=== PATIENT | female | born 1965 | race African-American/Black ===

== ENCOUNTER 2019-03-31 15:20 | Emergency (ER) | payer OTHER, SELFPAY ==
--- NOTE | 2019-03-31 15:59 | RAD ---
THREE VIEWS RIGHT HAND: 03/31/19 HISTORY: Bitten by a stray dog. FINDINGS: Bandage material is noted. There are comminuted fracture with slight displacement involving the proxi mal phalanx of the first digit. There is also a fracture involving the proximal phalanx of the fourth digit. Subcu air due to laceration is noted. No radiopaque foreign body. IMPRESSION: 1. Soft tissue laceration injury. 2. Fractures involving the first and fourth digit of the right hand, at the level of the proxima l phalanx. POS: [facility]
[2019-03-31] MEDS ORDERED: HYDROcodone/Acetaminophen 7.5/325 mg Tablet ONE (16:49)
[2019-03-31] MEDS ORDERED: Adacel (T-DAP) 0.5 ML SYRINGE ONE (17:11)
[2019-03-31] MEDS ORDERED: CEFAZOLIN 1 GM VIAL ONE (17:43)
[2019-03-31] MEDS ORDERED: metroNIDAZOLE 500 MG/100 ML BAG ONE (17:43)
[2019-03-31] MEDS ORDERED: Lidocaine 1% (PF) 30 ML VIAL ONE (17:45)
[2019-03-31 17:56] LABS: #Eosinphils 0.2 thou/uL (0.0-0.7); #Lymphocytes 1.1 thou/uL (1.20-3.40); #Monocytes 0.5 thou/uL (0.11-0.59); #Neutrophils 1.7 thou/uL (1.40-6.50); %Basophils 1.4 % (0.0-1.0); %Eosinophils 6.4 % (0.0-10.0); %Lymphocytes 30.4 % (21.0-51.0); %Monocytes 14.8 % (0.0-10.0); Hemoglobin 12.3 g/dL (12.0-16.0); Mean Corpuscular HGB CONC 33.5 g/dL (32.0-36.0); Mean Corpuscular Volume 95.6 fL (78.0-98.0); Mean Platelet Volume 10.3 fL (7.4-10.4); Platelet Count 110 thou/uL (130-400); RBC Distribution Width 13.1 % (11.5-14.5); Red Blood Cell (RBC) Count 3.85 mill/uL (4.20-5.40); White Blood Cell (WBC) Count 3.6 thou/uL (4.8-10.8)
[2019-03-31 18:05] LABS: Platelet Morphology Comment Appears Decreased; RBC Morphology Normal
[2019-03-31 18:14] LABS: ALT (SGPT) 39 U/L (8-55); AST (SGOT) 67 U/L (5-34); Albumin 3.3 g/dL (3.5-5.0); Alkaline Phosphatase 271 U/L (40-150); Anion Gap 13 mmol/L (10-20); BUN (Urea Nitrogen) 17 mg/dL (9.8-20.1); Bilirubin, Total 0.7 mg/dL (0.2-1.2); Calc. Creatinine Clearance 0 mL/min (70-130); Calcium 8.5 mg/dL (7.8-10.44); Carbon Dioxide 23 mmol/L (22-29); Chloride 105 mmol/L (98-107); Estimated GFR-MDRD 70; Globulin 4.5 g/dL (2.4-3.5); Glucose 92 mg/dL (70-105); Potassium 3.9 mmol/L (3.5-5.1); Protein, Total 7.8 g/dL (6.0-8.3); Sodium 137 mmol/L (136-145)
[2019-03-31] MEDS ORDERED: Rabies Vaccine Human 2.5 UNITS VIAL IM ONE (18:45)
[2019-03-31] MEDS ORDERED: Ondansetron PF 4 MG/2 ML Vial ONE (19:43)
[2019-03-31] MEDS ORDERED: Morphine 4 MG/ML VIAL ONE (19:43)
== END 2019-03-31 21:40 | disposition home or self-care (01) ==
LOC: ERS 15:20
DX: S62.511B Displaced fracture of proximal phalanx of right thumb, initial encounter for open fracture (principal); S62.614B Displaced fracture of proximal phalanx of right ring finger, initial encounter for open fracture; S61.411A Laceration without foreign body of right hand, initial encounter; I10 Essential (primary) hypertension; W54.0XXA Bitten by dog, initial encounter; Z79.02 Long term (current) use of antithrombotics/antiplatelets; Z79.899 Other long term (current) drug therapy
CPT/HCPCS: 12002; 29125; 36415; 80053; 85025; 90376; 90471; 90675; 90715; 96365; 96367; 96372; 96375; J0690; J2001; J2270; J2405

== ENCOUNTER 2019-04-01 21:02 | Emergency (ER) | payer SELFPAY ==
[2019-04-02 00:19] LABS: Mean Corpuscular HGB CONC 32.6 g/dL (32.0-36.0); Mean Corpuscular Hemoglobin 31.7 pg (27.0-31.0); Mean Corpuscular Volume 97.1 fL (78.0-98.0); Mean Platelet Volume 10.5 fL (7.4-10.4); Platelet Count 103 thou/uL (130-400); RBC Distribution Width 13.1 % (11.5-14.5); Red Blood Cell (RBC) Count 3.78 mill/uL (4.20-5.40); White Blood Cell (WBC) Count 4.2 thou/uL (4.8-10.8)
[2019-04-02 00:32] LABS: Band 1 % (5-11); Eosinophils 8 % (0-10); Lymphocytes 37 % (21-51); MDiff Complete? YES; Monocytes 11 % (0-10); Neutrophil 43 % (42-75); Platelet Morphology Comment Appears Decreased
[2019-04-02 00:35] LABS: ALT (SGPT) 33 U/L (8-55); AST (SGOT) 49 U/L (5-34); Albumin 3.1 g/dL (3.5-5.0); Alkaline Phosphatase 259 U/L (40-150); Anion Gap 11 mmol/L (10-20); BUN (Urea Nitrogen) 19 mg/dL (9.8-20.1); Bilirubin, Total 0.6 mg/dL (0.2-1.2); Calc. Creatinine Clearance 0 mL/min (70-130); Calcium 8.2 mg/dL (7.8-10.44); Carbon Dioxide 24 mmol/L (22-29); Chloride 105 mmol/L (98-107); Estimated GFR-MDRD 51; Globulin 4.6 g/dL (2.4-3.5); Glucose 110 mg/dL (70-105); Protein, Total 7.7 g/dL (6.0-8.3); Sodium 136 mmol/L (136-145)
[2019-04-02] MEDS ORDERED: Morphine 4 MG/ML VIAL ONE ×2 (00:58→03:37)
[2019-04-02] MEDS ORDERED: metroNIDAZOLE 500 MG/100 ML BAG ONE (00:59)
[2019-04-02] MEDS ORDERED: CEFAZOLIN 1 GM VIAL ONE (00:59)
== END 2019-04-02 03:42 | disposition short-term general hospital (02) ==
LOC: ERS 21:02
DX: S62.501B Fracture of unspecified phalanx of right thumb, initial encounter for open fracture (principal); S62.604B Fracture of unspecified phalanx of right ring finger, initial encounter for open fracture; L03.113 Cellulitis of right upper limb; I10 Essential (primary) hypertension; Z79.899 Other long term (current) drug therapy; W54.0XXA Bitten by dog, initial encounter
CPT/HCPCS: 36415; 80053; 83605; 85025; 87040; 96365; 96367; 96375; 96376; J0690; J2270

== ENCOUNTER 2019-07-13 12:18 | Observation (INO) | payer MEDICAID ==
[2019-07-13 12:49] LABS: #Eosinphils 0.4 thou/uL (0.0-0.7); #Lymphocytes 1.1 thou/uL (1.20-3.40); #Monocytes 0.4 thou/uL (0.11-0.59); #Neutrophils 1.1 thou/uL (1.40-6.50); %Basophils 0.8 % (0.0-1.0); %Eosinophils 14.9 % (0.0-10.0); %Lymphocytes 34.8 % (21.0-51.0); %Monocytes 14.1 % (0.0-10.0); %Neutrophils 35.4 % (42.0-75.0); Hemoglobin 11.4 g/dL (12.0-16.0); Mean Corpuscular HGB CONC 33.5 g/dL (32.0-36.0); Mean Corpuscular Hemoglobin 30.4 pg (27.0-31.0); Mean Corpuscular Volume 90.8 fL (78.0-98.0); Mean Platelet Volume 10.1 fL (7.4-10.4); Platelet Count 108 thou/uL (130-400); Red Blood Cell (RBC) Count 3.75 mill/uL (4.20-5.40)
[2019-07-13] MEDS ORDERED: Aspirin 325 MG TAB ONE (13:00)
[2019-07-13 13:10] LABS: ALT (SGPT) 22 U/L (8-55); AST (SGOT) 41 U/L (5-34); Albumin 2.7 g/dL (3.5-5.0); Alkaline Phosphatase 205 U/L (40-110); Anion Gap 10 mmol/L (10-20); BUN (Urea Nitrogen) 16 mg/dL (9.8-20.1); Bilirubin, Total 0.4 mg/dL (0.2-1.2); Calc. Creatinine Clearance 0 mL/min (70-130); Calcium 8.1 mg/dL (7.8-10.44); Carbon Dioxide 26 mmol/L (22-29); Chloride 106 mmol/L (98-107); Estimated GFR-MDRD 56; Globulin 4.2 g/dL (2.4-3.5); Glucose 68 mg/dL (70-105); Potassium 3.9 mmol/L (3.5-5.1); Protein, Total 6.9 g/dL (6.0-8.3); Sodium 138 mmol/L (136-145)
--- NOTE | 2019-07-13 13:42 | ULT ---
VENOUS DOPPLER ULTRASOUND OF THE LEFT LOWER EXTREMITY: Date: 07/13/19 HISTORY: Left lower extremity pain and edema. TECHNIQUE: Calixto scale ultrasound with color flow and spectral Doppler imaging of the deep venous system of the l eft lower extremity was performed. FINDINGS: There is good flow, compression, and augmentation noted in the left common femoral, femoral, deep fem oral, popliteal, posterior tibial, and greater saphenous veins. IMPRESSION: No evidence of deep venous thrombosis in the left lower extremity. POS: [facility]
[2019-07-13 17:15] LABS: Troponin I 0.016 ng/mL (< 0.028)
[2019-07-13] MEDS ORDERED: Ondansetron PF 4 MG/2 ML Vial IVP PRN (19:21)
[2019-07-13] MEDS ORDERED: Ondansetron ODT 4 MG TAB PO PRN (19:21)
[2019-07-13] MEDS ORDERED: Acetaminophen 325 MG TAB PO PRN (19:21)
[2019-07-13] MEDS ORDERED: Nitroglycerin 0.4 MG TAB (25 Tab Bottle) PO PRN (19:21)
[2019-07-13] MEDS ORDERED: guaiFENesin/Codeine Phosphate 200 mg/20 mg 10 ml UD Cup PO PRN (19:21)
[2019-07-13] MEDS ORDERED: HYDROcodone/Acetaminophen 5/325 mg Tablet PO PRN (19:21)
[2019-07-13] MEDS ORDERED: predniSONE 20 MG TAB PO SCH (19:30)
[2019-07-13] MEDS ORDERED: Carvedilol 25 MG TAB PO SCH (20:15)
[2019-07-13 20:25] LABS: Troponin I 0.017 ng/mL (< 0.028)
[2019-07-13] MEDS: Famotidine 20 MG TAB PO SCH (20:33)
[2019-07-13 21:09] VITALS: BMI 37.6
--- NOTE | 2019-07-13 22:44 | HP ---
CHIEF COMPLAINT: Shortness of breath and chest hurting. HISTORY OF PRESENT ILLNESS: Ms. Contreras is a pleasant 53-year-old female, who has a history of hypertension, coronary artery disease, and COPD. She says that [place] the bus [place] when she started feeling extremely lightheaded and says she was flat, could not breathe. She also says that her chest started hurting in the center of her chest. She says she felt very nervous and thought she might pass out. Someone was actually coming along at that time and helped her to the hospital. She says she was on her way to the [facility] in order to try to get her nebulizer, which she has not had since she has been incarcerated. She came to the emergency room where they did an evaluation. She had troponins done, which were essentially negative and had an EKG, which had some nonspecific ST wave changes and as a result, she is being placed in observation for further evaluation and treatment. The patient also has a history of COPD and asthma and says she has been having a lot of coughing as well as phlegm and says she was wondering, if some of her symptoms could be related to her coughing fits and the fact that she had been out of her nebulizer. REVIEW OF SYSTEMS: All systems were reviewed and are negative except for that mentioned in the history of present illness. PAST MEDICAL HISTORY: Significant for COPD, congestive heart failure, asthma, hypertension, hypercholesterolemia, and liver cancer which she says is being cured. PAST SURGICAL HISTORY: She had a stent placed back in June, cardiac catheterization, hernia repair, cholecystectomy. ALLERGIES: IBUPROFEN AND SHE IS NOT SURE OF THE REACTION. FAMILY HISTORY: Significant for diabetes, cancer and heart disease. SOCIAL HISTORY: She is single. She has 4 children. She is a former smoker. She quit in 2002. She used to smoke for about 15 years. She also occasionally drinks about a bottle of wine on the weekends. CURRENT MEDICATIONS: We will need to reconcile her medicines, these are from 2012. She tells me she is no longer on metoprolol. PHYSICAL EXAMINATION: GENERAL: She is alert and oriented. She appears to be in no acute distress. VITAL SIGNS: Her blood pressure was 178/98, heart rate 68, respiratory rate of 16, temperature is 97.9, and O2 saturation is 95% on room air. HEENT: Pupils are equal, round, and reactive to light. Extraocular muscles are intact. Her sclerae anicteric. THROAT: There is no erythema, no exudates. NECK: No adenopathy, no bruits. LUNGS: She has decrease in air movement and an occasional wheeze. CARDIOVASCULAR: She has a normal S1 and S2. There is no S3 or S4. No murmurs, clicks, or rubs. ABDOMEN: Obese. It is soft, nontender, and nondistended. Positive for bowel sounds. There is no rebound, no guarding, no organomegaly. EXTREMITIES: There is no clubbing, cyanosis. No edema. NEUROLOGIC: Nonfocal. SKIN AND INTEGUMENT: There are no skin changes. No rash. ASSESSMENT: 1. Chest pain. The patient will be placed on observation. She will be ruled out and we will get an exercise Cardiolite in the a.m. to help further assess her risks for coronary artery disease. 2. History of asthma and chronic obstructive pulmonary disease. This could be the culprit with regard to the chest pain. She will be placed on DuoNeb treatments p.r.n. and scheduled treatments q.6. 3. History of heart failure. We will get an echocardiogram as she says she has not had a recent echo to assess her ejection fraction and further recommendations are to follow. Job ID: [id number]
[2019-07-13] MEDS: Nitroglycerin 2% Ointment 1 INCH/1 GM Packet TOP SCH (23:12)
[2019-07-14 04:36] VITALS: TEMP 97.8
[2019-07-14 05:20] LABS: Anion Gap 11 mmol/L (10-20); BUN (Urea Nitrogen) 21 mg/dL (9.8-20.1); Calc. Creatinine Clearance 93 mL/min (70-130); Calcium 8.2 mg/dL (7.8-10.44); Carbon Dioxide 23 mmol/L (22-29); Chloride 103 mmol/L (98-107); Cholesterol 230 mg/dl (< 200 Desired); Estimated GFR-MDRD 62; Glucose 135 mg/dL (70-105); HDL Cholesterol 57 mg/dL (>60 Neg Risk); LDL Cholesterol, Calculated 159 mg/dL; Potassium 4.9 mmol/L (3.5-5.1); Sodium 132 mmol/L (136-145); Triglycerides 68 mg/dL (Less than 150)
[2019-07-14 05:43] LABS: #Lymphocytes 0.5 thou/uL (1.20-3.40); #Monocytes 0.1 thou/uL (0.11-0.59); #Neutrophils 0.8 thou/uL (1.40-6.50); %Basophils 0.4 % (0.0-1.0); %Eosinophils 1.6 % (0.0-10.0); %Lymphocytes 33.5 % (21.0-51.0); %Monocytes 6.8 % (0.0-10.0); %Neutrophils 57.7 % (42.0-75.0); Hemoglobin 12.7 g/dL (12.0-16.0); Mean Corpuscular HGB CONC 33.5 g/dL (32.0-36.0); Mean Corpuscular Hemoglobin 30.9 pg (27.0-31.0); Mean Corpuscular Volume 92.1 fL (78.0-98.0); Mean Platelet Volume 10.4 fL (7.4-10.4); Platelet Count 110 thou/uL (130-400); Platelet Morphology Comment Appears Decreased; Red Blood Cell (RBC) Count 4.12 mill/uL (4.20-5.40); White Blood Cell (WBC) Count 1.4 thou/uL (4.8-10.8)
[2019-07-14] MEDS: Nitroglycerin 2% Ointment 1 INCH/1 GM Packet TOP SCH (05:58)
[2019-07-14] MEDS ORDERED: Carvedilol 25 MG TAB PO SCH ×2 (08:00→17:00)
[2019-07-14] MEDS ORDERED: Clopidogrel Bisulfate 75 MG TAB PO SCH (09:00)
[2019-07-14] MEDS ORDERED: predniSONE 20 MG TAB PO SCH (09:00)
[2019-07-14] MEDS ORDERED: Enoxaparin Sodium 40 MG/0.4 ML SYRINGE SC SCH (09:00)
[2019-07-14] MEDS ORDERED: Spironolactone 100 MG TAB PO SCH (10:45)
[2019-07-14] MEDS: Famotidine 20 MG TAB PO SCH (11:41)
--- NOTE | 2019-07-14 11:50 | NM ---
NM Cardiac Stress W EF WF History: Chest pain Comparison: Stress test 2012 Findings: Stress only exam was performed after the intravenous administration of 29.3 mCi technetium 99m sestamibi. Adequate left ventricular uptake of radiotracer. No evidence of scar or ischemia. The EKG stress was normal. Calculated ejection fraction: 70%. Impression: Normal nuclear medicine cardiac stress test and ejection fraction.
[2019-07-14 13:01] VITALS: BP 168/94
[2019-07-14] MEDS ORDERED: Regadenoson 0.4 MG/5 ML SYRINGE ONE (14:35)
--- NOTE | 2019-07-14 15:57 | DIS ---
DATE OF ADMISSION: 07/13/2019 DATE OF DISCHARGE: 07/14/2019 DISCHARGE DISPOSITION: Home. FOLLOWUP: Follow up with primary care physician at [facility] (Debbie More) in 1 week. The patient was seen and examined on the day of discharge. Denies any new complaints. No chest pain, shortness of breath, or palpitations. DISCHARGE MEDICATIONS: The patient was started on low-dose prednisone for the next 3 to 4 days. She will continue all other home medications including Plavix. BRIEF HOSPITAL COURSE: The patient is a 53-year-old female with hypertension, hyperlipidemia, and asthma, presented to the emergency room with chest discomfort and shortness of breath. She was monitored in the telemetry unit. Serial troponins were negative. She underwent a Cardiolite stress test that was negative for reversible ischemia. Ejection fraction was 70%. There were no wall motion abnormalities. She is chest pain free at this time. FINAL DIAGNOSES: 1. Chest discomfort, acute coronary syndrome ruled out. 2. SOB, suspected to be secondary to mild asthma exacerbation, improved. 3. Chronic obstructive pulmonary disease. 4. Hypertension. 5. Hyperlipidemia. 6. History of liver cancer. 7. Coronary artery disease, status post stent placement in the past. 8. Chronic kidney disease, stage 2. 9. Mild hyponatremia. Repeat basic metabolic profile after 1 week is recommended. 10. Chronic thrombocytopenia. SIGNIFICANT LABORATORY DATA: Fasting lipid showed cholesterol 230, LDL 159, HDL of 57, triglycerides 68. Sodium at discharge is 132, on admission was 138. WBC on admission was 3.0, at discharge is 1.4. Please note, the patient has chronic leukopenia. Repeat CBC and basic metabolic profile after 1 to 2 weeks is recommended, primary care physician advised to follow. Job ID: [id number] MTDD
[2019-07-15] MEDS ORDERED: Spironolactone 100 MG TAB PO SCH (09:00)
== END 2019-07-14 13:50 | disposition home or self-care (01) ==
LOC: ERS 12:18 → 2SW 16:30
PROVIDERS: ADMIT Internal Medicine; ATTEND Internal Medicine
DX: R07.89 Other chest pain (principal); J44.9 Chronic obstructive pulmonary disease, unspecified; I13.0 Hypertensive heart and chronic kidney disease with heart failure and stage 1 through stage 4 chronic kidney disease, or unspecified chronic kidney disease; N18.2 Chronic kidney disease, stage 2 (mild); I50.9 Heart failure, unspecified; I25.10 Atherosclerotic heart disease of native coronary artery without angina pectoris; D69.6 Thrombocytopenia, unspecified; E78.00 Pure hypercholesterolemia, unspecified; E78.5 Hyperlipidemia, unspecified; E87.1 Hypo-osmolality and hyponatremia; Z87.891 Personal history of nicotine dependence; Z88.8 Allergy status to other drugs, medicaments and biological substances; Z95.5 Presence of coronary angioplasty implant and graft
CPT/HCPCS: 36415; 78452; 80048; 80053; 80061; 83880; 84484; 85025; 93005; 93017; 93306; 94640; A9500; G0378; J2785; J7512; J7620

== ENCOUNTER 2019-07-19 11:13 | Emergency (ER) | payer MEDICAID, OTHER ==
--- NOTE | 2019-07-19 12:33 | RAD ---
LEFT HAND 3 VIEWS: HISTORY: Injury, left hand pain FINDINGS: There is incompletely displaced fracture involving the proximal metaphysis of the proximal phalanx of the left ring finger/fourth digit.
--- NOTE | 2019-07-19 12:35 | RAD ---
Right hand 3 views: HISTORY: Injury, right hand pain COMPARISON: 03/23/2019 FINDINGS: Interval reduction and internal fixation of the fracture of the proximal phalanx of the fourth digit is seen within metallic hardware in place. There is a oblique fracture without significant displacement involving the distal phalanx of the se[place] nd digit/index finger.
== END 2019-07-19 13:37 | disposition home or self-care (01) ==
LOC: ERS 11:13
DX: S62.630A Displaced fracture of distal phalanx of right index finger, initial encounter for closed fracture (principal); S62.615A Displaced fracture of proximal phalanx of left ring finger, initial encounter for closed fracture; S61.214A Laceration without foreign body of right ring finger without damage to nail, initial encounter; I10 Essential (primary) hypertension; I25.10 Atherosclerotic heart disease of native coronary artery without angina pectoris; Z79.899 Other long term (current) drug therapy; W20.8XXA Other cause of strike by thrown, projected or falling object, initial encounter

== ENCOUNTER 2019-10-27 15:46 | Emergency (ER) | payer MEDICAID | END 2019-10-27 18:43 | disposition left against medical advice (07) | LOC: ERS 15:46 | DX: Z53.21 Procedure and treatment not carried out due to patient leaving prior to being seen by health care provider (principal) ==

== ENCOUNTER 2019-11-09 08:41 | Outpatient (CLI) | payer OTHER ==
--- NOTE | 2019-11-09 11:07 | ULT ---
DAVISON SCALE AND COLOR FLOW AND SPECTRAL DOPPLER IMAGING OF THE LIVER: Date: 11/09/2019 HISTORY: Hepatitis C. FINDINGS: The liver demonstrates irregular surface without focal mass or intrahepatic ductal dilatation. The sp tremayne is normal in size, measuring 8.5 cm, with tiny echogenic foci consistent with old granulomatous disease. The patient is post cholecystectomy. The common duct measures 5 mm in diameter. The visualiz ed portions of the pancreas, aorta, and IVC are unremarkable. There is normal flow and spectral waveforms in the hepatic, portal, and splenic vasculature. No free fluid is seen. IMPRESSION: Cirrhosis of liver without evidence of hepatic mass. POS: [facility]
== END 2019-11-09 08:42 | disposition home or self-care (01) ==
LOC: BICULT 08:41
PROVIDERS: ATTEND Internal Medicine Gastroenterology
DX: R13.10 Dysphagia, unspecified (principal); Z12.11 Encounter for screening for malignant neoplasm of colon; K74.60 Unspecified cirrhosis of liver; Z86.19 Personal history of other infectious and parasitic diseases
CPT/HCPCS: 76705

== ENCOUNTER 2019-12-14 10:11 | Emergency (ER) | payer MEDICAID, OTHER ==
--- NOTE | 2019-12-14 10:37 | RAD ---
XR Chest 1 View Portable HISTORY: Chest pain, dyspnea COMPARISON: 08/02/2019 FINDINGS: The heart is enlarged. The aorta is tortuous. The lungs are expanded without lobar consolid ation, pneumothoraces, ariadne pulmonary edema or pleural effusions. IMPRESSION: No radiographic evidence of acute cardiopulmonary process.
[2019-12-14 11:06] LABS: #Basophils 0.1 thou/uL (0.0-0.2); #Eosinphils 0.4 thou/uL (0.0-0.7); #Lymphocytes 1.2 thou/uL (1.20-3.40); #Monocytes 0.7 thou/uL (0.11-0.59); #Neutrophils 2.8 thou/uL (1.40-6.50); %Basophils 1.2 % (0.0-1.0); %Eosinophils 7.6 % (0.0-10.0); %Lymphocytes 22.7 % (21.0-51.0); %Monocytes 14.1 % (0.0-10.0); %Neutrophils 54.4 % (42.0-75.0); Hemoglobin 13.8 g/dL (12.0-16.0); Mean Corpuscular Hemoglobin 31.8 pg (27.0-31.0); Mean Corpuscular Volume 93.7 fL (78.0-98.0); Mean Platelet Volume 10.9 fL (7.4-10.4); Platelet Count 124 thou/uL (130-400); RBC Distribution Width 13.4 % (11.5-14.5); Red Blood Cell (RBC) Count 4.35 mill/uL (4.20-5.40); White Blood Cell (WBC) Count 5.1 thou/uL (4.8-10.8)
[2019-12-14] MEDS ORDERED: methylPREDNISolone Sod Succ/PF 125 MG/2 ML VIAL ONE (11:33)
[2019-12-14 11:36] LABS: ALT (SGPT) 23 U/L (8-55); AST (SGOT) 41 U/L (5-34); Albumin 3.1 g/dL (3.5-5.0); Alkaline Phosphatase 248 U/L (40-110); Anion Gap 11 mmol/L (10-20); BUN (Urea Nitrogen) 22 mg/dL (9.8-20.1); Bilirubin, Total 0.6 mg/dL (0.2-1.2); Calc. Creatinine Clearance 0 mL/min (70-130); Calcium 8.8 mg/dL (7.8-10.44); Carbon Dioxide 25 mmol/L (22-29); Chloride 105 mmol/L (98-107); Estimated GFR-MDRD 50; Glucose 88 mg/dL (70-105); Lipase 81 U/L (8-78); Potassium 3.7 mmol/L (3.5-5.1); Protein, Total 8.1 g/dL (6.0-8.3); Sodium 137 mmol/L (136-145)
[2019-12-14] MEDS ORDERED: Acetaminophen/Codeine 30-300mg Tablet ONE (12:51)
[2019-12-14] MEDS ORDERED: cloNIDine 0.1 MG TAB ONE (12:52)
--- NOTE | 2019-12-16 14:33 | EKG ---
Test Reason : Blood Pressure : / mmHG Vent. Rate : 070 BPM Atrial Rate : 070 BPM P-R Int : 148 ms QRS Dur : 084 ms QT Int : 440 ms P-R-T Axes : 026 -32 032 degrees QTc Int : 475 ms Normal sinus rhythm Possible Left atrial enlargement Left axis deviation Left ventricular hypertrophy Cannot rule out Septal infarct , age undetermined Abnormal ECG Confirmed by DANIELLA KING D.O. ([id number]), image editor MEET OLIVA ([id number]) on 12/16/2019 2:33:01 PM Referred By: Confirmed By:DANIELLA KING D.O.
== END 2019-12-14 12:58 | disposition home or self-care (01) ==
LOC: ERS 10:11
DX: J02.9 Acute pharyngitis, unspecified (principal); I10 Essential (primary) hypertension; I25.10 Atherosclerotic heart disease of native coronary artery without angina pectoris; J44.9 Chronic obstructive pulmonary disease, unspecified; F32.9 Major depressive disorder, single episode, unspecified; Z79.899 Other long term (current) drug therapy
CPT/HCPCS: 71045; 80053; 83690; 84484; 85025; 87081; 87430; 87804; 93005; 96374; J2930

== ENCOUNTER 2019-12-30 17:52 | Observation (INO) | payer OTHER ==
[2019-12-30 18:37] LABS: Hemoglobin 13.1 g/dL (12.0-16.0); Mean Corpuscular HGB CONC 33.3 g/dL (32.0-36.0); Mean Corpuscular Volume 93.1 fL (78.0-98.0); Mean Platelet Volume 10.4 fL (7.4-10.4); Platelet Count 134 thou/uL (130-400); RBC Distribution Width 13.3 % (11.5-14.5); Red Blood Cell (RBC) Count 4.23 mill/uL (4.20-5.40); White Blood Cell (WBC) Count 4.4 thou/uL (4.8-10.8)
[2019-12-30] MEDS ORDERED: Albuterol Sulfate 2.5 mg/3 ml Neb ONE (18:47)
[2019-12-30 18:57] LABS: ALT (SGPT) 20 U/L (8-55); AST (SGOT) 37 U/L (5-34); Alkaline Phosphatase 212 U/L (40-110); Anion Gap 15 mmol/L (10-20); BUN (Urea Nitrogen) 22 mg/dL (9.8-20.1); Band 4 % (5-11); Bilirubin, Total 0.4 mg/dL (0.2-1.2); Calc. Creatinine Clearance 0 mL/min (70-130); Calcium 8.3 mg/dL (7.8-10.44); Carbon Dioxide 20 mmol/L (22-29); Chloride 107 mmol/L (98-107); Eosinophils 12 % (0-10); Estimated GFR-MDRD 48; Globulin 4.5 g/dL (2.4-3.5); Glucose 80 mg/dL (70-105); Lymphocytes 36 % (21-51); MDiff Complete? YES; Monocytes 11 % (0-10); Neutrophil 35 % (42-75); Platelet Morphology Comment Appears Adequate; Polychromasia SLIGHT = 2-3 cells (100X) (0-2/hpf); Potassium 4.2 mmol/L (3.5-5.1); Protein, Total 7.5 g/dL (6.0-8.3); Reactive Lymphocytes 2 % (0-10); Sodium 138 mmol/L (136-145)
--- NOTE | 2019-12-30 19:00 | RAD ---
XR Chest 1 View Portable History: Dyspnea Comparison: Radiograph December 14, 2019 Findings: Heart size is enlarged. Mild pulmonary venous congestion and developing edema. No pneumotho rax. No significant effusion. No acute osseous abnormality. Impression: Cardiomegaly with early pulmonary edema.
[2019-12-30] MEDS ORDERED: Labetalol HCl 100 MG/20 ML VIAL ONE ×2 (19:16→20:43)
[2019-12-30] MEDS ORDERED: predniSONE 20 MG TAB ONE (19:31)
[2019-12-30] MEDS ORDERED: Ipratropium Bromide 2.5 ml Neb ONE ×2 (20:17→20:19)
[2019-12-30] MEDS ORDERED: Albuterol Sulfate 2.5 mg/0.5 ml Neb ONE (20:19)
--- NOTE | 2019-12-30 21:48 | PDOC.FPRHP ---
- History of Present Illness Chief Complaint: difficulty breathing History of Present Illness: 54 yo F w/ PMHx CAD, HTN, and COPD who presents after experiencing worsening SOB yesterday accompanied by cough productive of yellow sputum. Denies fever, travel, and recent sick contacts. Has not received the flu shot this year. Recently saw assisted living housekeeper at [facility] and they discontinued her isosorbide. + orthopnea w/ 3 pillows, + waking up gasping for air. Reports she is still urinating normally. Had 3 stents placed 11/30/2019. Had some mild chest pain yesterday which felt like heartburn to her and improved when she drank water. Chest pain did not radiate. ED Course: CXR: cardiomegaly w/ early pulmonary edema Labetalol 20mg x3 2 duonebs 2 albuterol nebs 60mg oral prednisone - Allergies/Adverse Reactions Allergies Allergy/AdvReac Type Severity Reaction Status Date / Time ibuprofen Allergy Severe Anaphylaxis Verified 12/31/19 01:25 - Home Medications Medication Instructions Recorded Confirmed Type Carvedilol 25 mg PO BID 07/13/19 12/31/19 History Clopidogrel Bisulfate [Clopidogrel] 75 mg PO DAILY 07/13/19 12/31/19 History Spironolactone 100 mg PO DAILY 07/13/19 12/31/19 History Aspirin [Aspir-Low] 81 mg PO DAILY 12/30/19 12/31/19 History Atorvastatin Calcium 40 mg PO DAILY 12/30/19 History Albuterol Sulfate [Proair HFA] 2 puff INH Q4H PRN 12/31/19 12/31/19 History - History PMHx: CAD, HTN, COPD, history of Hep C s/p treatment, depression PSHx: tubal ligation, cardiac cath w/ stents 11/2019 at [facility], liver biopsy, c- section, cholecystectomy FHx: denies Social: - previous smoker < 10 pack-years - denies alcohol, drug use - lives by herself - Review of Systems General: denies: fever/chills, weight/appetite/sleep changes, fatigue Eyes: denies: vision changes ENT: reports: rhinorrhea. denies: nasal congestion Respiratory: reports: cough, shortness of breath, exercise intolerance Cardiovascular: reports: chest pain, edema, paroxysmal nocturnal dyspnea, orthopnea. denies: palpitation Gastrointestinal: denies: nausea, vomiting, diarrhea, constipation, abdominal pain Genitourinary: denies: dysuria Skin: denies: rashes Musculoskeletal: denies: pain, arthritis/arthralgias Neurological: denies: numbness, syncope, weakness - Vital signs BP: 188/120, Pulse: 67, Resp: 20, Temp: 97.9 (Oral), Pain: 10, O2 sat: 98 on ( Room Air), Time: 12/30/2019 17:53. - Physical Exam Constitutional: NAD, awake, alert and oriented (eating a bag of chips) HEENT: normocephalic and atraumatic, PERRLA, conjunctiva clear, no scleral icterus, grossly normal vision, grossly normal hearing, MMM, oropharynx clear Neck: supple, no LAD, no thyromegaly Chest: no-tender to palpation Heart: RRR, normal S1/S2, no murmurs/rubs/gallops, other (edema 1+ pitting bilaterally) Lungs: other (wheezing b/l, diminished lung sounds at L > R base, no crackles) Abdomen: soft, non-tender, no masses/distention Musculoskeletal: normal structure Neurological: no focal deficit Skin: no rash/lesions, good turgor Heme/Lymphatic: no unusual bruising or bleeding, no petechia Psychiatric: normal mood and affect, intact recent and remote memory FMR H&P: Results - Labs Result Diagrams: 12/30/19 18:27 12/30/19 18:27 Lab results: WBC 4.4 thou/uL (4.8-10.8) L 12/30/19 18: Hgb 13.1 g/dL (12.0-16.0) 12/30/19 18:27 Hct 39.4 % (36.0-47.0) 12/30/19 18: MCV 93.1 fL (78.0-98.0) 12/30/19 18:27 Plt Count 134 thou/uL (130-400) 12/30/19 18:27 Band Neuts % (Manual) 4 % (5-11) L 12/30/19 18:27 Sodium 138 mmol/L (136-145) 12/30/19 18:27 Potassium 4.2 mmol/L (3.5-5.1) 12/30/19 18:27 Chloride 107 mmol/L (98-107) 12/30/19 18:27 Carbon Dioxide 20 mmol/L (22-29) L 12/30/19 18:27 BUN 22 mg/dL (9.8-20.1) H 12/30/19 18:27 Creatinine 1.38 mg/dL (0.6-1.1) H 12/30/19 18:27 Glucose 80 mg/dL (70-105) 12/30/19 18:27 Calcium 8.3 mg/dL (7.8-10.44) 12/30/19 18:27 Total Bilirubin 0.4 mg/dL (0.2-1.2) 12/30/19 18:27 AST 37 U/L (5-34) H 12/30/19 18:27 ALT 20 U/L (8-55) 12/30/19 18:27 Alkaline Phosphatase 212 U/L (40-110) H 12/30/19 18:27 Serum Total Protein 7.5 g/dL (6.0-8.3) 12/30/19 18:27 Albumin 3.0 g/dL (3.5-5.0) L 12/30/19 18:27 - EKG Interpretation EKG: NSR, LVH FMR H&P: A/P - Problem List (1) Pulmonary edema Current Visit: Yes Status: Acute Code(s): J81.1 - CHRONIC PULMONARY EDEMA (2) Hypertensive urgency Current Visit: Yes Status: Acute Code(s): I16.0 - HYPERTENSIVE URGENCY (3) CAD (coronary artery disease) Current Visit: Yes Status: Acute Code(s): I25.10 - ATHSCL HEART DISEASE OF [place] CORONARY ARTERY W/O ANG PCTRS (4) COPD (chronic obstructive pulmonary disease) Current Visit: Yes Status: Acute - Plan 54 yo F admitted for: HTN Urgency DDx: uncontrolled HTN, resistant HTN. - received labetalol x3 in ER with some benefit. - will give hydralazine 10mg prn. - monitor on telemetry overnight - may consider adding ACEi or nifedipine in AM pending Echo results. Pulmonary Edema - fluid overload 2/2 Possible diastolic CHF exacerbation vs less likely PNA, COPD exacerbation, or other viral respiratory illness - strict I/Os - lasix 20 IV given in ER. - will reassess on serial exams and diurese as needed - Echo ordered for tomorrow. - BNP mildly elevated compared to last value COVID r/o - due to cough, will swab for COVID - afebrile - overall clinical picture more likely suggests above diagnoses, however cannot r/o. AYDEN vs CKD - Creatinine mildly elevated, near baseline - oral fluid resuscitation since pt is fluid overloaded. HTN - continue home HTN meds CAD - recent stent placement 2019. - Last ECHO 2018, EF 55-60% with concentric left ventricular hypertrophy - continue plavix, asa81, and atorvastatin COPD - albuterol inhaled prn - received prednisone 60mg in the ER History of drug use - UDS pending Code: FULL Fluids: none VTE ppx: heparin GI ppx: none Disposition/LOS: admit to tele obs. Anticipated LOS > 48H. FMR H&P: Upper Level - Plan Date/Time: 12/30/19 [id number] IWilliam DO, have evaluated this patient and agree with findings/ plan as outlined by jewelry internship resident. Pertinent changes/additions are listed here. 54 yp f w uncontrolled htn, cad s/p pci one month ago whor presents for 5 day history of worsening sob, cochran and orthopnea. Pt cxr showed edema, elevated bp and uds positive for meth. Will admit for bp control amd diurese given pulm edema on cxr. Check bnp, monitor bp.
[2019-12-30] MEDS ORDERED: Ondansetron ODT 4 MG TAB PO PRN (22:19)
[2019-12-30] MEDS ORDERED: Ondansetron PF 4 MG/2 ML Vial IVP PRN (22:19)
[2019-12-30] MEDS ORDERED: hydrALAZINE 20 MG/ML VIAL SLOW IVP PRN ×2 (22:25→22:59)
[2019-12-30] MEDS ORDERED: Furosemide 20 MG TAB PO SCH ×2 (22:45)
[2019-12-31 01:29] LABS: Amphetamine Not Detected (NotDetected); Barbiturates Screen Not Detected (NotDetected); Benzodiazepine Screen Not Detected (NotDetected); Cocaine Metabolite Screen Not Detected (NotDetected); Medtox Control Line Valid? VALID (VALID); Medtox Reader # READER 4; Methadone Not Detected (NotDetected); Methamphetamine Detected (NotDetected); Opiate Screen Detected (NotDetected); Oxycodone Screen Not Detected (NotDetected); Phencyclidine (PCP) Not Detected (NotDetected); THC/Cannabinoid Screen Not Detected (NotDetected); Tricyclic Screen Not Detected (NotDetected)
[2019-12-31] MEDS: Acetaminophen 325 MG TAB PO PRN ×2 (03:31→09:38)
[2019-12-31 04:51] LABS: #Lymphocytes 0.5 thou/uL (1.20-3.40); #Monocytes 0.1 thou/uL (0.11-0.59); #Neutrophils 1.9 thou/uL (1.40-6.50); %Eosinophils 0.6 % (0.0-10.0); %Lymphocytes 18.8 % (21.0-51.0); %Monocytes 2.2 % (0.0-10.0); %Neutrophils 78.4 % (42.0-75.0); Hemoglobin 12.9 g/dL (12.0-16.0); Mean Corpuscular HGB CONC 33.4 g/dL (32.0-36.0); Mean Corpuscular Volume 92.9 fL (78.0-98.0); Mean Platelet Volume 10.7 fL (7.4-10.4); Platelet Count 131 thou/uL (130-400); RBC Distribution Width 13.3 % (11.5-14.5); Red Blood Cell (RBC) Count 4.17 mill/uL (4.20-5.40); White Blood Cell (WBC) Count 2.5 thou/uL (4.8-10.8)
[2019-12-31 05:09] LABS: Anion Gap 17 mmol/L (10-20); BUN (Urea Nitrogen) 25 mg/dL (9.8-20.1); Calc. Creatinine Clearance 78 mL/min (70-130); Calcium 8.5 mg/dL (7.8-10.44); Carbon Dioxide 17 mmol/L (22-29); Chloride 106 mmol/L (98-107); Estimated GFR-MDRD 50; Glucose 231 mg/dL (70-105); Sodium 136 mmol/L (136-145)
--- NOTE | 2019-12-31 06:30 | PDOC.FM ---
- Subjective Subjective: Ms. Contreras says she would like to go home today. Her main complaint is L leg cramping. Denies SOB, orthopnea, edema, chest pain. - Objective Vital Signs & Weight: Vital Signs (12 hours) Temp Pulse Resp BP BP Pulse Ox 12/31/19 01:30 173/82 H 12/31/19 00:55 192/100 H 12/31/19 00:20 207/115 H 12/30/19 23:26 97.6 F 84 18 207/115 H 98 Weight Weight 103.419 kg I&O: 12/29/19 12/30/19 12/31/19 06:59 06:59 06:59 Output Total 200 Balance -200 Result Diagrams: 12/31/19 04:36 12/31/19 04:36 Phys Exam - Physical Examination Constitutional: NAD Respiratory: no wheezing, clear to auscultation bilateral Cardiovascular: RRR, no significant murmur Musculoskeletal: no edema Neurological: non-focal Skin: normal turgor Dx/Plan - Plan Plan: 54 yo F admitted for: HTN Urgency DDx: uncontrolled HTN, resistant HTN. - received labetalol x3 in ER with some benefit. - hydralazine 10mg prn SBP >180 - monitor on telemetry overnight - may consider adding ACEi or nifedipine in AM pending Echo results. - cont home carvedilol. May consider additional BP med today, nifedipine Pulmonary Edema - fluid overload 2/2 Possible diastolic CHF exacerbation vs less likely PNA, COPD exacerbation, or other viral respiratory illness. BNP mildly elevated compared to last value - strict I/Os - lasix 20 IV given in ER. - will reassess on serial exams and diurese as needed - Echo pending COVID r/o - COVID pending - afebrile - overall clinical picture not very suspicious AYDEN vs CKD, improved - Creatinine mildly elevated, near baseline HTN - continue home HTN meds Elevated fasting BG - no hx DM. f/u A1c with PCP. CAD - recent stent placement 2019. - Last ECHO 2018, EF 55-60% with concentric left ventricular hypertrophy - continue plavix, asa81, and atorvastatin COPD - albuterol inhaled prn - received prednisone 60mg in the ER History of drug use - UDS pending Code: FULL Fluids: none VTE ppx: heparin GI ppx: none Disposition/LOS: Continue observation, echo pending, managing BP. Addendum - Attending - Attending Attestation Date/Time: 12/31/19 [id number] I personally evaluated the patient and discussed the management with Dr. Cortes I agree with the History, Examination, Assessment and Plan documented above with any addition or exceptions noted below- Patient denies any complaints. Afebrile VSS. A/P: 1) Hypertensive urgency - will adjust BP meds as needed; consider additional of calcium channel ashwini. 2) CAD s/p stent (end of November)- will check echo to evaluate EF 3) Viral syndrome - h/o fever/cough/ congestion - COVID pending; continue supportive care.
[2019-12-31] MEDS ORDERED: FLU VACC QS2019-20(6MOS UP)/PF 60 MCG/0.5 ML SYRINGE IM ONE (09:00)
[2019-12-31] MEDS: Carvedilol 25 MG TAB PO SCH ×2 (09:39→20:31)
[2019-12-31] MEDS: Clopidogrel Bisulfate 75 MG TAB PO SCH (09:39)
[2019-12-31] MEDS: Heparin 5,000 UNITS/ML VIAL SC SCH ×3 (09:39→20:31)
[2019-12-31] MEDS: Atorvastatin Calcium 40 MG TAB PO SCH (09:39)
[2019-12-31] MEDS: Spironolactone 100 MG TAB PO SCH (09:39)
[2019-12-31] MEDS: Aspirin 81 mg Enteric Coated Tablet PO SCH (09:39)
[2019-12-31] MEDS ORDERED: NIFEdipine XL 30 MG TAB PO SCH (10:30)
[2019-12-31] MEDS: PROVENTIL INHALER 6.7 G (200 INHALATIONS) INH PRN (15:34)
[2020-01-01] MEDS: PROVENTIL INHALER 6.7 G (200 INHALATIONS) INH PRN (05:11)
--- NOTE | 2020-01-01 07:23 | PDOC.FM ---
- Subjective Subjective: pt resting in bed, complaining of sob/cough, denies chest pain - Objective Vital Signs & Weight: Vital Signs (12 hours) Temp Pulse Resp BP Pulse Ox 01/01/20 05:15 68 18 177/87 H 97 12/31/19 22:10 67 157/82 H 12/31/19 20:31 97.1 F L 74 18 195/88 H 100 Weight Weight 103.419 kg I&O: 12/31/19 01/01/20 01/02/20 06:59 06:59 06:59 Intake Total 1200 1760 Output Total 600 2100 Balance 600 -340 Result Diagrams: 12/31/19 04:36 12/31/19 04:36 Phys Exam - Physical Examination Constitutional: NAD HEENT: moist MMs Neck: no JVD Respiratory: wheezing present Cardiovascular: no significant murmur Gastrointestinal: no distention Musculoskeletal: no edema Neurological: moves all 4 limbs Psychiatric: normal affect Skin: no rash Dx/Plan (1) CAD (coronary artery disease) Code(s): I25.10 - ATHSCL HEART DISEASE OF [place] CORONARY ARTERY W/O ANG PCTRS Status: Acute (2) COPD (chronic obstructive pulmonary disease) Status: Acute (3) Hypertensive urgency Code(s): I16.0 - HYPERTENSIVE URGENCY Status: Acute (4) Pulmonary edema Code(s): J81.1 - CHRONIC PULMONARY EDEMA Status: Acute - Plan Plan: HTN Urgency - received labetalol x3 in ER with some benefit. - hydralazine 10mg prn SBP >180 - increase control HFpEF - coreg, spironolactone - consider adding ACEI - consider one time dose of lasix Pulmonary Edema - fluid overload 2/2 above - strict I/Os - consider additional lasix dose COVID neg AYDEN vs CKD, improved - Creatinine mildly elevated, near baseline HTN - see above Elevated fasting BG - no hx DM. f/u A1c with PCP. CAD - recent stent placement 2019. - Last ECHO 2018, EF 55-60% with concentric left ventricular hypertrophy - continue plavix, asa81, and atorvastatin COPD - albuterol inhaled prn - received prednisone 60mg in the ER History of drug use - UDS + meth and opiates Code: FULL Fluids: none VTE ppx: heparin GI ppx: none Dispo- better control over BP, consider DC later today. Addendum - Attending - Attending Attestation Date/Time: 01/01/20 9568 I personally evaluated the patient and discussed the management with Dr. Viramontes. I agree with the History, Examination, Assessment and Plan documented above with any addition or exceptions noted below. Patient feeling well. Her BP is improved, renal function stable. COVID negative. If feeling well this PM, can be discharged home as she is not requiring O2 therapy.
[2020-01-01] MEDS ORDERED: NIFEdipine XL 30 MG TAB PO SCH (09:00)
[2020-01-01] MEDS ORDERED: Albuterol Sulfate 2.5 mg/3 ml Neb NEB PRN (09:20)
[2020-01-01] MEDS: Aspirin 81 mg Enteric Coated Tablet PO SCH (09:33)
[2020-01-01] MEDS: Atorvastatin Calcium 40 MG TAB PO SCH (09:33)
[2020-01-01] MEDS: Carvedilol 25 MG TAB PO SCH (09:33)
[2020-01-01] MEDS: Heparin 5,000 UNITS/ML VIAL SC SCH ×2 (09:33→15:17)
[2020-01-01] MEDS: Clopidogrel Bisulfate 75 MG TAB PO SCH (09:33)
[2020-01-01] MEDS: Spironolactone 100 MG TAB PO SCH (09:37)
[2020-01-01 12:13] VITALS: BP 158/70; TEMP 97.5
--- NOTE | 2020-01-02 10:23 | DIS ---
DATE OF ADMISSION: 12/30/2019 DATE OF DISCHARGE: 01/01/2020 ADMITTING ATTENDING: Corey Morataya MD DISCHARGE ATTENDING: Houston Leigh MD CONSULTS: None. IMAGING STUDIES: Chest x-ray, cardiomegaly with early pulmonary edema. Echocardiogram, ejection fraction visually estimated at 50% to 55%. Diastolic dysfunction noted. DISCHARGE MEDICATIONS: 1. Clopidogrel 75 mg p.o. daily. 2. Coreg 25 mg p.o. b.i.d. 3. Spironolactone 100 mg p.o. daily. 4. Aspirin 81 mg p.o. daily. 5. Atorvastatin 40 mg p.o. daily. 6. ProAir 2 puffs inhaled p.o. q.4 hours p.r.n. 7. Ventolin 2.5 mg nebulized q.4 hours p.r.n. wheezing. 8. DuoNeb 3 mL nebulized q.4 hours p.r.n. for wheezing. 9. Prednisone for the next 5 days. DISCHARGE DIAGNOSIS: Hypertensive urgency. SECONDARY DIAGNOSES: 1. Chronic obstructive pulmonary disease exacerbation. 2. Heart failure with preserved ejection fraction. 3. Pulmonary edema. 4. Chronic kidney disease. 5. Hypertension. 6. Elevated fasting glucose. 7. Coronary artery disease. 8. History of drug use. HISTORY OF PRESENT ILLNESS/HOSPITAL COURSE: Ms. Contreras is a 54-year-old female with past medical history significant for coronary artery disease, hypertension, COPD, heart failure with preserved ejection fraction, presenting for worsening dyspnea and cough. The patient was deemed at risk for COVID, was tested appropriately, which was negative. The patient did have findings of heart failure and COPD exacerbation, was treated with inhalers and diuresis and quickly improved on that therapy. The patient was weaned off oxygen and diuresed appropriately. Kidney function returned to normal and the patient did not have any dyspnea or wheezing on discharge and was stable to be discharged to home. DISCHARGE INSTRUCTIONS: 1. Location: Home. 2. Diet: Heart healthy, low-sodium. 3. Activity: As tolerated. 4. Followup: Follow up with PCP in the next 3 to 7 days. Job ID: [id number] MTDD
--- NOTE | 2020-01-04 14:31 | EKG ---
Test Reason : SOB Blood Pressure : / mmHG Vent. Rate : 070 BPM Atrial Rate : 070 BPM P-R Int : 134 ms QRS Dur : 078 ms QT Int : 460 ms P-R-T Axes : 060 -25 -17 degrees QTc Int : 496 ms Normal sinus rhythm Possible Left atrial enlargement Left ventricular hypertrophy Nonspecific ST abnormality Prolonged QT Abnormal ECG Reconfirmed by DAREN DE DIOS ([id number]), senior sql dba JONNY BLACKMAN ([id number]) on 01/04/2020 2:32:32 PM Referred By: Confirmed By:DAREN Kimbrough
== END 2020-01-01 15:53 | disposition home or self-care (01) ==
LOC: ERS 17:52 → 2SW 22:25
PROVIDERS: ADMIT Family Medicine; ATTEND Family Medicine
DX: I16.0 Hypertensive urgency (principal); J44.1 Chronic obstructive pulmonary disease with (acute) exacerbation; J81.1 Chronic pulmonary edema; I13.0 Hypertensive heart and chronic kidney disease with heart failure and stage 1 through stage 4 chronic kidney disease, or unspecified chronic kidney disease; N18.9 Chronic kidney disease, unspecified; I50.30 Unspecified diastolic (congestive) heart failure; I25.10 Atherosclerotic heart disease of native coronary artery without angina pectoris; Z79.82 Long term (current) use of aspirin; Z79.899 Other long term (current) drug therapy; Z87.891 Personal history of nicotine dependence; Z95.5 Presence of coronary angioplasty implant and graft
CPT/HCPCS: 36415; 71045; 80048; 80053; 80306; 83735; 83880; 84145; 84484; 85025; 93005; 93306; 94640; 94644; 96372; 96374; 96375; 96376; G0378; J0360; J1644; J7512; J7611; J7620; U0001

== ENCOUNTER 2020-01-23 18:14 | Inpatient (IN) | payer OTHER ==
[~2020-01-23 18:14] MED LIST: Iopamidol 370 76% 100 ML VIAL ONE
[2020-01-23 18:53] LABS: #Eosinphils 0.5 thou/uL (0.0-0.7); #Lymphocytes 1.2 thou/uL (1.20-3.40); #Monocytes 0.3 thou/uL (0.11-0.59); #Neutrophils 2.1 thou/uL (1.40-6.50); %Basophils 0.9 % (0.0-1.0); %Eosinophils 12.9 % (0.0-10.0); %Lymphocytes 28.5 % (21.0-51.0); %Monocytes 6.9 % (0.0-10.0); %Neutrophils 50.9 % (42.0-75.0); Hemoglobin 13.8 g/dL (12.0-16.0); Mean Corpuscular HGB CONC 33.9 g/dL (32.0-36.0); Mean Corpuscular Hemoglobin 32.2 pg (27.0-31.0); Mean Corpuscular Volume 95.1 fL (78.0-98.0); Mean Platelet Volume 10.5 fL (7.4-10.4); Platelet Count 123 thou/uL (130-400); RBC Distribution Width 13.4 % (11.5-14.5); Red Blood Cell (RBC) Count 4.28 mill/uL (4.20-5.40); White Blood Cell (WBC) Count 4.2 thou/uL (4.8-10.8)
--- NOTE | 2020-01-23 19:05 | RAD ---
SINGLE VIEW OF THE CHEST: 01/23/20 COMPARISON: 12/30/19 HISTORY: Shortness of breath with cough. Stent placement two weeks ago. Chest pain. FINDINGS: Single view of the chest shows a cardiomediastinal silhouette which is upper limits of normal in size . There is no evidence of consolidation, mass, or pleural effusion. Atherosclerotic calcifications ar e seen in the aorta. IMPRESSION: No evidence of acute cardiopulmonary disease. POS: [facility]
[2020-01-23 19:12] LABS: ALT (SGPT) 30 U/L (8-55); AST (SGOT) 37 U/L (5-34); Albumin 3.5 g/dL (3.5-5.0); Alkaline Phosphatase 219 U/L (40-110); Anion Gap 13 mmol/L (10-20); BUN (Urea Nitrogen) 20 mg/dL (9.8-20.1); Bilirubin, Total 0.5 mg/dL (0.2-1.2); Calc. Creatinine Clearance 0 mL/min (70-130); Calcium 8.4 mg/dL (7.8-10.44); Carbon Dioxide 21 mmol/L (22-29); Chloride 108 mmol/L (98-107); Estimated GFR-MDRD 55; Glucose 118 mg/dL (70-105); Lipase 57 U/L (8-78); Potassium 4.3 mmol/L (3.5-5.1); Protein, Total 7.5 g/dL (6.0-8.3); Sodium 138 mmol/L (136-145)
[2020-01-23] MEDS ORDERED: Nitroglycerin 2% Ointment 1 INCH/1 GM Packet ONE (19:23)
[2020-01-23] MEDS ORDERED: Aspirin Chewable 81 MG TAB ONE (19:33)
--- NOTE | 2020-01-23 21:23 | CT ---
CTA OF THE CHEST WITH CONTRAST: 01/23/20 COMPARISON: CTA 08/10/13. HISTORY: Shortness of breath and diaphoresis. Cough. Recent admission for pleural effusion. TECHNIQUE: Multiple contiguous axial images were obtained in a CTA of the chest with contrast per pulmonary embo lism protocol. 3D oblique MIP reformats and direct coronal reformats were performed. FINDINGS: The pulmonary arteries are well opacified without filling defects to suggest pulmonary emboli. The he art is normal in size without focal cardiac abnormality. Calcifications are seen in the coronary evan candy and aorta. No hilar or mediastinal lymphadenopathy are seen. Peripheral scarring is seen in the lung apices. No suspicious infiltrates are seen. No pneumothorax o r pleural effusion are seen. No suspicious pulmonary nodules are seen. Calcifications in the liver and spleen are likely from prior granulomatous disease. The liver appears cirrhotic. There is a hypodense mass on the posterior aspect of the right lobe of the liver with a p eripheral rim of calcification measuring 2.3 cm in size. This was not seen on the prior CT from 2012. A CT of the abdomen per liver mass protocol is recommended for further characterization of this live r mass. The other visualized subdiaphragmatic structures are unremarkable. Degenerative changes are s een in the spine. The chest wall soft tissues are unremarkable. IMPRESSION: 1. No evidence of pulmonary thromboembolism. 2. Cirrhosis. POS: EAA
[2020-01-23] MEDS ORDERED: Albuterol 200 PUFF (6.7GM INHALER) ONE (21:50)
[2020-01-23] MEDS ORDERED: Dexamethasone 4 MG TAB ONE (22:04)
[2020-01-23 23:05] LABS: Troponin I Less than 0.010 ng/mL (< 0.028)
--- NOTE | 2020-01-23 23:10 | PDOC.FPRHP ---
- History of Present Illness Chief Complaint: SOB History of Present Illness: 54 yo w/ pmh of COPD, CKD, CHFpEF, HTN comes in w/ c/c of SOB. Pt was recently discharged at end of december/begining of january for COPD exacerbation. Reports got better but then about a week ago started to get SOB again. Pt states was using nebulizers at home but doesn't think they helped. Pt reports having hard time catching breath. Pt reports chest pain after coughing. Denies any radiation anywhere. Pt reports productive sputum. Reports white/yellow in color. Reports can only walk short distances and then gets SOB. Denies any fever or chills or nasal congestion. Denies any n/v/d/c. Denies any edema ED Course: Got 10mg of dex, duonebs, pt COVID tested - Allergies/Adverse Reactions Allergies Allergy/AdvReac Type Severity Reaction Status Date / Time ibuprofen Allergy Severe Anaphylaxis Verified 01/23/20 23:44 - Home Medications Medication Instructions Recorded Confirmed Type Carvedilol 25 mg PO BID 07/13/19 01/24/20 History Clopidogrel Bisulfate [Clopidogrel] 75 mg PO DAILY 07/13/19 01/24/20 History Spironolactone 100 mg PO DAILY 07/13/19 01/24/20 History Aspirin [Aspir-Low] 81 mg PO DAILY 12/30/19 01/24/20 History Atorvastatin Calcium 40 mg PO DAILY 12/30/19 01/24/20 History Albuterol Sulfate [Proair HFA] 2 puff INH Q4H PRN 12/31/19 01/24/20 History ALButerol Sulfate [Ventolin Neb] 2.5 mg NEB [id number] PRN #10 neb 01/01/20 Rx Ipratropium/Albuterol Sulfate 3 ml NEB [id number] #5 neb 01/01/20 01/24/20 Rx [DuoNeb] NIFEdipine [Procardia XL] 30 mg PO DAILY #30 tab 01/01/20 01/23/20 Rx predniSONE 40 mg PO QAM-WM #10 tab 01/01/20 01/23/20 Rx Comments: Went over medications with pt based off last d/c summary. Pt is taking all medications but the nifedipine. - History PMHx: CAD, HTN, CKD, CHFpEF, COPD, history of Hep C s/p treatment, depression PSHx: tubal ligation, cardiac cath w/ stents 11/2019 at [facility], liver biopsy, c- section, cholecystectomy FHx: denies Social: - previous smoker < 10 pack-years - denies alcohol, drug use - lives by herself - Review of Systems General: denies: fever/chills, weight/appetite/sleep changes ENT: denies: nasal congestion, rhinorrhea Respiratory: reports: cough, shortness of breath, exercise intolerance Cardiovascular: reports: chest pain (when coughing) Gastrointestinal: denies: nausea, vomiting, diarrhea, constipation, abdominal pain Skin: denies: rashes, lesions Musculoskeletal: denies: pain, stiffness, swelling Neurological: denies: numbness, weakness Psychological: denies: anxiety, depression - Vital signs BP: [164/99] HR: [86] RR: [28] Tmax: [] Pox: [95]% on [RA] Wt: [98kg] - Physical Exam -Constitutional: Pt leaned over bed, pt in some distress. Having hard time catching breath. HEENT: normocephalic and atraumatic, grossly normal vision, grossly normal hearing Neck: supple, FROM, no JVD Heart: RRR, normal S1/S2, no murmurs/rubs/gallops, pulses present, no edema -Lungs: Pt has decreased air movement. Pt tachypnic. Pt breath sounds noted to be wheezy and crackly in all lobes bilaterally Abdomen: soft, non-tender, bowel sounds present, no masses/distention, no hernias Musculoskeletal: ROM grossly normal Neurological: no focal deficit, normal sensation Skin: no rash/lesions, good turgor, capillary refill <2 seconds Heme/Lymphatic: no unusual bruising or bleeding Psychiatric: good judgment and insight, intact recent and remote memory FMR H&P: Results - Labs Result Diagrams: 01/23/20 18:34 01/23/20 18:32 Lab results: WBC 4.2 thou/uL (4.8-10.8) L 01/23/20 18:34 Hgb 13.8 g/dL (12.0-16.0) 01/23/20 18:34 Hct 40.7 % (36.0-47.0) 01/23/20 18:34 MCV 95.1 fL (78.0-98.0) 01/23/20 18:34 Plt Count 123 thou/uL (130-400) L 01/23/20 18:34 Neutrophils % 50.9 % (42.0-75.0) 01/23/20 18:34 Sodium 138 mmol/L (136-145) 01/23/20 18:32 Potassium 4.3 mmol/L (3.5-5.1) 01/23/20 18:32 Chloride 108 mmol/L (98-107) H 01/23/20 18:32 Carbon Dioxide 21 mmol/L (22-29) L 01/23/20 18:32 BUN 20 mg/dL (9.8-20.1) 01/23/20 18:32 Creatinine 1.23 mg/dL (0.6-1.1) H 01/23/20 18:32 Glucose 118 mg/dL (70-105) H 01/23/20 18:32 Calcium 8.4 mg/dL (7.8-10.44) 01/23/20 18:32 Total Bilirubin 0.5 mg/dL (0.2-1.2) 01/23/20 18:32 AST 37 U/L (5-34) H 01/23/20 18:32 ALT 30 U/L (8-55) 01/23/20 18:32 Alkaline Phosphatase 219 U/L (40-110) H 01/23/20 18:32 B-Natriuretic Peptide 186.6 pg/mL (0-100) H 01/23/20 18:32 Serum Total Protein 7.5 g/dL (6.0-8.3) 01/23/20 18:32 Albumin 3.5 g/dL (3.5-5.0) 01/23/20 18:32 Lipase 57 U/L (8-78) 01/23/20 18:32 - Radiology Interpretation CT scan - chest Status: image reviewed by me, report reviewed by me (No PE. Cirrhosis) Chest x-ray Status: image reviewed by me, report reviewed by me (No acute cardiopulmonary dz ) FMR H&P: A/P - Problem List (1) COPD exacerbation Current Visit: Yes Status: Acute Code(s): J44.1 - CHRONIC OBSTRUCTIVE PULMONARY DISEASE W (ACUTE) EXACERBATION (2) CKD (chronic kidney disease) Current Visit: Yes Status: Acute Code(s): N18.9 - CHRONIC KIDNEY DISEASE, UNSPECIFIED (3) Hypertension Current Visit: Yes Status: Acute Code(s): I10 - ESSENTIAL (PRIMARY) HYPERTENSION (4) CHF (congestive heart failure) Current Visit: Yes Status: Acute Code(s): I50.9 - HEART FAILURE, UNSPECIFIED (5) Hx of drug abuse Current Visit: Yes Status: Acute Code(s): F19.11 - OTHER PSYCHOACTIVE SUBSTANCE ABUSE, IN REMISSION (6) CAD (coronary artery disease) Current Visit: No Status: Acute Code(s): I25.10 - ATHSCL HEART DISEASE OF [place] CORONARY ARTERY W/O ANG PCTRS - Plan COPD exacerbation -Pt tachypnic. Pt has poor air movment, wheezes and crackles on exam. O2 sats stable on RA. Pt reports productive sputum and recently hospitilized for similar sx's a few weeks ago -Duonebs shubham q4hr, prn q6hrs -Will give 2g Mg IV as pt lungs very congested w/ poor air movement and having some moderate resp distress -ABG pending -Levaquin for abx coverage -Flovent px as pt does not have steroid inhaler at home. -Given dex in ER. Will continue with Prednisone burst -zyrtec -Procal, CRP, COVID, Resp Panel, Flu pending CHFpEF -BNP mildly elevated at 186, around previous levels from prior admissions. No signs of fluid overload on exam. ECHO from last visit showed EF 50-55% with E/A flow reversal suggestive Diastolic dysfunction -Given 20mg IV lasix to see if helps with SOB CAD -continue home meds -Trops neg HTN -continue home meds CKD3 -Cr around baseline. Continue to monitor Hx of Drug Abuse -UDS pending Hx of Hep C, tx -Liver enzymes stable DVT ppx: Clopidegrel and ASA GERD: Famotidine Dispo: Pt o2 sats stable on RA. Will tx for COPD exacerbation per above Addendum - Attending - Attending Attestation Date/Time: 01/24/20 0050 I personally evaluated the patient and discussed the management with Dr. Miguel on 01/23/2020 I agree with the History, Examination, Assessment and Plan documented above with any addition or exceptions noted below - 54 yo w/ pmh of COPD, CKD, CHFpEF , HTN presents with c/o SOB. Pt was recently discharged at end of december/ begining of january for COPD exacerbation. Reports got better but then about a week ago started to get SOB again. Pt states was using nebulizers at home but doesn't think they helped. Pt reports having hard time catching breath. Pt reports chest pain after coughing. Denies any radiation anywhere. Pt reports productive sputum. Reports white/yellow in color. Reports can only walk short distances and then gets SOB. Denies any fever or chills or nasal congestion. Denies any n/v/d/c. Denies any edema. PMH/PSH/Meds/SH reviewed and agree with resident's documentation. Afebrile P 74 RR22 BP 154/93 98% on RA Exam repeated by me and agree with resident's findings. labs: H/H=13.8/40.7, Lzi=054 , Mo=965, K=4.3, BUN/Cr=20/1.23, HXF=418, trop I <0.010, D-dimer 0.46. CXR- no acute findings. A/P: 1) COPD exacerbation - Admit to medical. Continue MDI, steroids, add antihistamine for allergic component. COVID swab collected. 2) HTN - continue home meds
[2020-01-23] MEDS ORDERED: Calcium Carbonate 500 MG ChewTAB PO PRN (23:18)
[2020-01-23] MEDS ORDERED: Ondansetron ODT 4 MG TAB PO PRN (23:18)
[2020-01-23] MEDS ORDERED: Ondansetron PF 4 MG/2 ML Vial IVP PRN (23:18)
[2020-01-23] MEDS ORDERED: Acetaminophen 650 MG Suppository PR PRN (23:18)
[2020-01-23] MEDS ORDERED: Acetaminophen 325 MG TAB PO PRN (23:18)
[2020-01-23] MEDS ORDERED: Magnesium 2 GM/50 ML 2 GM in Premix Bag 1 BAG IVPB SCH (23:59)
[2020-01-23] MEDS ORDERED: Furosemide 20 MG/2 ML VIAL SLOW IVP SCH (23:59)
[2020-01-24 00:15] VITALS: BMI 38.2
[2020-01-24 02:01] LABS: #Eosinphils 0.1 thou/uL (0.0-0.7); #Lymphocytes 0.5 thou/uL (1.20-3.40); #Monocytes 0.1 thou/uL (0.11-0.59); #Neutrophils 3.1 thou/uL (1.40-6.50); %Eosinophils 2.6 % (0.0-10.0); %Lymphocytes 12.7 % (21.0-51.0); %Monocytes 2.1 % (0.0-10.0); %Neutrophils 82.7 % (42.0-75.0); Hemoglobin 12.8 g/dL (12.0-16.0); Mean Corpuscular HGB CONC 33.4 g/dL (32.0-36.0); Mean Corpuscular Hemoglobin 31.7 pg (27.0-31.0); Mean Platelet Volume 10.4 fL (7.4-10.4); Platelet Count 113 thou/uL (130-400); RBC Distribution Width 13.3 % (11.5-14.5); Red Blood Cell (RBC) Count 4.04 mill/uL (4.20-5.40); White Blood Cell (WBC) Count 3.8 thou/uL (4.8-10.8)
[2020-01-24 02:24] LABS: Troponin I 0.012 ng/mL (< 0.028)
[2020-01-24 02:39] LABS: Actual Bicarbonate (HCO3a) 21.7 mEq/L (22-28); Base Excess (BEa) -3.3 mEq/L (-2.0 to +3.0); CO2 Tension 38.7 mmHg (35.0-45.0); Calcium, Ionized 1.13 mmol/L (1.12-1.30); Carboxyhemoglobin (COHb) 0.9 gm% (0.0-3.0); Hemoglobin (Hb) 14.1 g/dL (12.0-16.0); O2 Tension (PaO2) 84.3 mmHg (80.0-100.0); Potassium - ABG Lab 4.57 mmol/L (3.70-5.30); pH, Arterial 7.37 (7.35-7.45)
[2020-01-24 02:41] LABS: Puncture Site RRA
[2020-01-24 02:42] LABS: ALV-art Gradient 17.055 (0-20)
[2020-01-24 02:43] LABS: ALT (SGPT) 29 U/L (8-55); AST (SGOT) 37 U/L (5-34); Albumin 3.3 g/dL (3.5-5.0); Alkaline Phosphatase 200 U/L (40-110); Anion Gap 15 mmol/L (10-20); BUN (Urea Nitrogen) 20 mg/dL (9.8-20.1); Bilirubin, Total 0.4 mg/dL (0.2-1.2); Calc. Creatinine Clearance 83 mL/min (70-130); Calcium 8.6 mg/dL (7.8-10.44); Carbon Dioxide 18 mmol/L (22-29); Chloride 108 mmol/L (98-107); Estimated GFR-MDRD 52; Globulin 4.4 g/dL (2.4-3.5); Glucose 205 mg/dL (70-105); Protein, Total 7.7 g/dL (6.0-8.3); Sodium 136 mmol/L (136-145)
[2020-01-24] MEDS: Albuterol 200 PUFF (6.7GM INHALER) INH PRN (02:44)
[2020-01-24] MEDS: Albuterol 200 PUFF (6.7GM INHALER) INH SCH ×4 (06:18→19:17)
[2020-01-24] MEDS ORDERED: Fluticasone Propionate HFA 220 MCG AER INH SCH (06:30)
[2020-01-24] MEDS ORDERED: Mometasone 100 MCG/PUFF (1 INHALER) INH SCH (06:30)
[2020-01-24] MEDS ORDERED: Budesonide 0.5 MG/2 ML NEB INH SCH (06:30)
[2020-01-24 07:02] LABS: Amphetamine Not Detected (NotDetected); Barbiturates Screen Not Detected (NotDetected); Benzodiazepine Screen Not Detected (NotDetected); Cocaine Metabolite Screen Not Detected (NotDetected); Medtox Reader # READER 1; Methadone Not Detected (NotDetected); Methamphetamine Not Detected (NotDetected); Opiate Screen Not Detected (NotDetected); Oxycodone Screen Not Detected (NotDetected); Phencyclidine (PCP) Not Detected (NotDetected); THC/Cannabinoid Screen Not Detected (NotDetected); Tricyclic Screen Not Detected (NotDetected)
[2020-01-24 07:03] LABS: Medtox Control Line Valid? VALID (VALID)
[2020-01-24 07:05] LABS: Bilirubin Negative (Negative); Blood, Urine Trace (Negative); Clarity Clear (Clear); Glucose, Urine (Dipstick) Normal (Negative); Leukocyte 25 Leu/uL (Negative); Nitrite Negative (Negative); Protein, Urine (Dipstick) 300 mg/dL (Neg-Trace); RBC/HPF 0-3 HPF (0-3); Squamous Epithelial 0-3 HPF (0-3); Triple Phosphate Crystal 2+ HPF (None Seen); Urobilinogen Normal mg/dL (Less than 2)
[2020-01-24 07:13] LABS: Urine Culture Reflex Yes Yes
[2020-01-24 07:25] LABS: Bacteria/HPF 3+ HPF (None Seen)
--- NOTE | 2020-01-24 07:42 | PDOC.FM ---
- Subjective Subjective: She states that she did ok overnight. She currently states her breathing is better. She is coughing some but denies chest pain. - Objective MAR Reviewed: Yes Vital Signs & Weight: Vital Signs (12 hours) Temp Pulse Resp BP Pulse Ox 01/24/20 03:00 97.3 F L 78 22 H 141/77 H 97 01/24/20 01:02 98 01/23/20 23:10 97.0 F L 74 22 H 154/93 H 98 Weight Weight 107.456 kg I&O: 01/23/20 01/24/20 01/25/20 06:59 06:59 06:59 Intake Total 50 Output Total 600 Balance -550 Result Diagrams: 01/24/20 01:51 01/24/20 01:51 Phys Exam - Physical Examination Constitutional: NAD HEENT: moist MMs Neck: no JVD Diffuse wheezing in upper lobes, decreased air movement in lower lobes Cardiovascular: RRR, no significant murmur Gastrointestinal: soft, non-tender, no distention, positive bowel sounds Musculoskeletal: no edema, pulses present Neurological: moves all 4 limbs Psychiatric: A&O x 3 Skin: cap refill <2 seconds Dx/Plan (1) CHF (congestive heart failure) Code(s): I50.9 - HEART FAILURE, UNSPECIFIED Status: Acute (2) CKD (chronic kidney disease) Code(s): N18.9 - CHRONIC KIDNEY DISEASE, UNSPECIFIED Status: Acute (3) COPD exacerbation Code(s): J44.1 - CHRONIC OBSTRUCTIVE PULMONARY DISEASE W (ACUTE) EXACERBATION Status: Acute (4) Hx of drug abuse Code(s): F19.11 - OTHER PSYCHOACTIVE SUBSTANCE ABUSE, IN REMISSION Status: Acute (5) Hypertension Code(s): I10 - ESSENTIAL (PRIMARY) HYPERTENSION Status: Acute (6) CAD (coronary artery disease) Code(s): I25.10 - ATHSCL HEART DISEASE OF [place] CORONARY ARTERY W/O ANG PCTRS Status: Acute - Plan Plan: This is a 54 yo female with a pmh of COPD, CKD, HTN, HFpEF, CAD COPD exacerbation -Change to albuterol inhaler and steroid inhaler -Continue Levaquin and steroids -Pt on zyrtec -Procal negative, could likely wean abx -Pending COVID, Viral respiratory panel negative HFpEF -Appears near baseline CAD -Continue home meds, troponins negative HTN -Continue home meds Slight AYDEN on CKD3 -Will monitor Hx drug abuse -UDS neg Hx of Hep , tx Addendum - Attending - Attending Attestation Date/Time: 01/24/20 [id number] I personally evaluated the patient and discussed the management with Dr. Jones. I agree with the History, Examination, Assessment and Plan documented above with any addition or exceptions noted below. Poor air movement throughout. Continue steroids, abx, and will start INH steroid today. Stated Advair "choked me" but would likely benefit from ICS/ LABA. Monitor tonight. COVID pending. Stressed compliance with maintenance medications.
[2020-01-24] MEDS: Atorvastatin Calcium 40 MG TAB PO SCH (08:49)
[2020-01-24] MEDS: Aspirin 81 mg Enteric Coated Tablet PO SCH (08:49)
[2020-01-24] MEDS: predniSONE 50 MG TAB PO SCH (08:49)
[2020-01-24] MEDS: Clopidogrel Bisulfate 75 MG TAB PO SCH (08:50)
[2020-01-24] MEDS: Carvedilol 25 MG TAB PO SCH ×2 (08:50→20:58)
[2020-01-24] MEDS: Famotidine 20 MG TAB PO SCH ×2 (08:50→20:57)
[2020-01-24] MEDS: Spironolactone 100 MG TAB PO SCH (08:50)
[2020-01-24] MEDS: Loratadine 10 MG TAB PO SCH (08:50)
[2020-01-25] MEDS ORDERED: Docusate 100 MG CAP PO PRN (00:48)
[2020-01-25] MEDS: Albuterol 200 PUFF (6.7GM INHALER) INH PRN (03:13)
--- NOTE | 2020-01-25 07:14 | PDOC.FM ---
- Subjective Subjective: Patient sitting up in bed, states she feels better today compared to yesterday. Has an occasional cough but she thinks it is improving. Denies any chest pain or shortness of breath. States desire to go home today and says she will need some refills on her medications. - Objective MAR Reviewed: Yes Vital Signs & Weight: Vital Signs (12 hours) Temp Pulse Resp BP Pulse Ox 01/25/20 03:09 97.6 F 77 14 178/94 H 98 01/25/20 00:04 97.9 F 95 16 165/98 H 96 01/24/20 19:31 97.9 F 85 16 173/95 H 98 Weight Weight 105.687 kg I&O: 01/24/20 01/25/20 01/26/20 06:59 06:59 06:59 Intake Total 50 980 Output Total 600 1050 Balance -550 -70 Result Diagrams: 01/24/20 01:51 01/24/20 01:51 Phys Exam - Physical Examination Constitutional: NAD HEENT: moist MMs, sclera anicteric Neck: no JVD, full ROM Respiratory: no wheezing, clear to auscultation bilateral Cardiovascular: RRR, no significant murmur Gastrointestinal: soft, non-tender, no distention, positive bowel sounds Musculoskeletal: no edema, pulses present Neurological: normal sensation, moves all 4 limbs Psychiatric: normal affect, A&O x 3 Skin: no rash, normal turgor Dx/Plan (1) CHF (congestive heart failure) Code(s): I50.9 - HEART FAILURE, UNSPECIFIED Status: Acute Qualifiers: Heart failure type: unspecified Heart failure chronicity: chronic Qualified Code(s): I50.9 - Heart failure, unspecified (2) CKD (chronic kidney disease) Code(s): N18.9 - CHRONIC KIDNEY DISEASE, UNSPECIFIED Status: Acute Qualifiers: Chronic kidney disease stage: stage 3 (moderate) Qualified Code(s): N18.3 - Chronic kidney disease, stage 3 (moderate) (3) COPD exacerbation Code(s): J44.1 - CHRONIC OBSTRUCTIVE PULMONARY DISEASE W (ACUTE) EXACERBATION Status: Acute (4) Hypertension Code(s): I10 - ESSENTIAL (PRIMARY) HYPERTENSION Status: Acute Qualifiers: Hypertension type: unspecified Qualified Code(s): I10 - Essential (primary ) hypertension - Plan Plan: This is a 54 yo female with a pmh of COPD, CKD, HTN, HFpEF, CAD #COPD exacerbation -continue albuterol inhaler and re-start steroid inhaler -Continue Levaquin and Prednisone -Pt on zyrtec -Procal negative, could likely wean abx -COVID NEGATIVE, Viral respiratory panel negative #HFpEF -Appears near baseline, euvolemic on exam #CAD -Continue home meds, troponins negative #HTN -Continue home meds #Slight AYDEN on CKD3 -Will monitor #Hx drug abuse -UDS neg #Hx of Hep C -CTA Chest/Thorax incidentally found a 2.3 cm new liver mass in right posterior lobe that was not present on CT in 2013, recommend f/u with CT abd/pelvis. Will arrange for this to be completed outpatient via [facility] clinic Diet: HH VTE: ASA/Plavix Code status: FULL Dispo: Stable, patient breathing much better today and O2 sat stable on RA. Anticipate discharge later today. Addendum - Attending - Attending Attestation Date/Time: 01/25/20 1321 I personally evaluated the patient and discussed the management with Dr. Jerez I agree with the History, Examination, Assessment and Plan documented above with any addition or exceptions noted below. D/C today.
[2020-01-25] MEDS: Albuterol 200 PUFF (6.7GM INHALER) INH SCH ×2 (07:29→11:27)
[2020-01-25] MEDS: predniSONE 50 MG TAB PO SCH (08:22)
[2020-01-25] MEDS: Loratadine 10 MG TAB PO SCH (08:22)
[2020-01-25] MEDS: Clopidogrel Bisulfate 75 MG TAB PO SCH (08:22)
[2020-01-25] MEDS: Carvedilol 25 MG TAB PO SCH (08:23)
[2020-01-25] MEDS: Famotidine 20 MG TAB PO SCH (08:23)
[2020-01-25] MEDS: Aspirin 81 mg Enteric Coated Tablet PO SCH (08:23)
[2020-01-25] MEDS: Atorvastatin Calcium 40 MG TAB PO SCH (08:23)
[2020-01-25] MEDS: Spironolactone 100 MG TAB PO SCH (08:23)
[2020-01-25] MEDS ORDERED: hydrALAZINE 10 MG TAB PO PRN (10:56)
[2020-01-25] MEDS ORDERED: NIFEdipine XL 30 MG TAB PO SCH (11:00)
[2020-01-25 11:05] VITALS: BP 170/100
[2020-01-25 12:16] VITALS: TEMP 98.6
--- NOTE | 2020-01-26 02:18 | DIS ---
DATE OF ADMISSION: 01/23/2020 DATE OF DISCHARGE: 01/25/2020 RESIDENT: Lizette Jerez DO ADMITTING ATTENDING: Francie Givens MD DISCHARGE ATTENDING: Garrett Gomez MD CONSULTS: 1. CV team. 2. Walking program. PROCEDURES: 1. Chest x-ray on January 23, 2020: No evidence of acute cardiopulmonary disease. 2. Chest/thorax CTA on January 23, 2020: No evidence of pulmonary thromboembolism. Cirrhosis. Calcifications in the liver and spleen are likely from prior granulomatous disease. There is a hypodense mass on the posterior aspect of the right lobe of the liver with a peripheral rim of calcification measuring 2.3 cm in size. This was not seen on the prior CT from 2012. A CT of the abdomen per liver mass protocol is recommended for further characterization of this liver mass. Degenerative changes are seen in the spine. PRIMARY DIAGNOSIS: Chronic obstructive pulmonary disease exacerbation. SECONDARY DIAGNOSES: 1. Heart failure with preserved ejection fraction. 2. Coronary artery disease. 3. Hypertension. 4. Acute kidney injury on chronic kidney disease, stage 3. 5. History of drug abuse. 6. History of hepatitis C. 7. History of COVID rule out, result negative. DISCHARGE MEDICATIONS: 1. Clopidogrel 75 mg p.o. daily. 2. Carvedilol 25 mg p.o. b.i.d. 3. Spironolactone 100 mg p.o. daily. 4. Aspirin 81 mg p.o. daily. 5. Atorvastatin 40 mg p.o. daily. 6. Albuterol sulfate two puffs inhaled q.4 hours p.r.n. 7. Albuterol sulfate 2.5 mg nebulized q.4 hours p.r.n. 8. DuoNeb 3 mL nebulized q.4 hours. 9. Nifedipine XR 30 mg p.o. daily. 10. Fluticasone propionate (Flovent) 110 mcg inhaled b.i.d. 11. Levaquin 500 mg p.o. daily for 5 additional days. 12. Prednisone 50 mg p.o. daily for 5 additional days. DISCONTINUED MEDICATIONS: None. HISTORY OF PRESENT ILLNESS/HOSPITAL COURSE: The patient is a 54-year-old female with past medical history of COPD, chronic kidney disease, heart failure with preserved ejection fraction, and hypertension who comes in with a complaint of shortness of breath. The patient was recently discharged at the end of December for a COPD exacerbation. The patient reports that she was feeling better, but then about 1 week ago she started to get short of breath again. The patient states she was using nebulizers at home, but does not think they helped. The patient reports having a hard time catching her breath. The patient also reported chest pain after coughing. Denies any radiation anywhere. Reports productive sputum, white or yellow in color. Reports that she can only walk short distances and then get short of breath. Denies any fever or chills, or nasal congestion, nausea, vomiting, diarrhea, constipation, edema. In the emergency department, she got 10 mg of dexamethasone, a DuoNeb treatment, and COVID testing was performed. This ultimately resulted as negative. The patient was admitted to the medical unit for a suspected COPD exacerbation and COVID rule out. She was started on scheduled DuoNeb and continued on Levaquin. She was also started on prednisone. Lab work including a COVID swab, respiratory viral panel, and flu all returned negative. The patient's BNP was found to be mildly elevated at 186, which is around previous levels from prior admissions. There were no signs of fluid overload on exam. An echo from her visit in December showed an EF of 50% to 55%, suggestive of diastolic dysfunction. The patient was given 20 mg of IV Lasix to see if that helps with the shortness of breath, which the patient reported that it did. Overall, the patient's respiratory status improved throughout her stay. She was still having some difficulty with air movement and coughing on January 23, but by January 24, was moving air much better and had only an occasional cough. The patient was attempted to be given Advair inhaler, but stated that she "choked me" and does refuse that inhaler. On the morning of January 24, a long discussion was had with the patient regarding the importance of taking her inhaler and nebulizer treatments. Also discussed with the patient starting Flovent as a new inhaler that she will need to continue to do daily treatments with. The patient was also informed that she had a 2.3-cm new liver mass in the right posterior lobe that was not present on CT scan in 2012. She will ultimately need followup with a CT abdomen and pelvis, this can be completed as an outpatient basis. The patient expressed her desire to go home and in the early afternoon of January 25, 2020, she was deemed clinically able to do so. DISPOSITION: Stable. DISCHARGE INSTRUCTIONS: 1. Location: Home. 2. Diet: Heart healthy. 3. Activity: As tolerated. 4. Followup: a. Follow up with cardiac rehab. b. Follow up with Dr. Carter, Cardiology in 2 to 3 weeks. c. Follow up with [facility] on January 26, 2020. Job ID: [id number] MTDD
--- NOTE | 2020-01-26 07:05 | PQF ---
HARSHA HANLEY MARK [id number] [facility]-231 [id number] CLINICAL DOCUMENTATION CLARIFICATION FORM: POST DISCHARGE Addendum to original discharge summary date: ____ Late entry note date: __ DATE:01/26/2020 ATTN:Garrett Schroeder Please exercise your independent, professional judgment in responding to the clarification form. Clinical indicators are provided on the bottom of this form for your review Please check appropriate box(s): DIASTOLIC HEART FAILURE: ACUITY [ ] Acute [ ] Acute on Chronic [ x ] Chronic [ ] Other diagnosis In addition, please specify: Present on Admission (POA): [ x ] Yes [ ] No [ ] Unable to determine For continuity of documentation, please document condition throughout progress notes and discharge summary. Thank You. CLINICAL INDICATORS - SIGNS / SYMPTOMS / LABS Laboratory 01/22 BNP 186.6, Troponin I 0.010; 0.012, C-Reactive Protein 186.6 Vital signs 01/22 BP 164/99, Pulse 86, Resp rate 28, O2 sat 95% H&P p1 01/22 Dr Miguel Recently discharge for COPD exacerbation and about a week ago started to get SOB again. H&P p1 01/22 Dr Miguel Reports chest pain after coughing H&P p5 01/22 Dr Miguel BNP mildly elevated at 186, around previous levels from prior admission. H&P p5 01/22 Dr Miguel No signs of fluid overload on exam H&P p5 01/22 Dr Miguel ECHO from last visit showed EF 50-55% with E/A flow reversal suggestive Diastolic dysfunction H&P p5 01/22 Dr Miguel Given lasix to see if helps with SOB Chest Xray 01/22 There is no evidence of pleural effusion H&P p6 01/22 Dr Miguel Pt reports productive cough RISKS: H&P p1 01/22 HTN H&P p1 01/22 CKD H&P p2 01/22 CAD s/p stent H&P p2 01/22 previous smoker H&P p4 01/22 COPD exacerbation PN p3 01/24 AYDEN TREATMENTS: DEC 05 IV Lasix 20 mg DEC 05 Aspirin Chewable 81 mg oral DEC 05 Plavix 75 mg oral Chest X-ray 01/22 Chest/Thorax CTA 01/22 (This form is maintained as a part of the permanent medical record) 2014 [employer]. All Rights Reserved [email or web address]
--- NOTE | 2020-01-26 14:08 | EKG ---
Test Reason : Blood Pressure : / mmHG Vent. Rate : 088 BPM Atrial Rate : 088 BPM P-R Int : 128 ms QRS Dur : 078 ms QT Int : 404 ms P-R-T Axes : 000 -27 013 degrees QTc Int : 488 ms Normal sinus rhythm Prolonged QT Abnormal ECG Confirmed by JANE CRAVEN ([id number]), communications editor JONNY BLACKMAN ([id number]) on 01/26/2020 2:07:59 PM Referred By: Confirmed By:JANE CRAVEN
== END 2020-01-25 13:35 | disposition home or self-care (01) | DRG 191 ==
LOC: ERS 18:14 → 2SW 22:21 → OBSVTOIN 23:11
PROVIDERS: ADMIT Family Medicine; ATTEND Family Medicine
PROC: 8E0ZXY6 Isolation (ICD-10-PCS; principal; 2020-01-23)
DX: J44.1 Chronic obstructive pulmonary disease with (acute) exacerbation (principal); I13.0 Hypertensive heart and chronic kidney disease with heart failure and stage 1 through stage 4 chronic kidney disease, or unspecified chronic kidney disease; N17.9 Acute kidney failure, unspecified; I50.32 Chronic diastolic (congestive) heart failure; Z20.828 Contact with and (suspected) exposure to other viral communicable diseases; F32.9 Major depressive disorder, single episode, unspecified; I25.10 Atherosclerotic heart disease of native coronary artery without angina pectoris; N18.3 Chronic kidney disease, stage 3 (moderate); R16.0 Hepatomegaly, not elsewhere classified; Z79.899 Other long term (current) drug therapy; Z79.51 Long term (current) use of inhaled steroids; Z79.52 Long term (current) use of systemic steroids; Z79.82 Long term (current) use of aspirin; Z79.02 Long term (current) use of antithrombotics/antiplatelets; Z88.8 Allergy status to other drugs, medicaments and biological substances; Z86.19 Personal history of other infectious and parasitic diseases; Z95.5 Presence of coronary angioplasty implant and graft; Z98.51 Tubal ligation status; Z87.891 Personal history of nicotine dependence
CPT/HCPCS: 36415; 71045; 71275; 80053; 80306; 81001; 82805; 83690; 83880; 84145; 84484; 85025; 85379; 86140; 87077; 87086; 87186; 87633; 87635; 87798; 93005; 93798; 94664; J1940; J3475; J7512; J8540; Q9967; U0002

== ENCOUNTER 2020-02-13 08:09 | Outpatient (CLI) | payer OTHER ==
[2020-02-13] MEDS ORDERED: Iopamidol 370 76% 100 ML VIAL ONE (09:19)
--- NOTE | 2020-02-13 10:21 | CT ---
CT ABDOMEN WITH AND WITHOUT CONTRAST: PROVIDED CLINICAL HISTORY: Liver mass. Patient provides history of prior hepatic ablation. COMPARISON: CTA thorax on 01/23/2020. FINDINGS: Linear scar versus atelectasis is present in the right middle lobe. Lung bases are otherwise clear. The heart is mildly enlarged. Vascular calcifications are seen in the coronary arteries as well as in the abdominal aorta and iliac arteries. Again noted is peripheral nodular contour of the liver suggesting cirrhosis. A 2.1 cm lesion is seen involving the segment 7 of the liver which does not demonstrate enhancement, and peripheral calcifications are seen. Patient has reported history of prior hepatic ablation. No enhancing lesions are seen in the liver. Calcified granulomata are seen in the liver and spleen. The spleen is at the upper limits of normal in size. Esophageal varices are visualized. The pancreas and bilateral adrenal glands demonstrate a normal CT appearance. Postcholecystectomy elvira nges are seen. Subcentimeter too small to characterize hypodense lesions are seen in the superior pole left kidney a nd inferior pole right kidney. Tiny approximately 2 mm obstructing calculus is seen in the right renal pelvis. There is evidence of prominence of submucosal fat throughout the visualized colon. This is overall a nonspecific finding. No free fluid, fluid collection, or lymphadenopathy is seen in the abdomen. Midline scarring is seen lower abdomen/upper pelvis. No suspicious lytic or sclerotic osseous lesions are identified. IMPRESSION: 1. Hepatic cirrhosis with secondary findings suggesting portal hypertension with gastroesophageal steven ices visualized.. 2. Nonenhancing lesion segment 7 which demonstrates characteristics most suggestive of postablation c hanges. No enhancing hepatic mass is visualized. 3. Postcholecystectomy changes. 4. Mild cardiomegaly. 5. Nonobstructing right renal calculus. Transcribed Date/Time: 02/13/2020 10:27 AM
== END 2020-02-13 08:10 | disposition home or self-care (01) ==
LOC: CT 08:09
PROVIDERS: ATTEND Physician Assistant Medical
DX: C22.0 Liver cell carcinoma (principal); C25.9 Malignant neoplasm of pancreas, unspecified; K74.60 Unspecified cirrhosis of liver; I85.00 Esophageal varices without bleeding; B96.81 Helicobacter pylori [H. pylori] as the cause of diseases classified elsewhere; N20.0 Calculus of kidney; I51.7 Cardiomegaly; K76.9 Liver disease, unspecified; Z90.49 Acquired absence of other specified parts of digestive tract; Z86.19 Personal history of other infectious and parasitic diseases
CPT/HCPCS: 74170; 82565; Q9967

== ENCOUNTER 2020-06-25 09:29 | Inpatient (IN) | payer OTHER ==
[2020-06-25] MEDS ORDERED: Nitroglycerin 0.4 MG TAB 1 EACH ONE (09:39)
[2020-06-25] MEDS ORDERED: Nitroglycerin 2% Ointment 1 INCH/1 GM Packet ONE (09:39)
[2020-06-25] MEDS ORDERED: methylPREDNISolone Sod Succ/PF 125 MG/2 ML VIAL ONE (10:12)
[2020-06-25] MEDS ORDERED: Albuterol 200 PUFF (6.7GM INHALER) ONE (10:12)
--- NOTE | 2020-06-25 10:15 | RAD ---
Exam: Chest one view HISTORY:Dyspnea. Comparison: 05/13/2020 FINDINGS: Cardiac silhouette: Normal Aorta: Unremarkable Pulmonary vessels: Normal Costophrenic angles: Clear LUNGS: Right lower lobe interstitial opacities with scattered superimposed alveolar infiltrates. Pneumothorax: None Osseous abnormalities: None IMPRESSION: Interstitial and alveolar infiltrates in the right lower lobe.
[2020-06-25 10:35] LABS: Hemoglobin 13.2 g/dL (12.0-16.0); Mean Corpuscular HGB CONC 32.5 g/dL (32.0-36.0); Mean Corpuscular Hemoglobin 30.7 pg (27.0-31.0); Mean Corpuscular Volume 94.3 fL (78.0-98.0); Platelet Count 107 thou/uL (130-400); RBC Distribution Width 12.4 % (11.5-14.5); Red Blood Cell (RBC) Count 4.29 mill/uL (4.20-5.40); White Blood Cell (WBC) Count 4.2 thou/uL (4.8-10.8)
[2020-06-25 10:37] LABS: ALT (SGPT) 38 U/L (8-55); AST (SGOT) 65 U/L (5-34); Albumin 3.3 g/dL (3.5-5.0); Alkaline Phosphatase 214 U/L (40-110); Anion Gap 16 mmol/L (10-20); BUN (Urea Nitrogen) 25 mg/dL (9.8-20.1); Bilirubin, Total 0.5 mg/dL (0.2-1.2); Calc. Creatinine Clearance 0 mL/min (70-130); Calcium 8.1 mg/dL (7.8-10.44); Carbon Dioxide 21 mmol/L (22-29); Chloride 106 mmol/L (98-107); Estimated GFR-MDRD 52; Globulin 3.6 g/dL (2.4-3.5); Glucose 95 mg/dL (70-105); Potassium 4.4 mmol/L (3.5-5.1); Protein, Total 6.9 g/dL (6.0-8.3); Sodium 139 mmol/L (136-145)
[2020-06-25 10:37] LABS: #Eosinphils 0.8 thou/uL (0.0-0.7); #Lymphocytes 1.1 thou/uL (1.20-3.40); #Monocytes 0.4 thou/uL (0.11-0.59); #Neutrophils 1.8 thou/uL (1.40-6.50); %Basophils 0.5 % (0.0-1.0); %Eosinophils 18.7 % (0.0-10.0); %Lymphocytes 26.2 % (21.0-51.0); %Monocytes 10.5 % (0.0-10.0); Large Platelets SLIGHT; MDiff Complete? YES; Platelet Morphology Comment Appears Decreased; RBC Morphology Normal
[2020-06-25 11:04] LABS: CKMB 10.4 ng/mL (0-6.6)
[2020-06-25] MEDS ORDERED: Azithromycin 500 MG VIAL ONE (11:05)
[2020-06-25] MEDS ORDERED: cefTRIAXone\\ROCEPHIN 2 GM VIAL ONE (11:05)
--- NOTE | 2020-06-25 11:19 | PDOC.FPRHP ---
- History of Present Illness Chief Complaint: SOB History of Present Illness: This is a 54 y/o F with PMHx of HFpEF, CAD, CKD 3, hx of drug abuse, hx of hep C, cirrhosis, COPD who presents today with SOB. She states that she has had SOB for the past three weeks with a productive cough. She states that she has not seen improvement in her symptoms and had increasing SOB so decided to come to the ED. She states that she has notice change in her sputum production which has now been green-shiela in color. She denied fever/chills or recent sick contacts. She has no other complaints at this time. She reports prior to coming to the ER, she tried her home neb treatment but this did not improve her symptoms. She does report some chest pain. She describes it as pressure and is worse with a deep breath. She denies radiation. ED Course: solumedrol, azithro, rocephin, nitrox2, albuterol - Allergies/Adverse Reactions Allergies Allergy/AdvReac Type Severity Reaction Status Date / Time ibuprofen Allergy Severe Anaphylaxis Verified 01/23/20 23:44 - Home Medications Medication Instructions Recorded Confirmed Type Carvedilol 25 mg PO BID 07/13/19 06/25/20 History Clopidogrel Bisulfate [Clopidogrel] 75 mg PO DAILY 07/13/19 06/25/20 History Spironolactone 100 mg PO DAILY 07/13/19 06/25/20 History Aspirin [Aspir-Low] 81 mg PO DAILY 12/30/19 06/25/20 History Atorvastatin Calcium 40 mg PO DAILY 12/30/19 06/25/20 History ALButerol Sulfate [Ventolin Neb] 2.5 mg NEB [id number] PRN #10 neb 01/01/20 01/24/20 Rx Ipratropium/Albuterol Sulfate 3 ml NEB [id number] #5 neb 01/01/20 01/24/20 Rx [DuoNeb] Albuterol Sulfate [Proventil Hfa] 2 puff INH Q4HR #1 aer 01/25/20 Rx NIFEdipine [Procardia XL] 30 mg PO DAILY #30 tab 01/25/20 06/25/20 Rx - History PMHx: -HFpEF -CAD -HTN -CKD 3 -Hx of drug abuse -Hx of hepatitis C PSHx: -stent placement in 2019 -hernia repair -cholecystectomy FHx: Non-contributory Social: Hx of tobacco abuse, < 10 pack years, denies alcohol/drugs, lives at home by herself. - Review of Systems General: reports: fatigue. denies: fever/chills, weight/appetite/sleep changes, night sweats Eyes: denies: eye pain, vision changes ENT: reports: nasal congestion, rhinorrhea Respiratory: reports: cough, congestion, shortness of breath, exercise intolerance, other (increased sputum production) Cardiovascular: reports: chest pain (epigastric pain worse with deep breaths). denies: palpitation, edema Gastrointestinal: reports: nausea. denies: vomiting, diarrhea, constipation, abdominal pain, GI bleeding Genitourinary: denies: incontinence, dysuria Skin: denies: rashes, lesions Musculoskeletal: reports: pain (pain in the back of her head, denies trauma). denies: tenderness Neurological: denies: numbness, syncope Psychological: denies: anxiety, depression - Vital signs BP: 168/113, Pulse: 88, Resp: 18, Pain: 3, O2 sat: 100 on (Room Air), Time: 06/25/2020 11:19. - Physical Exam Constitutional: NAD, awake, alert and oriented, well developed HEENT: normocephalic and atraumatic, grossly normal vision, grossly normal hearing, MMM Neck: trachea midline, no JVD Chest: no-tender to palpation, no lesions Heart: RRR, normal S1/S2, no murmurs/rubs/gallops, pulses present Lungs: good air movement, other (mild wheezing diffusely, rhonchi in right lower lung morgan) Abdomen: soft, non-tender, bowel sounds present Musculoskeletal: normal structure, normal tone Neurological: CN II-XII intact, normal sensation Skin: good turgor, capillary refill <2 seconds Psychiatric: normal mood and affect, good judgment and insight FMR H&P: Results - Labs Result Diagrams: 06/26/20 04:04 06/26/20 04:04 Lab results: WBC 4.2 thou/uL (4.8-10.8) L 06/25/20 10:06 Hgb 13.2 g/dL (12.0-16.0) 06/25/20 10:06 Hct 40.4 % (36.0-47.0) 06/25/20 10:06 MCV 94.3 fL (78.0-98.0) 06/25/20 10:06 Plt Count 107 thou/uL (130-400) L 06/25/20 10:06 Neutrophils % 44.0 % (42.0-75.0) 06/25/20 10:06 Sodium 139 mmol/L (136-145) 06/25/20 10:05 Potassium 4.4 mmol/L (3.5-5.1) 06/25/20 10:05 Chloride 106 mmol/L (98-107) 06/25/20 10:05 Carbon Dioxide 21 mmol/L (22-29) L 06/25/20 10:05 BUN 25 mg/dL (9.8-20.1) H 06/25/20 10:05 Creatinine 1.28 mg/dL (0.6-1.1) H 06/25/20 10:05 Glucose 95 mg/dL (70-105) 06/25/20 10:05 Lactic Acid 1.1 mmol/L (0.5-2.2) 06/25/20 10:06 Calcium 8.1 mg/dL (7.8-10.44) 06/25/20 10:05 Total Bilirubin 0.5 mg/dL (0.2-1.2) 06/25/20 10:05 AST 65 U/L (5-34) H 06/25/20 10:05 ALT 38 U/L (8-55) 06/25/20 10:05 Alkaline Phosphatase 214 U/L (40-110) H 06/25/20 10:05 CK-MB (CK-2) 10.4 ng/mL (0-6.6) H* 06/25/20 10:05 B-Natriuretic Peptide 108.8 pg/mL (0-100) H 06/25/20 10:06 Serum Total Protein 6.9 g/dL (6.0-8.3) 06/25/20 10:05 Albumin 3.3 g/dL (3.5-5.0) L 06/25/20 10:05 - EKG Interpretation EKG: Sinus tach, HR 102, QTc 497, no ST elevation or depression or Twave inversion - Radiology Interpretation Chest x-ray Status: image reviewed by me, report reviewed by me ( Interstitial and alveolar infiltrates in the right lower lobe.) FMR H&P: A/P - Plan This is a 54 y/o F with a PMHx of HFpEF, CAD, HTN, CKD 3, hx of hep C, COPD presenting today with SOB. 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 will continue to monitor symptoms. FMR H&P: Upper Level - Plan Date/Time: 06/25/20 7759 I, Chris Jones DO, have evaluated this patient and agree with findings/plan as outlined by internet sales consultant resident. In addition, I assisted in writing this docu mentation above. Addendum - Attending - Attending Attestation Date/Time: 06/26/20 8401 I personally evaluated the patient and discussed the management with Dr. Baptiste yesterday at time of admission. I agree with the History, Examination, Assessment and Plan documented above with any addition or exceptions noted below.
[2020-06-25 11:51] LABS: Amphetamine Not Detected (NotDetected); Barbiturates Screen Not Detected (NotDetected); Benzodiazepine Screen Not Detected (NotDetected); Cocaine Metabolite Screen Not Detected (NotDetected); Medtox Control Line Valid? VALID (VALID); Medtox Reader # READER 4; Methadone Not Detected (NotDetected); Methamphetamine Not Detected (NotDetected); Opiate Screen Not Detected (NotDetected); Oxycodone Screen Not Detected (NotDetected); Phencyclidine (PCP) Not Detected (NotDetected); THC/Cannabinoid Screen Not Detected (NotDetected); Tricyclic Screen Not Detected (NotDetected)
[2020-06-25] MEDS ORDERED: Albuterol Sulfate 2.5 mg/3 ml Neb NEB PRN (12:03)
[2020-06-25] MEDS ORDERED: Ondansetron ODT 4 MG TAB PO PRN (13:50)
[2020-06-25] MEDS ORDERED: Ondansetron PF 4 MG/2 ML Vial IVP PRN (13:50)
[2020-06-25 14:01] LABS: Troponin I 0.116 ng/mL (< 0.028)
[2020-06-25] MEDS: Labetalol HCl 100 MG/20 ML VIAL SLOW IVP PRN (14:23)
--- NOTE | 2020-06-25 15:33 | PDOC.BPN ---
- Brief Progress Note Date/Time: 06/25/20 1536 I personally evaluated the patient and discussed the management with Dr. Jones. H&P pending. I agree with the History, Examination, Assessment and Plan as discussed.
[2020-06-25] MEDS: methylPREDNISolone Sod Succ 40 MG VIAL IVP SCH ×2 (16:40→22:40)
[2020-06-25 16:50] LABS: Troponin I 0.119 ng/mL (< 0.028)
[2020-06-25] MEDS: Carvedilol 25 MG TAB PO SCH (19:51)
[2020-06-25] MEDS: Acetaminophen 325 MG TAB PO PRN (19:51)
[2020-06-25] MEDS ORDERED: Magnesium 2 GM/50 ML 2 GM in Premix Bag 1 BAG IVPB SCH (22:15)
[2020-06-25] MEDS: Benzonatate 100 MG CAP PO PRN (22:40)
[2020-06-26] MEDS: Labetalol HCl 100 MG/20 ML VIAL SLOW IVP PRN (03:22)
[2020-06-26 04:40] LABS: ALT (SGPT) 37 U/L (8-55); AST (SGOT) 46 U/L (5-34); Albumin 3.4 g/dL (3.5-5.0); Alkaline Phosphatase 215 U/L (40-110); Anion Gap 17 mmol/L (10-20); BUN (Urea Nitrogen) 35 mg/dL (9.8-20.1); Bilirubin, Total 0.3 mg/dL (0.2-1.2); Calc. Creatinine Clearance 73 mL/min (70-130); Calcium 8.9 mg/dL (7.8-10.44); Carbon Dioxide 18 mmol/L (22-29); Chloride 106 mmol/L (98-107); Estimated GFR-MDRD 42; Globulin 4.3 g/dL (2.4-3.5); Glucose 124 mg/dL (70-105); Potassium 4.7 mmol/L (3.5-5.1); Protein, Total 7.7 g/dL (6.0-8.3); Sodium 136 mmol/L (136-145)
[2020-06-26] MEDS: methylPREDNISolone Sod Succ 40 MG VIAL IVP SCH ×3 (04:59→17:41)
[2020-06-26] MEDS: Acetaminophen 325 MG TAB PO PRN (04:59)
[2020-06-26 05:16] LABS: Band 3 % (5-11); Hemoglobin 13.3 g/dL (12.0-16.0); Lymphocytes 36 % (21-51); MDiff Complete? YES; Mean Corpuscular HGB CONC 32.8 g/dL (32.0-36.0); Mean Corpuscular Hemoglobin 30.9 pg (27.0-31.0); Mean Platelet Volume 10.9 fL (7.4-10.4); Monocytes 4 % (0-10); Neutrophil 57 % (42-75); Platelet Count 121 thou/uL (130-400); Platelet Morphology Comment Appears Decreased; RBC Distribution Width 12.4 % (11.5-14.5); RBC Morphology Normal; Red Blood Cell (RBC) Count 4.31 mill/uL (4.20-5.40)
--- NOTE | 2020-06-26 05:38 | PDOC.FM ---
- Subjective Subjective: Pt resting comfortably in bed this AM. No acute events overnight. States that she continues to have a productive cough this AM and that she did not get much sleep last night due to it. The tessalon pearles she states is not helping with her symptoms. She has not required oxygen yesterday or overnight. She does complain of some L MSK chest pain over her ribs and is asking for a breast exam due to the location of her pain. States that she had a mammogram done last year which was normal. Breast cancer apparently does run in her family in her paternal aunt. - Objective Vital Signs & Weight: Vital Signs (12 hours) Temp Pulse Resp BP BP Pulse Ox 06/26/20 03:22 76 188/100 H 06/26/20 03:16 97.6 F 76 20 184/100 H 95 06/26/20 01:23 82 16 96 06/25/20 23:45 77 144/74 H 06/25/20 21:59 85 16 96 06/25/20 20:58 166/86 H 06/25/20 19:46 99.0 F 85 20 217/116 H 100 06/25/20 18:35 80 18 95 Weight Weight 113.398 kg I&O: 06/24/20 06/25/20 06/26/20 06:59 06:59 06:59 Intake Total 868 Output Total 700 Balance 168 Result Diagrams: 06/26/20 04:04 06/26/20 04:04 Phys Exam - Physical Examination Constitutional: NAD HEENT: PERRLA Neck: no nodes Respiratory: no rales, no rhonchi, clear to auscultation bilateral expiratory wheezing Cardiovascular: RRR, no significant murmur Gastrointestinal: soft, non-tender, no distention Musculoskeletal: no edema, pulses present Neurological: non-focal, normal sensation Lymphatic: no nodes Psychiatric: normal affect, A&O x 3 Skin: no rash, normal turgor, cap refill <2 seconds Deviation from normal: breast exam revealed no lymph nodes or palpable masses Dx/Plan - Plan Plan: This is a 54 y/o F with a PMHx of HFpEF, CAD, HTN, CKD 3, hx of hep C, COPD presenting today with SOB. ##COPD exacerbation -last COPD exacerbation she came to ED in 05/2020 and was sent home on steroids -CXR showed interstitial and alveolar infiltrates in RLL -Labs: CBC, CMP -Meds: IV solumedrol, duonebs, azithro and rocephin ##Community Acquired PNA -CXR shows RLL infiltrates -abx regimen as above -procal 0.07 -blood clx negative -COVID pending ##Hypertensive Urgency -initial BP SBP was 221 -admission BP was 168/113 -will continue home HTN meds, increased dose from 30-->60mg of nifedipine -labetalol prn SBP > 180 ##Indeterminate Troponin 2/2 NSTEMI type 2 -likely due to demand ischemia -0.036 initial trop, trend was 0.116-->0.119-->0.057 -initial EKG was wnl -admitted to telemetry for monitoring -so far, been in SR with HR in the 60s-80s ##AYDEN on CKD 3 -BUN/Primary Mill Roller 25/1.28 on admission -seems as if baseline is ~1.1 -BUN/Primary Mill Roller 35/1.55 -monitoring with CMP, will continue to monitor fluid status ##Elevated Liver Enzymes, resolving -Pt has cirrhosis and hx of hep C -AST 65, ALT 38--> now 46/37 -new 2.3cm liver mass was found on last admission in 01/2020; pt has already been made aware, unsure if she has had follow up for this -monitoring with CMP ##Elevated CK -CK-MB 10.4 -aware, monitoring Chronic Conditions: ##HFpEF -strict I/O, daily weights -BNP was 108.8 -last echo done in 12/2019 showed EF of 50-55% with diastolic dysfunction ##CAD -continue home meds -sees Dr. Carter of cardiology ##Thrombocytopenia -aware, seems based on prior labs pt has hx of this -plt 121 ##Hx of drug use -UDS negative ##Hx of incarceration -never screened for TB -HIV labs have been neg in the past -aware CODE: FULL DIET: HH VTE: Lovenox PCP: TAMP: [facility]ft Dispo: admitted to telemetry. will continue to monitor symptoms. continue with abx and steroids. Addendum - Attending - Attending Attestation Date/Time: 06/26/20 0797 I personally evaluated the patient and discussed the management with Dr. Baptiste. I agree with the History, Examination, Assessment and Plan documented above with any addition or exceptions noted below. Patient still has wheezing on exam. Continue antibx and steroids and bronchodilators. BP needs better control. Medication adjustments being made.
[2020-06-26] MEDS ORDERED: Amlodipine 5 MG TAB PO SCH (06:00)
[2020-06-26] MEDS ORDERED: NIFEdipine XL 30 MG TAB PO SCH ×2 (06:00→09:00)
[2020-06-26] MEDS ORDERED: NIFEdipine XL 60 MG TAB PO SCH ×2 (06:24→09:00)
[2020-06-26 06:44] LABS: Troponin I 0.057 ng/mL (< 0.028)
[2020-06-26] MEDS ORDERED: Albuterol 200 PUFF (6.7GM INHALER) INH PRN (07:30)
[2020-06-26] MEDS: Atorvastatin Calcium 40 MG TAB PO SCH (08:23)
[2020-06-26] MEDS: Aspirin 81 mg Enteric Coated Tablet PO SCH (08:23)
[2020-06-26] MEDS: Clopidogrel Bisulfate 75 MG TAB PO SCH (08:24)
[2020-06-26] MEDS: Carvedilol 25 MG TAB PO SCH ×2 (08:24→21:41)
[2020-06-26] MEDS: Spironolactone 100 MG TAB PO SCH (08:25)
[2020-06-26] MEDS: Enoxaparin Sodium 40 MG/0.4 ML SYRINGE SC SCH (08:25)
[2020-06-26] MEDS: Benzonatate 100 MG CAP PO PRN (08:34)
[2020-06-26] MEDS ORDERED: cloNIDine 0.1mg/24 Hour PATCH TD SCH ×2 (09:00→10:30)
[2020-06-26] MEDS: PROVENTIL INHALER 6.7 G (200 INHALATIONS) INH SCH ×2 (10:12→14:20)
[2020-06-26] MEDS ORDERED: cefTRIAXone\\ROCEPHIN 1 GM in Sodium Chloride 0.9% 100 ML IVPB SCH (11:00)
[2020-06-26 11:59] LABS: SARS-CoV-2 MS2 Positive; SARS-CoV-2 N Gene Negative; SARS-CoV-2 S Gene Negative; SARS-CoV-2 by NAA Not Detected (NotDetected); SARS-CoV-2 orf1ab Negative
[2020-06-26] MEDS ORDERED: Azithromycin 500 MG in Sodium Chloride 0.9% 250 ML 250 ML IVPB SCH (12:00)
[2020-06-26] MEDS ORDERED: Ondansetron ODT 4 MG TAB PO PRN (13:46)
[2020-06-26 14:28] LABS: Creatinine, Urine 97.75 mg/dL (47-110)
[2020-06-26] MEDS ORDERED: Terazosin HCl 1 MG CAP PO SCH (21:00)
[2020-06-27] MEDS: methylPREDNISolone Sod Succ 40 MG VIAL IVP SCH ×2 (00:32→06:01)
[2020-06-27 01:21] LABS: Actual Bicarbonate (HCO3a) 22.6 mEq/L (22-28); Base Excess (BEa) -2.7 mEq/L (-2.0 to +3.0); Calcium, Ionized (arterial) 1.15 mmol/L (1.12-1.30); Hemoglobin (Hb) 13.1 g/dL (12.0-16.0); O2 Tension (PaO2), arterial 80.8 mmHg (80.0-100.0); Potassium - ABG Lab 4.55 mmol/L (3.70-5.30); pH, Arterial 7.36 (7.35-7.45)
[2020-06-27 01:22] LABS: Puncture Site RRA
--- NOTE | 2020-06-27 01:28 | PDOC.BPN ---
<Carolina Bautista - Last Filed: 06/27/20 01:24> - Brief Progress Note Encounter Date: 06/27/20 Encounter Time: 01:15 Patient's nurse called saying patient was in respiratory distress following breathing treatment. Per RT and nurse, patient's respiratory status drastically changed. On exam, patient appeared uncomfortable and was having increased respiratory effort. On physical exam, patient had wheezing and poor air movement posteriorly. ABG and Xray were ordered. Will start continuous albuterol and give 2gm of Mag. Will hold morning beta ashwini. Will reassess patient in 1 hour or sooner if no improvement. <Garrett Gomez - Last Filed: 06/27/20 05:16> - Brief Progress Note I personally evaluated the patient and discussed above plan with residents. poor air movement in posterior lung morgan. ABG unremarkable. pt w/ hx of asthma. IV mag to address possible bronchospasm. will consider BiPAP and epi if no improvement.
[2020-06-27] MEDS ORDERED: Magnesium 2 GM/50 ML 2 GM in Premix Bag 1 BAG IVPB SCH (01:30)
[2020-06-27] MEDS ORDERED: Albuterol Sulfate 2.5 mg/3 ml Neb NEB SCH (01:30)
[2020-06-27] MEDS: Albuterol Sulfate 2.5 mg/3 ml Neb NEB SCH ×2 (02:52→07:01)
--- NOTE | 2020-06-27 05:50 | PDOC.FM ---
- Subjective Subjective: Pt in bed this AM. Last night her respiratory status changed and she had increasingly SOB. ABG was ordered as well as CXR which were both unremarkable. She states that her breathing is ok this AM, states that her throat feels dry. Not having to use her inhaler that is at bedside. States that what happened last night was that she was given her neb treatment and the "air was flowing too fast" for her to breathe and she became uncomfortable and had increasing SOB. - Objective Vital Signs & Weight: Vital Signs (12 hours) Temp Pulse Resp BP Pulse Ox 06/27/20 03:10 97.7 F 75 20 145/85 H 95 06/27/20 02:52 80 16 06/27/20 02:51 80 16 06/27/20 00:50 85 16 94 L 06/26/20 21:41 84 16 94 L 06/26/20 21:39 97.9 F 84 20 168/93 H 95 06/26/20 18:08 84 16 94 L Weight Weight 116.528 kg I&O: 06/25/20 06/26/20 06/27/20 06:59 06:59 06:59 Intake Total 868 1600 Output Total 700 850 Balance 168 750 Result Diagrams: 06/26/20 04:04 06/27/20 08:00 Phys Exam - Physical Examination Constitutional: NAD HEENT: PERRLA Neck: no nodes Respiratory: no rales, no rhonchi, wheezing present Cardiovascular: RRR, no significant murmur, no rub Gastrointestinal: soft, non-tender, no distention Musculoskeletal: no edema Neurological: non-focal Lymphatic: no nodes Psychiatric: normal affect, A&O x 3 Skin: no rash, normal turgor, cap refill <2 seconds Dx/Plan - Plan Plan: This is a 54 y/o F with a PMHx of HFpEF, CAD, HTN, CKD 3, hx of hep C, COPD presenting today with SOB. ##COPD exacerbation -last COPD exacerbation she came to ED in 05/2020 and was sent home on steroids -CXR showed interstitial and alveolar infiltrates in RLL -Labs: CBC, CMP -Meds: IV solumedrol, duonebs, azithro and rocephin -last night had increasing SOB, ABG and CXR unremarkable at that time, Mag was given ##Community Acquired PNA -CXR shows RLL infiltrates -abx regimen as above -procal 0.07 -blood clx negative -COVID pending ##Hypertensive Urgency -initial BP SBP was 221 -admission BP was 168/113 -b-blockers held/discontinued due to patient's cough for now -on spironolactone, terazosin, clonidine patch, nifedipine will be increased to 90mg this AM ##Indeterminate Troponin 2/2 NSTEMI type 2 -likely due to demand ischemia -0.036 initial trop, trend was 0.116-->0.119-->0.057 -initial EKG was wnl -admitted to telemetry for monitoring -so far, been in SR with HR in the 60s-80s ##AYDEN on CKD 3 -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 -seems as if baseline is ~1.1 -BUN/Air Hoist Operator 35/1.55 -monitoring with CMP, will continue to monitor fluid status ##Elevated Liver Enzymes, resolving -Pt has cirrhosis and hx of hep C -AST 65, ALT 38--> now 46/37 -new 2.3cm liver mass was found on last admission in 01/2020; pt has already been made aware, unsure if she has had follow up for this -monitoring with CMP ##Elevated CK -CK-MB 10.4 -aware, monitoring Chronic Conditions: ##HFpEF -strict I/O, daily weights -BNP was 108.8 -last echo done in 12/2019 showed EF of 50-55% with diastolic dysfunction ##CAD -continue home meds -sees Dr. Carter of cardiology ##Thrombocytopenia -aware, seems based on prior labs pt has hx of this -plt 121 ##Hx of drug use -UDS negative ##Hx of incarceration -never screened for TB -HIV labs have been neg in the past -aware CODE: FULL DIET: HH VTE: Lovenox PCP: TAMP: Croft Dispo: admitted to telemetry. will continue to monitor symptoms. continue with abx and steroids. Addendum - Attending - Attending Attestation Date/Time: 06/27/20 9835 I personally evaluated the patient and discussed the management with Dr. Baptiste. I agree with the History, Examination, Assessment and Plan documented above with any addition or exceptions noted below. Megan hernandezans wheezy but her air movement is improvement.
--- NOTE | 2020-06-27 07:53 | RAD ---
EXAM: CHEST ONE VIEW HISTORY: Shortness of breath and wheezing COMPARISON: 06/25/2020 FINDINGS: Cardiac silhouette is magnified by projection. Increased interstitial and patchy parenchymal opacitie s are again seen at the right lung base. Left lung is clear. Vascular calcifications are seen in the thoracic aorta no other interval change. IMPRESSION: Mild increased interstitial and patchy parenchymal opacity right lung base worrisome for pneumonia. F ollow-up to resolution is recommended.
[2020-06-27] MEDS ORDERED: NIFEdipine XL 90 MG TAB PO SCH (08:00)
[2020-06-27] MEDS: Aspirin 81 mg Enteric Coated Tablet PO SCH (08:18)
[2020-06-27] MEDS: Clopidogrel Bisulfate 75 MG TAB PO SCH (08:18)
[2020-06-27] MEDS: Atorvastatin Calcium 40 MG TAB PO SCH (08:18)
[2020-06-27] MEDS: Enoxaparin Sodium 40 MG/0.4 ML SYRINGE SC SCH (08:18)
[2020-06-27 08:52] LABS: ALT (SGPT) 32 U/L (8-55); AST (SGOT) 26 U/L (5-34); Albumin 3.3 g/dL (3.5-5.0); Alkaline Phosphatase 186 U/L (40-110); Anion Gap 12 mmol/L (10-20); BUN (Urea Nitrogen) 46 mg/dL (9.8-20.1); Bilirubin, Total 0.2 mg/dL (0.2-1.2); Calc. Creatinine Clearance 70 mL/min (70-130); Calcium 8.4 mg/dL (7.8-10.44); Carbon Dioxide 22 mmol/L (22-29); Chloride 106 mmol/L (98-107); Estimated GFR-MDRD 39; Globulin 3.7 g/dL (2.4-3.5); Glucose 175 mg/dL (70-105); Potassium 4.4 mmol/L (3.5-5.1); Sodium 136 mmol/L (136-145)
[2020-06-27] MEDS ORDERED: NIFEdipine XL 30 MG TAB PO SCH (09:00)
[2020-06-27] MEDS ORDERED: Amlodipine 5 MG TAB PO SCH (09:00)
[2020-06-27] MEDS ORDERED: guaiFENesin ER 600 MG TAB PO SCH (09:00)
[2020-06-27] MEDS ORDERED: cloNIDine 0.1mg/24 Hour PATCH TD SCH (09:00)
[2020-06-27] MEDS: Spironolactone 100 MG TAB PO SCH (09:02)
[2020-06-27 09:13] VITALS: BMI 42.1
[2020-06-27] MEDS ORDERED: Azithromycin 250 MG TAB PO SCH (10:00)
[2020-06-27] MEDS ORDERED: methylPREDNISolone 4 mg Tablet PO SCH (10:15)
[2020-06-27] MEDS ORDERED: Metoprolol Tartrate 25 MG TAB PO SCH ×2 (11:00→21:00)
[2020-06-27 16:05] VITALS: BP 130/85; TEMP 97.7
[2020-06-27] MEDS ORDERED: Mometasone 100 MCG/Formoterol 5 MCG 120 PUFF INHALER INH SCH (18:30)
[2020-06-28] MEDS ORDERED: Azithromycin 250 MG TAB PO SCH ×2 (09:00)
[2020-06-28] MEDS ORDERED: methylPREDNISolone 4 mg Tablet PO SCH (09:00)
--- NOTE | 2020-06-29 04:14 | DIS ---
DATE OF ADMISSION: 06/25/2020 DATE OF DISCHARGE: 06/27/2020 RESIDENT: Ingris Baptiste DO ADMITTING ATTENDING: Gary James MD DISCHARGE ATTENDING: Gary James MD CONSULT: None. PROCEDURES: Chest x-ray done on 06/25 showed interstitial and alveolar infiltrates in the right lower lobe. Chest x-ray done on 06/27 showed mild increased interstitial and patchy parenchymal opacity in right lung base worrisome for pneumonia. Followup to resolution is recommended. PRIMARY DIAGNOSES: 1. Chronic obstructive pulmonary disease exacerbation. 2. Community-acquired pneumonia. 3. Hypertensive urgency. 4. Indeterminant troponin. 5. Acute kidney injury on chronic kidney disease, 3. 6. Transaminitis. SECONDARY DIAGNOSES: 1. Heart failure with preserved ejection fraction. 2. Coronary artery disease. 3. HTN 4. COPD 5. Cirrhosis 6. Hepatitis C DISCHARGE MEDICATIONS: 1. Plavix 75 daily. 2. Aspirin 81. 3. Ventolin 2.5 mg q.4. 4. DuoNeb q.4. 5. Spironolactone 100 mg. 6. Clonidine patch 0.3 mg. 7. Dulera two puffs b.i.d. 8. Terazosin 1 mg p.o. 9. Lipitor 40. 10. Metoprolol 12.5 b.i.d. 11. Prednisone 20 mg for 10 days. 12. Prednisone 40 mg for 6 days. 13. Nifedipine 90 mg. 14. Zithromax 250 mg for three additional days. DISCONTINUED MEDICATIONS: 1. Nifedipine 30 mg. 2. Coreg 25 mg b.i.d. HISTORY OF PRESENT ILLNESS/HOSPITAL COURSE: This is a 54-year-old female, with past medical history as above, who presented on the day of admission with shortness of breath. She stated that she had had shortness of breath for the past three weeks with a productive cough. She had not seen any improvement with her symptoms and had increasing shortness of breath, so decided to come to the emergency department. She stated that she had noticed a change in her sputum production which had now been green in color. She denied fever, chills, or any recent sick contacts. She had no other complaints at that time. She reported prior to coming to the ED, she tried her home neb treatment, but this did not improve her symptoms. She did report some chest pain described as a pressure that was worse with deep breathing. She denied any radiation of the pain. Patient was admitted for COPD exacerbation and pneumonia that was found on her chest x-ray in the right lower lobe. Patient was never hypoxic and did not require oxygen throughout her stay. She was initially hypertensive with her systolic blood pressures in the 220s. Her blood pressure medications were increased, specifically her nifedipine from 30mg to 90mg and terazosin was added to her medication regimen. She was initially on Coreg, however, due to patient's shortness of breath and cough and with this being a side effect of beta blockers, it was changed to metoprolol which has a better beta receptor selectivity. Patient was also started on Dulera for her COPD management. Patient's symptoms had improved on second day of admission with antibiotics and steroids. Patient was discharged with p.o. antibiotics for a total of five days and a steroid taper. DISPOSITION: Stable. DISCHARGE INSTRUCTIONS: Location: Home. Diet: Heart-healthy. Activity: As tolerated. Followup: Follow up in one week with primary care physician. Job ID: [id number] AMY
[2020-07-03] MEDS ORDERED: cloNIDine 0.1mg/24 Hour PATCH TD SCH (09:00)
== END 2020-06-27 17:41 | disposition home or self-care (01) | DRG 280 ==
LOC: ERS 09:29 → ERHOLD 11:23 → 2NO 13:47
PROVIDERS: ADMIT Family Medicine; ATTEND Family Medicine
DX: I21.A1 Myocardial infarction type 2 (principal); J18.9 Pneumonia, unspecified organism; N17.9 Acute kidney failure, unspecified; J44.1 Chronic obstructive pulmonary disease with (acute) exacerbation; I50.32 Chronic diastolic (congestive) heart failure; J44.0 Chronic obstructive pulmonary disease with (acute) lower respiratory infection; I13.0 Hypertensive heart and chronic kidney disease with heart failure and stage 1 through stage 4 chronic kidney disease, or unspecified chronic kidney disease; I16.0 Hypertensive urgency; I25.10 Atherosclerotic heart disease of native coronary artery without angina pectoris; N18.3 Chronic kidney disease, stage 3 (moderate); F32.9 Major depressive disorder, single episode, unspecified; D69.6 Thrombocytopenia, unspecified; Z86.19 Personal history of other infectious and parasitic diseases; Z88.8 Allergy status to other drugs, medicaments and biological substances; Z79.899 Other long term (current) drug therapy; Z79.82 Long term (current) use of aspirin; Z79.51 Long term (current) use of inhaled steroids; Z90.49 Acquired absence of other specified parts of digestive tract; Z95.5 Presence of coronary angioplasty implant and graft; Z98.890 Other specified postprocedural states; Z79.01 Long term (current) use of anticoagulants; R74.8 Abnormal levels of other serum enzymes; R06.03 Acute respiratory distress
CPT/HCPCS: 36415; 71045; 80053; 80306; 82553; 82570; 82805; 83605; 83880; 84145; 84300; 84484; 85007; 85025; 85027; 87040; 87635; 93005; 94640; 94664; 94760; J0456; J0696; J1650; J2920; J2930; J3475; J3490; J7050; J7509; J7611; J7620; Q0162; U0003

== ENCOUNTER 2020-07-26 12:33 | Outpatient (CLI) | payer OTHER ==
--- NOTE | 2020-08-01 14:48 | MMO ---
Bilateral MAMMO Bilat Screen [facility]. CLINICAL HISTORY: Patient is 54 years old and is seen for screening. The patient has no family history of breast cancer. The patient has no personal history of cancer. The patient has a history of left OTHER in 1995 - benign - PT HAD A BX UNSURE WHAT PROCEDURE. VIEWS: The views performed were: bilateral craniocaudal with tomosynthesis and bilateral mediolateral oblique with tomosynthesis. FILMS COMPARED: The present examination has been compared to prior imaging studies performed at [facility] on 12/09/2016, 11/30/2017 and 12/15/2018. This study has been interpreted with the assistance of computer-aided detection. MAMMOGRAM FINDINGS: There are scattered fibroglandular densities. There are stable benign appearing calcifications seen in both breasts. There are also vascular calcifications. There are no suspicious masses, suspicious calcifications, or new areas of architectural distortion. IMPRESSION: THERE IS NO MAMMOGRAPHIC EVIDENCE OF MALIGNANCY. A ROUTINE FOLLOW-UP MAMMOGRAM IN 1 YEAR IS RECOMMENDED. THE RESULTS OF THIS EXAM WERE SENT TO THE PATIENT. ACR BI-RADS Category 2 - Benign finding MAMMOGRAPHY NOTE: 1. A negative mammogram report should not delay a biopsy if a dominant of clinically suspicious mass is present. 2. Approximately 10% to 15% of breast cancers are not detected by mammography. 3. Adenosis and dense breasts may obscure an underlying neoplasm. Reported by: CANDICE ARRINGTON MD Electonically Signed: [id number]
== END 2020-07-26 12:34 | disposition home or self-care (01) ==
LOC: BICMAMMO 12:33
PROVIDERS: ATTEND Family Medicine
DX: Z12.31 Encounter for screening mammogram for malignant neoplasm of breast (principal)
CPT/HCPCS: 77063; 77067

== ENCOUNTER 2020-09-30 13:11 | Outpatient (CLI) | payer OTHER ==
--- NOTE | 2020-09-30 13:45 | ULT ---
Focused ultrasound of the right inguinal region: 09/22/2020 HISTORY: Right inguinal vascular access 2 months ago for stent placement, clinical concern for hernia FINDINGS: Focused ultrasound of the right inguinal region obtained. The common femoral vein and commo n femoral artery are assessed with Doppler interrogation including color flow and spectral analysis. Common femoral vein and common femoral artery are patent and demonstrate appropriate venous and arter ial waveforms respectively. No enlarged lymph nodes are noted. No obvious hernia. IMPRESSION: Grossly unremarkable focused ultrasound of the right inguinal region. If a palpable abnor mality persists, CT advised.
== END 2020-09-30 13:12 | disposition home or self-care (01) ==
LOC: BICULT 13:11
PROVIDERS: ATTEND Family Medicine
DX: R19.09 Other intra-abdominal and pelvic swelling, mass and lump (principal)
CPT/HCPCS: 76999

== ENCOUNTER 2020-10-24 10:46 | Outpatient (CLI) | payer OTHER ==
--- NOTE | 2020-10-24 13:44 | CT ---
CT OF THE ABDOMEN WITH AND WITHOUT IV CONTRAST INDICATION: 55-year-old female with history of hepatocellular carcinoma and esophageal varices; histo ry of hepatic lesion ablation COMPARISON: CT of the abdomen with and without contrast dated February 13, 2020 FINDINGS: ABDOMEN: Lung bases: There is subsegmental volume loss involving both lower lobes Liver: There is stable cirrhotic morphology of the liver. The treated nonenhancing hypodense lesion w ith partial peripheral calcification within the posterior right hepatic lobe is stable measuring 1.9 cm. No suspicious arterially enhancing lesion is evident. Gallbladder: Surgically absent Pancreas: Normal. Adrenal glands: Normal. Spleen: Stable mild splenomegaly measuring 12.9 cm. Kidneys and ureters: Normal. No hydronephrosis. Vasculature: There are mild vascular calcifications seen involving the visualized vasculature. Lymph nodes:No lymphadenopathy. Free fluid in abdomen:No free fluid is evident. Osseous structures: No acute osseous abnormality. No destructive osteolytic or osteoblastic lesion i s identified. There is scattered degenerative and osteoarthritic changes. Soft tissues:Normal. IMPRESSION: 1. Stable cirrhotic morphology of the liver. The reportedly treated hypodense lesion within the poste rior right hepatic lobe is unchanged in appearance. No suspicious arterially enhancing lesion is identified with to suggest recurrent hepatocellular carcinoma. 2. Stable mild splenomegaly.
== END 2020-10-24 10:47 | disposition home or self-care (01) ==
LOC: BICCT 10:46
PROVIDERS: ATTEND Physician Assistant Medical
DX: C22.0 Liver cell carcinoma (principal); I85.00 Esophageal varices without bleeding; K74.60 Unspecified cirrhosis of liver; R16.1 Splenomegaly, not elsewhere classified
CPT/HCPCS: 74170

== ENCOUNTER 2020-12-19 19:00 | Outpatient (CLI) | payer OTHER | END 2020-12-19 19:01 | disposition home or self-care (01) | LOC: SLEEPLAB 19:00 | PROVIDERS: ATTEND Family Medicine | DX: G47.33 Obstructive sleep apnea (adult) (pediatric) (principal); R53.82 Chronic fatigue, unspecified; I11.0 Hypertensive heart disease with heart failure; I50.9 Heart failure, unspecified; J44.9 Chronic obstructive pulmonary disease, unspecified; R06.83 Snoring; G47.00 Insomnia, unspecified; G47.10 Hypersomnia, unspecified; E66.9 Obesity, unspecified; Z68.41 Body mass index [BMI] 40.0-44.9, adult | CPT/HCPCS: 95810 ==

== ENCOUNTER 2021-02-06 19:00 | Outpatient (CLI) | payer OTHER | END 2021-02-06 19:01 | disposition home or self-care (01) | LOC: SLEEPLAB 19:00 | PROVIDERS: ATTEND Family Medicine | DX: G47.33 Obstructive sleep apnea (adult) (pediatric) (principal); I11.0 Hypertensive heart disease with heart failure; I50.9 Heart failure, unspecified; J44.9 Chronic obstructive pulmonary disease, unspecified; R53.83 Other fatigue; E66.9 Obesity, unspecified; R06.83 Snoring; G47.10 Hypersomnia, unspecified; Z68.41 Body mass index [BMI] 40.0-44.9, adult | CPT/HCPCS: 95811 ==

== ENCOUNTER 2021-02-24 09:01 | Emergency (ER) | payer OTHER ==
[2021-02-24] MEDS ORDERED: Albuterol Sulfate 2.5 mg/3 ml Neb ONE (09:24)
[2021-02-24 09:42] LABS: #Eosinphils 0.6 thou/uL (0.0-0.7); #Lymphocytes 1.5 thou/uL (1.20-3.40); #Monocytes 0.6 thou/uL (0.11-0.59); #Neutrophils 2.2 thou/uL (1.40-6.50); %Lymphocytes 30.5 % (21.0-51.0); %Monocytes 11.5 % (0.0-10.0); Hemoglobin 12.4 g/dL (12.0-16.0); Mean Corpuscular HGB CONC 32.4 g/dL (32.0-36.0); Mean Corpuscular Hemoglobin 30.5 pg (27.0-31.0); Mean Corpuscular Volume 94.2 fL (78.0-98.0); Mean Platelet Volume 11.1 fL (7.4-10.4); Platelet Count 116 thou/uL (130-400); RBC Distribution Width 13.1 % (11.5-14.5); Red Blood Cell (RBC) Count 4.05 mill/uL (4.20-5.40); White Blood Cell (WBC) Count 4.8 thou/uL (4.8-10.8)
[2021-02-24] MEDS ORDERED: Furosemide 40 MG/4 ML VIAL ONE (09:46)
[2021-02-24 10:02] LABS: ALT (SGPT) 38 U/L (8-55); AST (SGOT) 47 U/L (5-34); Albumin 3.2 g/dL (3.5-5.0); Alkaline Phosphatase 198 U/L (40-110); Anion Gap 12 mmol/L (10-20); BUN (Urea Nitrogen) 29 mg/dL (9.8-20.1); Bilirubin, Total 0.4 mg/dL (0.2-1.2); Calc. Creatinine Clearance 0 mL/min (70-130); Calcium 8.3 mg/dL (7.8-10.44); Carbon Dioxide 25 mmol/L (22-29); Chloride 107 mmol/L (98-107); Globulin 4.1 g/dL (2.4-3.5); Glucose 106 mg/dL (70-105); Potassium 4.1 mmol/L (3.5-5.1); Protein, Total 7.3 g/dL (6.0-8.3); Sodium 140 mmol/L (136-145)
[2021-02-24 10:22] LABS: CKMB 4.5 ng/mL (0-6.6)
== END 2021-02-24 12:02 | disposition home or self-care (01) ==
LOC: ERS 09:01
DX: J44.9 Chronic obstructive pulmonary disease, unspecified (principal); I11.0 Hypertensive heart disease with heart failure; I50.9 Heart failure, unspecified; I25.10 Atherosclerotic heart disease of native coronary artery without angina pectoris; Z79.899 Other long term (current) drug therapy
CPT/HCPCS: 36415; 71045; 80053; 82553; 83880; 84484; 85025; 93005; 94644; 96374; J1940; J7611

== ENCOUNTER 2021-02-27 05:33 | Inpatient (IN) | payer OTHER ==
[2021-02-27] MEDS ORDERED: Nitroglycerin 2% Ointment 1 INCH/1 GM Packet ONE (05:58)
[2021-02-27] MEDS ORDERED: Aspirin 325 MG TAB ONE (05:58)
[2021-02-27 06:06] LABS: #Eosinphils 0.7 thou/uL (0.0-0.7); #Lymphocytes 1.1 thou/uL (1.20-3.40); #Monocytes 0.5 thou/uL (0.11-0.59); #Neutrophils 1.6 thou/uL (1.40-6.50); %Basophils 0.7 % (0.0-1.0); %Eosinophils 16.8 % (0.0-10.0); %Lymphocytes 28.4 % (21.0-51.0); %Monocytes 11.9 % (0.0-10.0); %Neutrophils 42.2 % (42.0-75.0); Hemoglobin 12.4 g/dL (12.0-16.0); Mean Corpuscular HGB CONC 33.8 g/dL (32.0-36.0); Mean Corpuscular Hemoglobin 32.3 pg (27.0-31.0); Mean Corpuscular Volume 95.6 fL (78.0-98.0); Mean Platelet Volume 10.8 fL (7.4-10.4); Platelet Count 100 thou/uL (130-400); RBC Distribution Width 12.9 % (11.5-14.5); Red Blood Cell (RBC) Count 3.83 mill/uL (4.20-5.40); White Blood Cell (WBC) Count 3.9 thou/uL (4.8-10.8)
[2021-02-27 06:27] LABS: ALT (SGPT) 49 U/L (8-55); AST (SGOT) 70 U/L (5-34); Albumin 3.1 g/dL (3.5-5.0); Alkaline Phosphatase 203 U/L (40-110); Anion Gap 12 mmol/L (10-20); BUN (Urea Nitrogen) 27 mg/dL (9.8-20.1); Bilirubin, Total 0.5 mg/dL (0.2-1.2); Calc. Creatinine Clearance 0 mL/min (70-130); Calcium 8.2 mg/dL (7.8-10.44); Carbon Dioxide 26 mmol/L (22-29); Chloride 108 mmol/L (98-107); Globulin 3.9 g/dL (2.4-3.5); Glucose 102 mg/dL (70-105); Potassium 3.8 mmol/L (3.5-5.1); Sodium 142 mmol/L (136-145)
[2021-02-27 06:48] LABS: CKMB 3.6 ng/mL (0-6.6)
[2021-02-27] MEDS ORDERED: Furosemide 40 MG/4 ML VIAL ONE (07:39)
[2021-02-27] MEDS ORDERED: Acetaminophen 325 MG TAB PO PRN (08:29)
[2021-02-27] MEDS ORDERED: Lisinopril 20 MG TAB PO SCH (09:14)
[2021-02-27 09:34] LABS: Troponin I 0.031 ng/mL (< 0.028)
[2021-02-27] MEDS ORDERED: Spironolactone 100 MG TAB PO SCH (09:45)
[2021-02-27] MEDS ORDERED: Clopidogrel Bisulfate 75 MG TAB PO SCH (09:45)
[2021-02-27] MEDS ORDERED: Albuterol Sulfate 2.5 mg/3 ml Neb NEB SCH (10:30)
[2021-02-27] MEDS: NIFEdipine XL 90 MG TAB PO SCH (11:29)
[2021-02-27] MEDS: Enoxaparin Sodium 40 MG/0.4 ML SYRINGE SC SCH (11:29)
[2021-02-27] MEDS: predniSONE 20 MG TAB PO SCH ×2 (11:29→20:31)
[2021-02-27] MEDS: Doxycycline 100 MG CAP PO SCH ×2 (11:30→20:30)
[2021-02-27 12:31] LABS: Troponin I 0.032 ng/mL (< 0.028)
[2021-02-27] MEDS ORDERED: hydrALAZINE 20 MG/ML VIAL SLOW IVP PRN (17:21)
[2021-02-27] MEDS ORDERED: Benzonatate 100 MG CAP PO PRN (18:50)
[2021-02-27] MEDS: Carvedilol 6.25 MG TAB PO SCH (20:30)
[2021-02-27] MEDS: Atorvastatin Calcium 40 MG TAB PO SCH (20:30)
[2021-02-28 00:58] LABS: SARS-CoV-2 PCR by NAA Not Detected (NotDetected)
[2021-02-28 05:13] LABS: #Lymphocytes 0.7 thou/uL (1.20-3.40); #Monocytes 0.2 thou/uL (0.11-0.59); #Neutrophils 2.2 thou/uL (1.40-6.50); %Basophils 0.4 % (0.0-1.0); %Eosinophils 0.3 % (0.0-10.0); %Lymphocytes 21.9 % (21.0-51.0); %Monocytes 5.4 % (0.0-10.0); Hemoglobin 11.8 g/dL (12.0-16.0); Mean Corpuscular HGB CONC 33.2 g/dL (32.0-36.0); Mean Corpuscular Hemoglobin 31.2 pg (27.0-31.0); Mean Corpuscular Volume 93.9 fL (78.0-98.0); Platelet Count 102 thou/uL (130-400); Red Blood Cell (RBC) Count 3.79 mill/uL (4.20-5.40); White Blood Cell (WBC) Count 3.1 thou/uL (4.8-10.8)
[2021-02-28 05:23] LABS: Phosphorus 2.5 mg/dL (2.3-4.7)
[2021-02-28 05:29] LABS: Anion Gap 12 mmol/L (10-20); BUN (Urea Nitrogen) 30 mg/dL (9.8-20.1); Calc. Creatinine Clearance 91 mL/min (70-130); Calcium 8.3 mg/dL (7.8-10.44); Carbon Dioxide 23 mmol/L (22-29); Chloride 107 mmol/L (98-107); Glucose 145 mg/dL (70-105); Magnesium 1.8 mg/dL (1.6-2.6); Potassium 3.9 mmol/L (3.5-5.1); Sodium 138 mmol/L (136-145)
[2021-02-28] MEDS ORDERED: Magnesium 2 GM/50 ML 2 GM in Premix Bag 1 BAG IVPB SCH (06:45)
[2021-02-28] MEDS ORDERED: Spironolactone 100 MG TAB PO SCH (09:00)
[2021-02-28] MEDS ORDERED: Furosemide 40 MG/4 ML VIAL SLOW IVP SCH (09:00)
[2021-02-28] MEDS: Spironolactone 100 MG TAB PO SCH (09:22)
[2021-02-28] MEDS: Aspirin 81 mg Enteric Coated Tablet PO SCH (09:22)
[2021-02-28] MEDS: Carvedilol 6.25 MG TAB PO SCH ×2 (09:22→21:58)
[2021-02-28] MEDS: Doxycycline 100 MG CAP PO SCH ×2 (09:23→21:58)
[2021-02-28] MEDS: NIFEdipine XL 90 MG TAB PO SCH (09:24)
[2021-02-28] MEDS: Polyethylene Glycol 3350 17 GM Packet PO SCH (09:24)
[2021-02-28] MEDS: predniSONE 20 MG TAB PO SCH ×2 (09:24→21:58)
[2021-02-28] MEDS: Clopidogrel Bisulfate 75 MG TAB PO SCH (09:25)
[2021-02-28] MEDS: Enoxaparin Sodium 40 MG/0.4 ML SYRINGE SC SCH (09:29)
[2021-02-28] MEDS ORDERED: Losartan 25 MG TAB PO SCH (12:15)
[2021-02-28] MEDS ORDERED: Ipratropium Oral Inhaler INH SCH (13:00)
[2021-02-28] MEDS ORDERED: Albuterol Sulfate 2.5 mg/3 ml Neb NEB SCH (14:30)
[2021-02-28] MEDS: Dextromethorphan Polistirex 30 MG/5 ML (89 ML BOTTLE) PO PRN ×2 (17:33→22:00)
[2021-02-28] MEDS: Mometasone 200 MCG/Formoterol 5 MCG 120 PUFF INHALER INH SCH (19:47)
[2021-02-28] MEDS ORDERED: Non-Formulary Item 1 EACH (Fluticasone/Salmeterol [Advair Diskus 250/50] 1 EACH Blst.W.De IH SCH (21:00)
[2021-02-28] MEDS: Atorvastatin Calcium 40 MG TAB PO SCH (21:57)
[2021-03-01 04:47] LABS: #Lymphocytes 0.7 thou/uL (1.20-3.40); #Monocytes 0.3 thou/uL (0.11-0.59); #Neutrophils 2.5 thou/uL (1.40-6.50); %Basophils 0.5 % (0.0-1.0); %Eosinophils 0.5 % (0.0-10.0); %Lymphocytes 20.4 % (21.0-51.0); %Monocytes 7.5 % (0.0-10.0); %Neutrophils 71.1 % (42.0-75.0); Hemoglobin 11.9 g/dL (12.0-16.0); Mean Corpuscular HGB CONC 33.1 g/dL (32.0-36.0); Mean Corpuscular Hemoglobin 31.4 pg (27.0-31.0); Mean Corpuscular Volume 94.7 fL (78.0-98.0); Mean Platelet Volume 11.3 fL (7.4-10.4); Platelet Count 119 thou/uL (130-400); RBC Distribution Width 13.2 % (11.5-14.5); Red Blood Cell (RBC) Count 3.79 mill/uL (4.20-5.40); White Blood Cell (WBC) Count 3.6 thou/uL (4.8-10.8)
[2021-03-01 05:02] LABS: Anion Gap 11 mmol/L (10-20); BUN (Urea Nitrogen) 36 mg/dL (9.8-20.1); Calc. Creatinine Clearance 70 mL/min (70-130); Calcium 8.6 mg/dL (7.8-10.44); Carbon Dioxide 25 mmol/L (22-29); Chloride 106 mmol/L (98-107); Glucose 133 mg/dL (70-105); Potassium 4.2 mmol/L (3.5-5.1); Sodium 138 mmol/L (136-145)
[2021-03-01] MEDS: Mometasone 200 MCG/Formoterol 5 MCG 120 PUFF INHALER INH SCH ×2 (07:32→19:41)
[2021-03-01] MEDS: Doxycycline 100 MG CAP PO SCH ×2 (08:12→20:19)
[2021-03-01] MEDS: Aspirin 81 mg Enteric Coated Tablet PO SCH (08:12)
[2021-03-01] MEDS: NIFEdipine XL 90 MG TAB PO SCH (08:12)
[2021-03-01] MEDS: Carvedilol 6.25 MG TAB PO SCH ×2 (08:13→20:19)
[2021-03-01] MEDS: Spironolactone 100 MG TAB PO SCH (08:13)
[2021-03-01] MEDS: Enoxaparin Sodium 40 MG/0.4 ML SYRINGE SC SCH (08:13)
[2021-03-01] MEDS: predniSONE 20 MG TAB PO SCH ×2 (08:13→20:19)
[2021-03-01] MEDS: Polyethylene Glycol 3350 17 GM Packet PO SCH (08:13)
[2021-03-01] MEDS: Clopidogrel Bisulfate 75 MG TAB PO SCH (08:13)
[2021-03-01] MEDS: Dextromethorphan Polistirex 30 MG/5 ML (89 ML BOTTLE) PO PRN ×2 (08:17→22:16)
[2021-03-01] MEDS ORDERED: Torsemide 20 MG TAB PO SCH (09:00)
[2021-03-01] MEDS ORDERED: Non-Formulary Item 1 EACH (Tiotropium Bromide 4 GM Inhaler) IH SCH (09:00)
[2021-03-01] MEDS ORDERED: Losartan 25 MG TAB PO SCH (09:00)
[2021-03-01] MEDS: Atorvastatin Calcium 40 MG TAB PO SCH (20:19)
[2021-03-02 05:32] LABS: #Lymphocytes 1.1 thou/uL (1.20-3.40); #Monocytes 0.4 thou/uL (0.11-0.59); #Neutrophils 3.4 thou/uL (1.40-6.50); %Basophils 0.1 % (0.0-1.0); %Eosinophils 0.3 % (0.0-10.0); %Lymphocytes 22.8 % (21.0-51.0); %Monocytes 7.5 % (0.0-10.0); %Neutrophils 69.3 % (42.0-75.0); Hemoglobin 12.9 g/dL (12.0-16.0); Mean Corpuscular HGB CONC 32.7 g/dL (32.0-36.0); Mean Corpuscular Hemoglobin 30.9 pg (27.0-31.0); Mean Corpuscular Volume 94.3 fL (78.0-98.0); Mean Platelet Volume 10.9 fL (7.4-10.4); Platelet Count 127 thou/uL (130-400); RBC Distribution Width 13.1 % (11.5-14.5); Red Blood Cell (RBC) Count 4.17 mill/uL (4.20-5.40)
[2021-03-02 05:54] LABS: Anion Gap 13 mmol/L (10-20); BUN (Urea Nitrogen) 43 mg/dL (9.8-20.1); Calc. Creatinine Clearance 60 mL/min (70-130); Calcium 8.5 mg/dL (7.8-10.44); Carbon Dioxide 24 mmol/L (22-29); Chloride 107 mmol/L (98-107); Glucose 136 mg/dL (70-105); Potassium 4.3 mmol/L (3.5-5.1); Sodium 140 mmol/L (136-145)
[2021-03-02] MEDS: Mometasone 200 MCG/Formoterol 5 MCG 120 PUFF INHALER INH SCH (07:41)
[2021-03-02] MEDS ORDERED: Lactated Ringer's 500 ML IV SCH (08:15)
[2021-03-02] MEDS: Carvedilol 6.25 MG TAB PO SCH (08:43)
[2021-03-02] MEDS: Doxycycline 100 MG CAP PO SCH (08:43)
[2021-03-02] MEDS: Spironolactone 100 MG TAB PO SCH (08:43)
[2021-03-02] MEDS: predniSONE 20 MG TAB PO SCH (08:43)
[2021-03-02] MEDS: Aspirin 81 mg Enteric Coated Tablet PO SCH (08:43)
[2021-03-02] MEDS: NIFEdipine XL 90 MG TAB PO SCH (08:44)
[2021-03-02] MEDS: Clopidogrel Bisulfate 75 MG TAB PO SCH (08:44)
[2021-03-02] MEDS: Enoxaparin Sodium 40 MG/0.4 ML SYRINGE SC SCH (08:44)
[2021-03-02] MEDS: Polyethylene Glycol 3350 17 GM Packet PO SCH (08:46)
[2021-03-02] MEDS ORDERED: Losartan 25 MG TAB PO SCH (09:00)
[2021-03-02 12:21] LABS: Anion Gap 15 mmol/L (10-20); BUN (Urea Nitrogen) 42 mg/dL (9.8-20.1); Calc. Creatinine Clearance 65 mL/min (70-130); Calcium 8.5 mg/dL (7.8-10.44); Carbon Dioxide 23 mmol/L (22-29); Chloride 105 mmol/L (98-107); Glucose 109 mg/dL (70-105); Sodium 139 mmol/L (136-145)
[2021-03-02 12:43] VITALS: BP 166/91; TEMP 98.4
== END 2021-03-02 15:13 | disposition home or self-care (01) | DRG 291 ==
LOC: ERS 05:33 → ERHOLD 06:53 → 2SW 10:57 → OBSVTOIN 02-28 08:29
PROVIDERS: ADMIT Student in an Organized Health Care Education/Training Program; ATTEND Student in an Organized Health Care Education/Training Program
DX: I13.0 Hypertensive heart and chronic kidney disease with heart failure and stage 1 through stage 4 chronic kidney disease, or unspecified chronic kidney disease (principal); I50.33 Acute on chronic diastolic (congestive) heart failure; N17.9 Acute kidney failure, unspecified; J44.1 Chronic obstructive pulmonary disease with (acute) exacerbation; N18.30 Chronic kidney disease, stage 3 unspecified; Z20.822 Contact with and (suspected) exposure to COVID-19; K74.60 Unspecified cirrhosis of liver; B19.20 Unspecified viral hepatitis C without hepatic coma; K21.9 Gastro-esophageal reflux disease without esophagitis; E78.5 Hyperlipidemia, unspecified; I16.0 Hypertensive urgency; R77.8 Other specified abnormalities of plasma proteins; I25.10 Atherosclerotic heart disease of native coronary artery without angina pectoris; Z95.5 Presence of coronary angioplasty implant and graft; Z88.6 Allergy status to analgesic agent; Z85.05 Personal history of malignant neoplasm of liver; Z79.899 Other long term (current) drug therapy; Z79.02 Long term (current) use of antithrombotics/antiplatelets; Z90.49 Acquired absence of other specified parts of digestive tract; Z90.710 Acquired absence of both cervix and uterus; Z87.891 Personal history of nicotine dependence
CPT/HCPCS: 36415; 71045; 80048; 80053; 82553; 83735; 83880; 84100; 84145; 84484; 85025; 93005; 93306; 94640; 96372; 96374; 96375; G0378; J0360; J1650; J1940; J3475; J7512; J7620; U0003; U0005

== ENCOUNTER 2021-03-19 07:40 | Outpatient (CLI) | payer OTHER | END 2021-03-19 07:41 | disposition home or self-care (01) | LOC: BICULT 07:40 | PROVIDERS: ATTEND Internal Medicine Gastroenterology | DX: N18.30 Chronic kidney disease, stage 3 unspecified (principal); I73.9 Peripheral vascular disease, unspecified; J44.9 Chronic obstructive pulmonary disease, unspecified; K21.9 Gastro-esophageal reflux disease without esophagitis; E78.5 Hyperlipidemia, unspecified; I25.10 Atherosclerotic heart disease of native coronary artery without angina pectoris; M19.90 Unspecified osteoarthritis, unspecified site | CPT/HCPCS: 76770; 93880; 93975 ==

== ENCOUNTER 2021-04-03 13:25 | Outpatient (CLI) | payer OTHER ==
[2021-04-04 06:45] LABS: SARS-CoV-2 PCR by NAA Not Detected (NotDetected)
== END 2021-04-03 13:26 | disposition home or self-care (01) ==
LOC: LABBT 13:25
PROVIDERS: ATTEND Internal Medicine Gastroenterology
DX: Z01.812 Encounter for preprocedural laboratory examination (principal); Z20.822 Contact with and (suspected) exposure to COVID-19
CPT/HCPCS: U0003; U0005

== ENCOUNTER 2021-04-08 07:43 | Day surgery (SDC) | payer OTHER ==
[2021-04-04 11:11] VITALS: BMI 43.4
[2021-04-08] MEDS ORDERED: Labetalol HCl 100 MG/20 ML VIAL ONE (08:58)
[2021-04-08] MEDS ORDERED: hydrALAZINE 20 MG/ML VIAL ONE (09:24)
[2021-04-08] MEDS ORDERED: Ketamine 50 MG/ML (10ML VIAL) ONE (11:03)
[2021-04-08] MEDS ORDERED: Midazolam HCl 2 mg/2 ml Vial ONE (11:04)
[2021-04-08] MEDS ORDERED: PROPOFOL 200 MG/20 ML VIAL ONE (11:07)
== END 2021-04-08 12:39 | disposition home or self-care (01) ==
LOC: SDC 07:43
PROVIDERS: ATTEND Internal Medicine Gastroenterology
PROC: 0DJD8ZZ Inspection of Lower Intestinal Tract, Via Natural or Artificial Opening Endoscopic (ICD-10-PCS; principal; 2021-04-08)
PROC: 0DJ08ZZ Inspection of Upper Intestinal Tract, Via Natural or Artificial Opening Endoscopic (ICD-10-PCS; principal; 2021-04-08)
DX: K74.60 Unspecified cirrhosis of liver (principal); I85.10 Secondary esophageal varices without bleeding; K76.6 Portal hypertension; K31.89 Other diseases of stomach and duodenum; K64.0 First degree hemorrhoids; R13.10 Dysphagia, unspecified; R19.5 Other fecal abnormalities; J44.9 Chronic obstructive pulmonary disease, unspecified; I11.0 Hypertensive heart disease with heart failure; I50.9 Heart failure, unspecified; Z95.5 Presence of coronary angioplasty implant and graft; Z87.19 Personal history of other diseases of the digestive system; Z88.6 Allergy status to analgesic agent; Z79.02 Long term (current) use of antithrombotics/antiplatelets; Z79.82 Long term (current) use of aspirin; Z79.51 Long term (current) use of inhaled steroids; Z79.899 Other long term (current) drug therapy; Z98.890 Other specified postprocedural states
CPT/HCPCS: J0360; J2250; J2704

== ENCOUNTER 2021-05-19 10:30 | Outpatient (CLI) | payer OTHER | END 2021-05-19 10:31 | disposition home or self-care (01) | LOC: ULT 10:30 | PROVIDERS: ATTEND Nurse Practitioner Family | DX: R10.84 Generalized abdominal pain (principal); Z90.49 Acquired absence of other specified parts of digestive tract | CPT/HCPCS: 93975 ==

== ENCOUNTER 2021-06-03 12:18 | Emergency (ER) | payer OTHER ==
[2021-06-04 00:10] LABS: SARS-CoV-2 PCR by NAA DETECTED (NotDetected)
== END 2021-06-03 12:51 | disposition home or self-care (01) ==
LOC: ERS 12:18
DX: U07.1 COVID-19 (principal); I10 Essential (primary) hypertension; J44.9 Chronic obstructive pulmonary disease, unspecified
CPT/HCPCS: 99283; U0003; U0005

== ENCOUNTER 2021-06-18 18:54 | Inpatient (IN) | payer OTHER ==
[~2021-06-18 18:54] MED LIST changes: -Iopamidol 370 76% 100 ML VIAL ONE; +Iopamidol-370 76% 500 ML 1 ML ONE
[2021-06-18 21:45] LABS: #Eosinphils 0.7 thou/uL (0.0-0.7); #Lymphocytes 1.1 thou/uL (1.20-3.40); #Monocytes 0.6 thou/uL (0.11-0.59); %Basophils 1.1 % (0.0-1.0); %Eosinophils 15.1 % (0.0-10.0); %Lymphocytes 25.8 % (21.0-51.0); %Monocytes 12.7 % (0.0-10.0); %Neutrophils 45.4 % (42.0-75.0); Hemoglobin 12.4 g/dL (12.0-16.0); Mean Corpuscular HGB CONC 33.9 g/dL (32.0-36.0); Mean Corpuscular Hemoglobin 32.3 pg (27.0-31.0); Mean Corpuscular Volume 95.2 fL (78.0-98.0); Mean Platelet Volume 10.5 fL (7.4-10.4); Platelet Count 103 thou/uL (130-400); RBC Distribution Width 13.6 % (11.5-14.5); Red Blood Cell (RBC) Count 3.84 mill/uL (4.20-5.40); White Blood Cell (WBC) Count 4.3 thou/uL (4.8-10.8)
[2021-06-18] MEDS ORDERED: niCARdipine 20MG In NaCl 20 MG/200 ML BAG ONE (21:55)
[2021-06-18] MEDS ORDERED: Albuterol 200 PUFF (6.7GM INHALER) ONE (21:55)
[2021-06-18 22:05] LABS: ALT (SGPT) 30 U/L (8-55); AST (SGOT) 44 U/L (5-34); Albumin 3.4 g/dL (3.5-5.0); Alkaline Phosphatase 188 U/L (40-110); BUN (Urea Nitrogen) 24 mg/dL (9.8-20.1); Bilirubin, Total 0.5 mg/dL (0.2-1.2); Calc. Creatinine Clearance 0 mL/min (70-130); Calcium 8.8 mg/dL (7.8-10.44); Carbon Dioxide 23 mmol/L (22-29); Chloride 109 mmol/L (98-107); Globulin 3.9 g/dL (2.4-3.5); Glucose 97 mg/dL (70-105); Protein, Total 7.3 g/dL (6.0-8.3); Sodium 142 mmol/L (136-145)
[2021-06-18 22:18] LABS: Anion Gap 16 mmol/L (10-20)
[2021-06-18 22:22] LABS: CKMB 5.7 ng/mL (0-6.6)
[2021-06-18] MEDS ORDERED: Dexamethasone 10 MG/ML VIAL ONE (23:46)
[2021-06-19] MEDS ORDERED: Acetaminophen 325 MG TAB ONE
[2021-06-19] MEDS ORDERED: Morphine 2 MG/ML VIAL SLOW IVP SCH (01:55)
[2021-06-19] MEDS ORDERED: Morphine 2 MG/ML VIAL ONE (02:03)
[2021-06-19] MEDS ORDERED: Guaifenesin DM 100-10/5 ML UDCUP PO PRN (02:17)
[2021-06-19] MEDS ORDERED: Ondansetron ODT 4 MG TAB PO PRN (02:17)
[2021-06-19] MEDS ORDERED: niCARdipine 25 MG in Sodium Chloride 0.9% 250 ML 240 ML IVPB SCH (02:30)
[2021-06-19] MEDS ORDERED: Albuterol Sulfate 2.5 mg/3 ml Neb NEB PRN (02:33)
[2021-06-19] MEDS ORDERED: Albuterol 200 PUFF (6.7GM INHALER) INH PRN (02:39)
[2021-06-19] MEDS ORDERED: Calcium Carbonate 500 MG ChewTAB PO PRN (02:47)
[2021-06-19 03:26] LABS: Bacteria/HPF None Seen HPF (None Seen); Bilirubin Negative (Negative); Blood, Urine 1+ (Negative); Clarity Clear (Clear); Glucose, Urine (Dipstick) Normal (Negative); Ketone, Urine Negative (Negative); Leukocyte Negative Leu/uL (Negative); Nitrite Negative (Negative); Protein, Urine (Dipstick) 200 mg/dL (Neg-Trace); Specific Gravity, Urine 1.015 (1.002-1.036); Squamous Epithelial 0-3 HPF (0-3); Urobilinogen Normal mg/dL (Less than 2); WBC/HPF 0-3 HPF (0-3); pH, Urine 6.5 (5.0-9.0)
[2021-06-19 03:30] LABS: Urine Culture Reflex No No
[2021-06-19 04:34] LABS: #Eosinphils 0.1 thou/uL (0.0-0.7); #Lymphocytes 0.6 thou/uL (1.20-3.40); #Monocytes 0.1 thou/uL (0.11-0.59); #Neutrophils 3.6 thou/uL (1.40-6.50); %Eosinophils 1.9 % (0.0-10.0); %Lymphocytes 12.9 % (21.0-51.0); %Neutrophils 82.3 % (42.0-75.0); Hemoglobin 12.3 g/dL (12.0-16.0); Mean Corpuscular HGB CONC 32.1 g/dL (32.0-36.0); Mean Corpuscular Hemoglobin 30.4 pg (27.0-31.0); Mean Corpuscular Volume 94.7 fL (78.0-98.0); Mean Platelet Volume 10.9 fL (7.4-10.4); Platelet Count 112 thou/uL (130-400); RBC Distribution Width 13.7 % (11.5-14.5); Red Blood Cell (RBC) Count 4.04 mill/uL (4.20-5.40); White Blood Cell (WBC) Count 4.4 thou/uL (4.8-10.8)
[2021-06-19 05:00] LABS: AST (SGOT) 43 U/L (5-34); Anion Gap 18 mmol/L (10-20); Bilirubin, Total 0.7 mg/dL (0.2-1.2); Carbon Dioxide 18 mmol/L (22-29); Chloride 109 mmol/L (98-107); Potassium 4.6 mmol/L (3.5-5.1); Sodium 140 mmol/L (136-145)
[2021-06-19 05:01] LABS: Troponin I 0.027 ng/mL (< 0.028)
[2021-06-19 05:11] LABS: ALT (SGPT) 30 U/L (8-55); Albumin 3.4 g/dL (3.5-5.0); Alkaline Phosphatase 193 U/L (40-110); BUN (Urea Nitrogen) 21 mg/dL (9.8-20.1); Calc. Creatinine Clearance 79 mL/min (70-130); Glucose 142 mg/dL (70-105); Lipase 45 U/L (8-78); Protein, Total 7.4 g/dL (6.0-8.3)
[2021-06-19] MEDS ORDERED: Enoxaparin Sodium 40 MG/0.4 ML SYRINGE ONE (08:38)
[2021-06-19] MEDS ORDERED: Clopidogrel Bisulfate 75 MG TAB ONE (08:38)
[2021-06-19] MEDS ORDERED: Dexamethasone 4 MG TAB ONE ×2 (08:38→08:51)
[2021-06-19] MEDS: Dexamethasone 4 MG TAB PO SCH (08:44)
[2021-06-19] MEDS: Clopidogrel Bisulfate 75 MG TAB PO SCH (08:44)
[2021-06-19] MEDS: Enoxaparin Sodium 40 MG/0.4 ML SYRINGE SC SCH (08:44)
[2021-06-19] MEDS ORDERED: Famotidine 20 MG TAB PO SCH (09:00)
[2021-06-19] MEDS ORDERED: Carvedilol 6.25 MG TAB PO SCH (10:00)
[2021-06-19] MEDS ORDERED: NIFEdipine XL 90 MG TAB PO SCH (10:00)
[2021-06-19] MEDS: Mometasone 200 MCG/Formoterol 5 MCG 120 PUFF INHALER INH SCH ×2 (10:12→20:36)
[2021-06-19] MEDS ORDERED: niCARdipine 20MG In NaCl 20 MG/200 ML BAG ONE (12:29)
[2021-06-19] MEDS: Carvedilol 6.25 MG TAB PO SCH (20:29)
[2021-06-19] MEDS: Atorvastatin Calcium 40 MG TAB PO SCH (20:31)
[2021-06-19] MEDS ORDERED: Acetaminophen 325 MG TAB PO PRN (22:48)
[2021-06-20 04:58] LABS: Hemoglobin 11.1 g/dL (12.0-16.0); Mean Corpuscular HGB CONC 32.6 g/dL (32.0-36.0); Mean Corpuscular Volume 95.2 fL (78.0-98.0); Mean Platelet Volume 10.6 fL (7.4-10.4); Platelet Count 115 thou/uL (130-400); RBC Distribution Width 13.5 % (11.5-14.5); Red Blood Cell (RBC) Count 3.58 mill/uL (4.20-5.40); White Blood Cell (WBC) Count 3.2 thou/uL (4.8-10.8)
[2021-06-20 06:29] LABS: Band 1 % (5-11); Lymphocytes 17 % (21-51); MDiff Complete? YES; Monocytes 13 % (0-10); Neutrophil 69 % (42-75); Platelet Morphology Comment Appears Decreased; RBC Morphology Normal
[2021-06-20] MEDS: Mometasone 200 MCG/Formoterol 5 MCG 120 PUFF INHALER INH SCH ×2 (06:45→18:30)
[2021-06-20 07:37] LABS: Anion Gap 16 mmol/L (10-20); BUN (Urea Nitrogen) 39 mg/dL (9.8-20.1); Calc. Creatinine Clearance 55 mL/min (70-130); Calcium 8.8 mg/dL (7.8-10.44); Carbon Dioxide 18 mmol/L (22-29); Chloride 107 mmol/L (98-107); Glucose 134 mg/dL (70-105); Potassium 4.9 mmol/L (3.5-5.1); Sodium 136 mmol/L (136-145)
[2021-06-20] MEDS: NIFEdipine XL 90 MG TAB PO SCH (08:42)
[2021-06-20] MEDS: Clopidogrel Bisulfate 75 MG TAB PO SCH (08:42)
[2021-06-20] MEDS: Carvedilol 6.25 MG TAB PO SCH (08:42)
[2021-06-20] MEDS: Enoxaparin Sodium 40 MG/0.4 ML SYRINGE SC SCH (08:42)
[2021-06-20] MEDS: Dexamethasone 4 MG TAB PO SCH (08:42)
[2021-06-20] MEDS ORDERED: Polyethylene Glycol 3350 17 GM Packet PO SCH (09:00)
[2021-06-20] MEDS: Lactated Ringer's 1,000 ML IV SCH ×2 (11:31→22:49)
[2021-06-20] MEDS: Atorvastatin Calcium 40 MG TAB PO SCH (19:54)
[2021-06-21] MEDS: Lactated Ringer's 1,000 ML IV SCH (00:55)
[2021-06-21] MEDS: Mometasone 200 MCG/Formoterol 5 MCG 120 PUFF INHALER INH SCH (07:01)
[2021-06-21] MEDS ORDERED: Senokot 8.6 MG TAB PO PRN (07:54)
[2021-06-21] MEDS ORDERED: Spironolactone 100 MG TAB PO SCH (08:00)
[2021-06-21 08:37] VITALS: BP 160/94; TEMP 98.5
[2021-06-21] MEDS: Dexamethasone 4 MG TAB PO SCH (08:47)
[2021-06-21] MEDS: NIFEdipine XL 90 MG TAB PO SCH (08:47)
[2021-06-21] MEDS: Enoxaparin Sodium 40 MG/0.4 ML SYRINGE SC SCH (08:48)
[2021-06-21] MEDS: Clopidogrel Bisulfate 75 MG TAB PO SCH (08:48)
[2021-06-21] MEDS ORDERED: Polyethylene Glycol 3350 17 GM Packet PO SCH (09:00)
== END 2021-06-21 16:28 | disposition home or self-care (01) | DRG 177 ==
LOC: ERS 18:54 → ERHOLD 23:15 → 2SW 06-19 19:55
PROVIDERS: ADMIT Family Medicine; ATTEND Family Medicine
PROC: 8E0ZXY6 Isolation (ICD-10-PCS; principal; 2021-06-18)
DX: U07.1 COVID-19 (principal); J96.01 Acute respiratory failure with hypoxia; I16.1 Hypertensive emergency; I13.0 Hypertensive heart and chronic kidney disease with heart failure and stage 1 through stage 4 chronic kidney disease, or unspecified chronic kidney disease; J44.1 Chronic obstructive pulmonary disease with (acute) exacerbation; I50.32 Chronic diastolic (congestive) heart failure; I25.10 Atherosclerotic heart disease of native coronary artery without angina pectoris; F32.9 Major depressive disorder, single episode, unspecified; D69.6 Thrombocytopenia, unspecified; R14.0 Abdominal distension (gaseous); N18.32 Chronic kidney disease, stage 3b; G47.33 Obstructive sleep apnea (adult) (pediatric); Z91.14 Patient's other noncompliance with medication regimen; Z95.5 Presence of coronary angioplasty implant and graft; Z90.49 Acquired absence of other specified parts of digestive tract; Z98.51 Tubal ligation status; Z88.8 Allergy status to other drugs, medicaments and biological substances; Z79.899 Other long term (current) drug therapy
CPT/HCPCS: 36415; 70450; 71045; 71275; 74018; 76700; 80048; 80053; 81001; 82553; 83605; 83690; 83880; 84145; 84443; 84484; 85025; 85379; 85652; 86140; 93005; J1100; J1650; J2270; J7120; J8540; Q9967

== ENCOUNTER 2021-09-23 10:23 | Outpatient (CLI) | payer OTHER | END 2021-09-23 10:24 | disposition home or self-care (01) | LOC: BICULT 10:23 | PROVIDERS: ATTEND Internal Medicine Nephrology | DX: I12.9 Hypertensive chronic kidney disease with stage 1 through stage 4 chronic kidney disease, or unspecified chronic kidney disease (principal); N18.30 Chronic kidney disease, stage 3 unspecified | CPT/HCPCS: 76770 ==

== ENCOUNTER 2021-10-03 13:40 | Emergency (ER) | payer OTHER ==
[2021-10-03 16:20] LABS: #Eosinphils 0.1 thou/uL (0.0-0.7); #Lymphocytes 0.9 thou/uL (1.20-3.40); #Monocytes 0.8 thou/uL (0.11-0.59); #Neutrophils 3.9 thou/uL (1.40-6.50); %Basophils 0.2 % (0.0-1.0); %Eosinophils 2.2 % (0.0-10.0); %Lymphocytes 15.5 % (21.0-51.0); %Monocytes 13.8 % (0.0-10.0); %Neutrophils 68.3 % (42.0-75.0); Hemoglobin 12.6 g/dL (12.0-16.0); Mean Corpuscular Hemoglobin 30.9 pg (27.0-31.0); Mean Corpuscular Volume 93.7 fL (78.0-98.0); Mean Platelet Volume 9.9 fL (7.4-10.4); Platelet Count 128 thou/uL (130-400); RBC Distribution Width 12.2 % (11.5-14.5); Red Blood Cell (RBC) Count 4.07 mill/uL (4.20-5.40); White Blood Cell (WBC) Count 5.8 thou/uL (4.8-10.8)
[2021-10-03 16:36] LABS: ALT (SGPT) 42 U/L (8-55); AST (SGOT) 52 U/L (5-34); Albumin 3.2 g/dL (3.5-5.0); Alkaline Phosphatase 242 U/L (40-110); Anion Gap 13 mmol/L (10-20); BUN (Urea Nitrogen) 17 mg/dL (9.8-20.1); Bilirubin, Total 1.5 mg/dL (0.2-1.2); Calc. Creatinine Clearance 0 mL/min (70-130); Calcium 8.4 mg/dL (7.8-10.44); Carbon Dioxide 26 mmol/L (22-29); Chloride 102 mmol/L (98-107); Globulin 4.4 g/dL (2.4-3.5); Glucose 101 mg/dL (70-105); Potassium 3.9 mmol/L (3.5-5.1); Protein, Total 7.6 g/dL (6.0-8.3); Sodium 137 mmol/L (136-145)
[2021-10-03 17:15] LABS: SARS-CoV-2 NAA Rapid Test Not Detected (NotDetected)
[2021-10-03] MEDS ORDERED: predniSONE 20 MG TAB ONE (17:21)
== END 2021-10-03 17:46 | disposition home or self-care (01) ==
LOC: ERS 13:40
DX: J45.901 Unspecified asthma with (acute) exacerbation (principal); J18.9 Pneumonia, unspecified organism; Z20.822 Contact with and (suspected) exposure to COVID-19; I11.0 Hypertensive heart disease with heart failure; I50.9 Heart failure, unspecified; I25.10 Atherosclerotic heart disease of native coronary artery without angina pectoris
CPT/HCPCS: 0240U; 36415; 71045; 80053; 84484; 85025; 93005; J7512; J7620

== ENCOUNTER 2021-11-12 17:11 | Inpatient (IN) | payer OTHER ==
[2021-11-12] MEDS ORDERED: Dexamethasone 4 mg/ml Vial ONE (17:29)
[2021-11-12 18:21] LABS: #Eosinphils 0.6 thou/uL (0.0-0.7); #Monocytes 0.4 thou/uL (0.11-0.59); #Neutrophils 2.1 thou/uL (1.40-6.50); %Basophils 0.4 % (0.0-1.0); %Eosinophils 14.9 % (0.0-10.0); %Lymphocytes 24.1 % (21.0-51.0); %Monocytes 10.6 % (0.0-10.0); Hemoglobin 11.6 g/dL (12.0-16.0); Mean Corpuscular HGB CONC 32.3 g/dL (32.0-36.0); Mean Corpuscular Hemoglobin 30.4 pg (27.0-31.0); Mean Corpuscular Volume 94.3 fL (78.0-98.0); Mean Platelet Volume 10.5 fL (7.4-10.4); Platelet Count 116 thou/uL (130-400); RBC Distribution Width 13.6 % (11.5-14.5); Red Blood Cell (RBC) Count 3.81 mill/uL (4.20-5.40); White Blood Cell (WBC) Count 4.2 thou/uL (4.8-10.8)
[2021-11-12] MEDS ORDERED: Albuterol Sulfate 2.5 mg/0.5 ml Neb ONE (18:23)
[2021-11-12 18:46] LABS: ALT (SGPT) 38 U/L (8-55); AST (SGOT) 55 U/L (5-34); Albumin 3.3 g/dL (3.5-5.0); Alkaline Phosphatase 225 U/L (40-110); Anion Gap 12 mmol/L (10-20); BUN (Urea Nitrogen) 27 mg/dL (9.8-20.1); Bilirubin, Total 0.5 mg/dL (0.2-1.2); Calc. Creatinine Clearance 0 mL/min (70-130); Calcium 8.5 mg/dL (7.8-10.44); Carbon Dioxide 25 mmol/L (22-29); Chloride 107 mmol/L (98-107); Glucose 101 mg/dL (70-105); Potassium 3.8 mmol/L (3.5-5.1); Protein, Total 7.3 g/dL (6.0-8.3); Sodium 140 mmol/L (136-145)
[2021-11-12 19:01] LABS: CKMB 5.6 ng/mL (0-6.6)
[2021-11-12] MEDS ORDERED: Ondansetron PF 4 MG/2 ML Vial IVP PRN (20:45)
[2021-11-12] MEDS ORDERED: niCARdipine 25 MG in Sodium Chloride 0.9% 250 ML 250 ML IVPB SCH (20:45)
[2021-11-12] MEDS ORDERED: Ondansetron ODT 4 MG TAB SL PRN (20:45)
[2021-11-12] MEDS ORDERED: niCARdipine 25 MG/10 ML VIAL ONE ×2 (20:49→20:50)
[2021-11-12] MEDS ORDERED: Electrolyte Replacement Protocol 1 EACH IVPB PRN (21:08)
[2021-11-12 22:04] LABS: Troponin I 0.034 ng/mL (< 0.028)
[2021-11-12] MEDS ORDERED: Albuterol 200 PUFF (6.7GM INHALER) INH PRN ×2 (22:25→23:52)
[2021-11-12] MEDS ORDERED: NIFEdipine XL 90 MG TAB PO SCH (22:30)
[2021-11-12] MEDS ORDERED: Spironolactone 100 MG TAB PO SCH (22:30)
[2021-11-12] MEDS: Acetaminophen 325 MG TAB PO PRN (22:35)
[2021-11-12 23:06] VITALS: BMI 43.5
[2021-11-13 01:11] LABS: Troponin I 0.023 ng/mL (< 0.028)
[2021-11-13] MEDS ORDERED: hydrALAZINE 20 MG/ML VIAL SLOW IVP PRN (01:11)
[2021-11-13] MEDS ORDERED: Guaifenesin DM 100-10/5 ML UDCUP PO PRN (02:34)
[2021-11-13] MEDS ORDERED: Pantoprazole 40 MG GRANULES PACKET PO SCH (02:45)
[2021-11-13] MEDS: Acetaminophen 325 MG TAB PO PRN ×2 (03:11→13:50)
[2021-11-13 04:04] LABS: ALT (SGPT) 35 U/L (8-55); AST (SGOT) 44 U/L (5-34); Albumin 3.2 g/dL (3.5-5.0); Alkaline Phosphatase 209 U/L (40-110); Anion Gap 13 mmol/L (10-20); BUN (Urea Nitrogen) 30 mg/dL (9.8-20.1); Band 5 % (5-11); Bilirubin, Total 0.5 mg/dL (0.2-1.2); Calc. Creatinine Clearance 54 mL/min (70-130); Carbon Dioxide 23 mmol/L (22-29); Chloride 105 mmol/L (98-107); Globulin 4.3 g/dL (2.4-3.5); Glucose 271 mg/dL (70-105); Hemoglobin 11.5 g/dL (12.0-16.0); Lymphocytes 15 % (21-51); MDiff Complete? YES; Mean Corpuscular HGB CONC 33.5 g/dL (32.0-36.0); Mean Corpuscular Hemoglobin 31.1 pg (27.0-31.0); Mean Corpuscular Volume 92.9 fL (78.0-98.0); Mean Platelet Volume 10.8 fL (7.4-10.4); Monocytes 3 % (0-10); Neutrophil 77 % (42-75); Platelet Count 121 thou/uL (130-400); Platelet Morphology Comment Appears Decreased; Potassium 3.8 mmol/L (3.5-5.1); Protein, Total 7.5 g/dL (6.0-8.3); RBC Distribution Width 13.5 % (11.5-14.5); Sodium 137 mmol/L (136-145); White Blood Cell (WBC) Count 3.6 thou/uL (4.8-10.8)
[2021-11-13 05:17] LABS: SARS-CoV-2 NAA Rapid Test Not Detected (NotDetected)
[2021-11-13] MEDS: Mometasone 200 MCG/Formoterol 5 MCG 120 PUFF INHALER INH SCH ×2 (07:55→20:54)
[2021-11-13] MEDS ORDERED: predniSONE 20 MG TAB PO SCH (08:00)
[2021-11-13] MEDS ORDERED: Atorvastatin Calcium 40 MG TAB PO SCH (09:00)
[2021-11-13] MEDS ORDERED: FLU VACC QS2021-22(6MOS UP)/PF 60 MCG/0.5 ML SYRINGE IM ONE (09:00)
[2021-11-13] MEDS: guaiFENesin ER 600 MG TAB PO SCH ×2 (09:24→20:39)
[2021-11-13] MEDS: Calcium Carbonate 600 MG TAB PO SCH ×2 (09:26→20:39)
[2021-11-13] MEDS: Heparin 5,000 UNITS/ML VIAL SC SCH ×3 (09:27→21:16)
[2021-11-13] MEDS: Clopidogrel Bisulfate 75 MG TAB PO SCH (09:27)
[2021-11-13] MEDS: Hydrochlorothiazide 25 MG TAB PO SCH (09:27)
[2021-11-13] MEDS: Benzonatate 100 MG CAP PO PRN (09:40)
[2021-11-13] MEDS: Spironolactone 100 MG TAB PO SCH (09:40)
[2021-11-13] MEDS: Torsemide 20 MG TAB PO SCH (09:40)
[2021-11-13] MEDS: NIFEdipine XL 90 MG TAB PO SCH (09:40)
[2021-11-13] MEDS ORDERED: Simethicone Chewable 80 MG TAB PO PRN (12:26)
[2021-11-14] MEDS: Benzonatate 100 MG CAP PO PRN (00:53)
[2021-11-14 04:31] LABS: ALT (SGPT) 29 U/L (8-55); AST (SGOT) 33 U/L (5-34); Albumin 3.2 g/dL (3.5-5.0); Alkaline Phosphatase 178 U/L (40-110); Anion Gap 14 mmol/L (10-20); BUN (Urea Nitrogen) 40 mg/dL (9.8-20.1); Bilirubin, Total 0.4 mg/dL (0.2-1.2); Calc. Creatinine Clearance 44 mL/min (70-130); Calcium 8.8 mg/dL (7.8-10.44); Carbon Dioxide 23 mmol/L (22-29); Chloride 106 mmol/L (98-107); Globulin 3.9 g/dL (2.4-3.5); Glucose 108 mg/dL (70-105); Potassium 3.5 mmol/L (3.5-5.1); Protein, Total 7.1 g/dL (6.0-8.3); Sodium 139 mmol/L (136-145)
[2021-11-14 05:29] LABS: Band 5 % (5-11); Hemoglobin 10.6 g/dL (12.0-16.0); Lymphocytes 26 % (21-51); MDiff Complete? YES; Mean Corpuscular Volume 96.5 fL (78.0-98.0); Mean Platelet Volume 10.3 fL (7.4-10.4); Monocytes 17 % (0-10); Neutrophil 52 % (42-75); Platelet Count 137 thou/uL (130-400); RBC Distribution Width 13.9 % (11.5-14.5); Red Blood Cell (RBC) Count 3.53 mill/uL (4.20-5.40); White Blood Cell (WBC) Count 5.7 thou/uL (4.8-10.8)
[2021-11-14] MEDS: Mometasone 200 MCG/Formoterol 5 MCG 120 PUFF INHALER INH SCH ×2 (07:29→22:30)
[2021-11-14] MEDS ORDERED: Potassium Chloride 20 MEQ TAB PO SCH (08:00)
[2021-11-14] MEDS: guaiFENesin ER 600 MG TAB PO SCH ×2 (08:55→21:36)
[2021-11-14] MEDS: NIFEdipine XL 90 MG TAB PO SCH (08:56)
[2021-11-14] MEDS: Clopidogrel Bisulfate 75 MG TAB PO SCH (08:56)
[2021-11-14] MEDS: Torsemide 20 MG TAB PO SCH (08:56)
[2021-11-14] MEDS: Calcium Carbonate 600 MG TAB PO SCH ×2 (08:56→21:36)
[2021-11-14] MEDS: Hydrochlorothiazide 25 MG TAB PO SCH (08:56)
[2021-11-14] MEDS: Spironolactone 100 MG TAB PO SCH (08:56)
[2021-11-14] MEDS: Heparin 5,000 UNITS/ML VIAL SC SCH ×3 (09:19→21:37)
[2021-11-14] MEDS: Senokot S 8.6-50 MG TAB PO SCH ×2 (09:22→21:36)
[2021-11-14] MEDS: Acetaminophen 325 MG TAB PO PRN (14:57)
[2021-11-14] MEDS ORDERED: Simethicone Chewable 80 MG TAB PO SCH (16:45)
[2021-11-14] MEDS ORDERED: Polyethylene Glycol 3350 17 GM Packet PO SCH (17:30)
[2021-11-14] MEDS ORDERED: Atorvastatin Calcium 40 MG TAB PO SCH (21:00)
[2021-11-15 04:54] LABS: ALT (SGPT) 30 U/L (8-55); AST (SGOT) 32 U/L (5-34); Albumin 3.3 g/dL (3.5-5.0); Alkaline Phosphatase 180 U/L (40-110); Anion Gap 13 mmol/L (10-20); BUN (Urea Nitrogen) 43 mg/dL (9.8-20.1); Bilirubin, Total 0.3 mg/dL (0.2-1.2); Calc. Creatinine Clearance 48 mL/min (70-130); Calcium 9.2 mg/dL (7.8-10.44); Carbon Dioxide 28 mmol/L (22-29); Chloride 104 mmol/L (98-107); Globulin 4.2 g/dL (2.4-3.5); Glucose 95 mg/dL (70-105); Potassium 3.9 mmol/L (3.5-5.1); Protein, Total 7.5 g/dL (6.0-8.3); Sodium 141 mmol/L (136-145)
[2021-11-15] MEDS ORDERED: Simethicone Chewable 80 MG TAB PO SCH (05:15)
[2021-11-15 05:22] LABS: Eosinophils 6 % (0-10); Lymphocytes 32 % (21-51); MDiff Complete? YES; Mean Corpuscular Hemoglobin 31.4 pg (27.0-31.0); Mean Corpuscular Volume 95.1 fL (78.0-98.0); Mean Platelet Volume 10.6 fL (7.4-10.4); Monocytes 10 % (0-10); Neutrophil 51 % (42-75); Platelet Count 126 thou/uL (130-400); RBC Distribution Width 13.9 % (11.5-14.5); Red Blood Cell (RBC) Count 3.81 mill/uL (4.20-5.40); White Blood Cell (WBC) Count 4.7 thou/uL (4.8-10.8)
[2021-11-15] MEDS: Mometasone 200 MCG/Formoterol 5 MCG 120 PUFF INHALER INH SCH (07:29)
[2021-11-15] MEDS ORDERED: Polyethylene Glycol 3350 17 GM Packet PO SCH (09:00)
[2021-11-15] MEDS: Spironolactone 100 MG TAB PO SCH (09:01)
[2021-11-15] MEDS: guaiFENesin ER 600 MG TAB PO SCH (09:02)
[2021-11-15] MEDS: Hydrochlorothiazide 25 MG TAB PO SCH (09:03)
[2021-11-15] MEDS: Calcium Carbonate 600 MG TAB PO SCH (09:03)
[2021-11-15] MEDS: NIFEdipine XL 90 MG TAB PO SCH (09:03)
[2021-11-15] MEDS: Senokot S 8.6-50 MG TAB PO SCH (09:03)
[2021-11-15] MEDS: Clopidogrel Bisulfate 75 MG TAB PO SCH (09:03)
[2021-11-15] MEDS: Simethicone Chewable 80 MG TAB PO SCH ×2 (09:03→12:14)
[2021-11-15] MEDS: Heparin 5,000 UNITS/ML VIAL SC SCH (09:12)
[2021-11-15] MEDS ORDERED: Milk Of Magnesia 30 ML UDCUP PO SCH (11:15)
[2021-11-15 12:34] VITALS: BP 141/87; TEMP 98.5
== END 2021-11-15 16:50 | disposition home or self-care (01) | DRG 291 ==
LOC: ERS 17:11 → CCU 20:03 → 2NO 11-13 17:19
PROVIDERS: ADMIT Family Medicine; ATTEND Family Medicine
DX: I13.0 Hypertensive heart and chronic kidney disease with heart failure and stage 1 through stage 4 chronic kidney disease, or unspecified chronic kidney disease (principal); I50.33 Acute on chronic diastolic (congestive) heart failure; I16.1 Hypertensive emergency; N17.9 Acute kidney failure, unspecified; J44.1 Chronic obstructive pulmonary disease with (acute) exacerbation; Z20.822 Contact with and (suspected) exposure to COVID-19; F32.A Depression, unspecified; J45.909 Unspecified asthma, uncomplicated; N18.30 Chronic kidney disease, stage 3 unspecified; D69.6 Thrombocytopenia, unspecified; G47.33 Obstructive sleep apnea (adult) (pediatric); Z60.2 Problems related to living alone; R79.89 Other specified abnormal findings of blood chemistry; K59.00 Constipation, unspecified; J44.9 Chronic obstructive pulmonary disease, unspecified; Z79.899 Other long term (current) drug therapy; Z91.14 Patient's other noncompliance with medication regimen; Z86.19 Personal history of other infectious and parasitic diseases; Z79.01 Long term (current) use of anticoagulants; Z88.6 Allergy status to analgesic agent; Z95.5 Presence of coronary angioplasty implant and graft; Z90.49 Acquired absence of other specified parts of digestive tract; Z98.51 Tubal ligation status
CPT/HCPCS: 36415; 71045; 74018; 80053; 82553; 83880; 84484; 85007; 85025; 85027; 93005; 93306; 94640; J0360; J1100; J1644; J7611; J7620; U0002; U0003; U0005

== ENCOUNTER 2022-01-08 13:47 | Emergency (ER) | payer OTHER ==
[2022-01-08 14:14] LABS: #Eosinphils 0.5 thou/uL (0.0-0.7); #Lymphocytes 0.9 thou/uL (1.20-3.40); #Monocytes 0.5 thou/uL (0.11-0.59); #Neutrophils 2.2 thou/uL (1.40-6.50); %Basophils 0.6 % (0.0-1.0); %Eosinophils 12.2 % (0.0-10.0); %Lymphocytes 22.3 % (21.0-51.0); %Monocytes 12.6 % (0.0-10.0); %Neutrophils 52.2 % (42.0-75.0); Hemoglobin 12.5 g/dL (12.0-16.0); Mean Corpuscular HGB CONC 32.1 g/dL (32.0-36.0); Mean Corpuscular Volume 96.6 fL (78.0-98.0); Platelet Count 145 thou/uL (130-400); RBC Distribution Width 13.9 % (11.5-14.5); Red Blood Cell (RBC) Count 4.03 mill/uL (4.20-5.40); White Blood Cell (WBC) Count 4.2 thou/uL (4.8-10.8)
[2022-01-08 14:36] LABS: ALT (SGPT) 26 U/L (8-55); AST (SGOT) 33 U/L (5-34); Albumin 3.4 g/dL (3.5-5.0); Alkaline Phosphatase 206 U/L (40-110); Anion Gap 15 mmol/L (10-20); BUN (Urea Nitrogen) 19 mg/dL (9.8-20.1); Bilirubin, Total 0.6 mg/dL (0.2-1.2); Calc. Creatinine Clearance 0 mL/min (70-130); Calcium 8.5 mg/dL (7.8-10.44); Carbon Dioxide 23 mmol/L (22-29); Chloride 105 mmol/L (98-107); Globulin 4.7 g/dL (2.4-3.5); Glucose 108 mg/dL (70-105); Potassium 3.9 mmol/L (3.5-5.1); Protein, Total 8.1 g/dL (6.0-8.3); Sodium 139 mmol/L (136-145)
[2022-01-08] MEDS ORDERED: cefTRIAXone\\ROCEPHIN 1 GM VIAL ONE (15:39)
[2022-01-08] MEDS ORDERED: Sterile Water 10 ML ONE (15:40)
== END 2022-01-08 16:16 | disposition home or self-care (01) ==
LOC: ERS 13:47
DX: J18.9 Pneumonia, unspecified organism (principal); I11.0 Hypertensive heart disease with heart failure; I50.9 Heart failure, unspecified; J44.9 Chronic obstructive pulmonary disease, unspecified; Z79.899 Other long term (current) drug therapy
CPT/HCPCS: 36415; 71045; 80053; 83880; 84484; 85025; 93005; 96372; J0696

== ENCOUNTER 2022-01-10 07:52 | Inpatient (IN) | payer OTHER ==
[2022-01-10] MEDS ORDERED: Nitroglycerin 2% Ointment 1 INCH/1 GM Packet ONE (07:57)
[2022-01-10] MEDS ORDERED: Furosemide 40 MG/4 ML VIAL ONE (08:12)
[2022-01-10] MEDS ORDERED: cefTRIAXone\\ROCEPHIN 1 GM VIAL ONE (08:12)
[2022-01-10 08:38] LABS: #Eosinphils 0.6 thou/uL (0.0-0.7); #Lymphocytes 0.9 thou/uL (1.20-3.40); #Monocytes 0.4 thou/uL (0.11-0.59); #Neutrophils 1.4 thou/uL (1.40-6.50); %Basophils 1.1 % (0.0-1.0); %Eosinophils 18.3 % (0.0-10.0); %Lymphocytes 26.5 % (21.0-51.0); %Monocytes 11.5 % (0.0-10.0); %Neutrophils 42.7 % (42.0-75.0); Hemoglobin 11.8 g/dL (12.0-16.0); Mean Corpuscular HGB CONC 32.3 g/dL (32.0-36.0); Mean Corpuscular Hemoglobin 30.9 pg (27.0-31.0); Mean Corpuscular Volume 95.4 fL (78.0-98.0); Platelet Count 141 thou/uL (130-400); RBC Distribution Width 13.7 % (11.5-14.5); Red Blood Cell (RBC) Count 3.84 mill/uL (4.20-5.40); White Blood Cell (WBC) Count 3.3 thou/uL (4.8-10.8)
[2022-01-10 08:59] LABS: Bacteria/HPF None Seen HPF (None Seen); Bilirubin Negative (Negative); Blood, Urine 1+ (Negative); Clarity Clear (Clear); Glucose, Urine (Dipstick) Normal (Negative); Ketone, Urine Negative (Negative); Leukocyte Negative Leu/uL (Negative); Nitrite Negative (Negative); Protein, Urine (Dipstick) 300 mg/dL (Neg-Trace); RBC/HPF 0-3 HPF (0-3); Specific Gravity, Urine 1.016 (1.002-1.036); Squamous Epithelial None Seen HPF (0-3); Urobilinogen Normal mg/dL (Less than 2); WBC/HPF 0-3 HPF (0-3); pH, Urine 6.5 (5.0-9.0)
[2022-01-10 09:00] LABS: Acetaminophen Less than 10.0 mcg/mL (10.0-30.0); Alcohol Less than 10 mg/dL (Less than 10); Salicylate Less than 8.0 mg/dL (15.0-30.0)
[2022-01-10 09:02] LABS: ALT (SGPT) 24 U/L (8-55); AST (SGOT) 41 U/L (5-34); Albumin 3.2 g/dL (3.5-5.0); Alkaline Phosphatase 183 U/L (40-110); Anion Gap 15 mmol/L (10-20); BUN (Urea Nitrogen) 22 mg/dL (9.8-20.1); Bilirubin, Total 0.6 mg/dL (0.2-1.2); Calc. Creatinine Clearance 0 mL/min (70-130); Calcium 8.5 mg/dL (7.8-10.44); Carbon Dioxide 21 mmol/L (22-29); Chloride 106 mmol/L (98-107); Globulin 4.9 g/dL (2.4-3.5); Glucose 120 mg/dL (70-105); Lipase 41 U/L (8-78); Magnesium 1.8 mg/dL (1.6-2.6); Potassium 4.8 mmol/L (3.5-5.1); Protein, Total 8.1 g/dL (6.0-8.3); Sodium 137 mmol/L (136-145)
[2022-01-10 09:07] LABS: Amphetamine Not Detected (NotDetected); Barbiturates Screen Not Detected (NotDetected); Benzodiazepine Screen Not Detected (NotDetected); Cocaine Metabolite Screen Not Detected (NotDetected); Methadone Not Detected (NotDetected); Methamphetamine Not Detected (NotDetected); Opiate Screen Detected (NotDetected); Oxycodone Screen Not Detected (NotDetected); Phencyclidine (PCP) Not Detected (NotDetected); THC/Cannabinoid Screen Not Detected (NotDetected); Tricyclic Screen Not Detected (NotDetected)
[2022-01-10] MEDS ORDERED: Azithromycin 500 MG in Sodium Chloride 0.9% 250 ML 250 ML IVPB SCH (10:00)
[2022-01-10] MEDS ORDERED: Acetaminophen 325 MG TAB PO PRN (10:46)
[2022-01-10] MEDS ORDERED: predniSONE 20 MG TAB PO SCH (11:15)
[2022-01-10] MEDS ORDERED: Dexamethasone 6 MG in Sodium Chloride 0.9% 50 ML IVPB SCH (11:30)
[2022-01-10] MEDS ORDERED: Hydrochlorothiazide 25 MG TAB PO SCH (12:45)
[2022-01-10] MEDS ORDERED: NIFEdipine XL 90 MG TAB PO SCH (12:45)
[2022-01-10] MEDS ORDERED: Albuterol Sulfate 2.5 mg/3 ml Neb NEB PRN (12:47)
[2022-01-10 13:07] LABS: SARS-CoV-2 NAA Rapid Test Not Detected (NotDetected)
[2022-01-10 13:43] VITALS: BMI 42.2
[2022-01-10 13:53] LABS: Troponin I 0.031 ng/mL (< 0.028)
[2022-01-10] MEDS: Ipratropium Bromide 2.5 ml Neb NEB SCH ×2 (15:04→19:09)
[2022-01-10] MEDS: Heparin 5,000 UNITS/ML VIAL SC SCH ×2 (15:59→21:57)
[2022-01-10 18:21] LABS: Troponin I 0.022 ng/mL (< 0.028)
[2022-01-10] MEDS: Mometasone 200 MCG/Formoterol 5 MCG 120 PUFF INHALER INH SCH (19:08)
[2022-01-10] MEDS: Atorvastatin Calcium 40 MG TAB PO SCH (21:56)
[2022-01-10] MEDS: Calcium Carbonate 600 MG TAB PO SCH (21:57)
[2022-01-11] MEDS: Ipratropium Bromide 2.5 ml Neb NEB SCH ×4 (00:20→18:45)
[2022-01-11 05:30] LABS: ALT (SGPT) 18 U/L (8-55); AST (SGOT) 22 U/L (5-34); Albumin 3.1 g/dL (3.5-5.0); Alkaline Phosphatase 172 U/L (40-110); Anion Gap 17 mmol/L (10-20); BUN (Urea Nitrogen) 36 mg/dL (9.8-20.1); Bilirubin, Total 0.3 mg/dL (0.2-1.2); Calc. Creatinine Clearance 52 mL/min (70-130); Calcium 8.7 mg/dL (7.8-10.44); Carbon Dioxide 21 mmol/L (22-29); Chloride 103 mmol/L (98-107); Globulin 4.3 g/dL (2.4-3.5); Glucose 147 mg/dL (70-105); Potassium 4.2 mmol/L (3.5-5.1); Protein, Total 7.4 g/dL (6.0-8.3); Sodium 137 mmol/L (136-145)
[2022-01-11 05:45] LABS: Hemoglobin 11.3 g/dL (12.0-16.0); Mean Corpuscular HGB CONC 31.9 g/dL (32.0-36.0); Mean Corpuscular Hemoglobin 30.6 pg (27.0-31.0); Mean Corpuscular Volume 95.8 fL (78.0-98.0); Platelet Count 171 thou/uL (130-400); RBC Distribution Width 13.4 % (11.5-14.5); Red Blood Cell (RBC) Count 3.71 mill/uL (4.20-5.40); White Blood Cell (WBC) Count 2.3 thou/uL (4.8-10.8)
[2022-01-11] MEDS: Mometasone 200 MCG/Formoterol 5 MCG 120 PUFF INHALER INH SCH ×2 (06:52→18:45)
[2022-01-11] MEDS ORDERED: Lactated Ringer's 500 ML IV SCH (08:30)
[2022-01-11] MEDS: Heparin 5,000 UNITS/ML VIAL SC SCH ×3 (09:05→20:53)
[2022-01-11] MEDS: NIFEdipine XL 90 MG TAB PO SCH (09:05)
[2022-01-11] MEDS: Hydrochlorothiazide 25 MG TAB PO SCH (09:05)
[2022-01-11] MEDS: Calcium Carbonate 600 MG TAB PO SCH ×2 (09:06→20:52)
[2022-01-11] MEDS: predniSONE 20 MG TAB PO SCH (09:06)
[2022-01-11 09:42] LABS: Band 5 % (5-11); Hypochromia SLIGHT = 6-15 cells (100X) (0-5/hpf); Lymphocytes 35 % (21-51); MDiff Complete? YES; Monocytes 15 % (0-10); Neutrophil 40 % (42-75); Platelet Morphology Comment Appears Adequate; Reactive Lymphocytes 5 % (0-10)
[2022-01-11] MEDS: Atorvastatin Calcium 40 MG TAB PO SCH (20:52)
[2022-01-12] MEDS: Ipratropium Bromide 2.5 ml Neb NEB SCH ×3 (00:48→13:21)
[2022-01-12] MEDS: Mometasone 200 MCG/Formoterol 5 MCG 120 PUFF INHALER INH SCH (06:53)
[2022-01-12 09:03] LABS: Anion Gap 16 mmol/L (10-20); BUN (Urea Nitrogen) 50 mg/dL (9.8-20.1); Calc. Creatinine Clearance 58 mL/min (70-130); Calcium 8.8 mg/dL (7.8-10.44); Carbon Dioxide 22 mmol/L (22-29); Chloride 104 mmol/L (98-107); Glucose 101 mg/dL (70-105); Potassium 3.8 mmol/L (3.5-5.1); Sodium 138 mmol/L (136-145)
[2022-01-12] MEDS: predniSONE 20 MG TAB PO SCH (09:37)
[2022-01-12] MEDS: Hydrochlorothiazide 25 MG TAB PO SCH (09:37)
[2022-01-12] MEDS: Heparin 5,000 UNITS/ML VIAL SC SCH (09:38)
[2022-01-12] MEDS: NIFEdipine XL 90 MG TAB PO SCH (09:38)
[2022-01-12] MEDS: Calcium Carbonate 600 MG TAB PO SCH (09:39)
[2022-01-12 12:53] VITALS: BP 163/80; TEMP 97.5
== END 2022-01-12 13:50 | disposition home or self-care (01) | DRG 189 ==
LOC: ERS 07:52 → 2NO 10:24
PROVIDERS: ADMIT Student in an Organized Health Care Education/Training Program; ATTEND Student in an Organized Health Care Education/Training Program
DX: J96.01 Acute respiratory failure with hypoxia (principal); J44.1 Chronic obstructive pulmonary disease with (acute) exacerbation; I50.32 Chronic diastolic (congestive) heart failure; I13.0 Hypertensive heart and chronic kidney disease with heart failure and stage 1 through stage 4 chronic kidney disease, or unspecified chronic kidney disease; Z20.822 Contact with and (suspected) exposure to COVID-19; J06.9 Acute upper respiratory infection, unspecified; D63.1 Anemia in chronic kidney disease; N18.30 Chronic kidney disease, stage 3 unspecified; I25.10 Atherosclerotic heart disease of native coronary artery without angina pectoris; F32.A Depression, unspecified; Z95.5 Presence of coronary angioplasty implant and graft
CPT/HCPCS: 36415; 51701; 71045; 80048; 80053; 80306; 80307; 81003; 81015; 83605; 83690; 83735; 83880; 84145; 84484; 85025; 87040; 87086; 87804; 93005; 94640; 94660; 94664; 96374; 96375; J0456; J0696; J1100; J1644; J1940; J7050; J7120; J7512; J7620; U0002

== ENCOUNTER 2022-02-24 08:11 | Outpatient (CLI) | payer OTHER ==
[2022-02-24 16:44] LABS: SARS-CoV-2 PCR by NAA Not Detected (NotDetected)
== END 2022-02-24 08:12 | disposition home or self-care (01) ==
LOC: LABBT 08:11
PROVIDERS: ATTEND Internal Medicine Gastroenterology
DX: I85.00 Esophageal varices without bleeding (principal); N18.9 Chronic kidney disease, unspecified; K74.69 Other cirrhosis of liver; R19.00 Intra-abdominal and pelvic swelling, mass and lump, unspecified site; Z20.822 Contact with and (suspected) exposure to COVID-19
CPT/HCPCS: U0003; U0005

== ENCOUNTER 2022-02-27 11:58 | Day surgery (SDC) | payer OTHER ==
[2022-02-25 10:57] VITALS: BMI 40.1
[2022-02-27] MEDS ORDERED: hydrALAZINE 20 MG/ML VIAL ONE ×2 (13:19→15:37)
[2022-02-27] MEDS ORDERED: Midazolam HCl 2 mg/2 ml Vial ONE (13:50)
[2022-02-27] MEDS ORDERED: Fentanyl 100 MCG/2 ML VIAL ONE ×2 (14:59→15:54)
[2022-02-27] MEDS ORDERED: hydrALAZINE 20 MG/ML VIAL SLOW IVP SCH (16:00)
[2022-02-27] MEDS ORDERED: Ondansetron PF 4 MG/2 ML Vial ONE (16:33)
== END 2022-02-27 17:34 | disposition home or self-care (01) ==
LOC: SDC 11:58
PROVIDERS: ATTEND Internal Medicine Gastroenterology
PROC: 06L38CZ Occlusion of Esophageal Vein with Extraluminal Device, Via Natural or Artificial Opening Endoscopic (ICD-10-PCS; principal; 2022-02-27)
DX: K74.60 Unspecified cirrhosis of liver (principal); I85.10 Secondary esophageal varices without bleeding; K76.6 Portal hypertension; K31.89 Other diseases of stomach and duodenum; K21.9 Gastro-esophageal reflux disease without esophagitis; J45.909 Unspecified asthma, uncomplicated; I13.0 Hypertensive heart and chronic kidney disease with heart failure and stage 1 through stage 4 chronic kidney disease, or unspecified chronic kidney disease; N18.9 Chronic kidney disease, unspecified; I50.9 Heart failure, unspecified; E78.00 Pure hypercholesterolemia, unspecified; F17.290 Nicotine dependence, other tobacco product, uncomplicated; Z79.02 Long term (current) use of antithrombotics/antiplatelets; Z79.899 Other long term (current) drug therapy; Z88.6 Allergy status to analgesic agent
CPT/HCPCS: J0360; J2250; J2405; J3010

== ENCOUNTER 2022-03-11 10:19 | Outpatient (CLI) | payer OTHER | END 2022-03-11 10:20 | disposition home or self-care (01) | LOC: LABBT 10:19 | PROVIDERS: ATTEND Internal Medicine Nephrology | DX: Z20.822 Contact with and (suspected) exposure to COVID-19 (principal) | CPT/HCPCS: U0003; U0005 ==

== ENCOUNTER 2022-03-17 12:48 | Inpatient (IN) | payer OTHER ==
[2022-03-17] MEDS ORDERED: predniSONE 20 MG TAB ONE (15:17)
[2022-03-17 15:33] LABS: Hemoglobin 10.3 g/dL (12.0-16.0); Mean Corpuscular HGB CONC 32.3 g/dL (32.0-36.0); Mean Corpuscular Hemoglobin 30.1 pg (27.0-31.0); Mean Platelet Volume 10.8 fL (7.4-10.4); Platelet Count 86 thou/uL (130-400); RBC Distribution Width 13.7 % (11.5-14.5); Red Blood Cell (RBC) Count 3.41 mill/uL (4.20-5.40); White Blood Cell (WBC) Count 2.9 thou/uL (4.8-10.8)
[2022-03-17 15:58] LABS: ALT (SGPT) 28 U/L (8-55); AST (SGOT) 44 U/L (5-34); Albumin 3.4 g/dL (3.5-5.0); Alkaline Phosphatase 163 U/L (40-110); Anion Gap 13 mmol/L (10-20); BUN (Urea Nitrogen) 34 mg/dL (9.8-20.1); Bilirubin, Total 1.1 mg/dL (0.2-1.2); Calc. Creatinine Clearance 0 mL/min (70-130); Calcium 8.8 mg/dL (7.8-10.44); Carbon Dioxide 25 mmol/L (22-29); Chloride 110 mmol/L (98-107); Globulin 3.4 g/dL (2.4-3.5); Glucose 94 mg/dL (70-105); Potassium 4.5 mmol/L (3.5-5.1); Protein, Total 6.8 g/dL (6.0-8.3); Sodium 143 mmol/L (136-145)
[2022-03-17 16:08] LABS: Band 2 % (5-11); Eosinophils 3 % (0-10); Large Platelets SLIGHT; Lymphocytes 24 % (21-51); MDiff Complete? YES; Monocytes 17 % (0-10); Neutrophil 54 % (42-75); Platelet Morphology Comment Appears Decreased; Polychromasia SLIGHT = 2-3 cells (100X) (0-2/hpf)
[2022-03-17 16:15] LABS: CKMB 2.6 ng/mL (0-6.6)
[2022-03-17] MEDS ORDERED: Nitroglycerin 2% Ointment 1 INCH/1 GM Packet ONE (19:07)
[2022-03-17] MEDS ORDERED: Furosemide 40 MG/4 ML VIAL ONE (19:07)
[2022-03-17] MEDS ORDERED: Albuterol Sulfate 2.5 mg/3 ml Neb NEB PRN (20:10)
[2022-03-17 21:19] VITALS: BMI 45.0
[2022-03-17] MEDS ORDERED: Labetalol HCl 100 MG/20 ML VIAL SLOW IVP PRN (21:38)
[2022-03-17] MEDS: Acetaminophen 325 MG TAB PO PRN (21:39)
[2022-03-17] MEDS ORDERED: hydrALAZINE 20 MG/ML VIAL SLOW IVP SCH (21:45)
[2022-03-17 22:12] LABS: Troponin I 0.028 ng/mL (< 0.028)
[2022-03-18] MEDS ORDERED: Melatonin 3 MG TAB PO SCH (00:15)
[2022-03-18] MEDS ORDERED: diphenhydrAMINE 50 MG CAP PO SCH (00:15)
[2022-03-18] MEDS ORDERED: Furosemide 20 MG/2 ML VIAL SLOW IVP SCH ×2 (02:00→07:45)
[2022-03-18] MEDS: hydrALAZINE 20 MG/ML VIAL SLOW IVP PRN ×2 (05:10→21:02)
[2022-03-18] MEDS: Acetaminophen 325 MG TAB PO PRN (05:11)
[2022-03-18 05:13] LABS: #Lymphocytes 0.5 thou/uL (1.20-3.40); #Monocytes 0.1 thou/uL (0.11-0.59); #Neutrophils 1.9 thou/uL (1.40-6.50); %Eosinophils 0.3 % (0.0-10.0); %Lymphocytes 19.8 % (21.0-51.0); %Monocytes 5.1 % (0.0-10.0); %Neutrophils 74.7 % (42.0-75.0); Hemoglobin 10.1 g/dL (12.0-16.0); Mean Corpuscular HGB CONC 32.5 g/dL (32.0-36.0); Mean Corpuscular Hemoglobin 30.1 pg (27.0-31.0); Mean Corpuscular Volume 92.7 fL (78.0-98.0); Mean Platelet Volume 11.1 fL (7.4-10.4); Platelet Count 95 thou/uL (130-400); RBC Distribution Width 13.6 % (11.5-14.5); Red Blood Cell (RBC) Count 3.35 mill/uL (4.20-5.40); White Blood Cell (WBC) Count 2.6 thou/uL (4.8-10.8)
[2022-03-18 05:36] LABS: ALT (SGPT) 25 U/L (8-55); AST (SGOT) 35 U/L (5-34); Albumin 3.3 g/dL (3.5-5.0); Alkaline Phosphatase 154 U/L (40-110); Anion Gap 13 mmol/L (10-20); BUN (Urea Nitrogen) 36 mg/dL (9.8-20.1); Calc. Creatinine Clearance 55 mL/min (70-130); Calcium 9.1 mg/dL (7.8-10.44); Carbon Dioxide 23 mmol/L (22-29); Chloride 108 mmol/L (98-107); Globulin 3.8 g/dL (2.4-3.5); Glucose 141 mg/dL (70-105); Potassium 4.2 mmol/L (3.5-5.1); Protein, Total 7.1 g/dL (6.0-8.3); Sodium 140 mmol/L (136-145)
[2022-03-18] MEDS: Mometasone 200 MCG/Formoterol 5 MCG 120 PUFF INHALER INH SCH ×2 (07:32→22:44)
[2022-03-18] MEDS ORDERED: hydrOXYzine 25 MG TAB PO PRN (07:43)
[2022-03-18] MEDS ORDERED: Enoxaparin Sodium 40 MG/0.4 ML SYRINGE SC SCH ×2 (09:00→21:00)
[2022-03-18] MEDS ORDERED: Amlodipine 5 MG TAB PO SCH (09:00)
[2022-03-18] MEDS ORDERED: hydrALAZINE 25 MG TAB PO SCH (09:00)
[2022-03-18] MEDS ORDERED: Enoxaparin Sodium 30 MG/0.3 ML SYRINGE SC SCH (09:00)
[2022-03-18] MEDS: Atorvastatin Calcium 40 MG TAB PO SCH (09:25)
[2022-03-18] MEDS: Calcium Carbonate 600 MG TAB PO SCH ×2 (09:27→21:03)
[2022-03-18] MEDS: Carvedilol 6.25 MG TAB PO SCH ×2 (09:28→21:03)
[2022-03-18] MEDS: Spironolactone 100 MG TAB PO SCH (09:28)
[2022-03-18] MEDS: Albuterol 200 PUFF (6.7GM INHALER) INH SCH ×2 (20:59→22:45)
[2022-03-19] MEDS: Albuterol 200 PUFF (6.7GM INHALER) INH SCH ×6 (03:38→20:56)
[2022-03-19 05:30] LABS: ALT (SGPT) 21 U/L (8-55); AST (SGOT) 29 U/L (5-34); Albumin 3.6 g/dL (3.5-5.0); Alkaline Phosphatase 140 U/L (40-110); Anion Gap 15 mmol/L (10-20); BUN (Urea Nitrogen) 44 mg/dL (9.8-20.1); Bilirubin, Total 0.6 mg/dL (0.2-1.2); Calc. Creatinine Clearance 43 mL/min (70-130); Calcium 8.8 mg/dL (7.8-10.44); Carbon Dioxide 20 mmol/L (22-29); Chloride 108 mmol/L (98-107); Globulin 3.9 g/dL (2.4-3.5); Glucose 108 mg/dL (70-105); Protein, Total 7.5 g/dL (6.0-8.3); Sodium 139 mmol/L (136-145)
[2022-03-19 05:37] LABS: Eosinophils 1 % (0-10); Hemoglobin 10.8 g/dL (12.0-16.0); Hypochromia SLIGHT = 6-15 cells (100X) (0-5/hpf); Lymphocytes 47 % (21-51); MDiff Complete? YES; Mean Corpuscular HGB CONC 31.6 g/dL (32.0-36.0); Mean Corpuscular Hemoglobin 29.9 pg (27.0-31.0); Mean Corpuscular Volume 94.6 fL (78.0-98.0); Mean Platelet Volume 11.4 fL (7.4-10.4); Monocytes 7 % (0-10); Neutrophil 45 % (42-75); Platelet Count 122 thou/uL (130-400); Platelet Morphology Comment Appears Adequate; RBC Distribution Width 14.2 % (11.5-14.5); Red Blood Cell (RBC) Count 3.62 mill/uL (4.20-5.40); White Blood Cell (WBC) Count 3.9 thou/uL (4.8-10.8)
[2022-03-19] MEDS: hydrALAZINE 20 MG/ML VIAL SLOW IVP PRN ×2 (06:56→21:00)
[2022-03-19] MEDS: Mometasone 200 MCG/Formoterol 5 MCG 120 PUFF INHALER INH SCH ×2 (06:56→18:09)
[2022-03-19] MEDS: Enoxaparin Sodium 60 MG/0.6 ML SYRINGE SC SCH (09:24)
[2022-03-19] MEDS: Calcium Carbonate 600 MG TAB PO SCH ×2 (09:25→20:57)
[2022-03-19] MEDS: Amlodipine 10 MG TAB PO SCH (09:25)
[2022-03-19] MEDS: Carvedilol 6.25 MG TAB PO SCH ×2 (09:25→20:57)
[2022-03-19] MEDS: Spironolactone 100 MG TAB PO SCH (09:25)
[2022-03-19] MEDS: Benzonatate 100 MG CAP PO SCH ×3 (09:25→20:57)
[2022-03-19] MEDS: Atorvastatin Calcium 40 MG TAB PO SCH (09:25)
[2022-03-19] MEDS: predniSONE 20 MG TAB PO SCH (09:25)
[2022-03-19] MEDS ORDERED: Cepastat Lozenges 1 LOZ PO PRN (14:53)
[2022-03-19] MEDS ORDERED: Acetaminophen 325 MG TAB PO PRN (14:53)
[2022-03-20] MEDS: Albuterol 200 PUFF (6.7GM INHALER) INH SCH ×2 (03:41→05:53)
[2022-03-20 03:46] VITALS: TEMP 98.3
[2022-03-20 05:37] LABS: ALT (SGPT) 20 U/L (8-55); AST (SGOT) 21 U/L (5-34); Albumin 3.4 g/dL (3.5-5.0); Alkaline Phosphatase 130 U/L (40-110); Anion Gap 13 mmol/L (10-20); BUN (Urea Nitrogen) 48 mg/dL (9.8-20.1); Bilirubin, Total 0.5 mg/dL (0.2-1.2); Calc. Creatinine Clearance 47 mL/min (70-130); Calcium 8.5 mg/dL (7.8-10.44); Carbon Dioxide 21 mmol/L (22-29); Chloride 108 mmol/L (98-107); Globulin 3.8 g/dL (2.4-3.5); Glucose 120 mg/dL (70-105); Potassium 4.2 mmol/L (3.5-5.1); Protein, Total 7.2 g/dL (6.0-8.3); Sodium 138 mmol/L (136-145)
[2022-03-20] MEDS: Mometasone 200 MCG/Formoterol 5 MCG 120 PUFF INHALER INH SCH (05:53)
[2022-03-20 05:54] LABS: Band 1 % (5-11); Hemoglobin 10.1 g/dL (12.0-16.0); Large Platelets SLIGHT; Lymphocytes 21 % (21-51); MDiff Complete? YES; Mean Corpuscular HGB CONC 31.8 g/dL (32.0-36.0); Mean Corpuscular Hemoglobin 29.8 pg (27.0-31.0); Mean Corpuscular Volume 93.6 fL (78.0-98.0); Mean Platelet Volume 10.8 fL (7.4-10.4); Monocytes 15 % (0-10); Neutrophil 63 % (42-75); Platelet Count 124 thou/uL (130-400); Platelet Morphology Comment Appears Decreased; RBC Distribution Width 14.3 % (11.5-14.5); White Blood Cell (WBC) Count 3.6 thou/uL (4.8-10.8)
[2022-03-20 07:53] VITALS: BP 158/98
[2022-03-20] MEDS ORDERED: Carvedilol 6.25 MG TAB PO SCH (08:00)
[2022-03-20] MEDS: Atorvastatin Calcium 40 MG TAB PO SCH (09:51)
[2022-03-20] MEDS: Amlodipine 10 MG TAB PO SCH (09:52)
[2022-03-20] MEDS: Enoxaparin Sodium 60 MG/0.6 ML SYRINGE SC SCH (09:52)
[2022-03-20] MEDS: Benzonatate 100 MG CAP PO SCH (09:52)
[2022-03-20] MEDS: Calcium Carbonate 600 MG TAB PO SCH (09:52)
[2022-03-20] MEDS: predniSONE 20 MG TAB PO SCH (09:52)
[2022-03-20] MEDS ORDERED: Furosemide 20 MG TAB PO SCH ×2 (14:00)
== END 2022-03-20 10:35 | disposition home or self-care (01) | DRG 291 ==
LOC: ERS 12:48 → INTOOBSV 18:53 → ERHOLD 18:53 → 2SW 21:12 → OBSVTOIN 03-18 07:56
PROVIDERS: ADMIT Student in an Organized Health Care Education/Training Program; ATTEND Student in an Organized Health Care Education/Training Program
DX: I13.0 Hypertensive heart and chronic kidney disease with heart failure and stage 1 through stage 4 chronic kidney disease, or unspecified chronic kidney disease (principal); I50.33 Acute on chronic diastolic (congestive) heart failure; U07.1 COVID-19; J44.1 Chronic obstructive pulmonary disease with (acute) exacerbation; I85.00 Esophageal varices without bleeding; D61.818 Other pancytopenia; N17.9 Acute kidney failure, unspecified; N18.4 Chronic kidney disease, stage 4 (severe); Z68.42 Body mass index [BMI] 45.0-49.9, adult; E66.01 Morbid (severe) obesity due to excess calories; Z20.822 Contact with and (suspected) exposure to COVID-19; I25.10 Atherosclerotic heart disease of native coronary artery without angina pectoris; I16.0 Hypertensive urgency; F32.A Depression, unspecified; K70.30 Alcoholic cirrhosis of liver without ascites; B18.2 Chronic viral hepatitis C; D63.1 Anemia in chronic kidney disease; Z79.51 Long term (current) use of inhaled steroids; Z88.6 Allergy status to analgesic agent; Z79.01 Long term (current) use of anticoagulants; Z79.899 Other long term (current) drug therapy; Z98.51 Tubal ligation status
CPT/HCPCS: 36415; 36416; 71045; 80053; 82553; 83880; 84145; 84484; 85025; 85060; 87804; 93005; 94640; 94664; 96374; J0360; J1650; J1940; J7512; J7620; P9045; U0003; U0005

== ENCOUNTER 2022-03-30 10:15 | Outpatient (CLI) | payer OTHER | END 2022-03-30 10:16 | disposition home or self-care (01) | LOC: LABBT 10:15 | PROVIDERS: ATTEND Internal Medicine Nephrology | DX: U07.1 COVID-19 (principal) | CPT/HCPCS: U0003; U0005 ==

== ENCOUNTER → 2022-04-13 | Day surgery (SDC) | payer OTHER ==
[2022-03-13 12:12] VITALS: BMI 42.7
[2022-03-16 08:33] LABS: INR-International Normal Ratio 1.1
[2022-03-16 08:38] LABS: #Eosinphils 0.1 thou/uL (0.0-0.7); #Lymphocytes 0.8 thou/uL (1.20-3.40); #Monocytes 0.6 thou/uL (0.11-0.59); #Neutrophils 2.4 thou/uL (1.40-6.50); %Eosinophils 2.9 % (0.0-10.0); %Lymphocytes 20.8 % (21.0-51.0); %Monocytes 14.6 % (0.0-10.0); %Neutrophils 61.8 % (42.0-75.0); Hemoglobin 10.9 g/dL (12.0-16.0); Mean Corpuscular HGB CONC 32.2 g/dL (32.0-36.0); Mean Corpuscular Hemoglobin 29.7 pg (27.0-31.0); Mean Corpuscular Volume 92.3 fL (78.0-98.0); Mean Platelet Volume 10.6 fL (7.4-10.4); Platelet Count 96 thou/uL (130-400); Prothrombin Time 14.5 sec (12.0-14.7); RBC Distribution Width 13.5 % (11.5-14.5); Red Blood Cell (RBC) Count 3.67 mill/uL (4.20-5.40); White Blood Cell (WBC) Count 3.8 thou/uL (4.8-10.8)
[2022-03-16 10:38] VITALS: BP 250/156
== END | disposition home or self-care (01) ==
LOC: CT 03-16 08:08
PROVIDERS: ATTEND Internal Medicine Nephrology
DX: N18.30 Chronic kidney disease, stage 3 unspecified (principal); Z53.9 Procedure and treatment not carried out, unspecified reason; Z88.6 Allergy status to analgesic agent
CPT/HCPCS: 36415; 85025; 85610; 85730

== ENCOUNTER 2022-05-04 07:30 | Day surgery (SDC) | payer OTHER ==
[2022-04-30 13:51] VITALS: BMI 46.6
[2022-05-04 08:09] LABS: #Eosinphils 0.3 thou/uL (0.0-0.7); #Monocytes 0.4 thou/uL (0.11-0.59); #Neutrophils 1.5 thou/uL (1.40-6.50); %Basophils 0.9 % (0.0-1.0); %Eosinophils 7.9 % (0.0-10.0); %Lymphocytes 31.1 % (21.0-51.0); %Monocytes 13.7 % (0.0-10.0); %Neutrophils 46.4 % (42.0-75.0); Hemoglobin 10.8 g/dL (12.0-16.0); Mean Corpuscular HGB CONC 32.1 g/dL (32.0-36.0); Mean Corpuscular Hemoglobin 29.3 pg (27.0-31.0); Mean Corpuscular Volume 91.4 fL (78.0-98.0); Mean Platelet Volume 11.5 fL (7.4-10.4); Platelet Count 108 thou/uL (130-400); Red Blood Cell (RBC) Count 3.68 mill/uL (4.20-5.40); White Blood Cell (WBC) Count 3.2 thou/uL (4.8-10.8)
[2022-05-04 08:10] LABS: INR-International Normal Ratio 1.1; Prothrombin Time 14.7 sec (12.0-14.7)
[2022-05-04 08:11] LABS: PTT 38.2 sec (22.9-36.1)
[2022-05-04 11:04] VITALS: TEMP 97.8
== END 2022-05-04 08:50 | disposition home or self-care (01) ==
LOC: ULT 07:30
PROVIDERS: ATTEND Internal Medicine Gastroenterology
DX: R19.00 Intra-abdominal and pelvic swelling, mass and lump, unspecified site (principal); K74.60 Unspecified cirrhosis of liver; K21.9 Gastro-esophageal reflux disease without esophagitis; I11.0 Hypertensive heart disease with heart failure; I50.9 Heart failure, unspecified; J44.9 Chronic obstructive pulmonary disease, unspecified; I25.10 Atherosclerotic heart disease of native coronary artery without angina pectoris; E78.00 Pure hypercholesterolemia, unspecified; F17.200 Nicotine dependence, unspecified, uncomplicated; Z53.8 Procedure and treatment not carried out for other reasons; Z79.899 Other long term (current) drug therapy; Z88.8 Allergy status to other drugs, medicaments and biological substances
CPT/HCPCS: 76705; 85025; 85610; 85730

== ENCOUNTER 2022-06-17 07:20 | Day surgery (SDC) | payer OTHER ==
[2022-06-16 09:56] VITALS: BMI 46.6
[2022-06-17] MEDS ORDERED: Ketamine 50 MG/ML (10ML VIAL) ONE (08:27)
[2022-06-17] MEDS ORDERED: Midazolam HCl 2 mg/2 ml Vial ONE (08:27)
== END 2022-06-17 10:25 | disposition home or self-care (01) ==
LOC: SDC 07:20
PROVIDERS: ATTEND Internal Medicine Gastroenterology
PROC: 0DJ08ZZ Inspection of Upper Intestinal Tract, Via Natural or Artificial Opening Endoscopic (ICD-10-PCS; principal; 2022-06-17)
DX: K31.89 Other diseases of stomach and duodenum (principal); K74.60 Unspecified cirrhosis of liver; K21.9 Gastro-esophageal reflux disease without esophagitis; J44.9 Chronic obstructive pulmonary disease, unspecified; I50.9 Heart failure, unspecified; I25.10 Atherosclerotic heart disease of native coronary artery without angina pectoris; Z79.02 Long term (current) use of antithrombotics/antiplatelets; Z79.899 Other long term (current) drug therapy; Z88.6 Allergy status to analgesic agent; Z95.5 Presence of coronary angioplasty implant and graft
CPT/HCPCS: J2250

== ENCOUNTER 2022-07-10 22:18 | Inpatient (IN) | payer OTHER ==
[2022-07-10 23:20] LABS: ALT (SGPT) 20 U/L (8-55); AST (SGOT) 31 U/L (5-34); Albumin 3.7 g/dL (3.5-5.0); Alkaline Phosphatase 141 U/L (40-110); Anion Gap 13 mmol/L (10-20); BUN (Urea Nitrogen) 37 mg/dL (9.8-20.1); Bilirubin, Total 0.6 mg/dL (0.2-1.2); Calc. Creatinine Clearance 0 mL/min (70-130); Calcium 8.4 mg/dL (7.8-10.44); Carbon Dioxide 26 mmol/L (22-29); Chloride 108 mmol/L (98-107); Estimated GFR 21; Globulin 3.3 g/dL (2.4-3.5); Glucose 119 mg/dL (70-105); Potassium 3.9 mmol/L (3.5-5.1); Sodium 143 mmol/L (136-145)
[2022-07-10 23:22] LABS: Hemoglobin 9.2 g/dL (12.0-16.0); Mean Corpuscular HGB CONC 31.4 g/dL (32.0-36.0); Mean Corpuscular Hemoglobin 27.9 pg (27.0-31.0); Mean Corpuscular Volume 89.1 fL (78.0-98.0); RBC Distribution Width 14.6 % (11.5-14.5); Red Blood Cell (RBC) Count 3.29 mill/uL (4.20-5.40); White Blood Cell (WBC) Count 3.6 thou/uL (4.8-10.8)
[2022-07-10 23:39] LABS: #Eosinphils 0.9 thou/uL (0.0-0.7); #Lymphocytes 0.9 thou/uL (1.20-3.40); #Monocytes 0.5 thou/uL (0.11-0.59); #Neutrophils 1.4 thou/uL (1.40-6.50); %Basophils 0.5 % (0.0-1.0); %Eosinophils 23.9 % (0.0-10.0); %Lymphocytes 24.1 % (21.0-51.0); %Monocytes 12.9 % (0.0-10.0); %Neutrophils 38.6 % (42.0-75.0); Large Platelets MODERATE; MDiff Complete? YES; Mean Platelet Volume 11.4 fL (7.4-10.4); Platelet Count 79 thou/uL (130-400); Platelet Morphology Comment Appears Decreased
[2022-07-10 23:41] LABS: CKMB 1.7 ng/mL (0-6.6)
[2022-07-10] MEDS ORDERED: Furosemide 40 MG/4 ML VIAL ONE (23:56)
[2022-07-10] MEDS ORDERED: Furosemide 40 MG TAB ONE (23:56)
[2022-07-11] MEDS ORDERED: Albuterol Sulfate 1.25 MG/3 ML NEB ONE (00:40)
[2022-07-11] MEDS ORDERED: Aspirin Chewable 81 MG TAB ONE (01:01)
[2022-07-11 01:29] VITALS: BMI 46.4
[2022-07-11] MEDS ORDERED: Albuterol 200 PUFF (6.7GM INHALER) INH PRN (01:48)
[2022-07-11] MEDS: hydrALAZINE 20 MG/ML VIAL SLOW IVP PRN (02:03)
[2022-07-11] MEDS: Benzonatate 100 MG CAP PO PRN ×2 (03:58→11:47)
[2022-07-11] MEDS ORDERED: guaiFENesin ER 600 MG TAB PO SCH ×2 (04:00→09:00)
[2022-07-11 04:24] LABS: SARS-CoV-2 NAA Rapid Test Not Detected (NotDetected)
[2022-07-11] MEDS: Furosemide 40 MG/4 ML VIAL SLOW IVP SCH ×2 (05:37→13:51)
[2022-07-11] MEDS ORDERED: Mometasone 200 MCG/Formoterol 5 MCG 120 PUFF INHALER INH SCH (06:30)
[2022-07-11] MEDS: Ipratropium Bromide 2.5 ml Neb NEB SCH ×4 (07:15→22:06)
[2022-07-11 07:35] LABS: ALT (SGPT) 22 U/L (8-55); AST (SGOT) 31 U/L (5-34); Albumin 3.7 g/dL (3.5-5.0); Alkaline Phosphatase 144 U/L (40-110); Anion Gap 14 mmol/L (10-20); BUN (Urea Nitrogen) 31 mg/dL (9.8-20.1); Bilirubin, Total 0.8 mg/dL (0.2-1.2); Calc. Creatinine Clearance 55 mL/min (70-130); Calcium 8.9 mg/dL (7.8-10.44); Carbon Dioxide 26 mmol/L (22-29); Chloride 106 mmol/L (98-107); Estimated GFR 24; Globulin 3.8 g/dL (2.4-3.5); Glucose 103 mg/dL (70-105); Iron 41 ug/dL (50-170); Iron Binding Capacity, Total 505 mcg/dL (265-497); Potassium 3.7 mmol/L (3.5-5.1); Protein, Total 7.5 g/dL (6.0-8.3); Sodium 142 mmol/L (136-145); Transferrin, Serum 404 mg/dL (180-382); Troponin I 0.022 ng/mL (< 0.028)
[2022-07-11 07:51] LABS: #Eosinphils 0.9 thou/uL (0.0-0.7); #Lymphocytes 0.9 thou/uL (1.20-3.40); #Monocytes 0.6 thou/uL (0.11-0.59); #Neutrophils 1.6 thou/uL (1.40-6.50); %Basophils 0.8 % (0.0-1.0); %Monocytes 14.6 % (0.0-10.0); %Neutrophils 39.6 % (42.0-75.0); Hemoglobin 9.1 g/dL (12.0-16.0); Mean Corpuscular HGB CONC 31.1 g/dL (32.0-36.0); Mean Corpuscular Hemoglobin 27.5 pg (27.0-31.0); Mean Corpuscular Volume 88.7 fL (78.0-98.0); Mean Platelet Volume 11.6 fL (7.4-10.4); Platelet Count 79 thou/uL (130-400); RBC Distribution Width 14.5 % (11.5-14.5); Red Blood Cell (RBC) Count 3.28 mill/uL (4.20-5.40); White Blood Cell (WBC) Count 4.1 thou/uL (4.8-10.8)
[2022-07-11] MEDS ORDERED: Calcium Carbonate 600 MG TAB PO SCH (08:00)
[2022-07-11] MEDS ORDERED: Heparin 5,000 UNITS/ML VIAL SC SCH (09:00)
[2022-07-11] MEDS ORDERED: NIFEdipine XL 90 MG TAB PO SCH (09:00)
[2022-07-11] MEDS ORDERED: Isosorbide Dinitrate 20 MG TAB PO SCH (09:00)
[2022-07-11] MEDS ORDERED: Clopidogrel Bisulfate 75 MG TAB PO SCH (09:00)
[2022-07-11] MEDS: Spironolactone 25 MG TAB PO SCH (10:15)
[2022-07-11] MEDS: Atorvastatin Calcium 40 MG TAB PO SCH (10:15)
[2022-07-11] MEDS: Carvedilol 25 MG TAB PO SCH ×2 (10:15→18:10)
[2022-07-11] MEDS: hydrALAZINE 25 MG TAB PO SCH ×2 (10:15→20:48)
[2022-07-11] MEDS: Isosorbide Dinitrate 20 MG TAB PO SCH ×2 (10:16→20:47)
[2022-07-11] MEDS ORDERED: Acetaminophen 500 MG TAB PO SCH (11:45)
[2022-07-11] MEDS: guaiFENesin ER 600 MG TAB PO PRN (11:48)
[2022-07-11] MEDS: Mometasone 200 MCG/Formoterol 5 MCG 120 PUFF INHALER INH SCH (18:26)
[2022-07-12] MEDS ORDERED: Acetaminophen 500 MG TAB PO SCH (00:30)
[2022-07-12] MEDS: guaiFENesin ER 600 MG TAB PO PRN (00:49)
[2022-07-12] MEDS: Benzonatate 100 MG CAP PO PRN ×2 (00:49→09:58)
[2022-07-12] MEDS: Furosemide 40 MG/4 ML VIAL SLOW IVP SCH (06:20)
[2022-07-12] MEDS: Mometasone 200 MCG/Formoterol 5 MCG 120 PUFF INHALER INH SCH ×2 (06:34→18:35)
[2022-07-12] MEDS: Ipratropium Bromide 2.5 ml Neb NEB SCH ×4 (06:35→22:13)
[2022-07-12] MEDS: Isosorbide Dinitrate 20 MG TAB PO SCH ×2 (09:58→20:57)
[2022-07-12] MEDS: hydrALAZINE 25 MG TAB PO SCH ×2 (09:58→20:58)
[2022-07-12] MEDS: Spironolactone 25 MG TAB PO SCH (09:59)
[2022-07-12] MEDS: Carvedilol 25 MG TAB PO SCH ×2 (09:59→17:17)
[2022-07-12] MEDS: Atorvastatin Calcium 40 MG TAB PO SCH (09:59)
[2022-07-12 11:33] LABS: ALT (SGPT) 18 U/L (8-55); AST (SGOT) 27 U/L (5-34); Albumin 3.5 g/dL (3.5-5.0); Alkaline Phosphatase 137 U/L (40-110); Anion Gap 13 mmol/L (10-20); BUN (Urea Nitrogen) 33 mg/dL (9.8-20.1); Bilirubin, Total 0.8 mg/dL (0.2-1.2); Calc. Creatinine Clearance 39 mL/min (70-130); Calcium 8.9 mg/dL (7.8-10.44); Carbon Dioxide 27 mmol/L (22-29); Chloride 104 mmol/L (98-107); Estimated GFR 23; Globulin 3.7 g/dL (2.4-3.5); Glucose 104 mg/dL (70-105); Potassium 3.9 mmol/L (3.5-5.1); Protein, Total 7.2 g/dL (6.0-8.3); Sodium 140 mmol/L (136-145)
[2022-07-12] MEDS ORDERED: Ferrous Sulfate 325 MG TAB PO SCH (11:45)
[2022-07-12 12:43] LABS: Hemoglobin 9.5 g/dL (12.0-16.0); Mean Corpuscular HGB CONC 31.3 g/dL (32.0-36.0); Mean Corpuscular Hemoglobin 27.5 pg (27.0-31.0); Mean Corpuscular Volume 87.8 fL (78.0-98.0); Mean Platelet Volume 11.7 fL (7.4-10.4); Platelet Count 103 thou/uL (130-400); RBC Distribution Width 14.6 % (11.5-14.5); Red Blood Cell (RBC) Count 3.46 mill/uL (4.20-5.40); White Blood Cell (WBC) Count 3.7 thou/uL (4.8-10.8)
[2022-07-12 12:44] LABS: Anisocytosis SLIGHT = 6-15 cells (100X) (0-5/hpf); Eosinophils 20 % (0-10); Lymphocytes 26 % (21-51); MDiff Complete? YES; Monocytes 17 % (0-10); Neutrophil 32 % (42-75); Nucleated RBC 2 % (0); Platelet Morphology Comment Appears Decreased; Reactive Lymphocytes 4 % (0-10)
[2022-07-12] MEDS: hydrALAZINE 20 MG/ML VIAL SLOW IVP PRN (14:44)
[2022-07-12] MEDS: Furosemide 20 MG/2 ML VIAL SLOW IVP SCH (14:46)
[2022-07-12] MEDS ORDERED: hydrALAZINE 25 MG TAB PO SCH (17:00)
[2022-07-13] MEDS: guaiFENesin ER 600 MG TAB PO PRN (04:00)
[2022-07-13] MEDS: Furosemide 20 MG/2 ML VIAL SLOW IVP SCH (06:00)
[2022-07-13] MEDS: Mometasone 200 MCG/Formoterol 5 MCG 120 PUFF INHALER INH SCH ×2 (06:22→18:38)
[2022-07-13] MEDS: Ipratropium Bromide 2.5 ml Neb NEB SCH ×3 (06:23→18:37)
[2022-07-13] MEDS: Carvedilol 25 MG TAB PO SCH ×2 (08:32→17:43)
[2022-07-13] MEDS: Ferrous Sulfate 325 MG TAB PO SCH (08:33)
[2022-07-13] MEDS: Atorvastatin Calcium 40 MG TAB PO SCH (08:33)
[2022-07-13] MEDS: hydrALAZINE 25 MG TAB PO SCH (08:33)
[2022-07-13] MEDS: Isosorbide Dinitrate 20 MG TAB PO SCH (08:34)
[2022-07-13] MEDS: Spironolactone 25 MG TAB PO SCH (08:34)
[2022-07-13 09:43] LABS: ALT (SGPT) 15 U/L (8-55); AST (SGOT) 25 U/L (5-34); Albumin 3.4 g/dL (3.5-5.0); Alkaline Phosphatase 121 U/L (40-110); Anion Gap 15 mmol/L (10-20); BUN (Urea Nitrogen) 34 mg/dL (9.8-20.1); Bilirubin, Total 0.9 mg/dL (0.2-1.2); Calc. Creatinine Clearance 52 mL/min (70-130); Calcium 8.9 mg/dL (7.8-10.44); Carbon Dioxide 26 mmol/L (22-29); Chloride 104 mmol/L (98-107); Estimated GFR 23; Globulin 3.7 g/dL (2.4-3.5); Glucose 101 mg/dL (70-105); Potassium 3.8 mmol/L (3.5-5.1); Protein, Total 7.1 g/dL (6.0-8.3); Sodium 141 mmol/L (136-145)
[2022-07-13 09:46] LABS: #Eosinphils 0.6 thou/uL (0.0-0.7); #Lymphocytes 1.1 thou/uL (1.20-3.40); #Monocytes 0.5 thou/uL (0.11-0.59); #Neutrophils 1.5 thou/uL (1.40-6.50); %Basophils 0.1 % (0.0-1.0); %Eosinophils 15.9 % (0.0-10.0); %Lymphocytes 29.3 % (21.0-51.0); %Monocytes 12.5 % (0.0-10.0); %Neutrophils 42.3 % (42.0-75.0); Hemoglobin 9.3 g/dL (12.0-16.0); Mean Corpuscular HGB CONC 31.2 g/dL (32.0-36.0); Mean Corpuscular Hemoglobin 27.5 pg (27.0-31.0); Mean Corpuscular Volume 88.4 fL (78.0-98.0); Mean Platelet Volume 11.3 fL (7.4-10.4); Platelet Count 113 thou/uL (130-400); RBC Distribution Width 14.7 % (11.5-14.5); Red Blood Cell (RBC) Count 3.38 mill/uL (4.20-5.40); White Blood Cell (WBC) Count 3.6 thou/uL (4.8-10.8)
[2022-07-13] MEDS ORDERED: Furosemide 40 MG TAB PO SCH (14:00)
[2022-07-13] MEDS ORDERED: Furosemide 20 MG TAB PO SCH (14:00)
[2022-07-13] MEDS ORDERED: Furosemide 40 MG/4 ML VIAL SLOW IVP SCH (14:00)
[2022-07-14] MEDS: Ipratropium Bromide 2.5 ml Neb NEB SCH ×2 (00:39→06:34)
[2022-07-14] MEDS: guaiFENesin ER 600 MG TAB PO PRN (03:44)
[2022-07-14] MEDS: Benzonatate 100 MG CAP PO PRN ×2 (03:44→14:33)
[2022-07-14] MEDS: hydrALAZINE 20 MG/ML VIAL SLOW IVP PRN (03:57)
[2022-07-14 05:36] LABS: ALT (SGPT) 16 U/L (8-55); AST (SGOT) 24 U/L (5-34); Albumin 3.5 g/dL (3.5-5.0); Alkaline Phosphatase 125 U/L (40-110); Anion Gap 14 mmol/L (10-20); BUN (Urea Nitrogen) 33 mg/dL (9.8-20.1); Bilirubin, Total 0.8 mg/dL (0.2-1.2); Calc. Creatinine Clearance 50 mL/min (70-130); Carbon Dioxide 26 mmol/L (22-29); Chloride 103 mmol/L (98-107); Estimated GFR 23; Globulin 3.7 g/dL (2.4-3.5); Glucose 103 mg/dL (70-105); Potassium 3.9 mmol/L (3.5-5.1); Protein, Total 7.2 g/dL (6.0-8.3); Sodium 139 mmol/L (136-145)
[2022-07-14 05:54] LABS: Band 1 % (5-11); Eosinophils 5 % (0-10); Hemoglobin 9.5 g/dL (12.0-16.0); Lymphocytes 30 % (21-51); MDiff Complete? YES; Mean Corpuscular HGB CONC 30.6 g/dL (32.0-36.0); Mean Corpuscular Hemoglobin 27.1 pg (27.0-31.0); Mean Corpuscular Volume 88.7 fL (78.0-98.0); Mean Platelet Volume 10.7 fL (7.4-10.4); Monocytes 23 % (0-10); Neutrophil 41 % (42-75); Platelet Count 107 thou/uL (130-400); Platelet Morphology Comment Appears Decreased; RBC Distribution Width 14.5 % (11.5-14.5); White Blood Cell (WBC) Count 3.3 thou/uL (4.8-10.8)
[2022-07-14] MEDS: Mometasone 200 MCG/Formoterol 5 MCG 120 PUFF INHALER INH SCH ×2 (06:33→18:45)
[2022-07-14] MEDS: Atorvastatin Calcium 40 MG TAB PO SCH (08:40)
[2022-07-14] MEDS: Torsemide 20 MG TAB PO SCH (08:40)
[2022-07-14] MEDS: Ferrous Sulfate 325 MG TAB PO SCH (08:40)
[2022-07-14] MEDS: Carvedilol 25 MG TAB PO SCH ×2 (08:40→18:12)
[2022-07-14] MEDS: Spironolactone 25 MG TAB PO SCH (08:40)
[2022-07-14] MEDS ORDERED: Guaifenesin DM 100-10/5 ML UDCUP PO PRN (20:26)
[2022-07-15 05:19] LABS: ALT (SGPT) 12 U/L (8-55); AST (SGOT) 22 U/L (5-34); Albumin 3.4 g/dL (3.5-5.0); Alkaline Phosphatase 117 U/L (40-110); Anion Gap 14 mmol/L (10-20); BUN (Urea Nitrogen) 36 mg/dL (9.8-20.1); Bilirubin, Total 0.5 mg/dL (0.2-1.2); Calc. Creatinine Clearance 49 mL/min (70-130); Calcium 8.9 mg/dL (7.8-10.44); Carbon Dioxide 27 mmol/L (22-29); Chloride 104 mmol/L (98-107); Estimated GFR 23; Globulin 3.7 g/dL (2.4-3.5); Glucose 93 mg/dL (70-105); Potassium 3.7 mmol/L (3.5-5.1); Protein, Total 7.1 g/dL (6.0-8.3); Sodium 141 mmol/L (136-145)
[2022-07-15 06:13] LABS: Band 5 % (5-11); Eosinophils 10 % (0-10); Hemoglobin 9.4 g/dL (12.0-16.0); Lymphocytes 36 % (21-51); MDiff Complete? YES; Mean Corpuscular HGB CONC 30.6 g/dL (32.0-36.0); Mean Corpuscular Hemoglobin 27.1 pg (27.0-31.0); Mean Corpuscular Volume 88.8 fL (78.0-98.0); Mean Platelet Volume 11.2 fL (7.4-10.4); Monocytes 10 % (0-10); Neutrophil 39 % (42-75); Platelet Count 99 thou/uL (130-400); Platelet Morphology Comment Appears Decreased; RBC Distribution Width 14.3 % (11.5-14.5); Red Blood Cell (RBC) Count 3.44 mill/uL (4.20-5.40); White Blood Cell (WBC) Count 3.2 thou/uL (4.8-10.8)
[2022-07-15] MEDS: Carvedilol 25 MG TAB PO SCH (08:29)
[2022-07-15] MEDS: Torsemide 20 MG TAB PO SCH (08:30)
[2022-07-15] MEDS: Atorvastatin Calcium 40 MG TAB PO SCH (08:30)
[2022-07-15] MEDS: Spironolactone 25 MG TAB PO SCH (08:30)
[2022-07-15] MEDS: Ferrous Sulfate 325 MG TAB PO SCH (08:30)
[2022-07-15] MEDS: Mometasone 200 MCG/Formoterol 5 MCG 120 PUFF INHALER INH SCH (10:41)
[2022-07-15] MEDS ORDERED: predniSONE 20 MG TAB PO SCH (12:00)
[2022-07-15] MEDS ORDERED: Azithromycin 250 MG TAB PO SCH (12:00)
[2022-07-15 12:17] VITALS: BP 195/97; TEMP 97.4
[2022-07-16] MEDS ORDERED: predniSONE 20 MG TAB PO SCH (08:00)
[2022-07-16] MEDS ORDERED: Losartan 25 MG TAB PO SCH (09:00)
[2022-07-16] MEDS ORDERED: Azithromycin 250 MG TAB PO SCH (12:00)
== END 2022-07-15 13:19 | disposition home or self-care (01) | DRG 291 ==
LOC: ERS 22:18 → INTOOBSV 07-11 00:03 → 2SW 07-11 00:03 → OBSVTOIN 07-13 10:15
PROVIDERS: ADMIT Family Medicine; ATTEND Internal Medicine
DX: I13.0 Hypertensive heart and chronic kidney disease with heart failure and stage 1 through stage 4 chronic kidney disease, or unspecified chronic kidney disease (principal); I50.33 Acute on chronic diastolic (congestive) heart failure; J44.1 Chronic obstructive pulmonary disease with (acute) exacerbation; N18.4 Chronic kidney disease, stage 4 (severe); I85.00 Esophageal varices without bleeding; N17.9 Acute kidney failure, unspecified; Z68.41 Body mass index [BMI] 40.0-44.9, adult; Z20.822 Contact with and (suspected) exposure to COVID-19; D63.1 Anemia in chronic kidney disease; R77.8 Other specified abnormalities of plasma proteins; I25.10 Atherosclerotic heart disease of native coronary artery without angina pectoris; K70.30 Alcoholic cirrhosis of liver without ascites; B18.2 Chronic viral hepatitis C; F41.9 Anxiety disorder, unspecified; E66.01 Morbid (severe) obesity due to excess calories; K75.81 Nonalcoholic steatohepatitis (NASH); F32.A Depression, unspecified; I16.0 Hypertensive urgency; Z95.5 Presence of coronary angioplasty implant and graft; Z88.4 Allergy status to anesthetic agent; Z79.899 Other long term (current) drug therapy; Z81.1 Family history of alcohol abuse and dependence; Z82.3 Family history of stroke; Z82.49 Family history of ischemic heart disease and other diseases of the circulatory system; Z83.3 Family history of diabetes mellitus; Z83.49 Family history of other endocrine, nutritional and metabolic diseases; Z87.891 Personal history of nicotine dependence; Z90.49 Acquired absence of other specified parts of digestive tract; Z86.73 Personal history of transient ischemic attack (TIA), and cerebral infarction without residual deficits; Z98.51 Tubal ligation status; Z88.8 Allergy status to other drugs, medicaments and biological substances; Z88.6 Allergy status to analgesic agent; Z28.311 Partially vaccinated for COVID-19
CPT/HCPCS: 36415; 71045; 80053; 82553; 82728; 83540; 83550; 83880; 84466; 84484; 85025; 93005; 93798; 94640; 94664; 96374; 96375; 96376; G0378; J0360; J1940; J7620; U0002

== ENCOUNTER 2022-08-01 21:12 | Inpatient (IN) | payer OTHER ==
[2022-08-01] MEDS ORDERED: Nitroglycerin 2% Ointment 1 INCH/1 GM Packet ONE (21:43)
[2022-08-01 22:02] LABS: #Eosinphils 0.3 thou/uL (0.0-0.7); #Lymphocytes 0.9 thou/uL (1.20-3.40); #Monocytes 0.5 thou/uL (0.11-0.59); #Neutrophils 1.9 thou/uL (1.40-6.50); %Basophils 0.2 % (0.0-1.0); %Eosinophils 7.4 % (0.0-10.0); %Lymphocytes 25.1 % (21.0-51.0); %Monocytes 13.5 % (0.0-10.0); %Neutrophils 53.7 % (42.0-75.0); ALT (SGPT) 55 U/L (8-55); AST (SGOT) 61 U/L (5-34); Albumin 3.8 g/dL (3.5-5.0); Alkaline Phosphatase 177 U/L (40-110); Anion Gap 14 mmol/L (10-20); BUN (Urea Nitrogen) 41 mg/dL (9.8-20.1); Calc. Creatinine Clearance 0 mL/min (70-130); Calcium 8.6 mg/dL (7.8-10.44); Carbon Dioxide 23 mmol/L (22-29); Chloride 107 mmol/L (98-107); Estimated GFR 25; Glucose 125 mg/dL (70-105); Hemoglobin 9.8 g/dL (12.0-16.0); Mean Corpuscular HGB CONC 31.7 g/dL (32.0-36.0); Mean Corpuscular Hemoglobin 28.5 pg (27.0-31.0); Mean Corpuscular Volume 89.7 fl (78.0-98.0); Mean Platelet Volume 12.6 fL (7.4-10.4); Platelet Count 75 thou/uL (130-400); Potassium 3.9 mmol/L (3.5-5.1); Protein, Total 7.8 g/dL (6.0-8.3); RBC Distribution Width 16.1 % (11.5-14.5); Red Blood Cell (RBC) Count 3.44 mill/uL (4.20-5.40); Sodium 140 mmol/L (136-145); White Blood Cell (WBC) Count 3.6 thou/uL (4.8-10.8)
[2022-08-01 22:24] LABS: CKMB 2.8 ng/mL (0-6.6)
[2022-08-01] MEDS ORDERED: Acetaminophen 500 MG TAB ONE (22:46)
[2022-08-02] MEDS ORDERED: Furosemide 40 MG/4 ML VIAL ONE (00:12)
[2022-08-02] MEDS ORDERED: hydrALAZINE 20 MG/ML VIAL ONE (00:12)
[2022-08-02 00:24] LABS: Bacteria/HPF None Seen HPF (None Seen); Bilirubin Negative (Negative); Blood, Urine Trace (Negative); Clarity Clear (Clear); Glucose, Urine (Dipstick) Normal (Negative); Ketone, Urine Negative (Negative); Leukocyte Negative Leu/uL (Negative); Nitrite Negative (Negative); Protein, Urine (Dipstick) 300 mg/dL (Neg-Trace); RBC/HPF 0-3 HPF (0-3); Specific Gravity, Urine 1.016 (1.002-1.036); Squamous Epithelial 0-3 HPF (0-3); Urobilinogen Normal mg/dL (Less than 2); WBC/HPF 0-3 HPF (0-3)
[2022-08-02] MEDS ORDERED: Ondansetron PF 4 MG/2 ML Vial IVP PRN (00:36)
[2022-08-02] MEDS ORDERED: niCARdipine 25 MG in Sodium Chloride 0.9% 250 ML 250 ML IVPB PRN ×3 (00:36→02:52)
[2022-08-02] MEDS ORDERED: Electrolyte Replacement Protocol 1 EACH IVPB PRN (00:36)
[2022-08-02] MEDS ORDERED: Ondansetron ODT 4 MG TAB PO PRN (00:36)
[2022-08-02] MEDS ORDERED: niCARdipine 25 MG/10 ML VIAL ONE ×2 (00:49→00:56)
[2022-08-02 01:30] LABS: Actual Bicarbonate (HCO3a) 22.6 mEq/L (22-28); Analyzer IN Cardio ER; Base Excess (BEa) -1.4 mEq/L (-2.0 to +3.0); CO2 Tension 35.1 mmHg (35.0-45.0); Calcium, Ionized (arterial) 1.08 mmol/L (1.12-1.30); Carboxyhemoglobin (COHb) 0.6 gm% (0.0-3.0); Hemoglobin (Hb) 10.6 g/dL (12.0-16.0); Potassium - ABG Lab 3.98 mmol/L (3.70-5.30); pH, Arterial 7.43 (7.35-7.45)
[2022-08-02 01:54] LABS: SARS-CoV-2 NAA Rapid Test Not Detected (NotDetected)
[2022-08-02 02:58] LABS: Troponin I 0.031 ng/mL (< 0.028)
[2022-08-02 03:02] LABS: INR-International Normal Ratio 1.2; PTT 40.1 sec (22.9-36.1); Prothrombin Time 15.1 sec (12.0-14.7)
[2022-08-02] MEDS ORDERED: Albuterol Sulfate 2.5 mg/3 ml Neb NEB PRN (04:07)
[2022-08-02] MEDS: Acetaminophen 325 MG TAB PO PRN ×2 (04:13→10:00)
[2022-08-02 05:07] VITALS: BMI 43.9
[2022-08-02] MEDS: Furosemide 40 MG/4 ML VIAL SLOW IVP SCH ×2 (05:20→13:46)
[2022-08-02] MEDS: Mometasone 200 MCG/Formoterol 5 MCG 120 PUFF INHALER INH SCH ×2 (07:20→18:41)
[2022-08-02 07:58] LABS: Magnesium 1.7 mg/dL (1.6-2.6); Phosphorus 3.3 mg/dL (2.3-4.7)
[2022-08-02] MEDS: Carvedilol 25 MG TAB PO SCH ×2 (09:37→21:34)
[2022-08-02] MEDS: Ferrous Sulfate 325 MG TAB PO SCH (09:37)
[2022-08-02] MEDS: Spironolactone 25 MG TAB PO SCH (09:37)
[2022-08-02] MEDS: Atorvastatin Calcium 40 MG TAB PO SCH (09:40)
[2022-08-02] MEDS: Losartan 25 MG TAB PO SCH (09:40)
[2022-08-02] MEDS ORDERED: Cyclobenzaprine 10 MG TAB PO SCH (11:15)
[2022-08-02] MEDS ORDERED: Magnesium 2 GM/50 ML(in water) 2 GM in Premix Bag 1 BAG IVPB SCH (11:30)
[2022-08-02 14:33] LABS: ALT (SGPT) 48 U/L (8-55); AST (SGOT) 55 U/L (5-34); Albumin 3.3 g/dL (3.5-5.0); Alkaline Phosphatase 153 U/L (40-110); Anion Gap 14 mmol/L (10-20); BUN (Urea Nitrogen) 39 mg/dL (9.8-20.1); Bilirubin, Total 1.1 mg/dL (0.2-1.2); Calc. Creatinine Clearance 63 mL/min (70-130); Calcium 8.6 mg/dL (7.8-10.44); Carbon Dioxide 23 mmol/L (22-29); Chloride 110 mmol/L (98-107); Estimated GFR 30; Globulin 3.3 g/dL (2.4-3.5); Glucose 93 mg/dL (70-105); Potassium 4.2 mmol/L (3.5-5.1); Protein, Total 6.6 g/dL (6.0-8.3); Sodium 143 mmol/L (136-145)
[2022-08-03 05:31] LABS: #Eosinphils 0.2 thou/uL (0.0-0.7); #Lymphocytes 0.7 thou/uL (1.20-3.40); #Monocytes 0.4 thou/uL (0.11-0.59); #Neutrophils 1.4 thou/uL (1.40-6.50); %Basophils 0.8 % (0.0-1.0); %Eosinophils 7.8 % (0.0-10.0); %Lymphocytes 27.7 % (21.0-51.0); %Monocytes 13.1 % (0.0-10.0); %Neutrophils 50.7 % (42.0-75.0); Hemoglobin 9.5 g/dL (12.0-16.0); Mean Corpuscular HGB CONC 30.8 g/dL (32.0-36.0); Mean Corpuscular Hemoglobin 27.9 pg (27.0-31.0); Mean Corpuscular Volume 90.7 fl (78.0-98.0); Mean Platelet Volume 11.8 fL (7.4-10.4); Platelet Count 84 thou/uL (130-400); Red Blood Cell (RBC) Count 3.39 mill/uL (4.20-5.40); White Blood Cell (WBC) Count 2.7 thou/uL (4.8-10.8)
[2022-08-03 05:50] LABS: ALT (SGPT) 47 U/L (8-55); AST (SGOT) 52 U/L (5-34); Albumin 3.4 g/dL (3.5-5.0); Alkaline Phosphatase 155 U/L (40-110); Anion Gap 13 mmol/L (10-20); BUN (Urea Nitrogen) 39 mg/dL (9.8-20.1); Bilirubin, Total 0.8 mg/dL (0.2-1.2); Calc. Creatinine Clearance 56 mL/min (70-130); Calcium 8.7 mg/dL (7.8-10.44); Carbon Dioxide 23 mmol/L (22-29); Chloride 106 mmol/L (98-107); Estimated GFR 26; Globulin 3.6 g/dL (2.4-3.5); Glucose 95 mg/dL (70-105); Magnesium 2.1 mg/dL (1.6-2.6); Potassium 4.1 mmol/L (3.5-5.1); Sodium 138 mmol/L (136-145)
[2022-08-03] MEDS: Acetaminophen 325 MG TAB PO PRN (06:04)
[2022-08-03] MEDS: Furosemide 40 MG/4 ML VIAL SLOW IVP SCH (06:05)
[2022-08-03] MEDS: Mometasone 200 MCG/Formoterol 5 MCG 120 PUFF INHALER INH SCH ×2 (07:43→18:57)
[2022-08-03] MEDS: Ferrous Sulfate 325 MG TAB PO SCH (08:57)
[2022-08-03] MEDS: Atorvastatin Calcium 40 MG TAB PO SCH (08:58)
[2022-08-03] MEDS: Losartan 25 MG TAB PO SCH (08:59)
[2022-08-03] MEDS: Carvedilol 25 MG TAB PO SCH ×2 (09:00→20:01)
[2022-08-03] MEDS: Spironolactone 25 MG TAB PO SCH (09:04)
[2022-08-03] MEDS: Torsemide 20 MG TAB PO SCH (09:36)
[2022-08-03 10:25] LABS: Phosphorus 4.4 mg/dL (2.3-4.7)
[2022-08-04 05:04] LABS: #Eosinphils 0.2 thou/uL (0.0-0.7); #Lymphocytes 0.8 thou/uL (1.20-3.40); #Monocytes 0.4 thou/uL (0.11-0.59); #Neutrophils 1.4 thou/uL (1.40-6.50); %Eosinophils 7.8 % (0.0-10.0); %Lymphocytes 29.1 % (21.0-51.0); %Monocytes 13.9 % (0.0-10.0); %Neutrophils 49.2 % (42.0-75.0); Hemoglobin 9.1 g/dL (12.0-16.0); Mean Corpuscular HGB CONC 31.4 g/dL (32.0-36.0); Mean Corpuscular Hemoglobin 27.9 pg (27.0-31.0); Mean Corpuscular Volume 88.8 fl (78.0-98.0); Mean Platelet Volume 12.1 fL (7.4-10.4); Platelet Count 78 thou/uL (130-400); RBC Distribution Width 15.8 % (11.5-14.5); Red Blood Cell (RBC) Count 3.27 mill/uL (4.20-5.40); White Blood Cell (WBC) Count 2.9 thou/uL (4.8-10.8)
[2022-08-04 05:32] LABS: ALT (SGPT) 43 U/L (8-55); AST (SGOT) 41 U/L (5-34); Albumin 3.5 g/dL (3.5-5.0); Alkaline Phosphatase 150 U/L (40-110); Anion Gap 13 mmol/L (10-20); BUN (Urea Nitrogen) 41 mg/dL (9.8-20.1); Bilirubin, Total 0.7 mg/dL (0.2-1.2); Calc. Creatinine Clearance 54 mL/min (70-130); Calcium 8.6 mg/dL (7.8-10.44); Carbon Dioxide 25 mmol/L (22-29); Chloride 104 mmol/L (98-107); Estimated GFR 24; Globulin 3.5 g/dL (2.4-3.5); Glucose 86 mg/dL (70-105); Sodium 138 mmol/L (136-145)
[2022-08-04] MEDS: Mometasone 200 MCG/Formoterol 5 MCG 120 PUFF INHALER INH SCH (08:13)
[2022-08-04] MEDS: Spironolactone 25 MG TAB PO SCH (09:12)
[2022-08-04] MEDS: Atorvastatin Calcium 40 MG TAB PO SCH (09:12)
[2022-08-04] MEDS: Losartan 25 MG TAB PO SCH (09:13)
[2022-08-04] MEDS: Torsemide 20 MG TAB PO SCH (09:13)
[2022-08-04] MEDS: Ferrous Sulfate 325 MG TAB PO SCH (09:13)
[2022-08-04] MEDS: Carvedilol 25 MG TAB PO SCH (09:13)
[2022-08-04] MEDS ORDERED: Losartan 25 MG TAB PO SCH (10:56)
[2022-08-04 11:47] VITALS: BP 140/77; TEMP 97.7
[2022-08-05] MEDS ORDERED: FLU VACC QS2022-23(6MOS UP)/PF 60 MCG/0.5 ML SYRINGE IM ONE (09:00)
[2022-08-05] MEDS ORDERED: Losartan 25 MG TAB PO SCH (09:00)
== END 2022-08-04 14:55 | disposition home or self-care (01) | DRG 291 ==
LOC: ERS 21:12 → CCU 08-02 00:42 → 2SW 08-02 22:53
PROVIDERS: ADMIT Family Medicine; ATTEND Family Medicine
DX: I13.0 Hypertensive heart and chronic kidney disease with heart failure and stage 1 through stage 4 chronic kidney disease, or unspecified chronic kidney disease (principal); I50.33 Acute on chronic diastolic (congestive) heart failure; J96.01 Acute respiratory failure with hypoxia; N18.4 Chronic kidney disease, stage 4 (severe); I16.1 Hypertensive emergency; N17.9 Acute kidney failure, unspecified; Z20.822 Contact with and (suspected) exposure to COVID-19; J44.9 Chronic obstructive pulmonary disease, unspecified; F41.9 Anxiety disorder, unspecified; D63.1 Anemia in chronic kidney disease; D69.6 Thrombocytopenia, unspecified; B18.2 Chronic viral hepatitis C; I25.10 Atherosclerotic heart disease of native coronary artery without angina pectoris; F32.A Depression, unspecified; Z98.51 Tubal ligation status; Z90.49 Acquired absence of other specified parts of digestive tract; Z88.8 Allergy status to other drugs, medicaments and biological substances; Z79.51 Long term (current) use of inhaled steroids; Z79.899 Other long term (current) drug therapy; Z95.5 Presence of coronary angioplasty implant and graft; Z87.891 Personal history of nicotine dependence
CPT/HCPCS: 36415; 71045; 80053; 81003; 81015; 82553; 82805; 83735; 83880; 84100; 84484; 85025; 85610; 85730; 93005; 93306; 94640; 94660; 96374; 96375; J0360; J1940; J3475; J7050; J7611; U0002

== ENCOUNTER 2022-08-27 19:07 | Emergency (ER) | payer OTHER ==
[2022-08-27] MEDS ORDERED: Acetaminophen 500 MG TAB ONE (19:53)
== END 2022-08-27 21:00 | disposition home or self-care (01) ==
LOC: ERS 19:07
DX: S70.01XA Contusion of right hip, initial encounter (principal); I11.0 Hypertensive heart disease with heart failure; I50.9 Heart failure, unspecified; J44.9 Chronic obstructive pulmonary disease, unspecified; Z79.899 Other long term (current) drug therapy; W19.XXXA Unspecified fall, initial encounter

== ENCOUNTER 2022-09-15 15:16 | Emergency (ER) | payer OTHER ==
[2022-09-15] MEDS ORDERED: predniSONE 20 MG TAB ONE (16:01)
[2022-09-15 16:26] LABS: #Eosinphils 1.1 thou/uL (0.0-0.7); #Lymphocytes 1.4 thou/uL (1.20-3.40); #Monocytes 0.5 thou/uL (0.11-0.59); #Neutrophils 1.3 thou/uL (1.40-6.50); %Eosinophils 24.7 % (0.0-10.0); %Lymphocytes 32.9 % (21.0-51.0); %Monocytes 10.7 % (0.0-10.0); %Neutrophils 30.8 % (42.0-75.0); Hemoglobin 10.2 g/dL (12.0-16.0); Mean Corpuscular HGB CONC 30.8 g/dL (32.0-36.0); Mean Corpuscular Volume 84.6 fl (78.0-98.0); Mean Platelet Volume 10.7 fL (7.4-10.4); Platelet Count 165 10x3/uL (130-400); RBC Distribution Width 14.7 % (11.5-14.5); Red Blood Cell (RBC) Count 3.92 mill/uL (4.20-5.40); White Blood Cell (WBC) Count 4.3 10x3/uL (4.8-10.8)
[2022-09-15 16:47] LABS: ALT (SGPT) 23 U/L (8-55); AST (SGOT) 38 U/L (5-34); Albumin 3.9 g/dL (3.5-5.0); Alkaline Phosphatase 185 U/L (40-110); Anion Gap 12 mmol/L (10-20); BUN (Urea Nitrogen) 38 mg/dL (9.8-20.1); Bilirubin, Total 0.6 mg/dL (0.2-1.2); Calc. Creatinine Clearance 0 mL/min (70-130); Calcium 9.1 mg/dL (7.8-10.44); Carbon Dioxide 27 mmol/L (22-29); Chloride 103 mmol/L (98-107); Estimated GFR 25; Globulin 3.8 g/dL (2.4-3.5); Glucose 90 mg/dL (70-105); Potassium 5.1 mmol/L (3.5-5.1); Protein, Total 7.7 g/dL (6.0-8.3); Sodium 137 mmol/L (136-145)
== END 2022-09-15 17:38 | disposition home or self-care (01) ==
LOC: ERS 15:16
DX: J45.901 Unspecified asthma with (acute) exacerbation (principal); I11.0 Hypertensive heart disease with heart failure; I50.9 Heart failure, unspecified; J44.9 Chronic obstructive pulmonary disease, unspecified
CPT/HCPCS: 36415; 71045; 80053; 83880; 84484; 85025; 93005; J7512; J7620

== ENCOUNTER 2023-01-05 11:20 | Inpatient (IN) | payer OTHER ==
[2023-01-05 12:22] LABS: #Eosinphils 0.2 thou/uL (0.0-0.7); #Lymphocytes 0.7 thou/uL (1.20-3.40); #Monocytes 0.4 thou/uL (0.11-0.59); #Neutrophils 1.6 thou/uL (1.40-6.50); %Basophils 0.6 % (0.0-1.0); %Neutrophils 54.4 % (42.0-75.0); Hemoglobin 10.1 g/dL (12.0-16.0); Mean Corpuscular HGB CONC 32.8 g/dL (32.0-36.0); Mean Corpuscular Hemoglobin 27.8 pg (27.0-31.0); Mean Corpuscular Volume 84.8 fl (78.0-98.0); Mean Platelet Volume 11.9 fL (7.4-10.4); Platelet Count 109 10x3/uL (130-400); RBC Distribution Width 16.6 % (11.5-14.5); Red Blood Cell (RBC) Count 3.64 mill/uL (4.20-5.40); White Blood Cell (WBC) Count 2.8 10x3/uL (4.8-10.8)
[2023-01-05 12:31] LABS: INR-International Normal Ratio 1.2; Prothrombin Time 15.3 sec (12.0-14.7)
[2023-01-05 12:32] LABS: PTT 36.2 sec (22.9-36.1)
[2023-01-05 12:34] LABS: D-Dimer Test 0.43 *mcg/mL (0.27-0.43)
[2023-01-05 12:52] LABS: ALT (SGPT) 27 U/L (8-55); AST (SGOT) 38 U/L (5-34); Albumin 3.1 g/dL (3.5-5.0); Alkaline Phosphatase 185 U/L (40-110); Anion Gap 12 mmol/L (10-20); BUN (Urea Nitrogen) 52 mg/dL (9.8-20.1); Bilirubin, Total 0.4 mg/dL (0.2-1.2); CK (CPK) 189 U/L (29-168); Calc. Creatinine Clearance 0 mL/min (70-130); Calcium 8.3 mg/dL (7.8-10.44); Carbon Dioxide 21 mmol/L (22-29); Chloride 107 mmol/L (98-107); Estimated GFR 24; Globulin 3.5 g/dL (2.4-3.5); Glucose 125 mg/dL (70-105); Potassium 4.2 mmol/L (3.5-5.1); Protein, Total 6.6 g/dL (6.0-8.3); Sodium 136 mmol/L (136-145)
[2023-01-05] MEDS ORDERED: Labetalol HCl 100 MG/20 ML VIAL SLOW IVP PRN (12:54)
[2023-01-05] MEDS ORDERED: Dextrose 50% Abboject 50 ML SYRINGE SLOW IVP PRN (13:03)
[2023-01-05] MEDS ORDERED: Dextrose 5% in Water 1,000 ML IV PRN (13:03)
[2023-01-05] MEDS ORDERED: HumaLOG 300 UNITS/3 ML VIAL SC PRN ×2 (13:03)
[2023-01-05 13:08] LABS: Bacteria/HPF None Seen HPF (None Seen); Bilirubin Negative (Negative); Blood, Urine Negative (Negative); Clarity Turbid (Clear); Glucose, Urine (Dipstick) Normal (Negative); Ketone, Urine Negative (Negative); Leukocyte Negative Leu/uL (Negative); Nitrite Negative (Negative); Protein, Urine (Dipstick) 200 mg/dL (Neg-Trace); RBC/HPF 0-3 HPF (0-3); Specific Gravity, Urine 1.018 (1.002-1.036); Urobilinogen Normal mg/dL (Less than 2); WBC/HPF 0-3 HPF (0-3); pH, Urine 5.5 (5.0-9.0)
[2023-01-05] MEDS ORDERED: LORazepam 2 MG/ML SYR.(CARPUJECT) ONE (13:36)
[2023-01-05] MEDS ORDERED: Lorazepam 2 MG/ML VIAL SLOW IVP SCH (13:45)
[2023-01-05 14:16] VITALS: BMI 40.1
[2023-01-05] MEDS: Mometasone 200 MCG/Formoterol 5 MCG 120 PUFF INHALER INH SCH (18:56)
[2023-01-05] MEDS: Atorvastatin Calcium 40 MG TAB PO SCH (20:18)
[2023-01-05] MEDS: Acetaminophen 325 MG TAB PO PRN (20:18)
[2023-01-05] MEDS: Carvedilol 25 MG TAB PO SCH (20:18)
[2023-01-06] MEDS: Mag-Al 1200 mg/1200 mg/30 ML UDCUP PO PRN (03:18)
[2023-01-06 04:03] LABS: #Eosinphils 0.2 thou/uL (0.0-0.7); #Lymphocytes 0.7 thou/uL (1.20-3.40); #Monocytes 0.4 thou/uL (0.11-0.59); #Neutrophils 1.3 thou/uL (1.40-6.50); %Basophils 0.7 % (0.0-1.0); %Eosinophils 8.5 % (0.0-10.0); %Lymphocytes 26.2 % (21.0-51.0); %Monocytes 14.2 % (0.0-10.0); %Neutrophils 50.5 % (42.0-75.0); Hemoglobin 9.9 g/dL (12.0-16.0); Mean Corpuscular HGB CONC 31.2 g/dL (32.0-36.0); Mean Corpuscular Hemoglobin 26.8 pg (27.0-31.0); Mean Corpuscular Volume 86.1 fl (78.0-98.0); Mean Platelet Volume 11.2 fL (7.4-10.4); Platelet Count 117 10x3/uL (130-400); RBC Distribution Width 16.5 % (11.5-14.5); Red Blood Cell (RBC) Count 3.67 mill/uL (4.20-5.40); White Blood Cell (WBC) Count 2.5 10x3/uL (4.8-10.8)
[2023-01-06 04:08] LABS: Hemoglobin A1c 5.5 % (4.0-6.0)
[2023-01-06 04:25] LABS: ALT (SGPT) 32 U/L (8-55); AST (SGOT) 48 U/L (5-34); Albumin 3.2 g/dL (3.5-5.0); Alkaline Phosphatase 189 U/L (40-110); Anion Gap 11 mmol/L (10-20); BUN (Urea Nitrogen) 53 mg/dL (9.8-20.1); Bilirubin, Total 0.3 mg/dL (0.2-1.2); Calc. Creatinine Clearance 47 mL/min (70-130); Calcium 8.3 mg/dL (7.8-10.44); Carbon Dioxide 22 mmol/L (22-29); Cardiac Risk 3.5 (Less than 4.5); Chloride 108 mmol/L (98-107); Cholesterol 174 mg/dl (< 200 Desired); Estimated GFR 24; Globulin 3.7 g/dL (2.4-3.5); Glucose 101 mg/dL (70-105); HDL Cholesterol 50 mg/dL (>60 Neg Risk); LDL Cholesterol, Calculated 109 mg/dL; Potassium 4.5 mmol/L (3.5-5.1); Protein, Total 6.9 g/dL (6.0-8.3); Sodium 136 mmol/L (136-145); Triglycerides 75 mg/dL (Less than 150)
[2023-01-06] MEDS: Mometasone 200 MCG/Formoterol 5 MCG 120 PUFF INHALER INH SCH ×2 (08:16→19:41)
[2023-01-06] MEDS: Spironolactone 25 MG TAB PO SCH (09:49)
[2023-01-06] MEDS: Losartan 25 MG TAB PO SCH (09:51)
[2023-01-06] MEDS: Carvedilol 25 MG TAB PO SCH ×2 (09:51→21:52)
[2023-01-06] MEDS: Torsemide 20 MG TAB PO SCH (09:52)
[2023-01-06] MEDS: Acetaminophen 325 MG TAB PO PRN ×2 (12:27→21:51)
[2023-01-06] MEDS: Senokot S 8.6-50 MG TAB PO PRN (18:28)
[2023-01-06] MEDS: Atorvastatin Calcium 40 MG TAB PO SCH (21:52)
[2023-01-07] MEDS ORDERED: hydrALAZINE 20 MG/ML VIAL SLOW IVP PRN (01:14)
[2023-01-07 07:25] LABS: Anion Gap 14 mmol/L (10-20); BUN (Urea Nitrogen) 57 mg/dL (9.8-20.1); Calc. Creatinine Clearance 43 mL/min (70-130); Calcium 8.6 mg/dL (7.8-10.44); Carbon Dioxide 21 mmol/L (22-29); Chloride 105 mmol/L (98-107); Estimated GFR 21; Glucose 118 mg/dL (70-105); Magnesium 1.9 mg/dL (1.6-2.6); Potassium 4.3 mmol/L (3.5-5.1); Sodium 136 mmol/L (136-145)
[2023-01-07 07:34] LABS: #Eosinphils 0.2 thou/uL (0.0-0.7); #Lymphocytes 0.8 thou/uL (1.20-3.40); #Monocytes 0.4 thou/uL (0.11-0.59); #Neutrophils 1.5 thou/uL (1.40-6.50); %Basophils 0.6 % (0.0-1.0); %Eosinophils 5.8 % (0.0-10.0); %Lymphocytes 27.9 % (21.0-51.0); %Monocytes 13.8 % (0.0-10.0); %Neutrophils 51.8 % (42.0-75.0); Hemoglobin 10.7 g/dL (12.0-16.0); Mean Corpuscular Hemoglobin 28.2 pg (27.0-31.0); Mean Corpuscular Volume 85.4 fl (78.0-98.0); Mean Platelet Volume 11.5 fL (7.4-10.4); Platelet Count 109 10x3/uL (130-400); RBC Distribution Width 16.6 % (11.5-14.5); Red Blood Cell (RBC) Count 3.79 mill/uL (4.20-5.40); White Blood Cell (WBC) Count 2.8 10x3/uL (4.8-10.8)
[2023-01-07] MEDS: Spironolactone 25 MG TAB PO SCH (08:37)
[2023-01-07] MEDS: Carvedilol 25 MG TAB PO SCH ×2 (08:38→20:09)
[2023-01-07] MEDS: Torsemide 20 MG TAB PO SCH (08:38)
[2023-01-07] MEDS: Losartan 25 MG TAB PO SCH (08:38)
[2023-01-07] MEDS: Mometasone 200 MCG/Formoterol 5 MCG 120 PUFF INHALER INH SCH ×2 (08:50→19:14)
[2023-01-07] MEDS ORDERED: Polyethylene Glycol 3350 17 GM Packet PO SCH (11:45)
[2023-01-07] MEDS: Acetaminophen 325 MG TAB PO PRN (16:16)
[2023-01-07] MEDS: Ondansetron PF 4 MG/2 ML Vial IVP PRN (16:47)
[2023-01-07] MEDS: Atorvastatin Calcium 40 MG TAB PO SCH (20:09)
[2023-01-08] MEDS: Torsemide 20 MG TAB PO SCH (08:13)
[2023-01-08] MEDS: Losartan 25 MG TAB PO SCH (08:13)
[2023-01-08] MEDS: Carvedilol 25 MG TAB PO SCH ×2 (08:13→20:32)
[2023-01-08] MEDS: Polyethylene Glycol 3350 17 GM Packet PO SCH (08:14)
[2023-01-08] MEDS: Spironolactone 25 MG TAB PO SCH (08:14)
[2023-01-08] MEDS: Mometasone 200 MCG/Formoterol 5 MCG 120 PUFF INHALER INH SCH ×2 (08:50→19:21)
[2023-01-08] MEDS: Atorvastatin Calcium 40 MG TAB PO SCH (20:32)
[2023-01-09 05:55] LABS: #Eosinphils 0.2 thou/uL (0.0-0.7); #Lymphocytes 1.2 thou/uL (1.20-3.40); #Monocytes 0.6 thou/uL (0.11-0.59); #Neutrophils 1.9 thou/uL (1.40-6.50); %Basophils 0.1 % (0.0-1.0); %Eosinophils 5.1 % (0.0-10.0); %Lymphocytes 30.9 % (21.0-51.0); %Monocytes 14.7 % (0.0-10.0); %Neutrophils 49.2 % (42.0-75.0); Hemoglobin 10.2 g/dL (12.0-16.0); Mean Corpuscular HGB CONC 32.3 g/dL (32.0-36.0); Mean Corpuscular Hemoglobin 27.4 pg (27.0-31.0); Mean Corpuscular Volume 84.8 fl (78.0-98.0); Mean Platelet Volume 11.7 fL (7.4-10.4); Platelet Count 115 10x3/uL (130-400); RBC Distribution Width 16.5 % (11.5-14.5); Red Blood Cell (RBC) Count 3.74 mill/uL (4.20-5.40); White Blood Cell (WBC) Count 3.8 10x3/uL (4.8-10.8)
[2023-01-09] MEDS: Mometasone 200 MCG/Formoterol 5 MCG 120 PUFF INHALER INH SCH ×2 (06:24→19:21)
[2023-01-09 06:25] LABS: Anion Gap 14 mmol/L (10-20); BUN (Urea Nitrogen) 75 mg/dL (9.8-20.1); Calc. Creatinine Clearance 37 mL/min (70-130); Calcium 8.8 mg/dL (7.8-10.44); Carbon Dioxide 23 mmol/L (22-29); Chloride 103 mmol/L (98-107); Estimated GFR 18; Glucose 99 mg/dL (70-105); Potassium 4.6 mmol/L (3.5-5.1); Sodium 135 mmol/L (136-145)
[2023-01-09] MEDS: Acetaminophen 325 MG TAB PO PRN (08:39)
[2023-01-09] MEDS: Torsemide 20 MG TAB PO SCH (09:35)
[2023-01-09] MEDS: Losartan 25 MG TAB PO SCH (09:35)
[2023-01-09] MEDS: Spironolactone 25 MG TAB PO SCH (09:38)
[2023-01-09] MEDS: Famotidine 20 MG TAB PO SCH (09:39)
[2023-01-09] MEDS: Polyethylene Glycol 3350 17 GM Packet PO SCH (09:40)
[2023-01-09] MEDS: Carvedilol 25 MG TAB PO SCH ×2 (12:48→21:00)
[2023-01-09] MEDS: Ondansetron PF 4 MG/2 ML Vial IVP PRN (18:09)
[2023-01-09] MEDS: Atorvastatin Calcium 40 MG TAB PO SCH (21:00)
[2023-01-10 05:57] LABS: Hemoglobin 10.2 g/dL (12.0-16.0); Mean Corpuscular HGB CONC 31.3 g/dL (32.0-36.0); Mean Corpuscular Hemoglobin 27.2 pg (27.0-31.0); Mean Corpuscular Volume 86.9 fl (78.0-98.0); Mean Platelet Volume 11.2 fL (7.4-10.4); Platelet Count 133 10x3/uL (130-400); RBC Distribution Width 16.5 % (11.5-14.5); Red Blood Cell (RBC) Count 3.74 mill/uL (4.20-5.40); White Blood Cell (WBC) Count 3.6 10x3/uL (4.8-10.8)
[2023-01-10 06:11] LABS: Anion Gap 14 mmol/L (10-20); BUN (Urea Nitrogen) 77 mg/dL (9.8-20.1); Calc. Creatinine Clearance 35 mL/min (70-130); Carbon Dioxide 24 mmol/L (22-29); Chloride 103 mmol/L (98-107); Potassium 4.6 mmol/L (3.5-5.1); Sodium 136 mmol/L (136-145)
[2023-01-10 06:12] LABS: Calcium 8.8 mg/dL (7.8-10.44); Estimated GFR 17; Glucose 94 mg/dL (70-105)
[2023-01-10 06:24] LABS: Anisocytosis SLIGHT = 6-15 cells (100X) (0-5/hpf); Eosinophils 8 % (0-10); Hypochromia SLIGHT = 6-15 cells (100X) (0-5/hpf); Lymphocytes 36 % (21-51); MDiff Complete? YES; Monocytes 8 % (0-10); Neutrophil 48 % (42-75); Platelet Morphology Comment Appears Adequate
[2023-01-10] MEDS: Mometasone 200 MCG/Formoterol 5 MCG 120 PUFF INHALER INH SCH ×2 (07:59→18:57)
[2023-01-10] MEDS: Famotidine 20 MG TAB PO SCH (09:22)
[2023-01-10] MEDS: Spironolactone 25 MG TAB PO SCH (09:22)
[2023-01-10] MEDS: Polyethylene Glycol 3350 17 GM Packet PO SCH (09:22)
[2023-01-10] MEDS: Carvedilol 25 MG TAB PO SCH ×2 (09:22→20:51)
[2023-01-10] MEDS: Docusate 100 MG CAP PO PRN (20:51)
[2023-01-10] MEDS: Acetaminophen 325 MG TAB PO PRN (20:51)
[2023-01-10] MEDS: Atorvastatin Calcium 40 MG TAB PO SCH (20:51)
[2023-01-11 06:35] LABS: Hemoglobin 10.3 g/dL (12.0-16.0); Mean Corpuscular HGB CONC 31.7 g/dL (32.0-36.0); Mean Corpuscular Hemoglobin 27.2 pg (27.0-31.0); Mean Corpuscular Volume 85.9 fl (78.0-98.0); Mean Platelet Volume 11.2 fL (7.4-10.4); Platelet Count 126 10x3/uL (130-400); RBC Distribution Width 16.2 % (11.5-14.5); Red Blood Cell (RBC) Count 3.77 mill/uL (4.20-5.40); White Blood Cell (WBC) Count 3.7 10x3/uL (4.8-10.8)
[2023-01-11 06:46] LABS: Anion Gap 16 mmol/L (10-20); BUN (Urea Nitrogen) 80 mg/dL (9.8-20.1); Calc. Creatinine Clearance 34 mL/min (70-130); Calcium 8.7 mg/dL (7.8-10.44); Carbon Dioxide 22 mmol/L (22-29); Chloride 102 mmol/L (98-107); Estimated GFR 16; Glucose 91 mg/dL (70-105); Potassium 4.8 mmol/L (3.5-5.1); Sodium 135 mmol/L (136-145)
[2023-01-11 07:10] LABS: Band 1 % (5-11); Eosinophils 5 % (0-10); Lymphocytes 37 % (21-51); MDiff Complete? YES; Monocytes 14 % (0-10); Neutrophil 43 % (42-75)
[2023-01-11] MEDS: Mometasone 200 MCG/Formoterol 5 MCG 120 PUFF INHALER INH SCH ×2 (07:53→19:02)
[2023-01-11] MEDS: Spironolactone 25 MG TAB PO SCH (09:02)
[2023-01-11] MEDS: Carvedilol 25 MG TAB PO SCH ×2 (09:03→21:00)
[2023-01-11] MEDS: Famotidine 20 MG TAB PO SCH (09:03)
[2023-01-11] MEDS: Polyethylene Glycol 3350 17 GM Packet PO SCH (09:03)
[2023-01-11] MEDS: Docusate 100 MG CAP PO PRN (12:02)
[2023-01-11] MEDS: Mag-Al 1200 mg/1200 mg/30 ML UDCUP PO PRN (21:00)
[2023-01-11] MEDS: Atorvastatin Calcium 40 MG TAB PO SCH (21:00)
[2023-01-11] MEDS: Acetaminophen 325 MG TAB PO PRN (23:19)
[2023-01-12 05:26] LABS: Hemoglobin 10.3 g/dL (12.0-16.0); Mean Corpuscular HGB CONC 30.9 g/dL (32.0-36.0); Mean Corpuscular Hemoglobin 26.4 pg (27.0-31.0); Mean Corpuscular Volume 85.7 fl (78.0-98.0); Mean Platelet Volume 10.9 fL (7.4-10.4); Platelet Count 117 10x3/uL (130-400); RBC Distribution Width 15.9 % (11.5-14.5); Red Blood Cell (RBC) Count 3.88 mill/uL (4.20-5.40); White Blood Cell (WBC) Count 3.3 10x3/uL (4.8-10.8)
[2023-01-12 05:49] LABS: Anion Gap 16 mmol/L (10-20); BUN (Urea Nitrogen) 80 mg/dL (9.8-20.1); Calc. Creatinine Clearance 36 mL/min (70-130); Calcium 8.8 mg/dL (7.8-10.44); Carbon Dioxide 21 mmol/L (22-29); Chloride 104 mmol/L (98-107); Estimated GFR 17; Glucose 96 mg/dL (70-105); Potassium 4.6 mmol/L (3.5-5.1); Sodium 136 mmol/L (136-145)
[2023-01-12 05:55] LABS: Anisocytosis SLIGHT = 6-15 cells (100X) (0-5/hpf); Eosinophils 6 % (0-10); Lymphocytes 38 % (21-51); MDiff Complete? YES; Monocytes 7 % (0-10); Neutrophil 49 % (42-75); Platelet Morphology Comment Appears Decreased; Polychromasia SLIGHT = 2-3 cells (100X) (0-2/hpf)
[2023-01-12] MEDS: Mometasone 200 MCG/Formoterol 5 MCG 120 PUFF INHALER INH SCH ×2 (07:28→19:42)
[2023-01-12] MEDS: Famotidine 20 MG TAB PO SCH (08:39)
[2023-01-12] MEDS: Docusate 100 MG CAP PO PRN (08:39)
[2023-01-12] MEDS: Senokot S 8.6-50 MG TAB PO PRN (08:39)
[2023-01-12] MEDS: Carvedilol 25 MG TAB PO SCH ×2 (08:40→20:07)
[2023-01-12] MEDS: Polyethylene Glycol 3350 17 GM Packet PO SCH (09:25)
[2023-01-12] MEDS ORDERED: NIFEdipine XL 30 MG TAB PO SCH ×2 (09:29→09:32)
[2023-01-12] MEDS ORDERED: NIFEdipine XL 60 MG TAB PO SCH (09:45)
[2023-01-12] MEDS: Atorvastatin Calcium 40 MG TAB PO SCH (20:07)
[2023-01-12] MEDS: Acetaminophen 325 MG TAB PO PRN (20:10)
[2023-01-13] MEDS: Famotidine 20 MG TAB PO SCH (08:46)
[2023-01-13] MEDS: Carvedilol 25 MG TAB PO SCH (08:47)
[2023-01-13] MEDS: Polyethylene Glycol 3350 17 GM Packet PO SCH (08:51)
[2023-01-13] MEDS ORDERED: NIFEdipine XL 60 MG TAB PO SCH (09:00)
[2023-01-13] MEDS: Mometasone 200 MCG/Formoterol 5 MCG 120 PUFF INHALER INH SCH (09:55)
[2023-01-13 11:59] VITALS: TEMP 97.5
[2023-01-13 13:46] VITALS: BP 124/74
[2023-01-14] MEDS ORDERED: NIFEdipine XL 90 MG TAB PO SCH (09:00)
== END 2023-01-13 13:49 | disposition home or self-care (01) | DRG 65 ==
LOC: ERS 11:20 → SUATTDRO 11:20 → ERHOLD 12:57 → IMCU/EMU 15:36 → NEURO 01-06 15:14
PROVIDERS: ADMIT Hospitalist; ATTEND Hospitalist
DX: I61.9 Nontraumatic intracerebral hemorrhage, unspecified (principal); E87.1 Hypo-osmolality and hyponatremia; I13.0 Hypertensive heart and chronic kidney disease with heart failure and stage 1 through stage 4 chronic kidney disease, or unspecified chronic kidney disease; I16.1 Hypertensive emergency; N18.4 Chronic kidney disease, stage 4 (severe); I50.32 Chronic diastolic (congestive) heart failure; I47.20 Ventricular tachycardia, unspecified; I85.10 Secondary esophageal varices without bleeding; N17.9 Acute kidney failure, unspecified; Z68.41 Body mass index [BMI] 40.0-44.9, adult; J44.9 Chronic obstructive pulmonary disease, unspecified; I25.10 Atherosclerotic heart disease of native coronary artery without angina pectoris; K74.60 Unspecified cirrhosis of liver; E78.5 Hyperlipidemia, unspecified; E11.22 Type 2 diabetes mellitus with diabetic chronic kidney disease; B18.2 Chronic viral hepatitis C; E66.01 Morbid (severe) obesity due to excess calories; D69.6 Thrombocytopenia, unspecified; D63.1 Anemia in chronic kidney disease; I25.118 Atherosclerotic heart disease of native coronary artery with other forms of angina pectoris; Z83.3 Family history of diabetes mellitus; Z88.6 Allergy status to analgesic agent; Z88.8 Allergy status to other drugs, medicaments and biological substances; Z79.899 Other long term (current) drug therapy; Z79.82 Long term (current) use of aspirin; Z82.49 Family history of ischemic heart disease and other diseases of the circulatory system; Z87.891 Personal history of nicotine dependence; Z98.890 Other specified postprocedural states; Z79.84 Long term (current) use of oral hypoglycemic drugs
CPT/HCPCS: 36415; 36416; 70450; 70551; 71045; 76770; 80048; 80053; 80061; 81003; 81015; 82550; 83036; 83735; 84443; 84484; 85025; 85379; 85610; 85730; 93005; 93306; 93880; 94664; 95712; 95819; 95957; J0360; J2060; J2405

== ENCOUNTER 2023-02-12 13:17 | Emergency (ER) | payer OTHER ==
[2023-02-12 13:52] LABS: #Eosinphils 0.6 thou/uL (0.0-0.7); #Monocytes 0.5 thou/uL (0.11-0.59); #Neutrophils 1.5 thou/uL (1.40-6.50); %Basophils 0.6 % (0.0-1.0); %Eosinophils 15.5 % (0.0-10.0); %Lymphocytes 26.2 % (21.0-51.0); %Monocytes 14.9 % (0.0-10.0); %Neutrophils 42.8 % (42.0-75.0); Hemoglobin 11.8 g/dL (12.0-16.0); Mean Corpuscular HGB CONC 32.2 g/dL (32.0-36.0); Mean Corpuscular Hemoglobin 27.4 pg (27.0-31.0); Mean Corpuscular Volume 84.9 fl (78.0-98.0); Mean Platelet Volume 11.9 fL (7.4-10.4); Platelet Count 173 10x3/uL (130-400); RBC Distribution Width 16.1 % (11.5-14.5); Red Blood Cell (RBC) Count 4.31 mill/uL (4.20-5.40); White Blood Cell (WBC) Count 3.6 10x3/uL (4.8-10.8)
[2023-02-12 14:13] LABS: ALT (SGPT) 34 U/L (8-55); AST (SGOT) 39 U/L (5-34); Albumin 3.9 g/dL (3.5-5.0); Alkaline Phosphatase 228 U/L (40-110); Anion Gap 15 mmol/L (10-20); BUN (Urea Nitrogen) 42 mg/dL (9.8-20.1); Bilirubin, Total 0.6 mg/dL (0.2-1.2); Calc. Creatinine Clearance 0 mL/min (70-130); Calcium 9.4 mg/dL (7.8-10.44); Carbon Dioxide 21 mmol/L (22-29); Chloride 106 mmol/L (98-107); Estimated GFR 22; Globulin 4.6 g/dL (2.4-3.5); Glucose 108 mg/dL (70-105); Potassium 4.5 mmol/L (3.5-5.1); Protein, Total 8.5 g/dL (6.0-8.3); Sodium 137 mmol/L (136-145)
[2023-02-12] MEDS ORDERED: methylPREDNISolone Sod Succ/PF 125 MG/2 ML VIAL ONE (14:33)
[2023-02-12] MEDS ORDERED: Ipratropium/Albuterol 3 ML NEB ONE (14:42)
== END 2023-02-12 17:21 | disposition home or self-care (01) ==
LOC: ERS 13:17
DX: J45.901 Unspecified asthma with (acute) exacerbation (principal); D72.819 Decreased white blood cell count, unspecified; I25.10 Atherosclerotic heart disease of native coronary artery without angina pectoris; I11.0 Hypertensive heart disease with heart failure; I50.9 Heart failure, unspecified
CPT/HCPCS: 36415; 71045; 80053; 83605; 84484; 85025; 87040; 93005; 94640; 94760; 96374; J2930; J7620

== ENCOUNTER 2023-04-08 12:57 | Outpatient (CLI) | payer OTHER | END 2023-04-08 12:58 | disposition home or self-care (01) | LOC: ULT 12:57 | PROVIDERS: ATTEND Internal Medicine Gastroenterology | DX: C22.0 Liver cell carcinoma (principal); K74.60 Unspecified cirrhosis of liver; I85.10 Secondary esophageal varices without bleeding; N18.9 Chronic kidney disease, unspecified | CPT/HCPCS: 76705 ==

== ENCOUNTER 2023-04-13 02:10 | Inpatient (IN) | payer OTHER ==
[2023-04-13] MEDS ORDERED: Albuterol 2.5 MG/0.5 ML NEB ONE (02:23)
[2023-04-13] MEDS ORDERED: Ipratropium/Albuterol 3 ML NEB ONE (02:23)
[2023-04-13 02:47] LABS: Actual Bicarbonate (HCO3a) 25.8 mEq/L (22-28); Analyzer IN Cardio ER; Base Excess (BEa) -2.8 mEq/L (-2.0 to +3.0); Calcium, Ionized (arterial) 1.11 mmol/L (1.12-1.30); Carboxyhemoglobin (COHb) 0.3 gm% (0.0-3.0); Hematocrit-ABG 36 % (36.0-47.0); Hemoglobin (Hb) 12.1 g/dL (12.0-16.0); O2 Tension (PaO2), arterial 199.8 mmHg (80.0-100.0); Potassium - ABG Lab 5.44 mmol/L (3.70-5.30); pH, Arterial 7.228 (7.35-7.45)
[2023-04-13 02:56] LABS: CO2 Tension 63.2 mmHg (35.0-45.0)
[2023-04-13 02:57] LABS: Puncture Site RRA
[2023-04-13] MEDS ORDERED: Nitroglycerin 50 MG/250 ML BOT 250 ML ONE (03:18)
[2023-04-13 03:30] LABS: #Monocytes 0.8 thou/uL (0.11-0.59); #Neutrophils 4.4 thou/uL (1.40-6.50); %Basophils 0.5 % (0.0-1.0); %Eosinophils 13.4 % (0.0-10.0); %Lymphocytes 17.9 % (21.0-51.0); %Monocytes 10.1 % (0.0-10.0); %Neutrophils 57.8 % (42.0-75.0); Mean Corpuscular HGB CONC 30.6 g/dL (32.0-36.0); Mean Corpuscular Hemoglobin 27.1 pg (27.0-31.0); Mean Corpuscular Volume 88.4 fl (78.0-98.0); Platelet Count 175 10x3/uL (130-400); RBC Distribution Width 15.8 % (11.5-14.5); Red Blood Cell (RBC) Count 4.06 mill/uL (4.20-5.40); White Blood Cell (WBC) Count 7.6 10x3/uL (4.8-10.8)
[2023-04-13 03:40] LABS: INR-International Normal Ratio 1.1; Prothrombin Time 14.2 sec (12.0-14.7)
[2023-04-13 04:00] LABS: ALT (SGPT) 39 U/L (8-55); AST (SGOT) 55 U/L (5-34); Albumin 3.6 g/dL (3.5-5.0); Alkaline Phosphatase 196 U/L (40-110); Anion Gap 18 mmol/L (10-20); BUN (Urea Nitrogen) 37 mg/dL (9.8-20.1); Bilirubin, Total 0.4 mg/dL (0.2-1.2); Calc. Creatinine Clearance 0 mL/min (70-130); Calcium 8.7 mg/dL (7.8-10.44); Carbon Dioxide 21 mmol/L (22-29); Chloride 105 mmol/L (98-107); Estimated GFR 23; Globulin 4.2 g/dL (2.4-3.5); Glucose 175 mg/dL (70-105); Potassium 6.2 mmol/L (3.5-5.1); Protein, Total 7.8 g/dL (6.0-8.3); Sodium 138 mmol/L (136-145)
[2023-04-13 04:04] LABS: Actual Bicarbonate (HCO3a) 24.1 mEq/L (22-28); Analyzer IN Cardio ER; Base Excess (BEa) -2.9 mEq/L (-2.0 to +3.0); CO2 Tension 51.2 mmHg (35.0-45.0); Calcium, Ionized (arterial) 1.11 mmol/L (1.12-1.30); Carboxyhemoglobin (COHb) 0.3 gm% (0.0-3.0); Hematocrit-ABG 35 % (36.0-47.0); Hemoglobin (Hb) 11.8 g/dL (12.0-16.0); O2 Tension (PaO2), arterial 86.2 mmHg (80.0-100.0); Potassium - ABG Lab 5.69 mmol/L (3.70-5.30)
[2023-04-13 04:08] LABS: Puncture Site LRA
[2023-04-13] MEDS ORDERED: Furosemide 40 MG/4 ML VIAL ONE (04:10)
[2023-04-13] MEDS ORDERED: Dextrose 50% Abboject 50 ML SYRINGE ONE (04:10)
[2023-04-13] MEDS ORDERED: CALCIUM GLUC 1 GM/NS 50 ML BAG ONE (04:10)
[2023-04-13] MEDS ORDERED: Insulin Regular 300 UNITS/3 ML VIAL ONE (04:10)
[2023-04-13] MEDS ORDERED: Sodium Bicarb 50 MEQ/50 ML VIAL ONE (04:10)
[2023-04-13 04:13] LABS: CKMB 4.1 ng/mL (0-6.6)
[2023-04-13] MEDS ORDERED: Ondansetron PF 4 MG/2 ML Vial IVP PRN (05:21)
[2023-04-13] MEDS ORDERED: Ipratropium/Albuterol 3 ML NEB EZPAP PRN (05:23)
[2023-04-13] MEDS ORDERED: cefTRIAXone\\ROCEPHIN 2 GM in Sodium Chloride 0.9% 100 ML IVPB SCH (06:00)
[2023-04-13 06:25] LABS: Magnesium 2.3 mg/dL (1.6-2.6)
[2023-04-13] MEDS ORDERED: Mometasone 200 MCG/Formoterol 5 MCG 120 PUFF INHALER INH SCH (06:30)
[2023-04-13 06:31] LABS: Troponin I 0.047 ng/mL (< 0.028)
[2023-04-13] MEDS ORDERED: Furosemide 20 MG/2 ML VIAL SLOW IVP SCH (06:45)
[2023-04-13] MEDS: Ipratropium/Albuterol 3 ML NEB NEB SCH ×5 (06:52→21:53)
[2023-04-13] MEDS ORDERED: Nitroglycerin 50 MG/250 ML BOT 250 ML IVPB SCH (07:00)
[2023-04-13] MEDS ORDERED: Azithromycin 500 MG in Sodium Chloride 0.9% 250 ML 250 ML IVPB SCH (08:00)
[2023-04-13] MEDS: Heparin 5,000 UNITS/ML VIAL SC SCH ×2 (08:17→20:42)
[2023-04-13] MEDS: Acetaminophen 325 MG TAB PO PRN ×3 (08:18→20:44)
[2023-04-13 10:08] LABS: Anion Gap 17 mmol/L (10-20); BUN (Urea Nitrogen) 41 mg/dL (9.8-20.1); Calc. Creatinine Clearance 0 mL/min (70-130); Calcium 8.9 mg/dL (7.8-10.44); Carbon Dioxide 22 mmol/L (22-29); Chloride 106 mmol/L (98-107); Estimated GFR 23; Glucose 136 mg/dL (70-105); Potassium 5.3 mmol/L (3.5-5.1); Sodium 140 mmol/L (136-145)
[2023-04-13 10:17] LABS: Troponin I 0.039 ng/mL (< 0.028)
[2023-04-13 11:41] VITALS: BMI 44.6
[2023-04-13] MEDS ORDERED: methylPREDNISolone Sod Succ 40 MG VIAL IVP SCH (12:00)
[2023-04-13] MEDS ORDERED: methylPREDNISolone Sod Succ/PF 125 MG/2 ML VIAL IVP SCH (12:00)
[2023-04-13] MEDS ORDERED: NIFEdipine XL 60 MG TAB PO SCH (12:15)
[2023-04-13] MEDS: Furosemide 40 MG/4 ML VIAL SLOW IVP SCH (13:03)
[2023-04-13 15:36] LABS: Potassium 4.9 mmol/L (3.5-5.1)
[2023-04-13] MEDS ORDERED: Ipratropium Bromide 2.5 ml Neb NEB SCH (18:00)
[2023-04-13] MEDS: Mometasone 200 MCG/Formoterol 5 MCG 120 PUFF INHALER INH SCH (18:59)
[2023-04-13] MEDS: Famotidine 20 MG TAB PO SCH (20:40)
[2023-04-13] MEDS: Carvedilol 25 MG TAB PO SCH (20:40)
[2023-04-13] MEDS: GUAIFENESIN SF SOLN 200 MG/10 ML UDCUP PO PRN (22:42)
[2023-04-13] MEDS: diphenhydrAMINE 25 MG CAP PO PRN (22:43)
[2023-04-14] MEDS: Ipratropium/Albuterol 3 ML NEB NEB SCH ×6 (01:59→22:16)
[2023-04-14 04:00] LABS: Hemoglobin 9.7 g/dL (12.0-16.0); Manual Diff?? YES; Mean Corpuscular HGB CONC 30.6 g/dL (32.0-36.0); Mean Corpuscular Hemoglobin 27.2 pg (27.0-31.0); Mean Platelet Volume 12.9 fL (7.4-10.4); Platelet Count 136 10x3/uL (130-400); RBC Distribution Width 15.2 % (11.5-14.5); Red Blood Cell (RBC) Count 3.56 mill/uL (4.20-5.40); White Blood Cell (WBC) Count 2.3 10x3/uL (4.8-10.8)
[2023-04-14 04:10] LABS: Delete Auto Diff?? YES
[2023-04-14 04:26] LABS: ALT (SGPT) 44 U/L (8-55); AST (SGOT) 53 U/L (5-34); Albumin 3.2 g/dL (3.5-5.0); Alkaline Phosphatase 175 U/L (40-110); Anion Gap 17 mmol/L (10-20); BUN (Urea Nitrogen) 57 mg/dL (9.8-20.1); Bilirubin, Total 0.3 mg/dL (0.2-1.2); Calc. Creatinine Clearance 36 mL/min (70-130); Calcium 8.5 mg/dL (7.8-10.44); Carbon Dioxide 22 mmol/L (22-29); Chloride 104 mmol/L (98-107); Estimated GFR 16; Globulin 3.5 g/dL (2.4-3.5); Glucose 152 mg/dL (70-105); Magnesium 2.2 mg/dL (1.6-2.6); Potassium 5.1 mmol/L (3.5-5.1); Protein, Total 6.7 g/dL (6.0-8.3); Sodium 138 mmol/L (136-145)
[2023-04-14 04:44] LABS: CellaVision Operator ID LAB.CMB; Large Platelets 68.8 % (0-5); Lymphocytes 16 % (21-51); Monocytes 9 % (0-10); Neutrophil 75 % (42-75); Ovalocytes SLIGHT = 2-5 cells HPF (0-1); Platelet Adequacy Comment Platelets Normal; Polychromasia SLIGHT = 2-3 cells HPF (0-2); Total Cell Count 32
[2023-04-14] MEDS: Furosemide 40 MG/4 ML VIAL SLOW IVP SCH ×2 (06:19→13:17)
[2023-04-14] MEDS: Mometasone 200 MCG/Formoterol 5 MCG 120 PUFF INHALER INH SCH ×2 (06:30→18:32)
[2023-04-14] MEDS: NIFEdipine XL 60 MG TAB PO SCH (09:58)
[2023-04-14] MEDS: Atorvastatin Calcium 40 MG TAB PO SCH (09:58)
[2023-04-14] MEDS: Carvedilol 25 MG TAB PO SCH ×2 (09:58→20:51)
[2023-04-14] MEDS: GUAIFENESIN SF SOLN 200 MG/10 ML UDCUP PO PRN (10:08)
[2023-04-14] MEDS: Acetaminophen 325 MG TAB PO PRN (10:10)
[2023-04-14] MEDS: Heparin 5,000 UNITS/ML VIAL SC SCH ×2 (10:20→20:51)
[2023-04-14] MEDS: Famotidine 20 MG TAB PO SCH (20:51)
[2023-04-14] MEDS: diphenhydrAMINE 25 MG CAP PO PRN (20:57)
[2023-04-15] MEDS: Ipratropium/Albuterol 3 ML NEB NEB SCH ×6 (02:14→22:32)
[2023-04-15] MEDS: Furosemide 40 MG/4 ML VIAL SLOW IVP SCH ×2 (05:51→14:01)
[2023-04-15] MEDS: Mometasone 200 MCG/Formoterol 5 MCG 120 PUFF INHALER INH SCH ×2 (07:36→18:28)
[2023-04-15 08:03] LABS: Hemoglobin 10.7 g/dL (12.0-16.0); Manual Diff?? YES; Mean Corpuscular HGB CONC 30.8 g/dL (32.0-36.0); Mean Corpuscular Hemoglobin 27.4 pg (27.0-31.0); Mean Platelet Volume 12.4 fL (7.4-10.4); Platelet Count 132 10x3/uL (130-400); RBC Distribution Width 15.7 % (11.5-14.5); White Blood Cell (WBC) Count 4.1 10x3/uL (4.8-10.8)
[2023-04-15 08:13] LABS: Delete Auto Diff?? YES
[2023-04-15 08:29] LABS: ALT (SGPT) 33 U/L (8-55); AST (SGOT) 29 U/L (5-34); Albumin 3.4 g/dL (3.5-5.0); Alkaline Phosphatase 171 U/L (40-110); Anion Gap 15 mmol/L (10-20); BUN (Urea Nitrogen) 68 mg/dL (9.8-20.1); Bilirubin, Total 0.3 mg/dL (0.2-1.2); Calc. Creatinine Clearance 37 mL/min (70-130); Calcium 8.1 mg/dL (7.8-10.44); Carbon Dioxide 26 mmol/L (22-29); Chloride 102 mmol/L (98-107); Estimated GFR 17; Globulin 3.6 g/dL (2.4-3.5); Glucose 101 mg/dL (70-105); Magnesium 2.1 mg/dL (1.6-2.6); Potassium 4.4 mmol/L (3.5-5.1); Sodium 139 mmol/L (136-145)
[2023-04-15 08:34] LABS: Band 1 % (5-11); CellaVision Operator ID LAB.GE; Eosinophils 8 % (0-10); Hypochromia SLIGHT = 6-15 cells HPF (0-5); Large Platelets 12.1 % (0-5); Lymphocytes 22 % (21-51); Monocytes 17 % (0-10); Neutrophil 51 % (42-75); Platelet Adequacy Comment Platelets Normal; Polychromasia SLIGHT = 2-3 cells HPF (0-2); Total Cell Count 99
[2023-04-15] MEDS: Carvedilol 25 MG TAB PO SCH ×2 (08:48→20:20)
[2023-04-15] MEDS: NIFEdipine XL 60 MG TAB PO SCH (08:48)
[2023-04-15] MEDS: Heparin 5,000 UNITS/ML VIAL SC SCH ×2 (08:48→20:20)
[2023-04-15] MEDS: Atorvastatin Calcium 40 MG TAB PO SCH (08:48)
[2023-04-15] MEDS: Famotidine 20 MG TAB PO SCH (20:20)
[2023-04-15] MEDS: Benzonatate 100 MG CAP PO PRN (23:25)
[2023-04-16] MEDS: Ipratropium/Albuterol 3 ML NEB NEB SCH ×6 (01:50→22:40)
[2023-04-16 05:04] LABS: #Eosinphils 0.3 thou/uL (0.0-0.7); #Monocytes 0.8 thou/uL (0.11-0.59); %Basophils 0.5 % (0.0-1.0); %Eosinophils 7.3 % (0.0-10.0); %Lymphocytes 28.7 % (21.0-51.0); %Monocytes 17.2 % (0.0-10.0); %Neutrophils 46.1 % (42.0-75.0); Hemoglobin 9.9 g/dL (12.0-16.0); Mean Corpuscular HGB CONC 31.1 g/dL (32.0-36.0); Mean Corpuscular Hemoglobin 26.8 pg (27.0-31.0); Mean Platelet Volume 11.9 fL (7.4-10.4); Platelet Count 142 10x3/uL (130-400); RBC Distribution Width 15.3 % (11.5-14.5); White Blood Cell (WBC) Count 4.4 10x3/uL (4.8-10.8)
[2023-04-16 05:30] LABS: ALT (SGPT) 27 U/L (8-55); AST (SGOT) 23 U/L (5-34); Albumin 3.3 g/dL (3.5-5.0); Alkaline Phosphatase 154 U/L (40-110); Anion Gap 17 mmol/L (10-20); BUN (Urea Nitrogen) 75 mg/dL (9.8-20.1); Bilirubin, Total 0.3 mg/dL (0.2-1.2); Calc. Creatinine Clearance 40 mL/min (70-130); Carbon Dioxide 22 mmol/L (22-29); Chloride 104 mmol/L (98-107); Estimated GFR 18; Globulin 3.4 g/dL (2.4-3.5); Glucose 88 mg/dL (70-105); Potassium 4.4 mmol/L (3.5-5.1); Protein, Total 6.7 g/dL (6.0-8.3); Sodium 139 mmol/L (136-145)
[2023-04-16] MEDS: Furosemide 40 MG/4 ML VIAL SLOW IVP SCH ×2 (05:54→14:03)
[2023-04-16 06:28] LABS: Mean Corpuscular Volume 85.9 fl (78.0-98.0)
[2023-04-16] MEDS: Mometasone 200 MCG/Formoterol 5 MCG 120 PUFF INHALER INH SCH ×2 (06:38→18:31)
[2023-04-16] MEDS: Benzonatate 100 MG CAP PO PRN (08:38)
[2023-04-16] MEDS: Heparin 5,000 UNITS/ML VIAL SC SCH ×2 (08:38→21:25)
[2023-04-16] MEDS: Atorvastatin Calcium 40 MG TAB PO SCH (08:39)
[2023-04-16] MEDS: Carvedilol 25 MG TAB PO SCH ×2 (08:39→21:24)
[2023-04-16] MEDS: NIFEdipine XL 60 MG TAB PO SCH (08:41)
[2023-04-16] MEDS ORDERED: Dextromethorphan 30 MG/5 ML (89 ML BOTTLE) PO PRN (12:43)
[2023-04-16] MEDS: Budesonide 0.5 MG/2 ML NEB NEB SCH (18:29)
[2023-04-16] MEDS: Famotidine 20 MG TAB PO SCH (21:24)
[2023-04-17] MEDS: Ipratropium/Albuterol 3 ML NEB NEB SCH ×3 (01:46→10:47)
[2023-04-17 05:49] LABS: #Eosinphils 0.4 thou/uL (0.0-0.7); #Monocytes 0.5 thou/uL (0.11-0.59); #Neutrophils 1.5 thou/uL (1.40-6.50); %Basophils 0.3 % (0.0-1.0); %Lymphocytes 31.7 % (21.0-51.0); %Monocytes 14.9 % (0.0-10.0); %Neutrophils 42.1 % (42.0-75.0); Hemoglobin 10.7 g/dL (12.0-16.0); Mean Corpuscular HGB CONC 31.2 g/dL (32.0-36.0); Mean Corpuscular Hemoglobin 26.8 pg (27.0-31.0); Mean Platelet Volume 12.8 fL (7.4-10.4); Platelet Count 137 10x3/uL (130-400); RBC Distribution Width 15.2 % (11.5-14.5); Red Blood Cell (RBC) Count 3.99 mill/uL (4.20-5.40); White Blood Cell (WBC) Count 3.6 10x3/uL (4.8-10.8)
[2023-04-17] MEDS: Furosemide 40 MG/4 ML VIAL SLOW IVP SCH (06:10)
[2023-04-17 06:11] LABS: ALT (SGPT) 25 U/L (8-55); AST (SGOT) 27 U/L (5-34); Albumin 3.5 g/dL (3.5-5.0); Alkaline Phosphatase 165 U/L (40-110); Anion Gap 16 mmol/L (10-20); BUN (Urea Nitrogen) 67 mg/dL (9.8-20.1); Bilirubin, Total 0.4 mg/dL (0.2-1.2); Calc. Creatinine Clearance 41 mL/min (70-130); Calcium 8.8 mg/dL (7.8-10.44); Carbon Dioxide 23 mmol/L (22-29); Chloride 104 mmol/L (98-107); Estimated GFR 19; Globulin 3.5 g/dL (2.4-3.5); Glucose 99 mg/dL (70-105); Phosphorus 4.6 mg/dL (2.3-4.7); Sodium 139 mmol/L (136-145)
[2023-04-17] MEDS: Budesonide 0.5 MG/2 ML NEB NEB SCH (07:16)
[2023-04-17] MEDS: Mometasone 200 MCG/Formoterol 5 MCG 120 PUFF INHALER INH SCH (07:16)
[2023-04-17] MEDS: NIFEdipine XL 60 MG TAB PO SCH (09:40)
[2023-04-17] MEDS: Heparin 5,000 UNITS/ML VIAL SC SCH (09:40)
[2023-04-17] MEDS: Atorvastatin Calcium 40 MG TAB PO SCH (09:40)
[2023-04-17] MEDS: Carvedilol 25 MG TAB PO SCH (09:40)
[2023-04-17] MEDS: Acetaminophen 325 MG TAB PO PRN (09:48)
[2023-04-17 12:43] VITALS: BP 132/78; TEMP 97.7
== END 2023-04-17 14:05 | disposition home or self-care (01) | DRG 291 ==
LOC: ERS 02:10 → CCU 05:03 → 2SW 04-15 01:31
PROVIDERS: ADMIT Internal Medicine; ATTEND Internal Medicine
DX: I13.0 Hypertensive heart and chronic kidney disease with heart failure and stage 1 through stage 4 chronic kidney disease, or unspecified chronic kidney disease (principal); G93.41 Metabolic encephalopathy; J96.02 Acute respiratory failure with hypercapnia; I50.33 Acute on chronic diastolic (congestive) heart failure; J44.1 Chronic obstructive pulmonary disease with (acute) exacerbation; N18.4 Chronic kidney disease, stage 4 (severe); I16.1 Hypertensive emergency; N17.9 Acute kidney failure, unspecified; Z68.42 Body mass index [BMI] 45.0-49.9, adult; E66.9 Obesity, unspecified; I25.10 Atherosclerotic heart disease of native coronary artery without angina pectoris; E87.5 Hyperkalemia; G47.33 Obstructive sleep apnea (adult) (pediatric); D63.1 Anemia in chronic kidney disease; K74.60 Unspecified cirrhosis of liver; R77.8 Other specified abnormalities of plasma proteins; Z79.899 Other long term (current) drug therapy; Z88.8 Allergy status to other drugs, medicaments and biological substances; Z79.51 Long term (current) use of inhaled steroids; Z95.5 Presence of coronary angioplasty implant and graft; Z98.890 Other specified postprocedural states; Z90.49 Acquired absence of other specified parts of digestive tract; Z82.49 Family history of ischemic heart disease and other diseases of the circulatory system; Z83.3 Family history of diabetes mellitus; Z87.891 Personal history of nicotine dependence
CPT/HCPCS: 36415; 36416; 36600; 70450; 71045; 80053; 82140; 82553; 82805; 83735; 83880; 84100; 84484; 85025; 85610; 85730; 87040; 93005; 94660; 94760; 96365; 96367; 96374; 96375; 99292; J0613; J0696; J1644; J1815; J1940; J2405; J2920; J3490; J7611; J7620; J7626; J7999

== ENCOUNTER 2023-05-12 10:04 | Day surgery (SDC) | payer OTHER ==
[2023-05-11 11:39] VITALS: BMI 43.9
[2023-05-12] MEDS ORDERED: Midazolam HCl 2 mg/2 ml Vial ONE (11:22)
== END 2023-05-12 13:04 | disposition home or self-care (01) ==
LOC: SDC 10:04
PROVIDERS: ATTEND Internal Medicine Gastroenterology
DX: K74.69 Other cirrhosis of liver (principal); I85.00 Esophageal varices without bleeding; N18.9 Chronic kidney disease, unspecified; C22.0 Liver cell carcinoma; K21.9 Gastro-esophageal reflux disease without esophagitis; J44.9 Chronic obstructive pulmonary disease, unspecified; I50.9 Heart failure, unspecified; I25.10 Atherosclerotic heart disease of native coronary artery without angina pectoris; I13.0 Hypertensive heart and chronic kidney disease with heart failure and stage 1 through stage 4 chronic kidney disease, or unspecified chronic kidney disease; E78.00 Pure hypercholesterolemia, unspecified; F17.210 Nicotine dependence, cigarettes, uncomplicated; Z79.02 Long term (current) use of antithrombotics/antiplatelets; Z79.899 Other long term (current) drug therapy; Z88.6 Allergy status to analgesic agent; Z53.9 Procedure and treatment not carried out, unspecified reason
CPT/HCPCS: J2250

== ENCOUNTER 2023-05-23 16:18 | Inpatient (IN) | payer OTHER ==
[2023-05-23] MEDS ORDERED: Nitroglycerin 0.4 MG TAB 1 EACH ONE ×4 (16:32→16:39)
[2023-05-23] MEDS ORDERED: Nitroglycerin 2% Ointment 1 INCH/1 GM Packet ONE (16:32)
[2023-05-23] MEDS ORDERED: hydrALAZINE 20 MG/ML VIAL ONE ×2 (16:34→17:54)
[2023-05-23 16:54] LABS: #Eosinphils 0.2 thou/uL (0.0-0.7); #Monocytes 0.4 thou/uL (0.11-0.59); #Neutrophils 1.6 thou/uL (1.40-6.50); %Basophils 0.3 % (0.0-1.0); %Eosinophils 7.7 % (0.0-10.0); %Lymphocytes 27.5 % (21.0-51.0); %Monocytes 13.4 % (0.0-10.0); %Neutrophils 50.8 % (42.0-75.0); Hematocrit 32.7 % (36.0-47.0); Hemoglobin 10.3 g/dL (12.0-16.0); Mean Corpuscular HGB CONC 31.5 g/dL (32.0-36.0); Mean Corpuscular Hemoglobin 27.7 pg (27.0-31.0); Mean Corpuscular Volume 87.9 fl (78.0-98.0); Mean Platelet Volume 13.7 fL (7.4-10.4); Platelet Count 122 10x3/uL (130-400); RBC Distribution Width 15.9 % (11.5-14.5); Red Blood Cell (RBC) Count 3.72 mill/uL (4.20-5.40); White Blood Cell (WBC) Count 3.1 10x3/uL (4.8-10.8)
[2023-05-23 17:20] LABS: Troponin I 0.027 ng/mL (< 0.028)
[2023-05-23] MEDS ORDERED: Furosemide 40 MG/4 ML VIAL ONE (17:31)
[2023-05-23 17:36] LABS: Carbon Dioxide 21 mmol/L (22-29)
[2023-05-23 18:06] LABS: ALT (SGPT) 21 U/L (8-55); AST (SGOT) 34 U/L (5-34); Albumin 3.8 g/dL (3.5-5.0); Alkaline Phosphatase 188 U/L (40-110); Anion Gap 15 mmol/L (10-20); BUN (Urea Nitrogen) 36 mg/dL (9.8-20.1); Bilirubin, Total 0.8 mg/dL (0.2-1.2); Calc. Creatinine Clearance 0 mL/min (70-130); Calcium 8.7 mg/dL (7.8-10.44); Chloride 109 mmol/L (98-107); Estimated GFR 26; Globulin 3.5 g/dL (2.4-3.5); Glucose 86 mg/dL (70-105); Potassium 4.2 mmol/L (3.5-5.1); Protein, Total 7.3 g/dL (6.0-8.3); Sodium 144 mmol/L (136-145)
[2023-05-23] MEDS ORDERED: Acetaminophen 325 MG TAB PO PRN (18:28)
[2023-05-23] MEDS ORDERED: Acetaminophen 650 MG Suppository PR PRN (18:28)
[2023-05-23] MEDS ORDERED: Ondansetron ODT 4 MG TAB PO PRN (18:28)
[2023-05-23] MEDS ORDERED: Ondansetron PF 4 MG/2 ML Vial IVP PRN (18:28)
[2023-05-23] MEDS ORDERED: hydrALAZINE 20 MG/ML VIAL SLOW IVP PRN (18:35)
[2023-05-23] MEDS ORDERED: Electrolyte Replacement Protocol 1 EACH FS SCH (18:45)
[2023-05-23] MEDS ORDERED: Ipratropium/Albuterol 3 ML NEB NEB PRN (19:16)
[2023-05-23] MEDS ORDERED: Nitroglycerin 50 MG/250 ML BOT 250 ML IVPB SCH (19:30)
[2023-05-23] MEDS ORDERED: Nitroglycerin 50 MG/250 ML BOT 250 ML ONE (19:30)
[2023-05-23] MEDS ORDERED: Pantoprazole 40 MG VIAL IVP SCH (19:45)
[2023-05-23 20:47] LABS: Troponin I 0.027 ng/mL (< 0.028)
[2023-05-23] MEDS ORDERED: Carvedilol 25 MG TAB PO SCH (21:00)
[2023-05-23] MEDS ORDERED: Calcium Carbonate 500 MG ChewTAB PO PRN (22:07)
[2023-05-23] MEDS ORDERED: Acetaminophen 325 MG TAB PO SCH (22:15)
[2023-05-23] MEDS: Carvedilol 25 MG TAB PO SCH (22:52)
[2023-05-23 23:37] LABS: Troponin I 0.025 ng/mL (< 0.028)
[2023-05-23] MEDS ORDERED: niCARdipine 40MG In NaCl 40 MG/200 ML BAG IVPB SCH (23:45)
[2023-05-23] MEDS ORDERED: niCARdipine 50 MG, Admixture Fee 1 EACH in Sodium Chloride 0.9% 250 ML 230 ML IV SCH (23:45)
[2023-05-24] MEDS: Ipratropium/Albuterol 3 ML NEB NEB SCH ×6 (02:41→22:32)
[2023-05-24 04:04] LABS: #Eosinphils 0.2 thou/uL (0.0-0.7); #Monocytes 0.5 thou/uL (0.11-0.59); %Basophils 0.3 % (0.0-1.0); %Eosinophils 5.7 % (0.0-10.0); %Monocytes 15.3 % (0.0-10.0); %Neutrophils 60.4 % (42.0-75.0); Hematocrit 28.7 % (36.0-47.0); Mean Corpuscular HGB CONC 31.4 g/dL (32.0-36.0); Mean Corpuscular Hemoglobin 27.4 pg (27.0-31.0); Mean Corpuscular Volume 87.5 fl (78.0-98.0); Mean Platelet Volume 12.7 fL (7.4-10.4); RBC Distribution Width 15.9 % (11.5-14.5); Red Blood Cell (RBC) Count 3.28 mill/uL (4.20-5.40); White Blood Cell (WBC) Count 3.3 10x3/uL (4.8-10.8)
[2023-05-24 04:21] LABS: Anion Gap 16 mmol/L (10-20); BUN (Urea Nitrogen) 36 mg/dL (9.8-20.1); Calc. Creatinine Clearance 52 mL/min (70-130); Calcium 8.6 mg/dL (7.8-10.44); Carbon Dioxide 22 mmol/L (22-29); Chloride 110 mmol/L (98-107); Estimated GFR 25; Glucose 93 mg/dL (70-105); Magnesium 1.7 mg/dL (1.6-2.6); Potassium 3.8 mmol/L (3.5-5.1); Sodium 144 mmol/L (136-145)
[2023-05-24 04:28] LABS: Platelet Count 111 10x3/uL (130-400)
[2023-05-24] MEDS: hydrALAZINE 20 MG/ML VIAL SLOW IVP PRN ×2 (05:22→07:24)
[2023-05-24] MEDS ORDERED: Furosemide 40 MG/4 ML VIAL SLOW IVP SCH (06:00)
[2023-05-24] MEDS: NIFEdipine XL 60 MG TAB PO SCH (06:43)
[2023-05-24] MEDS: Carvedilol 25 MG TAB PO SCH ×2 (07:56→20:15)
[2023-05-24] MEDS ORDERED: Magnesium 2 GM/50 ML(in water) 2 GM in Premix Bag 1 BAG IVPB SCH (08:00)
[2023-05-24] MEDS ORDERED: Empagliflozin 10 MG TAB PO SCH ×2 (09:00→10:15)
[2023-05-24] MEDS ORDERED: Pantoprazole 40 MG VIAL IVP SCH (09:00)
[2023-05-24] MEDS: Furosemide 20 MG/2 ML VIAL SLOW IVP SCH (14:23)
[2023-05-24] MEDS: hydrALAZINE 25 MG TAB PO SCH ×2 (14:23→20:16)
[2023-05-24] MEDS: Atorvastatin Calcium 40 MG TAB PO SCH (20:15)
[2023-05-25] MEDS: Ipratropium/Albuterol 3 ML NEB NEB SCH ×6 (01:59→21:43)
[2023-05-25] MEDS: Furosemide 20 MG/2 ML VIAL SLOW IVP SCH (05:46)
[2023-05-25 07:44] LABS: Anion Gap 15 mmol/L (10-20); BUN (Urea Nitrogen) 36 mg/dL (9.8-20.1); Calc. Creatinine Clearance 43 mL/min (70-130); Calcium 8.8 mg/dL (7.8-10.44); Carbon Dioxide 21 mmol/L (22-29); Chloride 106 mmol/L (98-107); Estimated GFR 20; Glucose 90 mg/dL (70-105); Potassium 3.9 mmol/L (3.5-5.1); Sodium 138 mmol/L (136-145)
[2023-05-25] MEDS: Carvedilol 25 MG TAB PO SCH ×2 (08:30→20:27)
[2023-05-25] MEDS ORDERED: Empagliflozin 10 MG TAB PO SCH (09:00)
[2023-05-25] MEDS: NIFEdipine XL 60 MG TAB PO SCH (09:27)
[2023-05-25] MEDS: hydrALAZINE 25 MG TAB PO SCH ×3 (09:27→20:28)
[2023-05-25] MEDS ORDERED: methylPREDNISolone Sod Succ/PF 125 MG/2 ML VIAL IVP SCH (10:30)
[2023-05-25] MEDS ORDERED: Iron, Sodium Ferric Gluconate 250 MG in Sodium Chloride 0.9% 250 ML 250 ML IVPB SCH (11:00)
[2023-05-25] MEDS: Atorvastatin Calcium 40 MG TAB PO SCH (20:27)
[2023-05-26] MEDS: Ipratropium/Albuterol 3 ML NEB NEB SCH ×4 (02:09→18:18)
[2023-05-26] MEDS ORDERED: busPIRone HCl 5 MG TAB PO SCH (04:00)
[2023-05-26 05:56] LABS: Anion Gap 8 mmol/L (10-20); BUN (Urea Nitrogen) 37 mg/dL (9.8-20.1); Calc. Creatinine Clearance 39 mL/min (70-130); Calcium 8.8 mg/dL (7.8-10.44); Carbon Dioxide 20 mmol/L (22-29); Chloride 108 mmol/L (98-107); Estimated GFR 18; Glucose 113 mg/dL (70-105); Potassium 3.7 mmol/L (3.5-5.1); Sodium 132 mmol/L (136-145)
[2023-05-26] MEDS: Carvedilol 25 MG TAB PO SCH ×2 (08:54→20:10)
[2023-05-26] MEDS: busPIRone HCl 5 MG TAB PO SCH (08:54)
[2023-05-26] MEDS ORDERED: Iron, Sodium Ferric Gluconate 250 MG in Sodium Chloride 0.9% 250 ML 250 ML IVPB SCH (09:00)
[2023-05-26] MEDS: hydrALAZINE 25 MG TAB PO SCH ×3 (10:26→20:10)
[2023-05-26] MEDS: NIFEdipine XL 60 MG TAB PO SCH (10:26)
[2023-05-26] MEDS: Atorvastatin Calcium 40 MG TAB PO SCH (20:10)
[2023-05-27 05:19] LABS: Anion Gap 15 mmol/L (10-20); BUN (Urea Nitrogen) 43 mg/dL (9.8-20.1); Calc. Creatinine Clearance 37 mL/min (70-130); Calcium 8.3 mg/dL (7.8-10.44); Carbon Dioxide 21 mmol/L (22-29); Chloride 107 mmol/L (98-107); Estimated GFR 17; Glucose 106 mg/dL (70-105); Potassium 3.9 mmol/L (3.5-5.1); Sodium 139 mmol/L (136-145)
[2023-05-27] MEDS: Ipratropium/Albuterol 3 ML NEB NEB SCH ×3 (07:22→18:10)
[2023-05-27] MEDS: hydrALAZINE 25 MG TAB PO SCH ×3 (08:36→20:31)
[2023-05-27] MEDS: busPIRone HCl 5 MG TAB PO SCH (08:36)
[2023-05-27] MEDS: Carvedilol 25 MG TAB PO SCH ×2 (08:36→20:31)
[2023-05-27] MEDS: NIFEdipine XL 60 MG TAB PO SCH (08:36)
[2023-05-27] MEDS: Atorvastatin Calcium 40 MG TAB PO SCH (20:31)
[2023-05-28 07:04] LABS: Anion Gap 15 mmol/L (10-20); BUN (Urea Nitrogen) 43 mg/dL (9.8-20.1); Calc. Creatinine Clearance 41 mL/min (70-130); Calcium 8.3 mg/dL (7.8-10.44); Carbon Dioxide 23 mmol/L (22-29); Chloride 106 mmol/L (98-107); Estimated GFR 19; Glucose 94 mg/dL (70-105); Potassium 3.9 mmol/L (3.5-5.1); Sodium 140 mmol/L (136-145)
[2023-05-28] MEDS: Ipratropium/Albuterol 3 ML NEB NEB SCH (07:29)
[2023-05-28 08:30] VITALS: BP 154/83; TEMP 98.1
[2023-05-28 08:54] VITALS: BMI 44.2
[2023-05-28] MEDS: NIFEdipine XL 60 MG TAB PO SCH (09:27)
[2023-05-28] MEDS: hydrALAZINE 25 MG TAB PO SCH (09:28)
[2023-05-28] MEDS: Carvedilol 25 MG TAB PO SCH (09:28)
[2023-05-28] MEDS: busPIRone HCl 5 MG TAB PO SCH (09:28)
[2023-05-28] MEDS ORDERED: Aspirin 81 mg Enteric Coated Tablet PO SCH (09:30)
[2023-05-29] MEDS ORDERED: Aspirin 81 mg Enteric Coated Tablet PO SCH (09:00)
== END 2023-05-28 10:15 | disposition home or self-care (01) | DRG 291 ==
LOC: ERS 16:18 → CCU 17:57 → 2SW 05-25 14:53
PROVIDERS: ADMIT Student in an Organized Health Care Education/Training Program; ATTEND Internal Medicine
DX: I13.0 Hypertensive heart and chronic kidney disease with heart failure and stage 1 through stage 4 chronic kidney disease, or unspecified chronic kidney disease (principal); I50.33 Acute on chronic diastolic (congestive) heart failure; J96.01 Acute respiratory failure with hypoxia; I16.1 Hypertensive emergency; Z68.41 Body mass index [BMI] 40.0-44.9, adult; N17.9 Acute kidney failure, unspecified; E87.1 Hypo-osmolality and hyponatremia; N18.4 Chronic kidney disease, stage 4 (severe); K21.9 Gastro-esophageal reflux disease without esophagitis; J44.9 Chronic obstructive pulmonary disease, unspecified; I25.10 Atherosclerotic heart disease of native coronary artery without angina pectoris; E78.5 Hyperlipidemia, unspecified; E66.01 Morbid (severe) obesity due to excess calories; D63.1 Anemia in chronic kidney disease; M79.671 Pain in right foot; Z95.5 Presence of coronary angioplasty implant and graft; Z91.018 Allergy to other foods; Z91.09 Other allergy status, other than to drugs and biological substances; Z79.51 Long term (current) use of inhaled steroids; Z79.899 Other long term (current) drug therapy; Z86.73 Personal history of transient ischemic attack (TIA), and cerebral infarction without residual deficits; Z98.51 Tubal ligation status; Z90.49 Acquired absence of other specified parts of digestive tract; Z98.890 Other specified postprocedural states
CPT/HCPCS: 36415; 71045; 80048; 80053; 82728; 83735; 83880; 84484; 85025; 93005; 93798; 94640; 96365; 96366; 96374; 96375; 96376; C9113; J0360; J1650; J1940; J2916; J2930; J3475; J7050; J7620

== ENCOUNTER 2023-08-06 22:28 | Inpatient (IN) | payer OTHER ==
[2023-08-06 23:26] LABS: #Eosinphils 0.7 thou/uL (0.0-0.7); #Monocytes 0.6 thou/uL (0.11-0.59); #Neutrophils 1.9 thou/uL (1.40-6.50); %Basophils 0.5 % (0.0-1.0); %Eosinophils 15.4 % (0.0-10.0); %Lymphocytes 26.1 % (21.0-51.0); %Monocytes 14.7 % (0.0-10.0); %Neutrophils 43.1 % (42.0-75.0); Mean Corpuscular HGB CONC 31.7 g/dL (32.0-36.0); Mean Corpuscular Hemoglobin 28.4 pg (27.0-31.0); Mean Corpuscular Volume 89.7 fl (78.0-98.0); Mean Platelet Volume 12.6 fL (7.4-10.4); Platelet Count 142 10x3/uL (130-400); RBC Distribution Width 15.4 % (11.5-14.5); Red Blood Cell (RBC) Count 4.57 mill/uL (4.20-5.40); White Blood Cell (WBC) Count 4.3 10x3/uL (4.8-10.8)
[2023-08-06 23:50] LABS: ALT (SGPT) 25 U/L (8-55); AST (SGOT) 36 U/L (5-34); Albumin 3.9 g/dL (3.5-5.0); Alkaline Phosphatase 189 U/L (40-110); Anion Gap 20 mmol/L (10-20); BUN (Urea Nitrogen) 36 mg/dL (9.8-20.1); Bilirubin, Total 0.5 mg/dL (0.2-1.2); Calc. Creatinine Clearance 0 mL/min (70-130); Calcium 8.3 mg/dL (7.8-10.44); Carbon Dioxide 23 mmol/L (22-29); Chloride 105 mmol/L (98-107); Estimated GFR 20; Globulin 3.7 g/dL (2.4-3.5); Glucose 94 mg/dL (70-105); Magnesium 1.5 mg/dL (1.6-2.6); Potassium 3.6 mmol/L (3.5-5.1); Protein, Total 7.6 g/dL (6.0-8.3); Sodium 144 mmol/L (136-145)
[2023-08-06 23:53] LABS: Troponin I 0.038 ng/mL (< 0.028)
[2023-08-07] MEDS ORDERED: Aspirin 81 mg Enteric Coated Tablet ONE (00:03)
[2023-08-07] MEDS ORDERED: Nitroglycerin 0.4 MG TAB 1 EACH ONE ×2 (00:04→00:58)
[2023-08-07] MEDS ORDERED: Ipratropium/Albuterol 3 ML NEB ONE ×2 (00:04→06:34)
[2023-08-07] MEDS ORDERED: methylPREDNISolone Sod Succ/PF 125 MG/2 ML VIAL ONE (00:04)
[2023-08-07] MEDS ORDERED: Azithromycin 500 MG VIAL ONE (00:58)
[2023-08-07] MEDS ORDERED: cefTRIAXone (ROCEPHIN) 2 GM VIAL ONE (00:58)
[2023-08-07] MEDS ORDERED: Sodium Chloride 0.9% 100 ML ONE ×2 (00:59→01:01)
[2023-08-07] MEDS ORDERED: Ondansetron PF 4 MG/2 ML Vial ONE (02:07)
[2023-08-07] MEDS ORDERED: hydrALAZINE 20 MG/ML VIAL SLOW IVP PRN (02:53)
[2023-08-07] MEDS ORDERED: Ipratropium/Albuterol 3 ML NEB NEB PRN (02:53)
[2023-08-07] MEDS ORDERED: Ondansetron PF 4 MG/2 ML Vial IVP PRN (03:00)
[2023-08-07] MEDS ORDERED: Acetaminophen 650 MG Suppository PR PRN (03:00)
[2023-08-07] MEDS ORDERED: Ondansetron ODT 4 MG TAB PO PRN (03:00)
[2023-08-07] MEDS ORDERED: Acetaminophen 325 MG TAB PO PRN (03:00)
[2023-08-07] MEDS ORDERED: Dextrose 50% Abboject 50 ML SYRINGE SLOW IVP PRN (03:06)
[2023-08-07] MEDS ORDERED: Dextrose 5% in Water 1,000 ML IV PRN (03:06)
[2023-08-07] MEDS ORDERED: Glucagon 1 MG/ML KIT IM PRN (03:06)
[2023-08-07] MEDS ORDERED: HumaLOG 300 UNITS/3 ML VIAL SC PRN ×2 (03:06)
[2023-08-07] MEDS ORDERED: Morphine 4 MG/ML VIAL ONE (03:16)
[2023-08-07] MEDS ORDERED: Nitroglycerin 2% Ointment 1 INCH/1 GM Packet ONE (03:17)
[2023-08-07 03:43] LABS: #Eosinphils 0.2 thou/uL (0.0-0.7); #Monocytes 0.1 thou/uL (0.11-0.59); #Neutrophils 2.5 thou/uL (1.40-6.50); %Basophils 0.6 % (0.0-1.0); %Eosinophils 5.2 % (0.0-10.0); %Lymphocytes 12.5 % (21.0-51.0); %Monocytes 3.7 % (0.0-10.0); %Neutrophils 77.7 % (42.0-75.0); Hematocrit 40.2 % (36.0-47.0); Hemoglobin 12.9 g/dL (12.0-16.0); Mean Corpuscular HGB CONC 32.1 g/dL (32.0-36.0); Mean Corpuscular Hemoglobin 28.7 pg (27.0-31.0); Mean Corpuscular Volume 89.3 fl (78.0-98.0); Mean Platelet Volume 12.6 fL (7.4-10.4); Platelet Count 121 10x3/uL (130-400); RBC Distribution Width 15.4 % (11.5-14.5); White Blood Cell (WBC) Count 3.3 10x3/uL (4.8-10.8)
[2023-08-07] MEDS ORDERED: Furosemide 40 MG/4 ML VIAL ONE (03:52)
[2023-08-07] MEDS ORDERED: Pantoprazole 40 MG VIAL ONE (03:57)
[2023-08-07 04:06] LABS: Anion Gap 18 mmol/L (10-20); BUN (Urea Nitrogen) 34 mg/dL (9.8-20.1); Calc. Creatinine Clearance 0 mL/min (70-130); Calcium 8.1 mg/dL (7.8-10.44); Carbon Dioxide 24 mmol/L (22-29); Chloride 105 mmol/L (98-107); Estimated GFR 21; Glucose 124 mg/dL (70-105); Magnesium 1.5 mg/dL (1.6-2.6); Potassium 3.4 mmol/L (3.5-5.1); Sodium 144 mmol/L (136-145)
[2023-08-07] MEDS: Furosemide 40 MG/4 ML VIAL SLOW IVP SCH ×2 (04:06→09:50)
[2023-08-07] MEDS: Pantoprazole 40 MG VIAL IVP SCH ×2 (04:06→21:19)
[2023-08-07 04:10] LABS: Troponin I 0.055 ng/mL (< 0.028)
[2023-08-07] MEDS ORDERED: Magnesium 2 GM/50 ML BAG (IN WATER) ONE (04:44)
[2023-08-07] MEDS ORDERED: hydrALAZINE 20 MG/ML VIAL ONE (04:52)
[2023-08-07] MEDS: hydrALAZINE 20 MG/ML VIAL SLOW IVP PRN ×2 (05:02→09:50)
[2023-08-07 05:49] LABS: Troponin I 0.046 ng/mL (< 0.028)
[2023-08-07] MEDS: Ipratropium/Albuterol 3 ML NEB NEB SCH ×5 (06:54→22:39)
[2023-08-07] MEDS ORDERED: hydrALAZINE 25 MG TAB PO SCH (09:00)
[2023-08-07] MEDS: methylPREDNISolone Sod Succ 40 MG VIAL IVP SCH (09:51)
[2023-08-07] MEDS ORDERED: ALPRAZolam 0.25 MG TAB PO PRN (09:53)
[2023-08-07] MEDS ORDERED: busPIRone HCl 5 MG TAB PO SCH (10:00)
[2023-08-07] MEDS ORDERED: Isosorbide Mononitrate 30 MG ER.TAB PO SCH (10:00)
[2023-08-07] MEDS ORDERED: FLUoxetine HCl 10 MG CAP PO SCH (10:00)
[2023-08-07] MEDS ORDERED: Potassium Chloride 20 MEQ TAB PO SCH (10:30)
[2023-08-07] MEDS: Carvedilol 25 MG TAB PO SCH (17:59)
[2023-08-07] MEDS: GUAIFENESIN SF SOLN 200 MG/10 ML UDCUP PO PRN (21:15)
[2023-08-07] MEDS: cefTRIAXone\\ROCEPHIN 1 GM in Sodium Chloride 0.9% 100 ML IVPB SCH (21:18)
[2023-08-07] MEDS: NIFEdipine XL 60 MG ER.TAB PO SCH (21:19)
[2023-08-07] MEDS: Atorvastatin Calcium 40 MG TAB PO SCH (21:19)
[2023-08-07] MEDS: hydrALAZINE 25 MG TAB PO SCH (21:19)
[2023-08-08] MEDS: Ipratropium/Albuterol 3 ML NEB NEB SCH ×6 (02:18→21:53)
[2023-08-08 03:28] VITALS: BMI 41.5
[2023-08-08] MEDS: GUAIFENESIN SF SOLN 200 MG/10 ML UDCUP PO PRN ×2 (03:46→20:48)
[2023-08-08 05:08] LABS: #Monocytes 0.5 thou/uL (0.11-0.59); #Neutrophils 1.4 thou/uL (1.40-6.50); %Basophils 0.4 % (0.0-1.0); %Eosinophils 0.4 % (0.0-10.0); %Lymphocytes 28.2 % (21.0-51.0); %Monocytes 19.5 % (0.0-10.0); %Neutrophils 51.1 % (42.0-75.0); Hematocrit 36.5 % (36.0-47.0); Hemoglobin 11.6 g/dL (12.0-16.0); Mean Corpuscular HGB CONC 31.8 g/dL (32.0-36.0); Mean Corpuscular Hemoglobin 28.8 pg (27.0-31.0); Mean Corpuscular Volume 90.6 fl (78.0-98.0); Mean Platelet Volume 11.5 fL (7.4-10.4); Platelet Count 130 10x3/uL (130-400); Red Blood Cell (RBC) Count 4.03 mill/uL (4.20-5.40); White Blood Cell (WBC) Count 2.8 10x3/uL (4.8-10.8)
[2023-08-08 05:52] LABS: Anion Gap 15 mmol/L (10-20); BUN (Urea Nitrogen) 47 mg/dL (9.8-20.1); Calc. Creatinine Clearance 31 mL/min (70-130); Calcium 8.7 mg/dL (7.8-10.44); Carbon Dioxide 26 mmol/L (22-29); Chloride 102 mmol/L (98-107); Estimated GFR 14; Glucose 111 mg/dL (70-105); Magnesium 2.1 mg/dL (1.6-2.6); Sodium 139 mmol/L (136-145)
[2023-08-08] MEDS: methylPREDNISolone Sod Succ 40 MG VIAL IVP SCH (08:40)
[2023-08-08] MEDS: Furosemide 40 MG TAB PO SCH ×2 (08:41→14:11)
[2023-08-08] MEDS: hydrALAZINE 25 MG TAB PO SCH ×2 (08:41→20:48)
[2023-08-08] MEDS: FLUoxetine HCl 10 MG CAP PO SCH (08:41)
[2023-08-08] MEDS: busPIRone HCl 5 MG TAB PO SCH (08:41)
[2023-08-08] MEDS: Carvedilol 25 MG TAB PO SCH ×2 (08:41→16:57)
[2023-08-08] MEDS: Aspirin 81 mg Enteric Coated Tablet PO SCH (08:41)
[2023-08-08] MEDS: Isosorbide Mononitrate 30 MG ER.TAB PO SCH (08:42)
[2023-08-08] MEDS: Pantoprazole 40 MG VIAL IVP SCH (20:47)
[2023-08-08] MEDS: cefTRIAXone\\ROCEPHIN 1 GM in Sodium Chloride 0.9% 100 ML IVPB SCH (20:47)
[2023-08-08] MEDS: Atorvastatin Calcium 40 MG TAB PO SCH (20:48)
[2023-08-08] MEDS: NIFEdipine XL 60 MG ER.TAB PO SCH (20:48)
[2023-08-09] MEDS: Ipratropium/Albuterol 3 ML NEB NEB SCH ×6 (01:50→23:43)
[2023-08-09] MEDS: GUAIFENESIN SF SOLN 200 MG/10 ML UDCUP PO PRN ×3 (06:27→17:02)
[2023-08-09] MEDS: Furosemide 40 MG TAB PO SCH ×2 (08:56→12:57)
[2023-08-09] MEDS: Aspirin 81 mg Enteric Coated Tablet PO SCH (08:56)
[2023-08-09] MEDS: busPIRone HCl 5 MG TAB PO SCH (08:56)
[2023-08-09] MEDS: Isosorbide Mononitrate 30 MG ER.TAB PO SCH (08:56)
[2023-08-09] MEDS: hydrALAZINE 25 MG TAB PO SCH ×2 (08:56→20:56)
[2023-08-09] MEDS: Carvedilol 25 MG TAB PO SCH ×2 (08:56→17:01)
[2023-08-09] MEDS: FLUoxetine HCl 10 MG CAP PO SCH (08:56)
[2023-08-09] MEDS: methylPREDNISolone Sod Succ 40 MG VIAL IVP SCH (08:57)
[2023-08-09] MEDS: Atorvastatin Calcium 40 MG TAB PO SCH (20:56)
[2023-08-09] MEDS: cefTRIAXone\\ROCEPHIN 1 GM in Sodium Chloride 0.9% 100 ML IVPB SCH (20:56)
[2023-08-09] MEDS: NIFEdipine XL 60 MG ER.TAB PO SCH (20:56)
[2023-08-09] MEDS: Pantoprazole 40 MG VIAL IVP SCH (21:03)
[2023-08-10] MEDS: Ipratropium/Albuterol 3 ML NEB NEB SCH ×3 (03:11→10:48)
[2023-08-10 05:28] LABS: #Monocytes 0.5 thou/uL (0.11-0.59); %Basophils 0.3 % (0.0-1.0); %Eosinophils 0.3 % (0.0-10.0); %Lymphocytes 30.6 % (21.0-51.0); %Monocytes 13.6 % (0.0-10.0); %Neutrophils 54.1 % (42.0-75.0); Hematocrit 37.8 % (36.0-47.0); Hemoglobin 11.9 g/dL (12.0-16.0); Mean Corpuscular HGB CONC 31.5 g/dL (32.0-36.0); Mean Corpuscular Hemoglobin 28.3 pg (27.0-31.0); Mean Platelet Volume 12.1 fL (7.4-10.4); Platelet Count 144 10x3/uL (130-400); RBC Distribution Width 15.5 % (11.5-14.5); White Blood Cell (WBC) Count 3.7 10x3/uL (4.8-10.8)
[2023-08-10 06:18] LABS: Anion Gap 18 mmol/L (10-20); BUN (Urea Nitrogen) 65 mg/dL (9.8-20.1); Calc. Creatinine Clearance 34 mL/min (70-130); Calcium 8.3 mg/dL (7.8-10.44); Carbon Dioxide 21 mmol/L (22-29); Chloride 104 mmol/L (98-107); Estimated GFR 15; Glucose 99 mg/dL (70-105); Potassium 3.6 mmol/L (3.5-5.1); Sodium 139 mmol/L (136-145)
[2023-08-10] MEDS: Aspirin 81 mg Enteric Coated Tablet PO SCH (09:05)
[2023-08-10] MEDS: Isosorbide Mononitrate 30 MG ER.TAB PO SCH (09:06)
[2023-08-10] MEDS: hydrALAZINE 25 MG TAB PO SCH (09:06)
[2023-08-10] MEDS: busPIRone HCl 5 MG TAB PO SCH (09:08)
[2023-08-10] MEDS: methylPREDNISolone Sod Succ 40 MG VIAL IVP SCH (09:08)
[2023-08-10] MEDS: FLUoxetine HCl 10 MG CAP PO SCH (09:08)
[2023-08-10] MEDS: Carvedilol 25 MG TAB PO SCH (09:08)
[2023-08-10] MEDS: Furosemide 40 MG TAB PO SCH ×2 (09:08→13:10)
[2023-08-10 11:16] VITALS: BP 131/75; TEMP 97.8
== END 2023-08-10 13:51 | disposition home or self-care (01) | DRG 189 ==
LOC: ERS 22:28 → ERHOLD 08-07 03:04 → 2SW 08-07 08:14
PROVIDERS: ADMIT Student in an Organized Health Care Education/Training Program; ATTEND Internal Medicine
DX: J96.01 Acute respiratory failure with hypoxia (principal); J44.1 Chronic obstructive pulmonary disease with (acute) exacerbation; N18.4 Chronic kidney disease, stage 4 (severe); I50.22 Chronic systolic (congestive) heart failure; I13.0 Hypertensive heart and chronic kidney disease with heart failure and stage 1 through stage 4 chronic kidney disease, or unspecified chronic kidney disease; I25.10 Atherosclerotic heart disease of native coronary artery without angina pectoris; F41.9 Anxiety disorder, unspecified; E83.42 Hypomagnesemia; K74.60 Unspecified cirrhosis of liver; K21.9 Gastro-esophageal reflux disease without esophagitis; I16.0 Hypertensive urgency; F39 Unspecified mood [affective] disorder; E87.6 Hypokalemia; E78.5 Hyperlipidemia, unspecified; Z95.5 Presence of coronary angioplasty implant and graft; Z98.890 Other specified postprocedural states; Z98.51 Tubal ligation status; Z90.49 Acquired absence of other specified parts of digestive tract; Z91.018 Allergy to other foods; Z91.09 Other allergy status, other than to drugs and biological substances; Z79.899 Other long term (current) drug therapy; Z79.51 Long term (current) use of inhaled steroids; Z79.82 Long term (current) use of aspirin; Z86.73 Personal history of transient ischemic attack (TIA), and cerebral infarction without residual deficits
CPT/HCPCS: 36415; 36416; 70450; 71045; 71250; 80048; 80053; 83605; 83690; 83735; 83880; 84484; 85025; 87040; 93005; 94640; C9113; J0360; J0456; J0696; J1940; J2270; J2405; J2920; J2930; J3475; J3490; J7620

== ENCOUNTER 2023-10-02 03:37 | Inpatient (IN) | payer OTHER ==
[2023-10-02] MEDS ORDERED: Magnesium 2 GM/50 ML BAG (IN WATER) ONE (03:56)
[2023-10-02 04:14] LABS: #Eosinphils 0.4 thou/uL (0.0-0.7); #Monocytes 0.6 thou/uL (0.11-0.59); #Neutrophils 2.1 thou/uL (1.40-6.50); %Basophils 0.5 % (0.0-1.0); %Eosinophils 9.5 % (0.0-10.0); %Lymphocytes 17.9 % (21.0-51.0); %Monocytes 15.5 % (0.0-10.0); %Neutrophils 56.3 % (42.0-75.0); Hematocrit 34.4 % (36.0-47.0); Mean Corpuscular Hemoglobin 29.6 pg (27.0-31.0); Mean Corpuscular Volume 92.7 fl (78.0-98.0); Mean Platelet Volume 12.3 fL (7.4-10.4); Platelet Count 114 10x3/uL (130-400); RBC Distribution Width 14.8 % (11.5-14.5); Red Blood Cell (RBC) Count 3.71 mill/uL (4.20-5.40); White Blood Cell (WBC) Count 3.7 10x3/uL (4.8-10.8)
[2023-10-02 04:36] LABS: ALT (SGPT) 20 U/L (8-55); AST (SGOT) 35 U/L (5-34); Albumin 3.2 g/dL (3.5-5.0); Alkaline Phosphatase 184 U/L (40-110); Anion Gap 14 mmol/L (10-20); BUN (Urea Nitrogen) 31 mg/dL (9.8-20.1); Bilirubin, Total 1.6 mg/dL (0.2-1.2); Calc. Creatinine Clearance 0 mL/min (70-130); Calcium 8.5 mg/dL (7.8-10.44); Carbon Dioxide 23 mmol/L (22-29); Chloride 109 mmol/L (98-107); Estimated GFR 19; Globulin 3.7 g/dL (2.4-3.5); Glucose 83 mg/dL (70-105); Lipase 49 U/L (8-78); Magnesium 1.6 mg/dL (1.6-2.6); Potassium 3.4 mmol/L (3.5-5.1); Protein, Total 6.9 g/dL (6.0-8.3); Sodium 143 mmol/L (136-145)
[2023-10-02 04:39] LABS: Troponin I 0.082 ng/mL (< 0.028)
[2023-10-02] MEDS ORDERED: Aspirin Chewable 81 MG TAB ONE ×2 (04:49→04:54)
[2023-10-02] MEDS ORDERED: Nitroglycerin 2% Ointment 1 INCH/1 GM Packet ONE (04:49)
[2023-10-02] MEDS ORDERED: Nitroglycerin 0.4 MG TAB (25 Tab Bottle) ONE (04:54)
[2023-10-02] MEDS ORDERED: Furosemide 40 MG (4 mL) VIAL ONE ×2 (05:21→14:49)
[2023-10-02 05:47] LABS: SARS-CoV-2 NAA Rapid Test Not Detected (NotDetected)
[2023-10-02] MEDS ORDERED: Ipratropium/Albuterol 3 ML NEB NEB PRN (07:39)
[2023-10-02] MEDS ORDERED: Acetaminophen 325 MG TAB PO PRN (07:39)
[2023-10-02] MEDS ORDERED: Benzonatate 100 MG CAP PO PRN (07:48)
[2023-10-02] MEDS ORDERED: Electrolyte Replacement Protocol 1 EACH FS SCH (08:00)
[2023-10-02] MEDS ORDERED: cefTRIAXone (ROCEPHIN) 1 GM VIAL ONE (08:16)
[2023-10-02] MEDS ORDERED: Sodium Chloride 0.9% 100 ML ONE (08:16)
[2023-10-02] MEDS: cefTRIAXone\\ROCEPHIN 1 GM in Sodium Chloride 0.9% 100 ML IVPB SCH (08:23)
[2023-10-02] MEDS ORDERED: Potassium Chloride 20 MEQ TAB PO SCH (09:00)
[2023-10-02 09:19] LABS: Troponin I 0.088 ng/mL (< 0.028)
[2023-10-02] MEDS ORDERED: predniSONE 20 MG TAB ONE (09:23)
[2023-10-02] MEDS ORDERED: Aspirin 81 mg Enteric Coated Tablet ONE (09:23)
[2023-10-02] MEDS ORDERED: Enoxaparin 40 MG (0.4 mL) SYRINGE ONE (09:23)
[2023-10-02] MEDS: Aspirin 81 mg Enteric Coated Tablet PO SCH (09:34)
[2023-10-02] MEDS: predniSONE 20 MG TAB PO SCH (09:34)
[2023-10-02] MEDS: Enoxaparin 40 MG (0.4 mL) SYRINGE SC SCH (09:34)
[2023-10-02 10:44] LABS: Amphetamine Not Detected (NotDetected); Barbiturates Screen Not Detected (NotDetected); Benzodiazepine Screen Not Detected (NotDetected); Cocaine Metabolite Screen Not Detected (NotDetected); Methadone Not Detected (NotDetected); Methamphetamine Not Detected (NotDetected); Opiate Screen Not Detected (NotDetected); Oxycodone Screen Not Detected (NotDetected); Phencyclidine (PCP) Not Detected (NotDetected); THC/Cannabinoid Screen Not Detected (NotDetected); Tricyclic Screen Not Detected (NotDetected)
[2023-10-02 10:54] LABS: Hemoglobin A1c 5.4 % (4.0-6.0); Magnesium 2.2 mg/dL (1.6-2.6)
[2023-10-02 10:56] LABS: Acetaminophen Less than 10 mcg/mL (10.0-30.0); Alcohol Less than 10.0 mg/dL (Less than 10); Salicylate Less than 8.0 mg/dL (15.0-30.0)
[2023-10-02 11:00] LABS: Troponin I 0.071 ng/mL (< 0.028)
[2023-10-02] MEDS ORDERED: Proparacaine 0.5% Opth 15 ML BOT ONE (11:16)
[2023-10-02] MEDS ORDERED: Tetracaine HCl 0.5% Ophth Soln 15 ML Bottle R EYE SCH (11:30)
[2023-10-02] MEDS: Furosemide 40 MG (4 mL) VIAL SLOW IVP SCH (14:54)
[2023-10-02] MEDS ORDERED: hydrALAZINE 20 MG/ML VIAL ONE (14:57)
[2023-10-02] MEDS: hydrALAZINE 20 MG/ML VIAL SLOW IVP PRN (15:02)
[2023-10-02] MEDS: Ipratropium/Albuterol 3 ML NEB NEB SCH ×2 (16:16→18:51)
[2023-10-02] MEDS ORDERED: busPIRone HCl 5 MG TAB PO SCH (18:45)
[2023-10-02] MEDS ORDERED: FLUoxetine HCl 10 MG CAP PO SCH (18:45)
[2023-10-02] MEDS: Mometasone/Formoterol 200/5 60 PUFF INH SCH (18:55)
[2023-10-02] MEDS ORDERED: Carvedilol 25 MG TAB PO SCH ×2 (19:15→21:00)
[2023-10-02] MEDS ORDERED: hydrALAZINE 25 MG TAB PO SCH ×2 (19:15→21:00)
[2023-10-02] MEDS ORDERED: NIFEdipine XL 60 MG ER.TAB PO SCH ×2 (19:15→21:00)
[2023-10-02] MEDS: Atorvastatin Calcium 40 MG TAB PO SCH (21:11)
[2023-10-02] MEDS ORDERED: Sodium Chloride 0.9% 500 ML IV SCH (21:15)
[2023-10-02 21:43] LABS: Anion Gap 14 mmol/L (10-20); BUN (Urea Nitrogen) 38 mg/dL (9.8-20.1); Calc. Creatinine Clearance 31 mL/min (70-130); Calcium 8.5 mg/dL (7.8-10.44); Carbon Dioxide 22 mmol/L (22-29); Chloride 106 mmol/L (98-107); Estimated GFR 15; Glucose 173 mg/dL (70-105); Magnesium 2.1 mg/dL (1.6-2.6); Potassium 3.9 mmol/L (3.5-5.1); Sodium 138 mmol/L (136-145)
[2023-10-03] MEDS: Ipratropium/Albuterol 3 ML NEB NEB SCH ×4 (01:16→19:01)
[2023-10-03 05:51] LABS: #Monocytes 0.4 thou/uL (0.11-0.59); #Neutrophils 1.3 thou/uL (1.40-6.50); %Basophils 0.4 % (0.0-1.0); %Eosinophils 0.8 % (0.0-10.0); %Lymphocytes 24.9 % (21.0-51.0); %Monocytes 17.3 % (0.0-10.0); %Neutrophils 56.2 % (42.0-75.0); Hemoglobin 10.4 g/dL (12.0-16.0); Mean Corpuscular HGB CONC 31.5 g/dL (32.0-36.0); Mean Corpuscular Hemoglobin 29.1 pg (27.0-31.0); Mean Corpuscular Volume 92.2 fl (78.0-98.0); Mean Platelet Volume 13.6 fL (7.4-10.4); Platelet Count 135 10x3/uL (130-400); RBC Distribution Width 14.7 % (11.5-14.5); Red Blood Cell (RBC) Count 3.58 mill/uL (4.20-5.40); White Blood Cell (WBC) Count 2.4 10x3/uL (4.8-10.8)
[2023-10-03] MEDS: Furosemide 40 MG (4 mL) VIAL SLOW IVP SCH ×2 (06:07→14:32)
[2023-10-03 06:24] LABS: ALT (SGPT) 19 U/L (8-55); AST (SGOT) 25 U/L (5-34); Alkaline Phosphatase 160 U/L (40-110); Anion Gap 15 mmol/L (10-20); BUN (Urea Nitrogen) 43 mg/dL (9.8-20.1); Bilirubin, Direct 0.3 mg/dL (0.1-0.3); Bilirubin, Total 0.7 mg/dL (0.2-1.2); Calc. Creatinine Clearance 29 mL/min (70-130); Carbon Dioxide 23 mmol/L (22-29); Chloride 106 mmol/L (98-107); Estimated GFR 14; Glucose 100 mg/dL (70-105); Magnesium 2.1 mg/dL (1.6-2.6); Potassium 3.6 mmol/L (3.5-5.1); Protein, Total 6.6 g/dL (6.0-8.3); Sodium 140 mmol/L (136-145)
[2023-10-03] MEDS: Mometasone/Formoterol 200/5 60 PUFF INH SCH ×2 (07:12→19:03)
[2023-10-03 07:26] VITALS: BMI 38.0
[2023-10-03] MEDS ORDERED: Carvedilol 25 MG TAB PO SCH ×2 (08:00→13:00)
[2023-10-03] MEDS ORDERED: hydrALAZINE 25 MG TAB PO SCH ×2 (09:00→13:00)
[2023-10-03] MEDS ORDERED: Isosorbide Mononitrate 30 MG ER.TAB PO SCH (09:00)
[2023-10-03] MEDS: cefTRIAXone\\ROCEPHIN 1 GM in Sodium Chloride 0.9% 100 ML IVPB SCH (09:26)
[2023-10-03] MEDS: predniSONE 20 MG TAB PO SCH (09:26)
[2023-10-03] MEDS: Aspirin 81 mg Enteric Coated Tablet PO SCH (09:26)
[2023-10-03] MEDS: FLUoxetine HCl 10 MG CAP PO SCH (09:26)
[2023-10-03] MEDS: busPIRone HCl 5 MG TAB PO SCH (09:26)
[2023-10-03] MEDS: Enoxaparin 40 MG (0.4 mL) SYRINGE SC SCH (09:30)
[2023-10-03] MEDS ORDERED: Potassium Chloride 20 MEQ TAB PO SCH (12:30)
[2023-10-03] MEDS: Carvedilol 25 MG TAB PO SCH (17:16)
[2023-10-03] MEDS ORDERED: Aquaphor 10 GM TUBE TOP PRN (17:34)
[2023-10-03] MEDS ORDERED: NIFEdipine XL 60 MG ER.TAB PO SCH (21:00)
[2023-10-03] MEDS: Atorvastatin Calcium 40 MG TAB PO SCH (22:39)
[2023-10-03] MEDS: hydrALAZINE 25 MG TAB PO SCH (22:40)
[2023-10-03] MEDS: NIFEdipine XL 30 MG ER.TAB PO SCH (22:41)
[2023-10-03] MEDS: Latanoprost 0.005% Ophth Soln 2.5 ml Bottle EA EYE SCH (22:42)
[2023-10-04] MEDS: Ipratropium/Albuterol 3 ML NEB NEB SCH ×4 (01:46→18:38)
[2023-10-04] MEDS: Furosemide 40 MG (4 mL) VIAL SLOW IVP SCH (05:00)
[2023-10-04 05:25] LABS: #Monocytes 0.4 thou/uL (0.11-0.59); #Neutrophils 1.8 thou/uL (1.40-6.50); %Basophils 0.3 % (0.0-1.0); %Eosinophils 0.3 % (0.0-10.0); %Lymphocytes 25.3 % (21.0-51.0); %Monocytes 13.5 % (0.0-10.0); %Neutrophils 59.6 % (42.0-75.0); Hematocrit 36.5 % (36.0-47.0); Hemoglobin 11.5 g/dL (12.0-16.0); Mean Corpuscular HGB CONC 31.5 g/dL (32.0-36.0); Mean Corpuscular Hemoglobin 29.2 pg (27.0-31.0); Mean Corpuscular Volume 92.6 fl (78.0-98.0); Mean Platelet Volume 13.2 fL (7.4-10.4); Platelet Count 159 10x3/uL (130-400); RBC Distribution Width 15.2 % (11.5-14.5); Red Blood Cell (RBC) Count 3.94 mill/uL (4.20-5.40)
[2023-10-04 05:57] LABS: Anion Gap 16 mmol/L (10-20); BUN (Urea Nitrogen) 52 mg/dL (9.8-20.1); Calc. Creatinine Clearance 27 mL/min (70-130); Calcium 8.1 mg/dL (7.8-10.44); Carbon Dioxide 21 mmol/L (22-29); Estimated GFR 12; Glucose 95 mg/dL (70-105); Potassium 4.1 mmol/L (3.5-5.1)
[2023-10-04 05:58] LABS: Chloride 106 mmol/L (98-107); Sodium 139 mmol/L (136-145)
[2023-10-04] MEDS: Mometasone/Formoterol 200/5 60 PUFF INH SCH ×2 (06:55→18:39)
[2023-10-04] MEDS ORDERED: Magnesium 2 GM/50 ML(in water) 2 GM in Premix 1 BAG IVPB SCH (08:00)
[2023-10-04] MEDS: Enoxaparin 30 MG (0.3 mL) SYRINGE SC SCH (09:41)
[2023-10-04] MEDS: cefTRIAXone\\ROCEPHIN 1 GM in Sodium Chloride 0.9% 100 ML IVPB SCH (09:41)
[2023-10-04] MEDS: busPIRone HCl 5 MG TAB PO SCH (09:41)
[2023-10-04] MEDS: FLUoxetine HCl 10 MG CAP PO SCH (09:42)
[2023-10-04] MEDS: Carvedilol 25 MG TAB PO SCH ×2 (09:42→17:06)
[2023-10-04] MEDS: predniSONE 20 MG TAB PO SCH (09:42)
[2023-10-04] MEDS: Aspirin 81 mg Enteric Coated Tablet PO SCH (09:43)
[2023-10-04] MEDS: hydrALAZINE 25 MG TAB PO SCH ×2 (09:43→21:00)
[2023-10-04] MEDS: Latanoprost 0.005% Ophth Soln 2.5 ml Bottle EA EYE SCH (20:59)
[2023-10-04] MEDS: NIFEdipine XL 30 MG ER.TAB PO SCH (21:00)
[2023-10-04] MEDS: Atorvastatin Calcium 40 MG TAB PO SCH (21:00)
[2023-10-04] MEDS: Senokot S 8.6-50 MG TAB PO SCH (21:00)
[2023-10-05] MEDS: Ipratropium/Albuterol 3 ML NEB NEB SCH ×5 (02:03→23:13)
[2023-10-05 05:41] LABS: #Monocytes 0.3 thou/uL (0.11-0.59); #Neutrophils 1.5 thou/uL (1.40-6.50); %Basophils 0.4 % (0.0-1.0); %Lymphocytes 27.2 % (21.0-51.0); %Monocytes 13.4 % (0.0-10.0); %Neutrophils 58.2 % (42.0-75.0); Hemoglobin 10.7 g/dL (12.0-16.0); Mean Corpuscular HGB CONC 31.5 g/dL (32.0-36.0); Mean Corpuscular Hemoglobin 29.6 pg (27.0-31.0); Mean Corpuscular Volume 94.2 fl (78.0-98.0); Mean Platelet Volume 12.9 fL (7.4-10.4); Platelet Count 167 10x3/uL (130-400); RBC Distribution Width 15.3 % (11.5-14.5); Red Blood Cell (RBC) Count 3.61 mill/uL (4.20-5.40); White Blood Cell (WBC) Count 2.5 10x3/uL (4.8-10.8)
[2023-10-05 06:16] LABS: Anion Gap 15 mmol/L (10-20); BUN (Urea Nitrogen) 62 mg/dL (9.8-20.1); Calc. Creatinine Clearance 27 mL/min (70-130); Carbon Dioxide 20 mmol/L (22-29); Chloride 106 mmol/L (98-107); Estimated GFR 12; Glucose 108 mg/dL (70-105); Magnesium 2.1 mg/dL (1.6-2.6); Potassium 3.9 mmol/L (3.5-5.1); Sodium 137 mmol/L (136-145)
[2023-10-05] MEDS: Mometasone/Formoterol 200/5 60 PUFF INH SCH ×2 (06:58→18:45)
[2023-10-05] MEDS: Aspirin 81 mg Enteric Coated Tablet PO SCH (10:25)
[2023-10-05] MEDS: busPIRone HCl 5 MG TAB PO SCH (10:25)
[2023-10-05] MEDS: Doxycycline 100 MG CAP PO SCH ×2 (10:25→21:07)
[2023-10-05] MEDS: hydrALAZINE 25 MG TAB PO SCH ×2 (10:25→21:08)
[2023-10-05] MEDS: Senokot S 8.6-50 MG TAB PO SCH ×2 (10:25→21:08)
[2023-10-05] MEDS: Carvedilol 25 MG TAB PO SCH ×2 (10:25→17:25)
[2023-10-05] MEDS: predniSONE 20 MG TAB PO SCH (10:25)
[2023-10-05] MEDS: Enoxaparin 30 MG (0.3 mL) SYRINGE SC SCH (10:26)
[2023-10-05] MEDS: FLUoxetine HCl 10 MG CAP PO SCH (10:26)
[2023-10-05] MEDS: Atorvastatin Calcium 40 MG TAB PO SCH (21:08)
[2023-10-05] MEDS: NIFEdipine XL 30 MG ER.TAB PO SCH (21:08)
[2023-10-05] MEDS: Latanoprost 0.005% Ophth Soln 2.5 ml Bottle EA EYE SCH (21:08)
[2023-10-06 05:46] LABS: #Monocytes 0.4 thou/uL (0.11-0.59); #Neutrophils 1.4 thou/uL (1.40-6.50); %Eosinophils 0.4 % (0.0-10.0); %Monocytes 15.3 % (0.0-10.0); %Neutrophils 51.6 % (42.0-75.0); Hematocrit 33.5 % (36.0-47.0); Hemoglobin 10.7 g/dL (12.0-16.0); Mean Corpuscular HGB CONC 31.9 g/dL (32.0-36.0); Mean Corpuscular Volume 93.8 fl (78.0-98.0); Mean Platelet Volume 12.9 fL (7.4-10.4); Platelet Count 154 10x3/uL (130-400); RBC Distribution Width 15.1 % (11.5-14.5); Red Blood Cell (RBC) Count 3.57 mill/uL (4.20-5.40); White Blood Cell (WBC) Count 2.8 10x3/uL (4.8-10.8)
[2023-10-06] MEDS: hydrALAZINE 20 MG/ML VIAL SLOW IVP PRN (05:54)
[2023-10-06 06:20] LABS: Anion Gap 15 mmol/L (10-20); BUN (Urea Nitrogen) 67 mg/dL (9.8-20.1); Calc. Creatinine Clearance 29 mL/min (70-130); Carbon Dioxide 21 mmol/L (22-29); Chloride 107 mmol/L (98-107); Estimated GFR 13; Glucose 87 mg/dL (70-105); Magnesium 2.1 mg/dL (1.6-2.6); Potassium 3.6 mmol/L (3.5-5.1); Sodium 139 mmol/L (136-145)
[2023-10-06] MEDS: Mometasone/Formoterol 200/5 60 PUFF INH SCH (07:09)
[2023-10-06] MEDS: Ipratropium/Albuterol 3 ML NEB NEB SCH ×2 (07:12→12:19)
[2023-10-06] MEDS ORDERED: predniSONE 20 MG TAB PO SCH (08:00)
[2023-10-06] MEDS: Doxycycline 100 MG CAP PO SCH (10:02)
[2023-10-06] MEDS: hydrALAZINE 25 MG TAB PO SCH (10:02)
[2023-10-06] MEDS: busPIRone HCl 5 MG TAB PO SCH (10:02)
[2023-10-06] MEDS: Senokot S 8.6-50 MG TAB PO SCH (10:02)
[2023-10-06] MEDS: Aspirin 81 mg Enteric Coated Tablet PO SCH (10:02)
[2023-10-06] MEDS: Carvedilol 25 MG TAB PO SCH (10:03)
[2023-10-06] MEDS: FLUoxetine HCl 10 MG CAP PO SCH (10:03)
[2023-10-06] MEDS: Enoxaparin 30 MG (0.3 mL) SYRINGE SC SCH (10:04)
[2023-10-06 11:42] VITALS: BP 159/91; TEMP 98.6
== END 2023-10-06 13:00 | disposition home or self-care (01) | DRG 291 ==
LOC: ERS 03:37 → SUATTDRO 03:37 → ERHOLD 06:03 → 2NO 18:12
PROVIDERS: ADMIT Family Medicine; ATTEND Emergency Medicine
DX: I13.0 Hypertensive heart and chronic kidney disease with heart failure and stage 1 through stage 4 chronic kidney disease, or unspecified chronic kidney disease (principal); I50.33 Acute on chronic diastolic (congestive) heart failure; J96.01 Acute respiratory failure with hypoxia; I16.1 Hypertensive emergency; J44.1 Chronic obstructive pulmonary disease with (acute) exacerbation; N18.4 Chronic kidney disease, stage 4 (severe); N17.9 Acute kidney failure, unspecified; K74.60 Unspecified cirrhosis of liver; H53.8 Other visual disturbances; F41.9 Anxiety disorder, unspecified; E87.6 Hypokalemia; E80.6 Other disorders of bilirubin metabolism; R79.89 Other specified abnormal findings of blood chemistry; H57.11 Ocular pain, right eye; D69.6 Thrombocytopenia, unspecified; D63.1 Anemia in chronic kidney disease; E88.09 Other disorders of plasma-protein metabolism, not elsewhere classified; H40.9 Unspecified glaucoma; Z88.8 Allergy status to other drugs, medicaments and biological substances; Z91.018 Allergy to other foods; Z79.899 Other long term (current) drug therapy; Z79.82 Long term (current) use of aspirin; Z86.73 Personal history of transient ischemic attack (TIA), and cerebral infarction without residual deficits; Z98.891 History of uterine scar from previous surgery; Z98.51 Tubal ligation status; Z90.49 Acquired absence of other specified parts of digestive tract; Z98.890 Other specified postprocedural states; Z11.52 Encounter for screening for COVID-19
CPT/HCPCS: 36415; 70450; 70480; 71045; 80048; 80053; 80076; 80306; 80307; 83036; 83605; 83690; 83735; 83880; 84443; 84484; 85025; 86850; 86900; 86901; 93005; 93010; 93798; 94760; J0360; J0696; J1650; J1940; J3475; J3490; J7030; J7512; J7620

== ENCOUNTER 2023-10-14 13:43 | Inpatient (IN) | payer OTHER ==
[2023-10-14 14:27] LABS: #Eosinphils 0.2 thou/uL (0.0-0.7); #Monocytes 0.8 thou/uL (0.11-0.59); #Neutrophils 2.9 thou/uL (1.40-6.50); %Basophils 0.2 % (0.0-1.0); %Eosinophils 3.9 % (0.0-10.0); %Lymphocytes 16.7 % (21.0-51.0); %Monocytes 16.5 % (0.0-10.0); %Neutrophils 62.1 % (42.0-75.0); Hemoglobin 10.4 g/dL (12.0-16.0); Mean Corpuscular HGB CONC 30.6 g/dL (32.0-36.0); Mean Corpuscular Hemoglobin 29.5 pg (27.0-31.0); Mean Corpuscular Volume 96.6 fl (78.0-98.0); Mean Platelet Volume 12.9 fL (7.4-10.4); Platelet Count 111 10x3/uL (130-400); RBC Distribution Width 15.5 % (11.5-14.5); Red Blood Cell (RBC) Count 3.52 mill/uL (4.20-5.40); White Blood Cell (WBC) Count 4.6 10x3/uL (4.8-10.8)
[2023-10-14] MEDS ORDERED: Acetaminophen 500 MG TAB ONE (14:29)
[2023-10-14 14:47] LABS: Bilirubin Negative (Negative); Blood, Urine Trace (Negative); CAUTI Indications for Culture Pelvic or flank pain; Clarity Clear (Clear); Glucose, Urine (Dipstick) Normal (Negative); Ketone, Urine Negative (Negative); Leukocyte 25 Leu/uL (Negative); Nitrite Negative (Negative); Protein, Urine (Dipstick) 300 mg/dL (Neg-Trace); RBC/HPF 0-3 HPF (0-3); Specific Gravity, Urine 1.011 (1.002-1.036); Urobilinogen Normal mg/dL (Less than 2); WBC/HPF 0-3 HPF (0-3); pH, Urine 6.5 (5.0-9.0)
[2023-10-14 14:48] LABS: Bacteria/HPF 1+ HPF (None Seen)
[2023-10-14 14:49] LABS: Urine Culture Reflex No No
[2023-10-14 14:50] LABS: CellaVision Operator ID LAB.KW3; Platelet Adequacy Comment Platelets Decreased; RBC Morphology Within Normal Limits
[2023-10-14 14:58] LABS: ALT (SGPT) 28 U/L (8-55); AST (SGOT) 39 U/L (5-34); Albumin 3.7 g/dL (3.5-5.0); Alkaline Phosphatase 194 U/L (40-110); Anion Gap 17 mmol/L (10-20); BUN (Urea Nitrogen) 35 mg/dL (9.8-20.1); Bilirubin, Total 1.2 mg/dL (0.2-1.2); Calc. Creatinine Clearance 0 mL/min (70-130); Calcium 8.5 mg/dL (7.8-10.44); Carbon Dioxide 20 mmol/L (22-29); Chloride 112 mmol/L (98-107); Estimated GFR 20; Globulin 3.8 g/dL (2.4-3.5); Glucose 68 mg/dL (70-105); Lipase 61 U/L (8-78); Potassium 3.9 mmol/L (3.5-5.1); Protein, Total 7.5 g/dL (6.0-8.3); Sodium 145 mmol/L (136-145)
[2023-10-14 14:59] LABS: Troponin I 0.063 ng/mL (< 0.028)
[2023-10-14] MEDS ORDERED: Nitroglycerin 2% Ointment 1 INCH/1 GM Packet ONE (15:55)
[2023-10-14] MEDS ORDERED: Nitroglycerin 50 MG/250 ML BOT 250 ML ONE (16:40)
[2023-10-14] MEDS ORDERED: Acetaminophen 325 MG TAB PO PRN (18:09)
[2023-10-14] MEDS ORDERED: Acetaminophen 650 MG Suppository PR PRN (18:09)
[2023-10-14] MEDS ORDERED: Ondansetron ODT 4 MG TAB PO PRN (18:09)
[2023-10-14] MEDS ORDERED: Ondansetron PF 4 MG/2 ML Vial IVP PRN (18:09)
[2023-10-14] MEDS ORDERED: Nitroglycerin 50 MG/250 ML BOT 250 ML IVPB SCH (18:15)
[2023-10-14 19:07] LABS: Troponin I 0.064 ng/mL (< 0.028)
[2023-10-14] MEDS: Mometasone/Formoterol 200/5 60 PUFF INH SCH (19:30)
[2023-10-14] MEDS: Latanoprost 0.005% Ophth Soln 2.5 ml Bottle EA EYE SCH (20:46)
[2023-10-14] MEDS: NIFEdipine XL 60 MG ER.TAB PO SCH (20:46)
[2023-10-14] MEDS: Atorvastatin Calcium 40 MG TAB PO SCH (20:47)
[2023-10-14] MEDS: hydrALAZINE 25 MG TAB PO SCH (20:47)
[2023-10-14] MEDS: Carvedilol 25 MG TAB PO SCH (20:47)
[2023-10-14 21:02] VITALS: BMI 39.2
[2023-10-14 21:40] LABS: Troponin I 0.071 ng/mL (< 0.028)
[2023-10-15 05:36] LABS: #Eosinphils 0.2 thou/uL (0.0-0.7); #Monocytes 0.5 thou/uL (0.11-0.59); #Neutrophils 2.2 thou/uL (1.40-6.50); %Basophils 0.6 % (0.0-1.0); %Monocytes 15.1 % (0.0-10.0); Hematocrit 29.6 % (36.0-47.0); Hemoglobin 9.2 g/dL (12.0-16.0); Mean Corpuscular HGB CONC 31.1 g/dL (32.0-36.0); Mean Corpuscular Hemoglobin 29.7 pg (27.0-31.0); Mean Corpuscular Volume 95.5 fl (78.0-98.0); Mean Platelet Volume 13.5 fL (7.4-10.4); RBC Distribution Width 15.3 % (11.5-14.5); White Blood Cell (WBC) Count 3.5 10x3/uL (4.8-10.8)
[2023-10-15 05:55] LABS: Anion Gap 15 mmol/L (10-20); BUN (Urea Nitrogen) 35 mg/dL (9.8-20.1); Calc. Creatinine Clearance 40 mL/min (70-130); Calcium 8.2 mg/dL (7.8-10.44); Carbon Dioxide 21 mmol/L (22-29); Chloride 111 mmol/L (98-107); Estimated GFR 18; Glucose 106 mg/dL (70-105); Potassium 4.1 mmol/L (3.5-5.1); Sodium 143 mmol/L (136-145)
[2023-10-15 06:34] LABS: Platelet Count 100 10x3/uL (130-400)
[2023-10-15] MEDS: Furosemide 40 MG (4 mL) VIAL SLOW IVP SCH ×2 (06:38→12:17)
[2023-10-15] MEDS: Mometasone/Formoterol 200/5 60 PUFF INH SCH (07:29)
[2023-10-15] MEDS ORDERED: Enoxaparin 40 MG (0.4 mL) SYRINGE SC SCH (09:00)
[2023-10-15] MEDS ORDERED: FLU VACC QS2023-24(6MOS UP)/PF 60 MCG/0.5 ML SYRINGE IM ONE (09:00)
[2023-10-15] MEDS: hydrALAZINE 25 MG TAB PO SCH ×2 (09:05→21:20)
[2023-10-15] MEDS: FLUoxetine HCl 10 MG CAP PO SCH (09:05)
[2023-10-15] MEDS: Aspirin 81 mg Enteric Coated Tablet PO SCH (09:06)
[2023-10-15] MEDS: Carvedilol 25 MG TAB PO SCH ×2 (09:06→21:20)
[2023-10-15] MEDS: busPIRone HCl 5 MG TAB PO SCH (09:07)
[2023-10-15] MEDS: Mometasone 200 MCG/Formoterol 5 MCG 120 PUFF INHALER INH SCH (19:03)
[2023-10-15] MEDS: Atorvastatin Calcium 40 MG TAB PO SCH (21:19)
[2023-10-15] MEDS: NIFEdipine XL 60 MG ER.TAB PO SCH (21:21)
[2023-10-15] MEDS: Latanoprost 0.005% Ophth Soln 2.5 ml Bottle EA EYE SCH (21:22)
[2023-10-16] MEDS: Furosemide 40 MG (4 mL) VIAL SLOW IVP SCH ×2 (05:55→13:11)
[2023-10-16] MEDS: Aspirin 81 mg Enteric Coated Tablet PO SCH (08:40)
[2023-10-16] MEDS: busPIRone HCl 5 MG TAB PO SCH (08:40)
[2023-10-16] MEDS: hydrALAZINE 25 MG TAB PO SCH ×2 (08:40→19:31)
[2023-10-16] MEDS: Enoxaparin 30 MG (0.3 mL) SYRINGE SC SCH (08:40)
[2023-10-16] MEDS: FLUoxetine HCl 10 MG CAP PO SCH (08:40)
[2023-10-16] MEDS: Carvedilol 25 MG TAB PO SCH ×2 (08:40→19:31)
[2023-10-16] MEDS: Mometasone 200 MCG/Formoterol 5 MCG 120 PUFF INHALER INH SCH ×2 (11:47→20:19)
[2023-10-16] MEDS: Ipratropium/Albuterol 3 ML NEB NEB PRN (11:50)
[2023-10-16 13:33] LABS: #Eosinphils 0.2 thou/uL (0.0-0.7); #Monocytes 0.5 thou/uL (0.11-0.59); #Neutrophils 2.1 thou/uL (1.40-6.50); %Basophils 0.3 % (0.0-1.0); %Eosinophils 6.2 % (0.0-10.0); %Lymphocytes 15.7 % (21.0-51.0); %Monocytes 13.6 % (0.0-10.0); %Neutrophils 63.3 % (42.0-75.0); Hematocrit 32.8 % (36.0-47.0); Hemoglobin 10.2 g/dL (12.0-16.0); Mean Corpuscular HGB CONC 31.1 g/dL (32.0-36.0); Mean Corpuscular Hemoglobin 29.9 pg (27.0-31.0); Mean Corpuscular Volume 96.2 fl (78.0-98.0); Mean Platelet Volume 13.9 fL (7.4-10.4); Platelet Count 96 10x3/uL (130-400); RBC Distribution Width 15.8 % (11.5-14.5); Red Blood Cell (RBC) Count 3.41 mill/uL (4.20-5.40); White Blood Cell (WBC) Count 3.4 10x3/uL (4.8-10.8)
[2023-10-16 13:54] LABS: Anion Gap 17 mmol/L (10-20); BUN (Urea Nitrogen) 42 mg/dL (9.8-20.1); Calc. Creatinine Clearance 35 mL/min (70-130); Calcium 8.4 mg/dL (7.8-10.44); Carbon Dioxide 20 mmol/L (22-29); Chloride 110 mmol/L (98-107); Estimated GFR 15; Glucose 120 mg/dL (70-105); Potassium 3.9 mmol/L (3.5-5.1); Sodium 143 mmol/L (136-145)
[2023-10-16] MEDS: Latanoprost 0.005% Ophth Soln 2.5 ml Bottle EA EYE SCH (19:30)
[2023-10-16] MEDS: NIFEdipine XL 60 MG ER.TAB PO SCH (19:30)
[2023-10-16] MEDS: Atorvastatin Calcium 40 MG TAB PO SCH (19:32)
[2023-10-17] MEDS: Furosemide 40 MG (4 mL) VIAL SLOW IVP SCH ×2 (05:11→14:44)
[2023-10-17] MEDS: Ipratropium/Albuterol 3 ML NEB NEB PRN (06:50)
[2023-10-17] MEDS: Mometasone 200 MCG/Formoterol 5 MCG 120 PUFF INHALER INH SCH ×2 (06:50→19:57)
[2023-10-17] MEDS: Aspirin 81 mg Enteric Coated Tablet PO SCH (09:17)
[2023-10-17] MEDS: FLUoxetine HCl 10 MG CAP PO SCH (09:17)
[2023-10-17] MEDS: busPIRone HCl 5 MG TAB PO SCH (09:18)
[2023-10-17] MEDS: hydrALAZINE 25 MG TAB PO SCH ×2 (09:18→20:57)
[2023-10-17] MEDS: Carvedilol 25 MG TAB PO SCH ×2 (09:18→20:57)
[2023-10-17] MEDS: Enoxaparin 30 MG (0.3 mL) SYRINGE SC SCH (09:18)
[2023-10-17 13:05] LABS: Anion Gap 22 mmol/L (10-20); BUN (Urea Nitrogen) 47 mg/dL (9.8-20.1); Calc. Creatinine Clearance 27 mL/min (70-130); Calcium 8.2 mg/dL (7.8-10.44); Carbon Dioxide 15 mmol/L (22-29); Chloride 110 mmol/L (98-107); Estimated GFR 11; Glucose 84 mg/dL (70-105); Potassium 4.9 mmol/L (3.5-5.1); Sodium 142 mmol/L (136-145)
[2023-10-17] MEDS: NIFEdipine XL 60 MG ER.TAB PO SCH (20:56)
[2023-10-17] MEDS: Atorvastatin Calcium 40 MG TAB PO SCH (20:57)
[2023-10-17] MEDS: Sodium Bicarbonate Tab 325 MG TAB PO SCH (20:57)
[2023-10-17] MEDS: Latanoprost 0.005% Ophth Soln 2.5 ml Bottle EA EYE SCH (20:58)
[2023-10-18] MEDS: Furosemide 40 MG (4 mL) VIAL SLOW IVP SCH (06:25)
[2023-10-18 08:03] VITALS: BP 121/59; TEMP 97.6
[2023-10-18] MEDS: Mometasone 200 MCG/Formoterol 5 MCG 120 PUFF INHALER INH SCH (08:08)
[2023-10-18] MEDS: Sodium Bicarbonate Tab 325 MG TAB PO SCH (09:09)
[2023-10-18] MEDS: Carvedilol 25 MG TAB PO SCH (09:09)
[2023-10-18] MEDS: hydrALAZINE 25 MG TAB PO SCH (09:09)
[2023-10-18] MEDS: Aspirin 81 mg Enteric Coated Tablet PO SCH (09:10)
[2023-10-18] MEDS: Enoxaparin 30 MG (0.3 mL) SYRINGE SC SCH (09:10)
[2023-10-18] MEDS: FLUoxetine HCl 10 MG CAP PO SCH (09:10)
[2023-10-18] MEDS: busPIRone HCl 5 MG TAB PO SCH (09:10)
== END 2023-10-18 11:15 | disposition home or self-care (01) | DRG 291 ==
LOC: ERS 13:43 → CCU 17:15 → 2NO 10-15 10:22
PROVIDERS: ADMIT Student in an Organized Health Care Education/Training Program; ATTEND Hospitalist
DX: I13.0 Hypertensive heart and chronic kidney disease with heart failure and stage 1 through stage 4 chronic kidney disease, or unspecified chronic kidney disease (principal); I50.33 Acute on chronic diastolic (congestive) heart failure; I16.1 Hypertensive emergency; N18.4 Chronic kidney disease, stage 4 (severe); I24.89 Other forms of acute ischemic heart disease; Z68.1 Body mass index [BMI] 19.9 or less, adult; D61.818 Other pancytopenia; N17.9 Acute kidney failure, unspecified; F41.9 Anxiety disorder, unspecified; J44.9 Chronic obstructive pulmonary disease, unspecified; E66.9 Obesity, unspecified; K74.60 Unspecified cirrhosis of liver; D63.1 Anemia in chronic kidney disease; I25.10 Atherosclerotic heart disease of native coronary artery without angina pectoris; Z95.5 Presence of coronary angioplasty implant and graft; Z86.79 Personal history of other diseases of the circulatory system; Z98.890 Other specified postprocedural states; Z98.51 Tubal ligation status; Z91.018 Allergy to other foods; Z91.09 Other allergy status, other than to drugs and biological substances; Z79.82 Long term (current) use of aspirin; Z79.899 Other long term (current) drug therapy; Z79.51 Long term (current) use of inhaled steroids
CPT/HCPCS: 36415; 71045; 74018; 74176; 80048; 80053; 81001; 83690; 83735; 83880; 84484; 85025; 93005; 94640; 94664; 94760; 96374; 96375; J1650; J1940; J2405; J7620; Q0162

== ENCOUNTER 2024-10-08 19:34 | Inpatient (IN) | payer OTHER ==
[2024-10-08] MEDS ORDERED: Acetaminophen 325 MG TAB PO PRN (20:46)
[2024-10-08] MEDS ORDERED: Ondansetron ODT 4 MG TAB PO PRN (20:46)
[2024-10-08] MEDS ORDERED: Acetaminophen 650 MG Suppository PR PRN (20:46)
[2024-10-08] MEDS: hydrOXYzine 25 MG TAB PO PRN (21:39)
[2024-10-08] MEDS: Famotidine 20 MG TAB PO SCH (21:39)
[2024-10-08 22:10] LABS: Anion Gap 23 mmol/L (10-20); BUN (Urea Nitrogen) 50 mg/dL (9.8-20.1); Calc. Creatinine Clearance 19 mL/min (70-130); Calcium 9.2 mg/dL (7.8-10.44); Carbon Dioxide 19 mmol/L (22-29); Chloride 101 mmol/L (98-107); Estimated GFR 10; Glucose 127 mg/dL (70-105); Potassium 4.9 mmol/L (3.5-5.1); Sodium 138 mmol/L (136-145)
[2024-10-08] MEDS: Famotidine/PF 20 mg/2ml Vial SLOW IVP SCH (22:25)
[2024-10-09] MEDS: hydrALAZINE 20 MG/ML VIAL SLOW IVP SCH (00:08)
[2024-10-09 05:45] LABS: Hematocrit 40.2 % (36.0-47.0); Hemoglobin 13.2 g/dL (12.0-16.0); Mean Corpuscular HGB CONC 32.8 g/dL (32.0-36.0); Mean Corpuscular Hemoglobin 28.6 pg (27.0-31.0); Mean Corpuscular Volume 87.2 fL (78.0-98.0); Mean Platelet Volume 12.5 fL (7.4-10.4); Platelet Count 136 10x3/uL (130-400); RBC Distribution Width 14.8 % (11.5-14.5); Red Blood Cell (RBC) Count 4.61 mill/uL (4.20-5.40)
[2024-10-09 05:58] LABS: Anion Gap 21 mmol/L (10-20); BUN (Urea Nitrogen) 56 mg/dL (9.8-20.1); Calc. Creatinine Clearance 18 mL/min (70-130); Calcium 9.1 mg/dL (7.8-10.44); Carbon Dioxide 18 mmol/L (22-29); Chloride 104 mmol/L (98-107); Estimated GFR 9; Glucose 117 mg/dL (70-105); Potassium 4.6 mmol/L (3.5-5.1); Sodium 138 mmol/L (136-145)
[2024-10-09 06:17] LABS: Band 1 % (5-11); Hypochromia SLIGHT = 6-15 cells HPF (0-5); Large Platelets 28.9 % (0-5); Lymphocytes 38 % (21-51); Monocytes 3 % (0-10); Neutrophil 55 % (42-75); Platelet Adequacy Comment Platelets Normal; Polychromasia SLIGHT = 2-3 cells HPF (0-2); Reactive Lymphocytes 3 % (0-10)
[2024-10-09] MEDS: Mometasone 200 MCG/Formoterol 5 MCG 120 PUFF INHALER INH SCH (07:52)
[2024-10-09] MEDS: Ipratropium/Albuterol 3 ML NEB NEB PRN (07:52)
[2024-10-09] MEDS: busPIRone HCl 5 MG TAB PO SCH (08:09)
[2024-10-09] MEDS: hydrALAZINE 25 MG TAB PO SCH (08:09)
[2024-10-09] MEDS: Pantoprazole 40 MG DR.TAB PO SCH (08:09)
[2024-10-09] MEDS: FLUoxetine HCl 10 MG CAP PO SCH (08:09)
[2024-10-09] MEDS: Carvedilol 25 MG TAB PO SCH (08:10)
[2024-10-09 09:07] LABS: Hep C Index 2.69 S/CO (0-0.79)
[2024-10-09 09:14] LABS: Hep B Surf Ag NONREACTIVE S/CO (NonReactive)
[2024-10-09 09:33] LABS: HBSAB Concentration 648.73 mIU/mL; HBsAg Index 0.32 S/CO (0-0.99); Hep B Surf AB REACTIVE (NonReactive); Hep C IgG Ab Reflex HepC Qnt S/CO (NonReactive)
[2024-10-09 10:30] LABS: Hep B Core Total Ab REACTIVE (NonReactive)
[2024-10-09] MEDS ORDERED: Heparin 10,000 UNITS/ 10 ML VIAL ONE (10:33)
[2024-10-09 10:39] LABS: Hep B Core Total Index 4.05 S/CO (0-0.79)
[2024-10-09] MEDS: Carvedilol 6.25 MG TAB PO SCH (11:46)
[2024-10-09 12:55] LABS: Troponin I 0.755 ng/mL (< 0.028)
[2024-10-09] MEDS: Ondansetron PF 4 MG/2 ML Vial IVP PRN (15:05)
[2024-10-09] MEDS: Calcium Carbonate 500 MG ChewTAB PO PRN (15:06)
[2024-10-09 15:18] LABS: Troponin I 0.793 ng/mL (< 0.028)
[2024-10-09] MEDS: Folic Acid/Vit B Comp W-C PO SCH (20:55)
[2024-10-09] MEDS: Atorvastatin Calcium 40 MG TAB PO SCH (20:55)
[2024-10-09] MEDS: NIFEdipine XL 60 MG ER.TAB PO SCH (20:56)
[2024-10-09] MEDS: Latanoprost 0.005% Ophth Soln 2.5 ml Bottle EA EYE SCH (21:02)
[2024-10-10 05:08] LABS: #Basophils Less than 0.03 10x3/uL (0.0-0.2); %Basophils 0.7 % (0.0-1.0); %Eosinophils 4.7 % (0.0-10.0); %Lymphocytes 46.2 % (21.0-51.0); %Monocytes 15.8 % (0.0-10.0); %Neutrophils 32.2 % (42.0-75.0); Hematocrit 40.7 % (36.0-47.0); Mean Corpuscular HGB CONC 31.9 g/dL (32.0-36.0); Mean Corpuscular Hemoglobin 28.4 pg (27.0-31.0); Mean Corpuscular Volume 89.1 fL (78.0-98.0); Mean Platelet Volume 12.3 fL (7.4-10.4); Platelet Count 152 10x3/uL (130-400); RBC Distribution Width 14.9 % (11.5-14.5); Red Blood Cell (RBC) Count 4.57 mill/uL (4.20-5.40)
[2024-10-10 05:40] LABS: Anion Gap 16 mmol/L (10-20); BUN (Urea Nitrogen) 44 mg/dL (9.8-20.1); Calc. Creatinine Clearance 19 mL/min (70-130); Calcium 7.9 mg/dL (7.8-10.44); Carbon Dioxide 24 mmol/L (22-29); Chloride 104 mmol/L (98-107); Estimated GFR 10; Glucose 89 mg/dL (70-105); Sodium 140 mmol/L (136-145)
[2024-10-10] MEDS ORDERED: Heparin 10,000 UNITS/ 10 ML VIAL ONE (10:39)
[2024-10-10] MEDS ORDERED: Polyethylene Glycol 3350 17 GM Packet PO PRN (11:04)
[2024-10-10] MEDS: guaiFENesin ER 600 MG TAB PO SCH (15:28)
[2024-10-10] MEDS: Carvedilol 6.25 MG TAB PO SCH (18:05)
[2024-10-10] MEDS ORDERED: guaiFENesin ER 600 MG TAB PO SCH (21:00)
[2024-10-10] MEDS: Guaifenesin DM 100-10/5 ML UDCUP PO PRN (21:47)
[2024-10-11 05:03] LABS: #Basophils 0.04 10x3/uL (0.0-0.2); %Basophils 0.9 % (0.0-1.0); %Eosinophils 12.4 % (0.0-10.0); %Lymphocytes 29.8 % (21.0-51.0); %Monocytes 14.7 % (0.0-10.0); Hematocrit 44.4 % (36.0-47.0); Hemoglobin 13.9 g/dL (12.0-16.0); Mean Corpuscular HGB CONC 31.3 g/dL (32.0-36.0); Mean Corpuscular Hemoglobin 28.5 pg (27.0-31.0); Mean Corpuscular Volume 91.2 fL (78.0-98.0); Platelet Count 146 10x3/uL (130-400); RBC Distribution Width 15.3 % (11.5-14.5); Red Blood Cell (RBC) Count 4.87 mill/uL (4.20-5.40)
[2024-10-11 05:12] LABS: Anion Gap 17 mmol/L (10-20); BUN (Urea Nitrogen) 39 mg/dL (9.8-20.1); Calc. Creatinine Clearance 17 mL/min (70-130); Calcium 8.3 mg/dL (7.8-10.44); Carbon Dioxide 23 mmol/L (22-29); Chloride 102 mmol/L (98-107); Estimated GFR 9; Glucose 88 mg/dL (70-105); Potassium 4.4 mmol/L (3.5-5.1); Sodium 138 mmol/L (136-145)
[2024-10-11] MEDS: guaiFENesin ER 600 MG TAB PO SCH (09:13)
[2024-10-11] MEDS: NIFEdipine XL 30 MG ER.TAB PO SCH (10:13)
[2024-10-12 05:43] LABS: #Basophils Less than 0.03 10x3/uL (0.0-0.2); %Basophils 0.4 % (0.0-1.0); %Eosinophils 18.4 % (0.0-10.0); %Lymphocytes 23.4 % (21.0-51.0); %Monocytes 15.1 % (0.0-10.0); %Neutrophils 42.5 % (42.0-75.0); Hematocrit 41.8 % (36.0-47.0); Hemoglobin 13.4 g/dL (12.0-16.0); Mean Corpuscular HGB CONC 32.1 g/dL (32.0-36.0); Mean Corpuscular Hemoglobin 28.6 pg (27.0-31.0); Mean Corpuscular Volume 89.1 fL (78.0-98.0); Mean Platelet Volume 12.6 fL (7.4-10.4); Platelet Count 147 10x3/uL (130-400); RBC Distribution Width 15.1 % (11.5-14.5); Red Blood Cell (RBC) Count 4.69 mill/uL (4.20-5.40)
[2024-10-12 05:53] LABS: Anion Gap 18 mmol/L (10-20); BUN (Urea Nitrogen) 58 mg/dL (9.8-20.1); Calc. Creatinine Clearance 12 mL/min (70-130); Calcium 8.4 mg/dL (7.8-10.44); Carbon Dioxide 21 mmol/L (22-29); Chloride 99 mmol/L (98-107); Estimated GFR 6; Glucose 95 mg/dL (70-105); Potassium 4.1 mmol/L (3.5-5.1); Sodium 134 mmol/L (136-145)
[2024-10-12] MEDS: FLUoxetine HCl 10 MG CAP PO SCH (10:13)
[2024-10-12] MEDS ORDERED: Heparin 10,000 UNITS/ 10 ML VIAL ONE (10:44)
[2024-10-13] MEDS ORDERED: Communication Order-Pharmacy FS SCH (09:45)
[2024-10-13] MEDS ORDERED: Aspirin 81 mg Enteric Coated Tablet PO SCH (10:00)
[2024-10-13] MEDS: Aspirin 325 mg Enteric Coated Tablet PO SCH (11:39)
[2024-10-13 16:12] LABS: Hep C PCR-Quant HCV Not Detected IU/mL (.)
[2024-10-13] MEDS: Heparin 5,000 UNITS/ML VIAL SC SCH (21:11)
[2024-10-14] MEDS: Aspirin 81 mg Enteric Coated Tablet PO SCH (08:22)
[2024-10-14 09:12] LABS: Anion Gap 17 mmol/L (10-20); BUN (Urea Nitrogen) 55 mg/dL (9.8-20.1); Calc. Creatinine Clearance 13 mL/min (70-130); Calcium 8.4 mg/dL (7.8-10.44); Carbon Dioxide 21 mmol/L (22-29); Chloride 102 mmol/L (98-107); Estimated GFR 6; Glucose 87 mg/dL (70-105); Potassium 3.7 mmol/L (3.5-5.1); Sodium 136 mmol/L (136-145)
[2024-10-14] MEDS ORDERED: Heparin 10,000 UNITS/ 10 ML VIAL ONE (10:56)
[2024-10-14] MEDS: Melatonin 3 MG TAB PO SCH (22:23)
[2024-10-14] MEDS: Gabapentin 300 MG CAP PO SCH (22:24)
[2024-10-15 03:53] LABS: #Basophils 0.03 10x3/uL (0.0-0.2); %Basophils 0.8 % (0.0-1.0); %Eosinophils 23.3 % (0.0-10.0); %Monocytes 15.2 % (0.0-10.0); %Neutrophils 28.7 % (42.0-75.0); Hematocrit 44.4 % (36.0-47.0); Hemoglobin 14.2 g/dL (12.0-16.0); Mean Corpuscular Hemoglobin 28.3 pg (27.0-31.0); Mean Corpuscular Volume 88.6 fL (78.0-98.0); Mean Platelet Volume 12.2 fL (7.4-10.4); Platelet Count 147 10x3/uL (130-400); RBC Distribution Width 14.8 % (11.5-14.5); Red Blood Cell (RBC) Count 5.01 mill/uL (4.20-5.40)
[2024-10-15 04:37] LABS: Anion Gap 19 mmol/L (10-20); BUN (Urea Nitrogen) 35 mg/dL (9.8-20.1); Calc. Creatinine Clearance 16 mL/min (70-130); Calcium 9.1 mg/dL (7.8-10.44); Carbon Dioxide 20 mmol/L (22-29); Chloride 103 mmol/L (98-107); Estimated GFR 8; Glucose 89 mg/dL (70-105); Sodium 138 mmol/L (136-145)
[2024-10-16 06:05] LABS: Anion Gap 17 mmol/L (10-20); BUN (Urea Nitrogen) 52 mg/dL (9.8-20.1); Calc. Creatinine Clearance 12 mL/min (70-130); Calcium 8.5 mg/dL (7.8-10.44); Carbon Dioxide 21 mmol/L (22-29); Chloride 104 mmol/L (98-107); Estimated GFR 6; Glucose 85 mg/dL (70-105); Potassium 4.2 mmol/L (3.5-5.1); Sodium 138 mmol/L (136-145)
[2024-10-16] MEDS ORDERED: Heparin 10,000 UNITS/ 10 ML VIAL ONE (07:12)
[2024-10-16] MEDS ORDERED: Midazolam HCl 2 mg/2 ml Vial ONE (07:12)
[2024-10-16] MEDS ORDERED: fentaNYL 50 mcg/mL 1 mL Vial ONE ×2 (07:12→07:42)
[2024-10-16] MEDS ORDERED: Nitroglycerin 50 MG/250 ML BOT 0 ML ONE (07:12)
[2024-10-16] MEDS: Sodium Chloride 0.9% 1,000 ML IV SCH (07:34)
[2024-10-16] MEDS ORDERED: Sodium Chloride 0.9% 200 ML IV PRN (08:06)
[2024-10-16] MEDS ORDERED: Acetaminophen/Codeine 30-300mg Tablet PO PRN ×2 (08:06)
[2024-10-16] MEDS ORDERED: Nitroglycerin 0.4 MG TAB (25 Tab Bottle) SL PRN (08:06)
[2024-10-16] MEDS ORDERED: Iopamidol 370 76% 100 ML VIAL ONE (09:55)
[2024-10-17 04:50] LABS: #Basophils Less than 0.03 10x3/uL (0.0-0.2); %Basophils 0.6 % (0.0-1.0); %Eosinophils 22.3 % (0.0-10.0); %Lymphocytes 27.5 % (21.0-51.0); %Monocytes 13.9 % (0.0-10.0); %Neutrophils 35.7 % (42.0-75.0); Hematocrit 37.4 % (36.0-47.0); Hemoglobin 12.2 g/dL (12.0-16.0); Mean Corpuscular HGB CONC 32.6 g/dL (32.0-36.0); Mean Corpuscular Hemoglobin 28.2 pg (27.0-31.0); Mean Corpuscular Volume 86.6 fL (78.0-98.0); Mean Platelet Volume 12.1 fL (7.4-10.4); Platelet Count 134 10x3/uL (130-400); Red Blood Cell (RBC) Count 4.32 mill/uL (4.20-5.40)
[2024-10-17 05:18] LABS: Anion Gap 17 mmol/L (10-20); BUN (Urea Nitrogen) 64 mg/dL (9.8-20.1); BUN/Creatinine Ratio 7.31; Calc. Creatinine Clearance 10 mL/min (70-130); Calcium 7.9 mg/dL (7.8-10.44); Carbon Dioxide 20 mmol/L (23-31); Chloride 102 mmol/L (98-107); Estimated GFR 5; Glucose 71 mg/dL (80-115); Phosphorus 6.8 mg/dL (2.3-4.7); Potassium 4.3 mmol/L (3.5-5.1); Sodium 135 mmol/L (136-145)
[2024-10-17] MEDS ORDERED: Heparin 10,000 UNITS/ 10 ML VIAL ONE (09:42)
[2024-10-17] MEDS ORDERED: Communication Order-Pharmacy FS SCH (12:10)
[2024-10-18] MEDS ORDERED: Albumin 5% 0 ML ONE (06:31)
[2024-10-18] MEDS ORDERED: PHENYLEPHRINE-NS 100 MCG/ML 10 ML SYRINGE ONE ×2 (06:31→06:50)
[2024-10-18] MEDS ORDERED: EPINEPHrine 1 MG/ML VIAL ONE ×2 (06:31→07:56)
[2024-10-18] MEDS ORDERED: Bupivacaine PF 0.5% 30 ML VIAL ONE (06:31)
[2024-10-18] MEDS ORDERED: Aminocaproic Acid 5 GM/20 ML VIAL ONE ×2 (06:42→08:15)
[2024-10-18] MEDS ORDERED: Heparin 10,000 UNITS/1 ML VIAL 30,000 UNITS in Sodium Chloride 0.9% 1,000 ML FS SCH (06:45)
[2024-10-18] MEDS ORDERED: CEFAZOLIN 2 GM VIAL ONE (06:46)
[2024-10-18] MEDS ORDERED: Calcium Chloride 1 GM/10 ML Abboject SYRINGE ONE ×2 (06:50→08:15)
[2024-10-18] MEDS ORDERED: Etomidate 40 MG (20 mL) VIAL ONE (06:50)
[2024-10-18] MEDS ORDERED: Rocuronium Bromide 10 MG/ML (10ML VIAL) ONE ×2 (06:50→11:46)
[2024-10-18] MEDS ORDERED: ePHEDrine Sulfate 50 MG/10 ML VIAL ONE ×2 (06:51→11:57)
[2024-10-18] MEDS ORDERED: Fentanyl 250 MCG/5 ML VIAL ONE (06:51)
[2024-10-18] MEDS ORDERED: Midazolam HCl 2 mg/2 ml Vial ONE ×4 (06:53→15:11)
[2024-10-18] MEDS ORDERED: Esmolol 100 MG/10 ML VIAL ONE (06:58)
[2024-10-18] MEDS ORDERED: Sterile Water 10 ML ONE (07:02)
[2024-10-18 08:09] LABS: Potassium 3.8 mmol/L (3.5-5.1)
[2024-10-18] MEDS ORDERED: Mannitol 12.5 GM/50 ML ONE (08:15)
[2024-10-18] MEDS ORDERED: Heparin 5,000 UNITS/ML VIAL ONE (08:15)
[2024-10-18] MEDS ORDERED: Sodium Bicarb 50 mEq/50 ML VIAL ONE (08:15)
[2024-10-18] MEDS ORDERED: Lidocaine 2% PF 100 mg/5 ml Syringe ONE (08:15)
[2024-10-18] MEDS ORDERED: Magnesium 5 GM/10 ML VIAL ONE (08:15)
[2024-10-18] MEDS ORDERED: Potassium Chloride 60 mEq (30 mL) VIAL ONE (08:15)
[2024-10-18] MEDS ORDERED: Protamine Sulfate 250 MG/25 ML VIAL ONE (08:15)
[2024-10-18] MEDS ORDERED: Papaverine 60 MG/2 ML VIAL ONE (08:15)
[2024-10-18] MEDS ORDERED: Cardioplegic Soln 1,000 ML BAG ONE (08:15)
[2024-10-18] MEDS ORDERED: Heparin 30,000 units/30 ml VIAL ONE (08:15)
[2024-10-18] MEDS ORDERED: Vancomycin 1 GM VIAL ONE (08:15)
[2024-10-18 08:44] LABS: Anion Gap 17 mmol/L (10-20); BUN (Urea Nitrogen) 41 mg/dL (9.8-20.1); Calc. Creatinine Clearance 14 mL/min (70-130); Calcium 7.7 mg/dL (7.8-10.44); Carbon Dioxide 23 mmol/L (23-31); Chloride 101 mmol/L (98-107); Estimated GFR 7; Glucose 62 mg/dL (80-115); Phosphorus 5.2 mg/dL (2.3-4.7); Potassium 3.8 mmol/L (3.5-5.1); Sodium 137 mmol/L (136-145)
[2024-10-18] MEDS ORDERED: Vasopressin 20 UNITS/ML VIAL ONE ×3 (09:11→12:39)
[2024-10-18] MEDS ORDERED: Desmopressin Acetate 4 mcg/ml AMPUL ONE (14:25)
[2024-10-18] MEDS ORDERED: Insulin Regular, Human 100 UNIT/ML 10 ML VIAL ONE (15:15)
[2024-10-18] MEDS ORDERED: Post-Op Insulin Drip Protocol IVPB SCH (15:18)
[2024-10-18] MEDS ORDERED: Acetaminophen 325 MG TAB PO PRN (15:18)
[2024-10-18] MEDS ORDERED: Morphine 2 MG/ML VIAL SLOW IVP PRN (15:18)
[2024-10-18] MEDS ORDERED: Ondansetron PF 4 MG/2 ML Vial IVP PRN (15:18)
[2024-10-18] MEDS ORDERED: Promethazine HCl 25 MG/ML VIAL IM PRN (15:18)
[2024-10-18] MEDS ORDERED: traMADol HCl 50 MG TAB PO PRN ×2 (15:18)
[2024-10-18] MEDS ORDERED: Bisacodyl 10 MG SUPP PR PRN (15:18)
[2024-10-18] MEDS ORDERED: fentaNYL 50 mcg/mL 1 mL Vial SLOW IVP PRN ×2 (15:18)
[2024-10-18] MEDS ORDERED: Bisacodyl 5 MG TAB PO PRN (15:18)
[2024-10-18] MEDS ORDERED: hydrALAZINE 20 MG/ML VIAL SLOW IVP PRN (15:18)
[2024-10-18] MEDS ORDERED: Nitroglycerin 50 MG/250 ML BOT 250 ML IVPB PRN (15:18)
[2024-10-18] MEDS ORDERED: Albumin 5% 12.5 GM (250 mL) BOT IVPB PRN (15:18)
[2024-10-18 15:45] LABS: INR-International Normal Ratio 1.8; Prothrombin Time 20.8 sec (12.0-14.7)
[2024-10-18] MEDS ORDERED: Glucagon 1 MG/ML KIT SC PRN (15:45)
[2024-10-18] MEDS ORDERED: Dextrose 5% in Water 1,000 ML IV PRN (15:45)
[2024-10-18 16:13] LABS: Actual Bicarbonate (HCO3a) 18.6 mEq/L (22-28); Base Excess (BEa) -7.7 mEq/L (-2.0 to +3.0); CO2 Tension 40.9 mmHg (35.0-45.0); Calcium, Ionized (arterial) 1.07 mmol/L (1.12-1.30); Carboxyhemoglobin (COHb) 0.5 gm% (0.0-3.0); Hematocrit-ABG 29 % (36.0-47.0); Hemoglobin (Hb) 9.7 g/dL (12.0-16.0); Potassium - ABG Lab 4.51 mmol/L (3.70-5.30); pH, Arterial 7.276 (7.35-7.45)
[2024-10-18 16:14] LABS: ALV-art Gradient 153.375 mmHg (0-20); Puncture Site Arterial Line
[2024-10-18 16:22] LABS: #Basophils Less than 0.03 10x3/uL (0.0-0.2); %Eosinophils 0.9 % (0.0-10.0); %Lymphocytes 14.8 % (21.0-51.0); %Neutrophils 79.3 % (42.0-75.0); Hematocrit 27.3 % (36.0-47.0); INR-International Normal Ratio 1.6; Mean Corpuscular Hemoglobin 29.3 pg (27.0-31.0); Mean Corpuscular Volume 88.9 fL (78.0-98.0); Mean Platelet Volume 11.4 fL (7.4-10.4); Platelet Count 176 10x3/uL (130-400); Prothrombin Time 19.4 sec (12.0-14.7); RBC Distribution Width 15.5 % (11.5-14.5); Red Blood Cell (RBC) Count 3.07 mill/uL (4.20-5.40)
[2024-10-18 16:23] LABS: Anion Gap 14 mmol/L (10-20); BUN (Urea Nitrogen) 38 mg/dL (9.8-20.1); Calc. Creatinine Clearance 15 mL/min (70-130); Calcium 7.5 mg/dL (7.8-10.44); Carbon Dioxide 20 mmol/L (23-31); Chloride 111 mmol/L (98-107); Estimated GFR 8; Glucose 180 mg/dL (80-115); PTT 46.1 sec (22.9-36.1); Potassium 4.8 mmol/L (3.5-5.1); Sodium 140 mmol/L (136-145)
[2024-10-18] MEDS: Sodium Chloride 0.9% 1,000 ML IV SCH (16:40)
[2024-10-18] MEDS: INSULIN REGULAR IN 0.9 % NACL 100 UNITS in Premix 1 BAG IVPB SCH (16:40)
[2024-10-18] MEDS: CEFAZOLIN 2 GM in Sodium Chloride 0.9% 100 ML IVPB SCH ×2 (16:47→16:48)
[2024-10-18] MEDS: Albumin 5% 12.5 GM (250 mL) BOT IVPB PRN (17:05)
[2024-10-18] MEDS: EPINEPHrine 4 MG in Dextrose 5% in Water 250 ML IV SCH (17:50)
[2024-10-18] MEDS ORDERED: Propofol 1,000 MG/100 ML VIAL IV PRN (18:30)
[2024-10-18] MEDS ORDERED: Propofol BOLUS 1,000 MG/100 ML VIAL IV PRN (18:30)
[2024-10-18] MEDS ORDERED: Fentanyl CADD 100 ML IV SCH (18:30)
[2024-10-18] MEDS ORDERED: DISCONTINUE PREVIOUS NARCOTIC PAIN MEDICATIONS AND BENZODIAZEPINES FS SCH (18:30)
[2024-10-18] MEDS ORDERED: Fentanyl BOLUS 250 ML IVPB PRN (18:30)
[2024-10-18] MEDS: Ipratropium/Albuterol 3 ML NEB NEB SCH ×2 (18:40→22:07)
[2024-10-18] MEDS: Dextrose 50% Abboject 50 ML SYRINGE SLOW IVP PRN (20:41)
[2024-10-18] MEDS: Famotidine/PF 20 mg/2ml Vial SLOW IVP SCH (20:42)
[2024-10-18] MEDS ORDERED: Atorvastatin Calcium 20 MG TAB PO SCH (21:00)
[2024-10-18 21:13] LABS: Hematocrit 24.4 % (36.0-47.0); Hemoglobin 7.8 g/dL (12.0-16.0)
[2024-10-18 21:20] LABS: Potassium 3.8 mmol/L (3.5-5.1)
[2024-10-18] MEDS: Potassium Chloride 20 MEQ (100 mL) BAG IVPB PRN (22:34)
[2024-10-19] MEDS ORDERED: Dextrose 5%-Lactated Ringers 1,000 ML IV SCH (01:00)
[2024-10-19] MEDS: Dextrose 5 % And 0.9 % NaCl 1,000 ML IV SCH (02:42)
[2024-10-19 04:55] LABS: Phosphorus 4.6 mg/dL (2.3-4.7)
[2024-10-19 04:57] LABS: Albumin 2.8 g/dL (3.4-4.8); Anion Gap 15 mmol/L (10-20); BUN (Urea Nitrogen) 41 mg/dL (9.8-20.1); BUN/Creatinine Ratio 6.56; Calc. Creatinine Clearance 14 mL/min (70-130); Calcium 7.3 mg/dL (7.8-10.44); Carbon Dioxide 20 mmol/L (23-31); Chloride 109 mmol/L (98-107); Estimated GFR 7; Glucose 187 mg/dL (80-115); Phosphorus 4.7 mg/dL (2.3-4.7); Potassium 5.2 mmol/L (3.5-5.1); Sodium 139 mmol/L (136-145)
[2024-10-19] MEDS: NOREPINEPHRINE 8 MG/250 ML-D5W 250 ML IVPB PRN (06:17)
[2024-10-19 07:30] LABS: Anisocytosis SLIGHT = 6-15 cells HPF (0-5); Macrocytosis SLIGHT = 6-15 cells HPF (0-5); Platelet Adequacy Comment Platelets Decreased; Polychromasia SLIGHT = 2-3 cells HPF (0-2)
[2024-10-19 07:36] LABS: #Basophils Less than 0.03 10x3/uL (0.0-0.2); %Eosinophils 6.1 % (0.0-10.0); %Lymphocytes 3.4 % (21.0-51.0); %Monocytes 11.1 % (0.0-10.0); Hematocrit 27.6 % (36.0-47.0); Hemoglobin 8.8 g/dL (12.0-16.0); Mean Corpuscular Hemoglobin 28.8 pg (27.0-31.0); Mean Corpuscular Volume 89.8 fL (78.0-98.0); Mean Platelet Volume 11.9 fL (7.4-10.4); Platelet Count 116 10x3/uL (130-400); RBC Distribution Width 16.2 % (11.5-14.5); Red Blood Cell (RBC) Count 3.13 mill/uL (4.20-5.40)
[2024-10-19 07:48] LABS: INR-International Normal Ratio 1.6; PTT 49.7 sec (22.9-36.1); Prothrombin Time 18.8 sec (12.0-14.7)
[2024-10-19] MEDS ORDERED: Heparin 10,000 UNITS/ 10 ML VIAL ONE (08:49)
[2024-10-19] MEDS ORDERED: Aspirin Chewable 81 MG TAB PO SCH (09:00)
[2024-10-19] MEDS: Dexmedetomidine In 0.9 % NaCl 100 ML IV SCH (09:09)
[2024-10-19 09:11] LABS: Base Excess (BEa) -5.5 mEq/L (-2.0 to +3.0); CO2 Tension 44.9 mmHg (35.0-45.0); Calcium, Ionized (arterial) 1.04 mmol/L (1.12-1.30); Hematocrit-ABG 32 % (36.0-47.0); Hemoglobin (Hb) 10.8 g/dL (12.0-16.0); O2 Tension (PaO2), arterial 66.6 mmHg (> 80.0); Potassium - ABG Lab 4.78 mmol/L (3.70-5.30); pH, Arterial 7.287 (7.35-7.45)
[2024-10-19 09:14] LABS: Puncture Site Left Brachial artery
[2024-10-19 09:15] LABS: ALV-art Gradient 162.475 mmHg (0-20)
[2024-10-19] MEDS ORDERED: Dexmedetomidine In 0.9 % NaCl 100 ML IVPB SCH (09:15)
[2024-10-19] MEDS ORDERED: Albumin 25% 25 GM (100 mL) BOT IVPB SCH (10:00)
[2024-10-19] MEDS: Morphine 2 MG/ML VIAL SLOW IVP PRN (10:14)
[2024-10-19] MEDS: Heparin 5,000 UNITS/ML VIAL SC SCH (10:58)
[2024-10-19] MEDS: methylPREDNISolone Sod Succ 40 MG VIAL IVP SCH (11:02)
[2024-10-19] MEDS ORDERED: EPOETIN ALFA-EPBX (ESRD) 4,000 UNITS/ML VIAL IVP SCH (12:00)
[2024-10-19 12:24] LABS: Hemoglobin 8.9 g/dL (12.0-16.0); Mean Corpuscular Hemoglobin 29.2 pg (27.0-31.0); Mean Corpuscular Volume 88.5 fL (78.0-98.0); Mean Platelet Volume 11.7 fL (7.4-10.4); Platelet Count 135 10x3/uL (130-400); RBC Distribution Width 16.5 % (11.5-14.5); Red Blood Cell (RBC) Count 3.05 mill/uL (4.20-5.40)
[2024-10-19 12:27] LABS: Anion Gap 13 mmol/L (10-20); BUN (Urea Nitrogen) 15 mg/dL (9.8-20.1); Calc. Creatinine Clearance 34 mL/min (70-130); Calcium 7.8 mg/dL (7.8-10.44); Carbon Dioxide 26 mmol/L (23-31); Chloride 103 mmol/L (98-107); Estimated GFR 19; Glucose 127 mg/dL (80-115); Potassium 3.5 mmol/L (3.5-5.1); Sodium 138 mmol/L (136-145)
[2024-10-19] MEDS: Lorazepam 2 MG/ML VIAL SLOW IVP PRN (13:33)
[2024-10-19] MEDS: Lorazepam 2 MG/ML VIAL SLOW IVP SCH (13:54)
[2024-10-19] MEDS: EPOETIN ALFA-EPBX (ESRD) 3,000 UNITS/ML VIAL IVP SCH (13:55)
[2024-10-19] MEDS: niCARdipine 25 MG in Sodium Chloride 0.9% 250 ML 250 ML IVPB PRN (19:38)
[2024-10-19] MEDS: Insulin Regular, Human 100 UNIT/ML 10 ML VIAL SC PRN (20:17)
[2024-10-19] MEDS: Carvedilol 6.25 MG TAB PER TUBE SCH (22:27)
[2024-10-19] MEDS: Amiodarone 450 MG, Admixture Fee 1 EACH in Dextrose 5% in Water 250 ML IVPB SCH (23:20)
[2024-10-20 06:57] LABS: #Basophils Less than 0.03 10x3/uL (0.0-0.2); %Eosinophils 5.2 % (0.0-10.0); %Lymphocytes 9.2 % (21.0-51.0); %Monocytes 9.7 % (0.0-10.0); %Neutrophils 75.5 % (42.0-75.0); Hemoglobin 8.1 g/dL (12.0-16.0); Mean Corpuscular HGB CONC 33.8 g/dL (32.0-36.0); Mean Platelet Volume 12.5 fL (7.4-10.4); Platelet Count 89 10x3/uL (130-400); RBC Distribution Width 16.2 % (11.5-14.5); Red Blood Cell (RBC) Count 2.79 mill/uL (4.20-5.40)
[2024-10-20 07:32] LABS: Albumin 2.6 g/dL (3.4-4.8); Anion Gap 13 mmol/L (10-20); BUN (Urea Nitrogen) 25 mg/dL (9.8-20.1); Calc. Creatinine Clearance 19 mL/min (70-130); Calcium 7.6 mg/dL (7.8-10.44); Carbon Dioxide 22 mmol/L (23-31); Chloride 106 mmol/L (98-107); Estimated GFR 10; Glucose 182 mg/dL (80-115); Magnesium 1.7 mg/dL (1.6-2.6); Phosphorus 3.3 mg/dL (2.3-4.7); Sodium 137 mmol/L (136-145)
[2024-10-20] MEDS ORDERED: Heparin 10,000 UNITS/ 10 ML VIAL ONE (12:26)
[2024-10-20] MEDS: Albumin 25% 25 GM (100 mL) BOT IVPB PRN (14:36)
[2024-10-20] MEDS: Famotidine/PF 20 mg/2ml Vial SLOW IVP SCH (20:35)
[2024-10-21 05:24] LABS: #Basophils Less than 0.03 10x3/uL (0.0-0.2); %Eosinophils 16.8 % (0.0-10.0); %Lymphocytes 9.1 % (21.0-51.0); %Monocytes 8.7 % (0.0-10.0); %Neutrophils 65.1 % (42.0-75.0); Hematocrit 23.2 % (36.0-47.0); Hemoglobin 7.5 g/dL (12.0-16.0); Mean Corpuscular HGB CONC 32.3 g/dL (32.0-36.0); Mean Corpuscular Hemoglobin 28.4 pg (27.0-31.0); Mean Corpuscular Volume 87.9 fL (78.0-98.0); Mean Platelet Volume 12.7 fL (7.4-10.4); Platelet Count 75 10x3/uL (130-400); RBC Distribution Width 16.5 % (11.5-14.5); Red Blood Cell (RBC) Count 2.64 mill/uL (4.20-5.40)
[2024-10-21 05:31] LABS: Anion Gap 15 mmol/L (10-20); BUN (Urea Nitrogen) 35 mg/dL (9.8-20.1); BUN/Creatinine Ratio 6.32; Calc. Creatinine Clearance 17 mL/min (70-130); Calcium 7.8 mg/dL (7.8-10.44); Carbon Dioxide 19 mmol/L (23-31); Chloride 107 mmol/L (98-107); Estimated GFR 8; Glucose 171 mg/dL (80-115); Magnesium 1.7 mg/dL (1.6-2.6); Phosphorus 3.8 mg/dL (2.3-4.7); Sodium 137 mmol/L (136-145)
[2024-10-21 05:35] LABS: Phosphorus 3.6 mg/dL (2.3-4.7)
[2024-10-21 08:10] LABS: Actual Bicarbonate (HCO3a) 20.1 mEq/L (22-28); Base Excess (BEa) -3.6 mEq/L (-2.0 to +3.0); CO2 Tension 30.6 mmHg (35.0-45.0); Calcium, Ionized (arterial) 1.02 mmol/L (1.12-1.30); Carboxyhemoglobin (COHb) 1.7 gm% (0.0-3.0); Hematocrit-ABG 23 % (36.0-47.0); Hemoglobin (Hb) 7.7 g/dL (12.0-16.0); O2 Tension (PaO2), arterial 102.6 mmHg (> 80.0); pH, Arterial 7.435 (7.35-7.45)
[2024-10-21 08:12] LABS: Puncture Site Right Radial artery
[2024-10-21] MEDS ORDERED: Albumin 25% 25 GM (100 mL) BOT IVPB PRN (09:31)
[2024-10-21] MEDS ORDERED: HOLD VANCOMYCIN FOR LEVEL >25 PO SCH (11:45)
[2024-10-21] MEDS ORDERED: Vancomycin Dialysis Sliding Scale (Wt > 99) FS SCH (11:45)
[2024-10-21] MEDS ORDERED: Heparin 10,000 UNITS/ 10 ML VIAL ONE (12:33)
[2024-10-21] MEDS: Cefepime 1 GM in Sodium Chloride 0.9% 100 ML IVPB SCH (12:58)
[2024-10-21] MEDS: Vancomycin (BATCH) 2 GM in Premix 1 BAG IVPB SCH (13:28)
[2024-10-22 05:01] LABS: #Basophils Less than 0.03 10x3/uL (0.0-0.2); %Basophils 0.2 % (0.0-1.0); %Lymphocytes 12.8 % (21.0-51.0); %Monocytes 10.1 % (0.0-10.0); %Neutrophils 57.4 % (42.0-75.0); Hematocrit 25.5 % (36.0-47.0); Hemoglobin 8.4 g/dL (12.0-16.0); Mean Corpuscular HGB CONC 32.9 g/dL (32.0-36.0); Mean Corpuscular Hemoglobin 29.4 pg (27.0-31.0); Mean Corpuscular Volume 89.2 fL (78.0-98.0); Mean Platelet Volume 13.3 fL (7.4-10.4); Platelet Count 71 10x3/uL (130-400); Red Blood Cell (RBC) Count 2.86 mill/uL (4.20-5.40)
[2024-10-22 05:21] LABS: Anion Gap 13 mmol/L (10-20); BUN (Urea Nitrogen) 28 mg/dL (9.8-20.1); Calc. Creatinine Clearance 25 mL/min (70-130); Calcium 7.7 mg/dL (7.8-10.44); Carbon Dioxide 27 mmol/L (23-31); Chloride 103 mmol/L (98-107); Estimated GFR 13; Glucose 146 mg/dL (80-115); Magnesium 1.7 mg/dL (1.6-2.6); Phosphorus 2.1 mg/dL (2.3-4.7); Potassium 3.9 mmol/L (3.5-5.1); Sodium 139 mmol/L (136-145)
[2024-10-22] MEDS: Scopolamine 1 mg/72 hour Patch TOP SCH (12:01)
[2024-10-22] MEDS: Digoxin 0.5 MG/2 ML AMP SLOW IVP SCH (14:04)
[2024-10-23 04:48] LABS: #Basophils Less than 0.03 10x3/uL (0.0-0.2); %Eosinophils 12.6 % (0.0-10.0); %Lymphocytes 11.9 % (21.0-51.0); %Monocytes 11.5 % (0.0-10.0); %Neutrophils 62.7 % (42.0-75.0); Hematocrit 25.8 % (36.0-47.0); Hemoglobin 8.3 g/dL (12.0-16.0); Mean Corpuscular HGB CONC 32.2 g/dL (32.0-36.0); Mean Corpuscular Hemoglobin 28.8 pg (27.0-31.0); Mean Corpuscular Volume 89.6 fL (78.0-98.0); Platelet Count 69 10x3/uL (130-400); RBC Distribution Width 16.4 % (11.5-14.5); Red Blood Cell (RBC) Count 2.88 mill/uL (4.20-5.40)
[2024-10-23 05:11] LABS: Anion Gap 13 mmol/L (10-20); BUN (Urea Nitrogen) 43 mg/dL (9.8-20.1); Calc. Creatinine Clearance 16 mL/min (70-130); Calcium 7.8 mg/dL (7.8-10.44); Carbon Dioxide 25 mmol/L (23-31); Chloride 104 mmol/L (98-107); Estimated GFR 8; Glucose 174 mg/dL (80-115); Magnesium 1.7 mg/dL (1.6-2.6); Phosphorus 2.5 mg/dL (2.3-4.7); Potassium 4.5 mmol/L (3.5-5.1); Sodium 137 mmol/L (136-145)
[2024-10-23] MEDS: Aspirin Chewable 81 MG TAB PER TUBE SCH (08:25)
[2024-10-23 08:38] LABS: Influenza A by NAA Not Detected (NotDetected); Influenza B by NAA Not Detected (NotDetected); RSV by NAA Not Detected (NotDetected); SARS-CoV-2 NAA Rapid Test Not Detected (NotDetected)
[2024-10-23] MEDS ORDERED: Heparin 10,000 UNITS/ 10 ML VIAL ONE (09:51)
[2024-10-23] MEDS: Vecuronium 10 MG VIAL ONE (10:30)
[2024-10-23] MEDS: Midazolam HCl 2 mg/2 ml Vial ONE (10:30)
[2024-10-23] MEDS: Vecuronium 10 MG VIAL IVP SCH (11:11)
[2024-10-23] MEDS: Midazolam HCl 2 mg/2 ml Vial SLOW IVP SCH (11:11)
[2024-10-23] MEDS: Acetaminophen 325 MG TAB PER TUBE PRN (11:58)
[2024-10-23] MEDS ORDERED: NOREPINEPHRINE 8 MG/250 ML-D5W 250 ML IVPB SCH (12:15)
[2024-10-23] MEDS: NOREPINEPHRINE 8 MG/250 ML-D5W 250 ML IVPB SCH (12:40)
[2024-10-23 12:55] LABS: ALT (SGPT) 6 U/L (8-55); AST (SGOT) 44 U/L (5-34); Albumin 2.3 g/dL (3.4-4.8); Alkaline Phosphatase 117 U/L (40-110); Anion Gap 15 mmol/L (10-20); BUN (Urea Nitrogen) 56 mg/dL (9.8-20.1); Bilirubin, Total 1.4 mg/dL (0.2-1.2); Calc. Creatinine Clearance 15 mL/min (70-130); Calcium 7.8 mg/dL (7.8-10.44); Carbon Dioxide 24 mmol/L (23-31); Chloride 105 mmol/L (98-107); Estimated GFR 7; Globulin 3.4 g/dL (2.4-3.5); Glucose 155 mg/dL (80-115); Potassium 4.7 mmol/L (3.5-5.1); Protein, Total 5.7 g/dL (5.8-8.1); Sodium 139 mmol/L (136-145)
[2024-10-23 12:58] LABS: Hematocrit 25.4 % (36.0-47.0); Hemoglobin 8.1 g/dL (12.0-16.0); Mean Corpuscular HGB CONC 31.9 g/dL (32.0-36.0); Mean Corpuscular Hemoglobin 28.8 pg (27.0-31.0); Mean Corpuscular Volume 90.4 fL (78.0-98.0); Mean Platelet Volume 14.1 fL (7.4-10.4); Platelet Count 70 10x3/uL (130-400); RBC Distribution Width 16.4 % (11.5-14.5); Red Blood Cell (RBC) Count 2.81 mill/uL (4.20-5.40)
[2024-10-23 13:17] LABS: #Basophils Less than 0.03 10x3/uL (0.0-0.2); %Basophils 0.1 % (0.0-1.0); %Eosinophils 10.7 % (0.0-10.0); %Lymphocytes 12.8 % (21.0-51.0); %Neutrophils 62.1 % (42.0-75.0)
[2024-10-23] MEDS: Cefepime 1 GM in Sodium Chloride 0.9% 100 ML IVPB SCH (16:06)
[2024-10-23] MEDS: Atorvastatin Calcium 40 MG TAB PER TUBE SCH (21:30)
[2024-10-24 04:37] LABS: #Basophils Less than 0.03 10x3/uL (0.0-0.2); %Basophils 0.2 % (0.0-1.0); %Eosinophils 16.8 % (0.0-10.0); %Lymphocytes 9.6 % (21.0-51.0); %Monocytes 9.9 % (0.0-10.0); %Neutrophils 59.8 % (42.0-75.0); Hematocrit 30.2 % (36.0-47.0); Hemoglobin 9.9 g/dL (12.0-16.0); Mean Corpuscular HGB CONC 32.8 g/dL (32.0-36.0); Mean Corpuscular Volume 88.6 fL (78.0-98.0); Mean Platelet Volume 13.5 fL (7.4-10.4); Platelet Count 115 10x3/uL (130-400); RBC Distribution Width 16.1 % (11.5-14.5); Red Blood Cell (RBC) Count 3.41 mill/uL (4.20-5.40)
[2024-10-24 04:50] LABS: Phosphorus 2.6 mg/dL (2.3-4.7)
[2024-10-24 05:08] LABS: Anion Gap 17 mmol/L (10-20); BUN (Urea Nitrogen) 39 mg/dL (9.8-20.1); Calc. Creatinine Clearance 20 mL/min (70-130); Calcium 8.4 mg/dL (7.8-10.44); Carbon Dioxide 25 mmol/L (23-31); Chloride 101 mmol/L (98-107); Estimated GFR 10; Glucose 145 mg/dL (80-115); Magnesium 1.7 mg/dL (1.6-2.6); Potassium 4.5 mmol/L (3.5-5.1); Sodium 138 mmol/L (136-145)
[2024-10-24 05:57] VITALS: BMI 32.5
[2024-10-24 08:16] LABS: Vancomycin, Trough 17.8 ug/mL
[2024-10-24] MEDS ORDERED: Heparin 10,000 UNITS/ 10 ML VIAL ONE (09:53)
[2024-10-24] MEDS ORDERED: Senokot 8.6 MG TAB PER TUBE PRN (12:18)
[2024-10-24] MEDS ORDERED: Docusate Sodium 100 MG/10 ML UDCUP PO PRN (12:27)
[2024-10-24] MEDS ORDERED: Potassium Phosphate 30 MMOL in Sodium Chloride 0.9% 500 ML IVPB SCH (12:30)
[2024-10-24] MEDS: Polyethylene Glycol 3350 17 GM Packet PER TUBE SCH (13:51)
[2024-10-24] MEDS: Docusate Sodium 100 MG/10 ML UDCUP PO SCH (13:51)
[2024-10-24] MEDS: Magnesium 2 GM/50 ML(in water) 2 GM in Premix 1 BAG IVPB SCH (13:51)
[2024-10-24] MEDS: Sodium Phosphate 15 MMOL in Sodium Chloride 0.9% 250 ML 250 ML IVPB SCH (15:11)
[2024-10-24] MEDS: Docusate Sodium 100 MG/10 ML UDCUP PER TUBE SCH (22:19)
[2024-10-24] MEDS: Vancomycin 1 GM in Premix 1 BAG IVPB SCH (22:19)
[2024-10-25 05:06] LABS: #Basophils 0.03 10x3/uL (0.0-0.2); %Basophils 0.3 % (0.0-1.0); %Eosinophils 20.9 % (0.0-10.0); %Lymphocytes 13.7 % (21.0-51.0); %Neutrophils 51.9 % (42.0-75.0); Hematocrit 27.7 % (36.0-47.0); Hemoglobin 9.1 g/dL (12.0-16.0); Mean Corpuscular HGB CONC 32.9 g/dL (32.0-36.0); Mean Corpuscular Hemoglobin 29.7 pg (27.0-31.0); Mean Corpuscular Volume 90.5 fL (78.0-98.0); Platelet Count 117 10x3/uL (130-400); RBC Distribution Width 16.2 % (11.5-14.5); Red Blood Cell (RBC) Count 3.06 mill/uL (4.20-5.40)
[2024-10-25 05:13] LABS: Anion Gap 16 mmol/L (10-20); BUN (Urea Nitrogen) 26 mg/dL (9.8-20.1); Calc. Creatinine Clearance 25 mL/min (70-130); Calcium 8.1 mg/dL (7.8-10.44); Carbon Dioxide 26 mmol/L (23-31); Chloride 100 mmol/L (98-107); Estimated GFR 13; Glucose 140 mg/dL (80-115); Magnesium 2.3 mg/dL (1.6-2.6); Potassium 3.8 mmol/L (3.5-5.1); Sodium 138 mmol/L (136-145)
[2024-10-25 05:32] LABS: Phosphorus 4.2 mg/dL (2.5-4.5)
[2024-10-25] MEDS: Polyethylene Glycol 3350 17 GM Packet PER TUBE SCH (08:14)
[2024-10-25] MEDS ORDERED: Heparin 10,000 UNITS/ 10 ML VIAL ONE (10:56)
[2024-10-26 05:51] LABS: #Basophils 0.04 10x3/uL (0.0-0.2); %Basophils 0.4 % (0.0-1.0); %Eosinophils 17.2 % (0.0-10.0); %Lymphocytes 15.6 % (21.0-51.0); %Monocytes 11.1 % (0.0-10.0); %Neutrophils 54.5 % (42.0-75.0); Hematocrit 27.2 % (36.0-47.0); Hemoglobin 8.7 g/dL (12.0-16.0); Mean Corpuscular Hemoglobin 29.3 pg (27.0-31.0); Mean Corpuscular Volume 91.6 fL (78.0-98.0); Mean Platelet Volume 12.9 fL (7.4-10.4); Platelet Count 140 10x3/uL (130-400); RBC Distribution Width 16.7 % (11.5-14.5); Red Blood Cell (RBC) Count 2.97 mill/uL (4.20-5.40)
[2024-10-26 06:11] LABS: Anion Gap 15 mmol/L (10-20); BUN (Urea Nitrogen) 27 mg/dL (9.8-20.1); Calc. Creatinine Clearance 22 mL/min (70-130); Calcium 8.2 mg/dL (7.8-10.44); Carbon Dioxide 28 mmol/L (23-31); Chloride 99 mmol/L (98-107); Estimated GFR 11; Glucose 149 mg/dL (80-115); Potassium 3.9 mmol/L (3.5-5.1); Sodium 138 mmol/L (136-145)
[2024-10-26] MEDS ORDERED: Heparin 10,000 UNITS/ 10 ML VIAL ONE (08:41)
[2024-10-26 11:44] LABS: Hemoglobin A1c 5.6 % (4.0-6.0)
[2024-10-26] MEDS: fentaNYL 50 mcg/mL 1 mL Vial SLOW IVP PRN (18:05)
[2024-10-27] MEDS: fentaNYL 50 mcg/mL 1 mL Vial SLOW IVP PRN (00:20)
[2024-10-27 06:01] LABS: #Basophils 0.04 10x3/uL (0.0-0.2); %Basophils 0.4 % (0.0-1.0); %Lymphocytes 11.9 % (21.0-51.0); %Monocytes 9.7 % (0.0-10.0); Hematocrit 28.9 % (36.0-47.0); Hemoglobin 9.2 g/dL (12.0-16.0); Mean Corpuscular HGB CONC 31.8 g/dL (32.0-36.0); Mean Corpuscular Hemoglobin 29.5 pg (27.0-31.0); Mean Corpuscular Volume 92.6 fL (78.0-98.0); Mean Platelet Volume 12.7 fL (7.4-10.4); Platelet Count 132 10x3/uL (130-400); RBC Distribution Width 16.7 % (11.5-14.5); Red Blood Cell (RBC) Count 3.12 mill/uL (4.20-5.40)
[2024-10-27 06:27] LABS: Anion Gap 16 mmol/L (10-20); BUN (Urea Nitrogen) 19 mg/dL (9.8-20.1); Calc. Creatinine Clearance 25 mL/min (70-130); Calcium 8.4 mg/dL (7.8-10.44); Carbon Dioxide 27 mmol/L (23-31); Chloride 101 mmol/L (98-107); Estimated GFR 14; Glucose 133 mg/dL (80-115); Magnesium 2.1 mg/dL (1.6-2.6); Potassium 4.4 mmol/L (3.5-5.1); Sodium 140 mmol/L (136-145)
[2024-10-27] MEDS ORDERED: Lidocaine 4% Patch TD SCH (09:00)
[2024-10-27] MEDS: Senokot 8.6 MG TAB PER TUBE SCH (09:46)
[2024-10-27] MEDS: Lidocaine 4% Patch TD SCH (09:49)
[2024-10-27] MEDS: Transdermal Patch Removal TOP SCH (22:05)
[2024-10-28 04:50] LABS: #Basophils 0.05 10x3/uL (0.0-0.2); %Basophils 0.6 % (0.0-1.0); %Eosinophils 17.8 % (0.0-10.0); %Lymphocytes 8.8 % (21.0-51.0); %Monocytes 8.1 % (0.0-10.0); Hematocrit 26.4 % (36.0-47.0); Hemoglobin 8.2 g/dL (12.0-16.0); Mean Corpuscular HGB CONC 31.1 g/dL (32.0-36.0); Mean Corpuscular Hemoglobin 29.4 pg (27.0-31.0); Mean Corpuscular Volume 94.6 fL (78.0-98.0); Mean Platelet Volume 12.2 fL (7.4-10.4); Platelet Count 149 10x3/uL (130-400); RBC Distribution Width 16.8 % (11.5-14.5); Red Blood Cell (RBC) Count 2.79 mill/uL (4.20-5.40)
[2024-10-28 05:33] LABS: Anion Gap 19 mmol/L (10-20); BUN (Urea Nitrogen) 30 mg/dL (9.8-20.1); Calc. Creatinine Clearance 16 mL/min (70-130); Calcium 8.2 mg/dL (7.8-10.44); Carbon Dioxide 24 mmol/L (23-31); Chloride 100 mmol/L (98-107); Estimated GFR 8; Glucose 115 mg/dL (80-115); Potassium 3.7 mmol/L (3.5-5.1); Sodium 139 mmol/L (136-145)
[2024-10-28] MEDS ORDERED: Ondansetron ODT 8 MG TAB SL PRN (09:38)
[2024-10-28] MEDS ORDERED: Ondansetron ODT 4 MG TAB SL PRN (10:33)
[2024-10-28] MEDS ORDERED: Heparin 10,000 UNITS/ 10 ML VIAL ONE (10:39)
[2024-10-28] MEDS: Ondansetron ODT 8 MG TAB SL PRN (11:39)
[2024-10-28 14:07] LABS: Phosphorus 2.5 mg/dL (2.5-4.5)
[2024-10-28] MEDS: Amiodarone 450 MG, Admixture Fee 1 EACH in Dextrose 5% in Water 250 ML IVPB SCH (17:12)
[2024-10-29] MEDS: Cefdinir 300 MG CAP PO SCH (01:26)
[2024-10-29 04:57] LABS: #Basophils 0.04 10x3/uL (0.0-0.2); %Basophils 0.5 % (0.0-1.0); %Eosinophils 15.7 % (0.0-10.0); %Lymphocytes 9.4 % (21.0-51.0); %Monocytes 8.9 % (0.0-10.0); %Neutrophils 64.1 % (42.0-75.0); Hematocrit 29.9 % (36.0-47.0); Hemoglobin 9.2 g/dL (12.0-16.0); Mean Corpuscular HGB CONC 30.8 g/dL (32.0-36.0); Mean Corpuscular Hemoglobin 28.8 pg (27.0-31.0); Mean Corpuscular Volume 93.4 fL (78.0-98.0); Mean Platelet Volume 12.3 fL (7.4-10.4); Platelet Count 182 10x3/uL (130-400); RBC Distribution Width 17.5 % (11.5-14.5)
[2024-10-29] MEDS: Guaifenesin DM 100-10/5 ML UDCUP PO PRN (05:08)
[2024-10-29 05:46] LABS: Anion Gap 17 mmol/L (10-20); BUN (Urea Nitrogen) 19 mg/dL (9.8-20.1); Calc. Creatinine Clearance 23 mL/min (70-130); Calcium 8.6 mg/dL (7.8-10.44); Carbon Dioxide 25 mmol/L (23-31); Chloride 99 mmol/L (98-107); Estimated GFR 13; Glucose 103 mg/dL (80-115); Potassium 3.9 mmol/L (3.5-5.1); Sodium 137 mmol/L (136-145)
[2024-10-29] MEDS ORDERED: Mineral Oil ENEMA PR PRN (12:27)
[2024-10-29] MEDS ORDERED: traMADol HCl 50 MG TAB PO PRN ×2 (12:27)
[2024-10-29] MEDS ORDERED: Artificial Tear Ophth Sol 15 ML BOT EA EYE PRN (12:27)
[2024-10-29] MEDS ORDERED: Acetaminophen 325 MG TAB PO PRN (12:27)
[2024-10-29] MEDS ORDERED: diphenhydrAMINE 25 MG CAP PO PRN (12:27)
[2024-10-29] MEDS ORDERED: Dextrose 5% in Water 1,000 ML IV PRN (12:45)
[2024-10-29] MEDS ORDERED: Glucagon 1 MG/ML KIT SC PRN (12:45)
[2024-10-29] MEDS ORDERED: Dextrose 50% Abboject 50 ML SYRINGE SLOW IVP PRN (12:45)
[2024-10-29] MEDS ORDERED: Insulin Regular, Human 100 UNIT/ML 10 ML VIAL SC PRN (12:45)
[2024-10-29] MEDS ORDERED: INSULIN REGULAR IN 0.9 % NACL 100 UNITS in Premix 1 BAG IVPB SCH (12:45)
[2024-10-29] MEDS: Amiodarone 200 MG TAB PO SCH ×2 (12:59→19:55)
[2024-10-29] MEDS: Carvedilol 3.125 MG TAB PO SCH (17:47)
[2024-10-29] MEDS: Famotidine 20 MG TAB PO SCH (19:56)
[2024-10-29] MEDS: Valsartan 80 MG TAB PO SCH (21:22)
[2024-10-30 06:37] LABS: #Basophils 0.06 10x3/uL (0.0-0.2); %Basophils 0.8 % (0.0-1.0); %Eosinophils 20.1 % (0.0-10.0); %Lymphocytes 11.3 % (21.0-51.0); %Monocytes 10.7 % (0.0-10.0); Hematocrit 28.3 % (36.0-47.0); Hemoglobin 8.8 g/dL (12.0-16.0); Mean Corpuscular HGB CONC 31.1 g/dL (32.0-36.0); Mean Corpuscular Hemoglobin 29.4 pg (27.0-31.0); Mean Corpuscular Volume 94.6 fL (78.0-98.0); Mean Platelet Volume 11.6 fL (7.4-10.4); Platelet Count 177 10x3/uL (130-400); RBC Distribution Width 18.1 % (11.5-14.5); Red Blood Cell (RBC) Count 2.99 mill/uL (4.20-5.40)
[2024-10-30 06:58] LABS: Anion Gap 16 mmol/L (10-20); BUN (Urea Nitrogen) 30 mg/dL (9.8-20.1); Calc. Creatinine Clearance 14 mL/min (70-130); Calcium 8.3 mg/dL (7.8-10.44); Carbon Dioxide 27 mmol/L (23-31); Chloride 99 mmol/L (98-107); Estimated GFR 7; Glucose 105 mg/dL (80-115); Potassium 3.8 mmol/L (3.5-5.1); Sodium 138 mmol/L (136-145)
[2024-10-30] MEDS ORDERED: Bisacodyl 10 MG SUPP PR PRN (08:52)
[2024-10-30] MEDS ORDERED: Nitroglycerin 0.4 MG TAB (25 Tab Bottle) SL PRN (08:52)
[2024-10-30] MEDS ORDERED: Insulin Glargine 30 UNITS/0.3 ML VIAL SC PRN (12:40)
[2024-10-30 12:49] VITALS: BMI 30.2
[2024-10-30] MEDS: FLUoxetine HCl 10 MG CAP PO SCH (17:54)
[2024-10-30] MEDS: Bisacodyl 5 MG TAB PO PRN (17:54)
[2024-10-31 04:20] LABS: #Basophils 0.05 10x3/uL (0.0-0.2); %Basophils 0.7 % (0.0-1.0); %Eosinophils 20.1 % (0.0-10.0); %Monocytes 12.5 % (0.0-10.0); Hematocrit 29.9 % (36.0-47.0); Hemoglobin 9.1 g/dL (12.0-16.0); Mean Corpuscular HGB CONC 30.4 g/dL (32.0-36.0); Mean Corpuscular Hemoglobin 29.1 pg (27.0-31.0); Mean Corpuscular Volume 95.5 fL (78.0-98.0); Mean Platelet Volume 11.7 fL (7.4-10.4); Platelet Count 205 10x3/uL (130-400); RBC Distribution Width 18.4 % (11.5-14.5); Red Blood Cell (RBC) Count 3.13 mill/uL (4.20-5.40)
[2024-10-31 04:22] LABS: Anion Gap 18 mmol/L (10-20); BUN (Urea Nitrogen) 40 mg/dL (9.8-20.1); Calc. Creatinine Clearance 12 mL/min (70-130); Calcium 8.1 mg/dL (7.8-10.44); Carbon Dioxide 24 mmol/L (23-31); Chloride 100 mmol/L (98-107); Estimated GFR 6; Glucose 116 mg/dL (80-115); Potassium 3.7 mmol/L (3.5-5.1); Sodium 138 mmol/L (136-145)
[2024-10-31 04:34] LABS: Phosphorus 5.3 mg/dL (2.5-4.5)
[2024-10-31] MEDS ORDERED: Heparin 10,000 UNITS/ 10 ML VIAL ONE (08:35)
[2024-10-31] MEDS: FLUoxetine HCl 10 MG CAP PO SCH (14:55)
[2024-10-31] MEDS: Amiodarone 200 MG TAB PO SCH (21:01)
[2024-11-01 05:03] LABS: #Basophils 0.06 10x3/uL (0.0-0.2); %Basophils 1.1 % (0.0-1.0); %Eosinophils 19.6 % (0.0-10.0); %Lymphocytes 18.5 % (21.0-51.0); %Monocytes 14.1 % (0.0-10.0); %Neutrophils 46.1 % (42.0-75.0); Hematocrit 32.3 % (36.0-47.0); Hemoglobin 10.1 g/dL (12.0-16.0); Mean Corpuscular HGB CONC 31.3 g/dL (32.0-36.0); Mean Corpuscular Hemoglobin 29.3 pg (27.0-31.0); Mean Corpuscular Volume 93.6 fL (78.0-98.0); Mean Platelet Volume 11.9 fL (7.4-10.4); Platelet Count 201 10x3/uL (130-400); RBC Distribution Width 18.9 % (11.5-14.5); Red Blood Cell (RBC) Count 3.45 mill/uL (4.20-5.40)
[2024-11-01 05:41] LABS: Anion Gap 15 mmol/L (10-20); BUN (Urea Nitrogen) 19 mg/dL (9.8-20.1); Calc. Creatinine Clearance 19 mL/min (70-130); Calcium 8.4 mg/dL (7.8-10.44); Carbon Dioxide 25 mmol/L (23-31); Chloride 102 mmol/L (98-107); Estimated GFR 10; Glucose 102 mg/dL (80-115); Potassium 3.8 mmol/L (3.5-5.1); Sodium 138 mmol/L (136-145)
[2024-11-01] MEDS: Mag-Al 1200 mg/1200 mg/30 ML UDCUP PO PRN (06:13)
[2024-11-01 11:54] VITALS: TEMP 97.6
[2024-11-01 14:11] VITALS: BP 122/74
[2024-11-01] MEDS: Ipratropium/Albuterol 3 ML NEB NEB PRN (14:45)
[2024-11-02] MEDS ORDERED: Cefdinir 300 MG CAP PO SCH (20:00)
[2024-11-05] MEDS ORDERED: Ergocalciferol 1.25 MG(50,000 UNITS) CAP PO SCH (09:00)
== END 2024-11-01 17:20 | disposition home or self-care (01) | DRG 233 ==
LOC: OBS 19:35 → INTOOBSV 19:35 → OBSVTOIN 10-09 12:41 → CCU 10-18 07:20 → PCU 10-30 13:50
PROVIDERS: ADMIT Family Medicine; ATTEND Family Medicine
PROC: 4A023N7 Measurement of Cardiac Sampling and Pressure, Left Heart, Percutaneous Approach (ICD-10-PCS; 2024-10-16)
PROC: B2111ZZ Fluoroscopy of Multiple Coronary Arteries using Low Osmolar Contrast (ICD-10-PCS; 2024-10-16)
PROC: 5A1D70Z Performance of Urinary Filtration, Intermittent, Less than 6 Hours Per Day (ICD-10-PCS; 2024-10-17)
PROC: 30233N1 Transfusion of Nonautologous Red Blood Cells into Peripheral Vein, Percutaneous Approach (ICD-10-PCS; principal; 2024-10-18)
PROC: 30233R1 Transfusion of Nonautologous Platelets into Peripheral Vein, Percutaneous Approach (ICD-10-PCS; 2024-10-18)
PROC: 02100Z9 Bypass Coronary Artery, One Artery from Left Internal Mammary, Open Approach (ICD-10-PCS; 2024-10-18)
PROC: 021 Heart and Great Vessels, Bypass (ICD-10-PCS; 2024-10-18)
PROC: 06BP4ZZ Excision of Right Saphenous Vein, Percutaneous Endoscopic Approach (ICD-10-PCS; 2024-10-18)
PROC: 02L73CK Occlusion of Left Atrial Appendage with Extraluminal Device, Percutaneous Approach (ICD-10-PCS; 2024-10-18)
PROC: 5A1221Z Performance of Cardiac Output, Continuous (ICD-10-PCS; 2024-10-18)
PROC: 4A133R1 Monitoring of Arterial Saturation, Peripheral, Percutaneous Approach (ICD-10-PCS; 2024-10-18)
PROC: 30233J1 Transfusion of Nonautologous Serum Albumin into Peripheral Vein, Percutaneous Approach (ICD-10-PCS; 2024-10-18)
PROC: 5A1955Z Respiratory Ventilation, Greater than 96 Consecutive Hours (ICD-10-PCS; 2024-10-18)
PROC: 3E033XZ Introduction of Vasopressor into Peripheral Vein, Percutaneous Approach (ICD-10-PCS; 2024-10-19)
PROC: 5A09357 Assistance with Respiratory Ventilation, Less than 24 Consecutive Hours, Continuous Positive Airway Pressure (ICD-10-PCS; 2024-10-26)
DX: I13.2 Hypertensive heart and chronic kidney disease with heart failure and with stage 5 chronic kidney disease, or end stage renal disease (principal); I21.A1 Myocardial infarction type 2; I50.33 Acute on chronic diastolic (congestive) heart failure; N18.6 End stage renal disease; J96.01 Acute respiratory failure with hypoxia; J15.1 Pneumonia due to Pseudomonas; J96.02 Acute respiratory failure with hypercapnia; I47.10 Supraventricular tachycardia, unspecified; T82.855A Stenosis of coronary artery stent, initial encounter; E87.20 Acidosis, unspecified; E87.70 Fluid overload, unspecified; J44.9 Chronic obstructive pulmonary disease, unspecified; I25.10 Atherosclerotic heart disease of native coronary artery without angina pectoris; E66.9 Obesity, unspecified; E87.5 Hyperkalemia; D72.819 Decreased white blood cell count, unspecified; F41.9 Anxiety disorder, unspecified; F32.A Depression, unspecified; D63.1 Anemia in chronic kidney disease; E88.09 Other disorders of plasma-protein metabolism, not elsewhere classified; I95.9 Hypotension, unspecified; I48.0 Paroxysmal atrial fibrillation; E55.9 Vitamin D deficiency, unspecified; Z99.2 Dependence on renal dialysis; Z91.158 Patient's noncompliance with renal dialysis for other reason; Z88.8 Allergy status to other drugs, medicaments and biological substances; Z90.49 Acquired absence of other specified parts of digestive tract; Z95.5 Presence of coronary angioplasty implant and graft; Z88.5 Allergy status to narcotic agent; Z68.31 Body mass index [BMI] 31.0-31.9, adult; Z86.73 Personal history of transient ischemic attack (TIA), and cerebral infarction without residual deficits; Z98.51 Tubal ligation status; Y71.2 Prosthetic and other implants, materials and accessory cardiovascular devices associated with adverse incidents
CPT/HCPCS: 0241U; 36415; 36416; 36430; 36600; 70450; 71045; 74018; 80048; 80053; 80061; 80069; 80202; 82040; 82306; 82533; 82805; 83036; 83735; 83880; 83970; 84100; 84145; 84443; 84484; 85025; 85610; 85730; 86704; 86706; 86803; 86850; 86900; 86901; 87040; 87070; 87077; 87086; 87186; 87205; 87340; 87428; 87522; 90935; 93005; 93010; 93306; 93458; 93459; 93798; 94002; 94003; 94640; 94660; 96374; 96375; 99152; 99153; A4311; A4648; C1751; C1769; C1776; C1887; C1894; G0257; G0378; J0171; J0282; J0360; J0665; J0692; J1160; J1642; J1643; J1644; J1815; J2003; J2060; J2150; J2250; J2272; J2405; J2440; J2597; J2720; J2919; J3010; J3370; J3475; J3480; J3490; J7030; J7042; J7050; J7070; J7620; J7999; P9016; P9035; P9045; P9047; Q0162; Q5105; Q9967; S0017